=== PATIENT | female | born 1945 | race Caucasian/White ===

== ENCOUNTER 2019-05-29 15:50 | Inpatient (IN) | payer MEDICARE, OTHER, SELFPAY ==
[2019-05-29] VITALS (9 sets, daily range): BP systolic 102–128; BP diastolic 56–77; PULSE 68–108; RESP 21–36; TEMP 36.6; O2SAT 94–100; BMI 24.0
--- NOTE | 2019-05-29 15:52 | ED_ITS ---
Entered by Edwin Landrum, acting as scribe for HPI - SOB/Dyspnea General: Chief Complaint: Shortness of Breath/Dyspnea Stated Complaint: RESPIRATORY DISTRESS Time Seen by Provider: 05/29/19 16:04 History of Present Illness: HPI Narrative: 74 yo female presents with shortness of breath. Pt is able to talk in short phrases. Pt has a cough.Pt states that her shortness of breath started a few days ago. Pt has a hoarse voice. Pt states that she has been using her inhaler and nebulizer, she doesn't feel like this has helped. Pt states that she might have also a fever. MD elicited complaint: shortness of breath and cough Timing: constant Severity: severe Exacerbating factors: lying flat and exertion Relieving factors: nothing Associated symptoms: Reports fever(s); Deny abdominal pain, chest pain, dizziness, extremity pain, nausea, orthopnea, palpitations, polydipsia, polyuria, syncope or vomiting Treatment prior to arrival: oxygen and other (breathing treatments) Review of Systems Const: Reports: fever, chills and fatigue; Denies: body aches, malaise or night sweats Eyes: Denies: change in vision or blurry vision ENMT: Denies: throat pain, oral sores/lesions, dental pain, nasal discharge or nasal congestion Card: Denies: chest pain, palpitations, irregular heart rhythm, edema, syncope, shortness of breath on exertion, shortness of breath when lying down or leg pain with exertion Resp: Reports: shortness of breath, productive cough and wheezing; Denies: non-productive cough GI: Denies: abdominal pain, nausea, vomiting, vomiting blood, coffee grounds in vomit, difficulty swallowing, heartburn/indigestion, diarrhea, constipation, cramping, blood in stool or black tarry stool : Denies: flank pain, painful urination, urinary frequency, urinary urgency, urinary incontinence or blood in urine Musc: Reports: back pain; Denies: neck pain, extremity pain, extremity swelling, joint pain or joint swelling Skin/Breast: Denies: rash, itching or redness Neuro: Denies: headache, numbness in extremities, weakness in extremities, changes in sensation, lack of coordination, difficulty walking, frequent falls, dizziness, vertigo or confusion Endo: Denies: excessive urination, excessive thirst, tired all the time or cold intolerance Yonatan/Lymph: Denies: easy bruising, easy bleeding, petechiae, enlarged lymph nodes or tender lymph nodes PFSH ED PFSH: Statuses (acute, chronic, etc) shown below reflect problem list status as previously entered and may not be historically accurate Medical History Cataract (Acute) COPD (chronic obstructive pulmonary disease) (Acute) Glaucoma (Acute) Hypertension (Acute) On home oxygen therapy (Acute) Surgical History History of appendectomy (Acute) Family History Mother Arrhythmia Father CAD (coronary artery disease) Social History Smoking and tobacco status: former smoker Alcohol intake: never Substance/Drug Use: never Physical Exam Const: COMMON NORMALS: oriented x3 and alert GENERAL APPEARANCE: cooperative and in distress NUTRITIONAL APPEARANCE: cachectic ORIENTA TION/CONSCIOUSNESS: Yes awake, Yes oriented to person and Yes oriented to place HENMT: COMMON NORMALS: normocephalic, head/scalp atraumatic, EAC's normal, TM's normal bilaterally, external nose normal, moist oral mucous membranes and oropharynx normal HEAD & SCALP: normocephalic and atraumatic NOSE: external nose normal EXTERNAL AUDITORY CANAL: EAC's normal TYMPANIC MEMBRANE: TM's normal bilaterally MOUTH: oral and palatal mucosa normal, lip normal and tongue normal THROAT: posterior oropharynx normal and tonsils normal Eye: COMMON NORMALS: PERRL, EOMs intact bilaterally, conjunctivae normal and no scleral icterus CONJUNCTIVA: Yes conjunctivae normal PUPIL: Yes PERRL Neck/C-Spine: COMMON NORMALS: full ROM, no lymphadenopathy, supple, no meningeal signs and thyroid normal THYROID: thyroid normal and asymmetrical Lymph: LYMPHATIC: no lymphadenopathy noted Resp: COMMON NORMALS: no retractions; negative for normal respiratory effort and negative for no use of accessory muscles EFFORT & INSPECTION: No able to speak in complete sentences, Yes tachypneic, Yes respiratory distress, Yes labored and Yes audible wheezes AUSCULTATION: rhonchi throughout, wheezes throughout and diminished lung sounds Cardio: COMMON NORMALS: regular rate and regular rhythm RATE: regular rate RHYTHM: regular rhythm HEART SOUNDS: no murmurs GI: COMMON NORMALS: normal to inspection, nondistended, normoactive bowel sounds, soft to palpation and no hepatosplenomegaly PALPATION: Yes soft and Yes no hepatosplenomegaly : COMMON NORMALS: Yes no CVA tenderness BLADDER/KIDNEY EXAM: Yes no CVA tenderness Back/Pelvis: COMMON NORMALS: no CVA tenderness LUMBAR SPINE/LOWER BACK: Yes normal to inspection Extremity: COMMON NORMALS: no clubbing, cyanosis or edema, no calf tenderness and no pedal edema Neuro: COMMON NORMALS: oriented x3 SENSORIUM/ORIENTATION: Yes alert, Yes oriented to person and Yes oriented to place MENINGEAL SIGNS: Yes no meningeal signs Skin: COMMON NORMALS: no rashes or lesions noted and skin turgor normal GENERAL SKIN EXAM: no rashes or lesions noted and turgor normal Course ED course: Patient is improved slightly with BiPAP. White count 15.9 appears to have faint lower lobe infiltrates. We will go ahead and admit started on IV antibiotics in the emergency room blood cultures sputum cultures obtained discussed with hospitalist they concur. Vital Signs: Vital signs: Vital Signs Temperature 97.5 F L 05/30/19 11:34 Pulse Rate 93 05/30/19 11:34 Respiratory Rate 20 H 05/30/19 11:34 Blood Pressure 106/64 05/30/19 11:34 Pulse Oximetry 95 05/30/19 11:34 MDM - SOB/Dyspnea Lab Data: Labs: Lab Results 05/29/19 05/29/19 05/29/19 Range/Units 15:28 15:28 15:28 WBC 22.9 H (4.0-10.0) 10^3/ uL RBC 3.47 L (4.1-5.3) 10^6/u L Hgb 14.1 (11.5-15.3) g/dL Hct 34.9 L (37.0-47.0) % MCV 100.6 H (81-99) fL MCH 40.6 H (28.0-34.0) pg MCHC 40.4 H (30.0-36.0) g/dL RDW 15.0 (12.1-15.1) % Plt Count 446 H (130-400) 10^3/c mm MPV 9.9 (7.4-10.4) fL Neut % (Auto) 82.8 % Lymph % (Auto) 8.5 % [place] % (Auto) 7.6 % Eos % (Auto) 0.2 % Baso % (Auto) 0.2 % Neut # (Auto) 19.0 H (1.8-7.7) 10^3/u L Lymph # (Auto) 1.9 (0.8-4.8) 10^3/u L [place] # (Auto) 1.7 H (0.2-0.9) 10^3/u L Eos # (Auto) 0.1 (0.0-0.8) 10^3/u L Baso # (Auto) 0.1 (0.0-0.1) 10^3/u L Nucleated RBC % (a uto) 0 % Nucleated RBCs # 0.0 /100WBC D-Dimer (0-0.59) ug/mIFE U Specimen Type Sample Site ABG pH (7.35-7.45) ABG pCO2 (35-45) mmHg ABG pO2 (80.0-100.0) mmH g ABG HCO3 (22-26) mmol/L ABG Base Excess (-2.0-2.0) mmol/ L Sven Test Hematocrit (37-47) % Hgb O2 Saturation (95-100) % Ionized Calcium (1.1-1.4) mmol/L FiO2 % Animal Physiology Teacher ID Sodium 131 L (136-145) mmol/L Potassium 3.2 L (3.5-5.1) mmol/L Chloride 87 L (98-107) mmol/L Carbon Dioxide 23 (22-29) mmol/L Anion Gap 24.2 H (5-19) BUN 21 (8-23) mg/dL Creatinine 1.3 H (0.5-0.9) mg/dL Glucose 133 H (74-106) mg/dL Lactic Acid (0.5-2.2) mmol/L Calcium 10.1 (8.8-10.2) mg/Dl Total Bilirubin 1.2 (0.15-1.2) mg/dL AST 21 (0-32) U/L ALT 11 (0-33) U/L Alkaline Phosphata se 125 H (35-105) IU/L Troponin T Baselin e 33 H (0-10) ng/mL Troponin T 120 Min [place] (0-10) ng/mL Delta Troponin T (0-10) ABS# Total Protein 8.1 (6.6-8.7) g/dL Albumin 4.0 (3.5-5.2) g/dL Globulin 4.1 (1.3-4.6) g/dL Procalcitonin (0-0.8) ng/mL 05/29/19 05/29/19 05/29/19 Range/Units 15:28 16:04 17:25 WBC (4.0-10.0) 10^3/ uL RBC (4.1-5.3) 10^6/u L Hgb (11.5-15.3) g/dL Hct (37.0-47.0) % MCV (81-99) fL MCH (28.0-34.0) pg MCHC (30.0-36.0) g/dL RDW (12.1-15.1) % Plt Count (130-400) 10^3/c mm MPV (7.4-10.4) fL Neut % (Auto) % Lymph % (Auto) % [place] % (Auto) % Eos % (Auto) % Baso % (Auto) % Neut # (Auto) (1.8-7.7) 10^3/u L Lymph # (Auto) (0.8-4.8) 10^3/u L [place] # (Auto) (0.2-0.9) 10^3/u L Eos # (Auto) (0.0-0.8) 10^3/u L Baso # (Auto) (0.0-0.1) 10^3/u L Nucleated RBC % (a uto) % Nucleated RBCs # /100WBC D-Dimer 2.14 H (0-0.59) ug/mIFE U Specimen Type Arterial Sample Site Radial, left ABG pH 7.43 (7.35-7.45) ABG pCO2 36.7 (35-45) mmHg ABG pO2 64.4 L (80.0-100.0) mmH g ABG HCO3 24.2 (22-26) mmol/L ABG Base Excess 0.1 (-2.0-2.0) mmol/ L Sven Test Pos Hematocrit 41.4 (37-47) % Hgb O2 Saturation 91.9 L (95-100) % Ionized Calcium 1.2 (1.1-1.4) mmol/L FiO2 21.0 % Animal Physiology Teacher ID ed Sodium 134.0 (136-145) mmol/L Potassium 3.2 L (3.5-5.1) mmol/L Chloride (98-107) mmol/L Carbon Dioxide (22-29) mmol/L Anion Gap (5-19) BUN (8-23) mg/dL Creatinine (0.5-0.9) mg/dL Glucose 108.0 (74-106) mg/dL Lactic Acid (0.5-2.2) mmol/L Calcium (8.8-10.2) mg/Dl Total Bilirubin (0.15-1.2) mg/dL AST (0-32) U/L ALT (0-33) U/L Alkaline Phosphata se (35-105) IU/L Troponin T Baselin e (0-10) ng/mL Troponin T 120 Min [place] 27.05 H (0-10) ng/mL Delta Troponin T -5.95 L (0-10) ABS# Total Protein (6.6-8.7) g/dL Albumin (3.5-5.2) g/dL Globulin (1.3-4.6) g/dL Procalcitonin (0-0.8) ng/mL 05/29/19 05/29/19 Range/Units 17:25 17:45 WBC (4.0-10.0) 10^3/ uL RBC (4.1-5.3) 10^6/u L Hgb (11.5-15.3) g/dL Hct (37.0-47.0) % MCV (81-99) fL MCH (28.0-34.0) pg MCHC (30.0-36.0) g/dL RDW (12.1-15.1) % Plt Count (130-400) 10^3/c mm MPV (7.4-10.4) fL Neut % (Auto) % Lymph % (Auto) % [place] % (Auto) % Eos % (Auto) % Baso % (Auto) % Neut # (Auto) (1.8-7.7) 10^3/u L Lymph # (Auto) (0.8-4.8) 10^3/u L [place] # (Auto) (0.2-0.9) 10^3/u L Eos # (Auto) (0.0-0.8) 10^3/u L Baso # (Auto) (0.0-0.1) 10^3/u L Nucleated RBC % (a uto) % Nucleated RBCs # /100WBC D-Dimer (0-0.59) ug/mIFE U Specimen Type Sample Site ABG pH (7.35-7.45) ABG pCO2 (35-45) mmHg ABG pO2 (80.0-100.0) mmH g ABG HCO3 (22-26) mmol/L ABG Base Excess (-2.0-2.0) mmol/ L Sven Test Hematocrit (37-47) % Hgb O2 Saturation (95-100) % Ionized Calcium (1.1-1.4) mmol/L FiO2 % Animal Physiology Teacher ID Sodium (136-145) mmol/L Potassium (3.5-5.1) mmol/L Chloride (98-107) mmol/L Carbon Dioxide (22-29) mmol/L Anion Gap (5-19) BUN (8-23) mg/dL Creatinine (0.5-0.9) mg/dL Glucose (74-106) mg/dL Lactic Acid 1.7 (0.5-2.2) mmol/L Calcium (8.8-10.2) mg/Dl Total Bilirubin (0.15-1.2) mg/dL AST (0-32) U/L ALT (0-33) U/L Alkaline Phosphata se (35-105) IU/L Troponin T Baselin e (0-10) ng/mL Troponin T 120 Min [place] (0-10) ng/mL Delta Troponin T (0-10) ABS# Total Protein (6.6-8.7) g/dL Albumin (3.5-5.2) g/dL Globulin (1.3-4.6) g/dL Procalcitonin 0.57 (0-0.8) ng/mL Imaging Data^: CXR: Radiologist's impression: Portable AP upright chest, 05/29/2019 Clinical Data: dyspnea Comparison: Portable chest, 10/24/2017. Findings: No nodules, masses or effusions are seen. The heart is normal. The pulmonary vascularity is not increased. No pneumonia or pneumothorax is seen. The diaphragms are flattened. The aortic arch and descending aorta show mild tortuosity. There is minimal atelectasis at the right costophrenic angle. There are monitor leads on the upper abdominal wall. XR/XR chest 1V portable [id number] Impression: 1. Hyperinflation and atherosclerosis. 2. Minimal atelectasis at right costophrenic angle. Dictated By:Janeth Henriquez MD Discharge Plan Discharge Patient Disposition: Admitted As Inpatient Admit Provider: Esau Stockton Clinical Impression: COPD (chronic obstructive pulmonary disease), Community acquired pneumonia Condition: Stable Interventions: ED Discharge Assessment Last Done: 05/29/19 22:49 Discharge Date/Time: 05/29/19 23:17 Coding Level of Care Code ED Muleser for Chg Fwd Exam Problem Focused The documentation recorded by the Diallo whelan Kialy, accurately reflects the service I personally performed and the decisions made by Elver singletary Curtis L, DO May 29, 2019 15:50
--- NOTE | 2019-05-29 16:06 | ECG_ITS ---
Measurements Intervals [place] Rate: 103 P: 79 [place]: 144 QRS: 44 QRSD: 120 T: 95 QT: 346 QTc: 455 SINUS TACHYCARDIA POSSIBLE RIGHT ATRIAL ENLARGEMENT [0.25mV P WAVE] MODERATE INTRAVENTRICULAR CONDUCTION DELAY [110+ ms QRS DURATION] ST DEVIATION AND MODERATE T-WAVE ABNORMALITY, CONSIDER LATERAL ISCHEMIA [-0.1+ mV T WAVE IN I/aVL/V5/V6] Compared to ECG 10/24/2017 23:25:19 Possible ischemia now present Sinus rhythm no longer present T-wave abnormality still present Electronically Signed On 05-29-2019 17:49:32 PORTFOLIO STRATEGIST by Padmini Moffett M.D. [id number]
[2019-05-29] MEDS: sodium chloride 0.9% 500 ML 999 ML IV (16:13)
[2019-05-29 16:15] LABS: ABG PCO2 36.7 mmHg (35-45); ABG PH Result 7.43 (7.35-7.45); Arterial Blood Gas Hematocrit 41.4 % (37-47); Base Excess ABG 0.1 mmol/L (-2.0-2.0); Blood Gas Allen Test Pos; Blood Gas Sample Site Radial, left; Blood Gas Sample Type Arterial; HCO3 ABG 24.2 mmol/L (22-26); HGB O2 Sat 91.9 % (95-100); Ionized Calcium Level - ABG 1.2 mmol/L (1.1-1.4); PO2 ABG 64.4 mmHg (80.0-100.0); Potassium Level - ABG 3.2 mmol/L (3.5-5.0)
--- NOTE | 2019-05-29 16:19 | PC.RESP ---
bipap ID [id number]
[2019-05-29 16:22] LABS: Basophils # 0.1 10^3/uL (0.0-0.1); Basophils % 0.2 %; Eosinophils # 0.1 10^3/uL (0.0-0.8); Eosinophils % 0.2 %; Hematocrit 34.9 % (37.0-47.0); Hemoglobin 14.1 g/dL (11.5-15.3); Lymphocytes # 1.9 10^3/uL (0.8-4.8); Lymphocytes % 8.5 %; Mean Corpuscular HGB Conc 40.4 g/dL (30.0-36.0); Mean Corpuscular Hemoglobin 40.6 pg (28.0-34.0); Mean Corpuscular Volume 100.6 fL (81-99); Mean Platelet Volume 9.9 fL (7.4-10.4); Monocytes # 1.7 10^3/uL (0.2-0.9); Monocytes % 7.6 %; Neutrophils % 82.8 %; Nucleated Red Blood Cells % 0 %; Platelet Count 446 10^3/cmm (130-400); Red Blood Count 3.47 10^6/uL (4.1-5.3); White Blood Count 22.9 10^3/uL (4.0-10.0)
[2019-05-29 16:33] LABS: Alanine Aminotransferase 11 U/L (0-33); Alkaline Phosphatase 125 IU/L (35-105); Anion Gap 24.2 (5-19); Aspartate Amino Transferase 21 U/L (0-32); Blood Urea Nitrogen 21 mg/dL (8-23); Calcium 10.1 mg/Dl (8.8-10.2); Carbon Dioxide 23 mmol/L (22-29); Chloride 87 mmol/L (98-107); Globulin 4.1 g/dL (1.3-4.6); Glucose 133 mg/dL (74-106); Potassium 3.2 mmol/L (3.5-5.1); Sodium 131 mmol/L (136-145); Total Bilirubin 1.2 mg/dL (0.15-1.2); Total Protein 8.1 g/dL (6.6-8.7); Troponin(5th) Baseline 33 ng/mL (0-10)
--- NOTE | 2019-05-29 17:06 | XR_ITS ---
WS: [id number] Portable AP upright chest, 05/29/2019 Clinical Data: dyspnea Comparison: Portable chest, 10/24/2017. Findings: No nodules, masses or effusions are seen. The heart is normal. The pulmonary vascularity is not increased. No pneumonia or pneumothorax is seen. The diaphragms are flattened. The aortic arch a nd descending aorta show mild tortuosity. There is minimal atelectasis at the right costophrenic angl e. There are monitor leads on the upper abdominal wall. XR/XR chest 1V portable [id number] Impression: 1. Hyperinflation and atherosclerosis. 2. Minimal atelectasis at right costophrenic angle.
[2019-05-29 17:52] LABS: Troponin 5 2HR 27.05 ng/mL (0-10)
[2019-05-29 17:55] LABS: Troponin 5 2HR Delta -5.95 ABS# (0-10)
--- NOTE | 2019-05-29 18:06 | ECG_ITS ---
Measurements Intervals [place] Rate: 97 P: 83 [place]: 177 QRS: 50 QRSD: 120 T: 103 QT: 357 QTc: 454 SINUS RHYTHM ANTEROSEPTAL MYOCARDIAL INFARCTION , OF INDETERMINATE AGE [40+ ms Q WAVE IN V1-V4] Compared to ECG 05/29/2019 16:23:27 Myocardial infarct finding now present Sinus tachycardia no longer present Intraventricular conduction delay no longer present T-wave abnormality no longer present Possible ischemia no longer present Electronically Signed On 05-29-2019 20:45:30 DOUGH PUNCHER by Padmini Moffett M.D. [id number]
[2019-05-29 18:13] LABS: Lactic Sepsis W/Reflex 1.7 mmol/L (0.5-2.2)
[2019-05-29] MEDS: cefTRIAXone 1,000 MG in sodium chloride 0.9% (plus) 50 ML 100 MG IV (18:28)
[2019-05-29] MEDS: sodium chloride 0.9% 1,905.09 ML 1905.1 ML IV (18:30)
--- NOTE | 2019-05-29 18:38 | PC.RESP ---
BIPAP ON STAND BY. 5 LPM NC PLACED ON PT SATS 98%, HR 94. DR NOTIFIED
--- NOTE | 2019-05-29 20:48 | CTR_ITS ---
PROCEDURE INFORMATION: Exam: CT Chest Without Contrast Exam date and time: 05/29/2019 9:06 PM Age: 74 years old Clinical indication: Dyspnea; Additional info: Copd/pna TECHNIQUE: Imaging protocol: Computed tomography of the chest without contrast. Total DLP: 360.01 mGy-cm Radiation optimization: All CT scans at this facility use at least one of these dose optimization techniques: automated exposure control; mA and/or kV adjustment per patient size (includes targeted exams where dose is matched to clinical indication); or iterative reconstruction. COMPARISON: CT chest con [id number] 04/29/2015 2:20 PM FINDINGS: Lungs: Emphysema. Lower lobe bronchi are newly dilated and relatively thick-walled suspected to relate to infectious/inflammatory change. Associated tree-in-bud type infiltrates are noted suggesting infectious/inflammatory changes of distal bronchi. Ill-defined parenchymal opacities bilaterally may relate to infiltrates/atelectasis but nodularity would be difficult to exclude in this setting and short term CT follow-up in 3-4 months would be recommended. Calcified granuloma right lung. Pleural space: Unremarkable. No pneumothorax. No pleural effusion. Heart: Unremarkable. No cardiomegaly. No pericardial effusion. Aorta: Unremarkable. No aortic aneurysm. Lymph nodes: Calcified mediastinal and right pulmonary hilar lymph nodes. Borderline prominent right paraesophageal lymph node at thoracic inlet has slightly increased. Bones/joints: Unremarkable. No acute fracture. 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 CT/CT chest con [id number] IMPRESSION: Bilateral infectious/inflammatory changes involving bronchi. Background of emphysema noted. CT follow-up in 3-4 months recommended to exclude progression/increase in pulmonary parenchymal abnormalities. Radiation Dose CTDIVOL = (mGy): DLP = 360.01 (mGy-cm)
[2019-05-29 21:52] LABS: D Dimer 2.14 ug/mIFEU (0-0.59)
--- NOTE | 2019-05-29 22:06 | ECG_ITS ---
Measurements Intervals [place] Rate: 89 P: 78 [place]: 177 QRS: 47 QRSD: 120 T: 81 QT: 377 QTc: 460 SINUS RHYTHM ANTEROSEPTAL MYOCARDIAL INFARCTION , OF INDETERMINATE AGE [40+ ms Q WAVE IN V1-V4] Compared to ECG 05/29/2019 18:14:06 No significant changes Electronically Signed On 05-30-2019 19:22:48 FRONT DESK PERSON by Cynthia Rojas M.D. [id number]
--- NOTE | 2019-05-29 22:14 | PM.HP ---
Providers/Chief Complaint Admitting Physician: Esau Stockton MD Primary Care Provider: Misty Villaseñor MD Chief Complaint: RESPIRATORY DISTRESS History of Present Illness Melany Phan is a 74 year old female with PMH HTN, COPD on home 02 as needed (sp02 <90%), only on exertion outside the house presenting with worsening SOB over past one week. Associated with mild cough and expectoration. At present, SOB for last 2 days gets exacerbated on mild walking and talking. Sputum production non foul smelling, mucoid. She is also c/o hoarseness and change in voice x 2 days where she finds it difficult to speak. She denies any recent sick contacts. At baseline, she is able to walk with walker. In Er she was hypoxic to low 80s, not improving on 02, therefore started on Bipap. CXR was read as B/L LL PNA< therefore started on CTX and axithromycin along high dose steroids for COPD excerbation. When seen pt was on bedside commode, off bipap, on 4lpm NC severely tachypneic, but able to talk in full sentences. Review of Systems Const: Reports: fever and change in appetite; Denies: chills, body aches, malaise, night sweats, diaphoresis, change in sleep pattern, daytime sleepiness or snoring Eyes: Denies: change in vision, blurry vision, photophobia, eye discomfort or eye discharge ENMT: Reports: throat pain, hoarseness and mouth pain; Denies: enlarged tonsils, oral sores/lesions, dry mouth, tinnitus, nasal congestion or post nasal drip Card: Reports: palpitations; Denies: chest pain, irregular heart rhythm, edema, swelling of feet/ankles, lightheadedness, syncope, pre-syncope, shortness of breath on exertion, shortness of breath when lying down, leg pain with exertion or bluish discoloration of hands/feet Resp: Reports: shortness of breath, productive cough, pain on inspiration and change in phlegm color; Denies: non-productive cough, wheezing, stridor, coughing up blood or chest congestion GI: Denies: abdominal pain, nausea, vomiting, vomiting blood, coffee grounds in vomit, difficulty swallowing, heartburn/indigestion, diarrhea, constipation, bloating, cramping, change in bowel habits, painful bowel movements, blood in stool or black tarry stool : Denies: flank pain, painful urination, urinary frequency, urinary urgency, urinary hesitancy, nighttime urination or blood in urine Musc: Denies: neck pain, back pain, extremity pain, joint pain, joint swelling, redness, joint stiffness or limited range of motion Neuro: Denies: headache, numbness in extremities, weakness in extremities, changes in sensation, lack of coordination, difficulty walking, frequent falls, dizziness, vertigo, confusion, slurred speech, difficulty communicating thoughts or seizure-like activity Psych: Denies: anxiety, depression, mood swings, panic attacks, hopelessness or irritability Endo: Denies: excessive urination, excessive thirst, tired all the time, cold intolerance, excessive sweating, flushing or heat intolerance Yonatan/Lymph: Denies: easy bruising or easy bleeding All/Imm: Denies: tongue swelling, facial swelling or acute wheezing Medications/Allergies Allergies Allergy/AdvReac Type Severity Reaction Status Date / Time codeine Allergy Unknown Verified 05/29/19 16:03 Penicillins Allergy Unknown Verified 05/29/19 15:59 Sulfa (Sulfonamide Allergy Unknown Verified 05/29/19 15:59 Antibiotics) PFSH Acute PFSH: Statuses (acute, chronic, etc) shown below reflect problem list status as previously entered and may not be historically accurate Medical History Cataract (Acute) COPD (chronic obstructive pulmonary disease) (Acute) Glaucoma (Acute) Hypertension (Acute) On home oxygen therapy (Acute) Surgical History History of appendectomy (Acute) Family History Mother Arrhythmia Father CAD (coronary artery disease) Social History Smoking and tobacco status: former smoker Alcohol intake: never Substance/Drug Use: never Vitals/I&O/Wt Last Vital Signs Temp 97.8 F 05/29/19 15:52 Pulse 90 05/29/19 21:08 Resp 25 H 05/29/19 21:08 BP 126/75 05/29/19 21:08 Pulse Ox 100 05/29/19 21:08 05/29/19 05/29/19 05/29/19 06:59 14:59 22:59 Intake Total 2455.09 / 2455.09 Balance 2455.09 / 2455.09 Weight last 48 hrs Weight 63.503 kg Physical Exam Narrative: EXAM NARRATIVE: General: No acute distress, AO x3, dehydrated HEENT: PERRLA, pupils bilaterally equal and reactive, oral cavity dry, parched, Oropharynx: erythema present,No bleeding or coating Chest: Bronchial breath sounds in all lung scott, Increased rales and coarse crepts b/l lower zones,equal good air entry bilaterally CVS: S1-S2 regular, no murmurs, no tachycardia, no gallops, no rubs Abdomen: Soft, nontender, no organomegaly, bowel sounds present Neuro: No focal deficits, no facial deformity, AO x3, power 5/5 in all limbs Data Micro: Micro: Microbiology 05/29/19 16:16 Blood Culture - Pr eliminary Blood SPECIMEN COLLEC KAITY 05/29/19 16:12 Blood Culture - Pr eliminary Blood SPECIMEN COLLE KAITY Other Data: Attestation for Other Data: I personally reviewed and interpreted the following: Other data: NO infiltrates to suggest pneumonia A&P Assessment and plan (1) Acute exacerbation of chronic obstructive pulmonary disease (COPD): Status: Acute Code(s): J44.1 - Chronic obstructive pulmonary disease with (acute) exacerbation (2) Sepsis with acute hypoxic respiratory failure: Status: Acute Qualifiers: Sepsis type: sepsis due to unspecified organism Severe sepsis shock status: without septic shock Qualified Code(s): A41.9 - Sepsis, unspecified organism; R65.20 - Severe sepsis without septic shock; J96.01 - Acute respiratory failure with hypoxia Code(s): A41.9 - Sepsis, unspecified organism; R65.20 - Severe sepsis without septic shock; J96.01 - Acute respiratory failure with hypoxia (3) Hypertension: Status: Acute Code(s): I10 - Essential (primary) hypertension (4) RUPAL (acute kidney injury): Status: Acute Code(s): N17.9 - Acute kidney failure, unspecified Additional A&P Information Additional A&P Information: Acute hypoxic resp failure: Most likely 2/2 COPD exacerbation due to viral vs bacterial bronchitis, though pneumonia cannot be ruled out in view of leukocytosis. Check gram stain, flu swab, MRSA swab, procal, d dimer, bacterial antigen panel . Last d dimer in 2017 >5000. Given stress dose steroid in ER. continue with 60 q6h round the clock duonebs + budesonide BID continuous Bipap titrating to 02 sat >90% Flonase to ease bronchitis Sepsis: Meets criteria with leukocytosis and tachypnea. Start CTX and azithromycin UA, urine cx to r/o other etiologies CT without contrast now, to be followed with CTA PE if cr improves, else V/Q scan. LE doppler RUPAL: Baseline cr 1.1, elevated 2/2 sepsis. Will hold home dose of HCTZ. IVF @100cc/hr, monitor BMP daily HTN: continue atenolol at lower dose to avoid rebound tachycardia. Discussed code status with patient- wants to be FC for now, but wants to discuss again at a later date re: intubation Attestations Medical Necessity Statement*: needs admission for more than 2 midnights for acute hypoxic resp failure Coding Level of Care Code Acute Associate Trainer for [facility] Fwd Diagnoses Acute exacerbation of chronic obstructive pulmonary disease (COPD) J44.1 Sepsis with acute hypoxic respiratory failure A41.9; R65.20; J96.01 Sepsis type: sepsis due to unspecified organism Severe sepsis shock status: without septic shock Hypertension I10 RUPAL (acute kidney injury) N17.9
[2019-05-29 22:55] LABS: Troponin 5 6HR 23.66 ng/L (0-10)
[2019-05-29 23:11] LABS: Troponin 5 6HR Delta -9.34 ng/L (0-12)
[2019-05-30] VITALS (14 sets, daily range): BP systolic 95–116; BP diastolic 55–69; PULSE 80–98; RESP 16–22; TEMP 36.4–36.7; O2SAT 95–100
[2019-05-30] MEDS: ipratropium-albuterol 3 mL Neb INHALATION ×4 (00:29→19:46)
--- NOTE | 2019-05-30 00:31 | PC.RESP ---
pt is on 3 lpm nasal cannula with a spo2 of 98%/pt stated she needed a break from bipap/bipap on standby
[2019-05-30] MEDS: sodium chloride 0.9% 1,000 ML 100 ML IV ×3 (01:08→17:48)
[2019-05-30] MEDS: enoxaparin 40 mg/0.4 mL Syringe SUBCUT (01:09)
--- NOTE | 2019-05-30 03:15 | PC.RESP ---
pt is on 3 lpm with a spo2 of 99%/decreased to 2 lpm/pt seems to be resting comfortable at this time/bipap on standby
[2019-05-30] MEDS: budesonide 0.5 mg/2 mL Neb INHALATION ×2 (08:31→19:47)
[2019-05-30 08:46] LABS: Procalcitonin 0.57 ng/mL (0-0.8)
[2019-05-30 11:25] LABS: Alanine Aminotransferase 12 U/L (0-33); Albumin Level 3.2 g/dL (3.5-5.2); Alkaline Phosphatase 99 IU/L (35-105); Aspartate Amino Transferase 33 U/L (0-32); Blood Urea Nitrogen 26 mg/dL (8-23); Calcium 9.1 mg/Dl (8.8-10.2); Carbon Dioxide 24 mmol/L (22-29); Chloride 93 mmol/L (98-107); Globulin 3.5 g/dL (1.3-4.6); Glucose 117 mg/dL (74-106); Sodium 132 mmol/L (136-145); Total Bilirubin 0.3 mg/dL (0.15-1.2); Total Protein 6.7 g/dL (6.6-8.7)
[2019-05-30 11:27] LABS: Basophils % 0.1 %; Hematocrit 30.3 % (37.0-47.0); Hemoglobin 11.2 g/dL (11.5-15.3); Lymphocytes # 0.9 10^3/uL (0.8-4.8); Lymphocytes % 5.8 %; Mean Corpuscular Hemoglobin 35.2 pg (28.0-34.0); Mean Corpuscular Volume 95.3 fL (81-99); Mean Platelet Volume 9.4 fL (7.4-10.4); Monocytes # 0.4 10^3/uL (0.2-0.9); Monocytes % 2.6 %; Neutrophils # 14.5 10^3/uL (1.8-7.7); Neutrophils % 91.1 %; Nucleated Red Blood Cells % 0 %; Platelet Count 393 10^3/cmm (130-400); Red Blood Count 3.18 10^6/uL (4.1-5.3); Red Cell Distribution Width 14.1 % (12.1-15.1); White Blood Count 15.9 10^3/uL (4.0-10.0)
--- NOTE | 2019-05-30 15:00 | PC.RESP ---
BIPAP ID [id number] on standby at bedside.
[2019-05-30] MEDS: azithromycin 500 MG in sodium chloride 0.9% 250 ML 250 MG IV (17:48)
[2019-05-30] MEDS: cefTRIAXone 1,000 MG in sodium chloride 0.9% (plus) 50 ML 100 MG IV (17:48)
--- NOTE | 2019-05-30 18:20 | P.PN_ITS ---
Subjective Subjective: Interval history: Leukocytosis improving to 15.9 today. Patient continues to be severely dyspneic even at rest. VQ scan was indeterminate for PE. Lower extremity Doppler was negative for DVT. Patient is currently afebrile. Medications: Reviewed: Yes Vitals/I&O/Wt Last Vital Signs Temp 98.1 F 05/30/19 15:59 Pulse 88 05/30/19 15:59 Resp 18 05/30/19 15:59 BP 116/57 05/30/19 15:59 Pulse Ox 98 05/30/19 15:59 05/30/19 05/30/19 05/30/19 06:59 14:59 22:59 Intake Total 1206.667 / 1206.667 910 / 2116.667 Balance 1206.667 / 1206.667 910 / 2116.667 Weight last 48 hrs Weight 63.503 kg Physical Exam Narrative: EXAM NARRATIVE: General awake and alert walking to the bathroom, noted to be severely tachypneic however she states that this is pretty much baseline Respiratory system bilateral coarse wheezing CVS S1-S2 is normal No lower extremity cyanosis or clubbing or edema Data Micro: Micro: Microbiology 05/29/19 16:16 Blood Culture - Pr eliminary Blood NEGATIVE TO SAL E 05/29/19 16:12 Blood Culture - Pr eliminary Blood NEGATIVE TO SAL E 05/30/19 00:55 MRSA Culture - Fin al Nose A&P Assessment and plan (1) Acute exacerbation of chronic obstructive pulmonary disease (COPD): Status: Acute Code(s): J44.1 - Chronic obstructive pulmonary disease with (acute) exacerbation (2) Sepsis with acute hypoxic respiratory failure: Status: Acute Qualifiers: Sepsis type: sepsis due to unspecified organism Severe sepsis shock status: without septic shock Qualified Code(s): A41.9 - Sepsis, unspecified organism; R65.20 - Severe sepsis without septic shock; J96.01 - Acute respiratory failure with hypoxia Code(s): A41.9 - Sepsis, unspecified organism; R65.20 - Severe sepsis without septic shock; J96.01 - Acute respiratory failure with hypoxia (3) Hypertension: Status: Acute Code(s): I10 - Essential (primary) hypertension (4) RUPAL (acute kidney injury): Status: Acute Code(s): N17.9 - Acute kidney failure, unspecified Additional A&P Information Additional A&P Information: Acute hypoxic resp failure: Most likely 2/2 COPD exacerbation due to viral vs bacterial bronchitis, though pneumonia cannot be ruled out in view of leukocytosis. Will follow pending Gram stain, flu swab, MRSA swab, procal, d dimer, bacterial antigen panel . Last d dimer in 2017 >5000. Given stress dose steroid in ER. continue with 60 q6h round the clock duonebs + budesonide BID continuous Bipap titrating to 02 sat >90% Flonase to ease bronchitis Sepsis: Meets criteria with leukocytosis and tachypnea. Continue CTX and azithromycin UA, urine cx to r/o other etiologies CT without contrast now, to be followed with CTA PE if cr improves VQ scan unfortunately indeterminate in view of severe emphysema lower extremity Doppler negative RUPAL: Baseline cr 1.1, elevated 2/2 sepsis. Will hold home dose of HCTZ. IVF @100cc/hr, monitor BMP daily HTN: continue atenolol at lower dose to avoid rebound tachycardia. Discussed code status with patient- wants to be FC for now, but wants to discuss again at a later date re: intubation Attestations Medical Necessity Statement*: Admitted for the management of pneumonia and acute on chronic COPD exacerbation, awaiting optimization of respiratory status. Coding Level of Care Code Acute 411 Directory Assistance Operator for Aaliyah Harper Diagnoses Acute exacerbation of chronic obstructive pulmonary disease (COPD) J44.1 Sepsis with acute hypoxic respiratory failure A41.9; R65.20; J96.01 Sepsis type: sepsis due to unspecified organism Severe sepsis shock status: without septic shock Hypertension I10 RUPAL (acute kidney injury) N17.9
--- NOTE | 2019-05-30 20:00 | PC.RESP ---
pt does not want to wear bipap unless she is in distress/bipap on standby/encouraged pt to call if needed
[2019-05-30 23:19] LABS: Influenza A by IFA Negative (Negative); Influenza B by IFA Negative (Negative)
--- NOTE | 2019-05-30 23:51 | NM_ITS ---
WS: [id number] NUCLEAR MEDICINE VENTILATION/PERFUSION LUNG SCAN HISTORY: Rule out pulmonary embolism. COMPARISON: Chest radiograph 05/29/2019 TECHNIQUE: Ventilation: 31.5 mCi of Technetium 99 DTPA aerosol inhaled. Perfusion: 5.3 mCi of technetium 99m MAA IV. Markedly abnormal ventilatory portion of the examination. Numerous scattered radionuclide depositions throughout both lungs, greatest throughout the LEFT lung. More central deposition involving the RIGH T lung. Perfusion portion is much better but still demonstrates central deposition and heterogeneity. Numerous matched defects. Majority of these findings are due to patient's chronic lung disease such as emphysema. NM/NM pul vent and perfus* [id number] IMPRESSION: Indeterminate for PE. Study is made indeterminate due to the severe emphysema w ith deposition of the radionuclide centrally.
--- NOTE | 2019-05-30 23:51 | USCV_ITS ---
Melany Phan Age: 74 Gender: F : 1945 Exam Date: 05/30/2019 06:08 Ordering Phys: Esau Stockton MD Technologist: Kristian Aggarwal Exam Location: [facility] [place]_ Indication: R/O DVT PROCEDURES: Venous duplex imaging was performed in bilateral lower extremities. The following venous structures were evaluated: common femoral vein, profunda vein, proximal portion of the greater saphenous vein, superficial femoral vein, and the popliteal vein. In addition, the posterior tibial and peroneal trunk were evaluated. Serial compression, augmentation maneuvers, and spectral Doppler flow evaluation were performed. FINDINGS: Normal 2-D Doppler and augmentation and compressibility throughout the lower extremity venous structures. Additional imaging through the proximal calf veins also reveals no thrombus. Limited evaluation of the greater saphenous vein is patent with no thrombus.. CONCLUSIONS Negative bilateral venous ultrasound of the lower extremities. Dr. Janeth Henriquez MD (Electronically Signed) Final Date: 30 May 2019 09:03 S
[2019-05-31] VITALS (13 sets, daily range): BP systolic 106–120; BP diastolic 55–65; PULSE 72–97; RESP 18–20; TEMP 36.4–36.9; O2SAT 93–100
[2019-05-31] MEDS: enoxaparin 40 mg/0.4 mL Syringe SUBCUT (00:17)
[2019-05-31] MEDS: ipratropium-albuterol 3 mL Neb INHALATION ×3 (01:28→20:44)
[2019-05-31] MEDS: sodium chloride 0.9% 1,000 ML 100 ML IV (06:21)
[2019-05-31 09:34] LABS: Oxygen Device ROOM AIR; Oxygen Saturation ABG 92.8
[2019-05-31 09:35] LABS: Carboxyhemoglobin 0.7 %THgb (0.4-20.1); Methemoglobin 0.3 % (0.4-1.5); Total Hemoglobin 13.5 g/dL (12-16)
--- NOTE | 2019-05-31 13:32 | PC.RESP ---
Patient given information for Pulmonary Rehab.
[2019-05-31 13:50] LABS: Alanine Aminotransferase 18 U/L (0-33); Albumin Level 2.8 g/dL (3.5-5.2); Alkaline Phosphatase 100 IU/L (35-105); Anion Gap 13.8 (5-19); Aspartate Amino Transferase 33 U/L (0-32); Blood Urea Nitrogen 17 mg/dL (8-23); Carbon Dioxide 23 mmol/L (22-29); Chloride 100 mmol/L (98-107); Globulin 3.3 g/dL (1.3-4.6); Glucose 212 mg/dL (74-106); Sodium 134 mmol/L (136-145); Total Bilirubin 0.2 mg/dL (0.15-1.2); Total Protein 6.1 g/dL (6.6-8.7)
[2019-05-31] MEDS: guaiFENesin 100 mg/5 mL UDC 10 mL 200 MG PO (13:52)
[2019-05-31 13:58] LABS: Potassium 2.8 mmol/L (3.5-5.1)
--- NOTE | 2019-05-31 14:37 | PC.CHAP ---
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 geographic information system surveyor visit [] Patient/Family/Request visit [] Outpatient visit [] Follow-up visit [] Physician referral [] Code/Alert x] Routine visit [] Staff referral [] Actively dying [] Patient sleeping [] Family support [] [] Out of room [] Palliative care [] [] Receiving care in room [] Pre-surgical visit [] Trauma [] Long length of stay [] ICU visit [] Other: Relational/Emotional Strength [] Patient feels connected with others/family/visitors/staff [] Distress [] Loneliness/isolation [] Abandonment Spirituality of Patient [] Person of Navya [] Attends Shinto of their Navya [] Believes in Prayer [] Reads Bible or Christian materials [] There are Spiritual issues to be addressed Floor Sweeper Interventions [] Prayer [] Active listening [] Non-anxious presence [] Spiritual/emotional support [] Crisis/trauma care [] Spiritual counseling [] Bereavement support [] Provided bereavement packet [] Provided Bible/devotional materials [] Provided toy/stuffed animal, coloring book to patient or family member [] Completed spiritual assessment [] Provided Communion [] Anointing/[place] [] Salvation [] Other: Impact on Illness or Injury [] Angry [] Fearful [] Anxious [] Often cries [] Exhaustion [] Unable to work [] Unable to attend oriental orthodox [] Unable to walk/stand [] Unable to read [] Unable to drive [] Unable to eat/drink [] Unable to sleep [] Unable to be with family [] Other: Summary declined pray no mood for visit olga jeffries Time spent with patient
[2019-05-31 15:28] LABS: Basophils % 0.2 %; Hematocrit 31.3 % (37.0-47.0); Hemoglobin 10.3 g/dL (11.5-15.3); Lymphocytes # 0.7 10^3/uL (0.8-4.8); Lymphocytes % 3.7 %; Mean Corpuscular Hemoglobin 31.3 pg (28.0-34.0); Mean Corpuscular Volume 95.1 fL (81-99); Mean Platelet Volume 10.9 fL (7.4-10.4); Monocytes # 0.5 10^3/uL (0.2-0.9); Monocytes % 2.7 %; Neutrophils # 18.5 10^3/uL (1.8-7.7); Neutrophils % 92.8 %; Nucleated Red Blood Cells % 0 %; Platelet Count 233 10^3/cmm (130-400); Red Blood Count 3.29 10^6/uL (4.1-5.3); Red Cell Distribution Width 13.2 % (12.1-15.1); White Blood Count 19.9 10^3/uL (4.0-10.0)
[2019-05-31 15:30] LABS: Mean Corpuscular HGB Conc 32.9 g/dL (30.0-36.0)
[2019-05-31] MEDS: cefTRIAXone 1,000 MG in sodium chloride 0.9% (plus) 50 ML 100 MG IV (16:58)
--- NOTE | 2019-05-31 17:40 | P.PN_ITS ---
Subjective Subjective: Interval history: Leukocytosis improving to 19 .9 today. Patient continues to be dyspneic however improved since yesterday. She feels she is still not back at her baseline. Renal function is now improving we will attempt to get a CTA chest to look for PE. Lower extremity Doppler was negative for DVT. Patient is currently afebrile. Hemodynamically stable. Medications: Reviewed: Yes Vitals/I&O/Wt Last Vital Signs Temp 98.1 F 05/31/19 15:36 Pulse 86 05/31/19 15:36 Resp 18 05/31/19 15:36 BP 109/55 05/31/19 15:36 Pulse Ox 96 05/31/19 15:36 05/31/19 05/31/19 05/31/19 06:59 14:59 22:59 Intake Total 696.666 / 3446.667 480 / 480 1000 / 1480 Balance 696.666 / 3046.667 480 / 480 1000 / 1480 Weight last 48 hrs Weight 59.421 kg Weight 58.287 kg Physical Exam Narrative: EXAM NARRATIVE: General awake and alert sitting in bed eating lunch in no acute distress Respiratory system clear to auscultation anteriorly. Reduced air entry bilaterally posterior surgery CVS S1-S2 is normal No lower extremity cyanosis or clubbing or edema Abdomen soft nontender nondistended Data 2 Micro: Micro: Microbiology 05/29/19 16:16 Blood Culture - Pr eliminary Blood NEGATIVE TO ASL E 05/29/19 16:12 Blood Culture - Pr eliminary Blood NEGATIVE TO SAL E 05/30/19 00:55 MRSA Culture - Fin al Nose A&P Assessment and plan (1) Acute exacerbation of chronic obstructive pulmonary disease (COPD): Status: Acute Code(s): J44.1 - Chronic obstructive pulmonary disease with (acute) exacerbation (2) Sepsis with acute hypoxic respiratory failure: Status: Acute Qualifiers: Sepsis type: sepsis due to unspecified organism Severe sepsis shock status: without septic shock Qualified Code(s): A41.9 - Sepsis, unspecified organism; R65.20 - Severe sepsis without septic shock; J96.01 - Acute respirat ory failure with hypoxia Code(s): A41.9 - Sepsis, unspecified organism; R65.20 - Severe sepsis without septic shock; J96.01 - Acute respiratory failure with hypoxia (3) Hypertension: Status: Acute Code(s): I10 - Essential (primary) hypertension (4) RUPAL (acute kidney injury): Status: Acute Code(s): N17.9 - Acute kidney failure, unspecified Additional A&P Information Additional A&P Information: Acute hypoxic resp failure: Most likely 2/2 COPD exacerbation due to viral vs bacterial bronchitis, no gross infiltrate on CT chest to suggest pneumonia. Negative flu swab, negative MRSA PCR negative pro-Chuckie Given stress dose steroid in ER. Start tapering to 60 every 8 hours round the clock duonebs + budesonide BID Intermittent Bipap titrating to 02 sat >90% Flonase to ease bronchitis Will proceed with CTA PE now that RUPAL has resolved. Sepsis: Meets criteria with leukocytosis and tachypnea. Continue CTX and azithromycin CT without contrast now, to be followed with CTA PE if cr improves VQ scan unfortunately indeterminate in view of severe emphysema lower extremity Doppler negative RUPAL: Baseline cr 1.1, elevated 2/2 sepsis. Will hold home dose of HCTZ. Reduce IV fluids to 50 cc an hour now that patient is able to tolerate p.o. intake HTN: continue atenolol at lower dose to avoid rebound tachycardia. Discussed code status with patient- wants to be FC for now, but wants to discuss again at a later date re: intubation Attestations Medical Necessity Statement*: Admitted for the management of COPD exacerbation and bronchitis awaiting optimization of respiratory status. Coding Level of Care Code Acute Comic Illustrator for [facility] Fwd Diagnoses Acute exacerbation of chronic obstructive pulmonary disease (COPD) J44.1 Sepsis with acute hypoxic respiratory failure A41.9; R65.20; J96.01 Sepsis type: sepsis due to unspecified organism Severe sepsis shock status: without septic shock Hypertension I10 RUPAL (acute kidney injury) N17.9
--- NOTE | 2019-05-31 17:47 | CTR_ITS ---
PROCEDURE INFORMATION: Exam: CT Angiography Chest With Contrast Exam date and time: 05/31/2019 5:53 PM Age: 74 years old Clinical indication: Shortness of breath; Additional info: R/O pe TECHNIQUE: Imaging protocol: Computed tomographic angiography of the chest with intravenous contrast. 3D rendering: MIP and/or 3D reconstructed images were created by the technologist. Total DLP: 576.37 mGy-cm Radiation optimization: All CT scans at this facility use at least one of these dose optimization techniques: automated exposure control; mA and/or kV adjustment per patient size (includes targeted exams where dose is matched to clinical indication); or iterative reconstruction. Contrast material: OMNI 350; Contrast volume: 95 ml; Contrast route: 20G; COMPARISON: CTA Chest-Pulmonary Emb [id number] 08/22/2016 1:21 AM FINDINGS: Pulmonary arteries: Overall exam quality is good for evaluating the pulmonary arteries. There are no intraluminal filling defects to indicate pulmonary embolism. Aorta: Ectatic aortic arch is unchanged. Other arteries: Moderate to high-grade but chronic stenosis of the celiac artery. See image 31 of series 602. No change since 2017. The SMA is patent. The Lungs: Generalized centrilobular emphysema. Numerous tree-in-bud opacities in both lungs but greater on the right. These are likely inflammatory. Right lower lobe 6 mm noncalcified nodule as seen on image 351 of series 2. There are other less distinct nodules in both lungs and these are all most likely inflammatory. Focal areas of subpleural and subsegmental atelectasis in both lung bases. Numerous foci of endobronchial debris especially in the dependent portions of the lungs. Pleural space: trace left pleural fluid. Heart: Mildly enlarged left atrium. Lymph nodes: Mild central mediastinal adenopathy is most likely reactive. Bones/joints: Unremarkable. No acute fracture. Soft tissues: Unremarkable. CT/CT angio chest PE protcl [id number] IMPRESSION: 1. No pulmonary embolism. 2. Bilateral inflammatory changes consistent with pneumonitis and bronchitis. Scattered areas of basilar atelectasis. 3. Emphysema. 4. Although there is a 6 mm right lower lobe lung nodule, this is most likely inflammatory. For patients at low risk (minimal or absent history of smoking and of other known risk factors), no routine follow-up is indicated. For patients at high risk (history of smoking or of other known risk factors), consider optional CT at 12 months. (Talib et al., Fleischner Society, 2017) 5. 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 No change since 2017 6. Other chronic and incidental findings as described. Radiation Dose CTDIVOL = (mGy): DLP = 576.37 (mGy-cm)
[2019-05-31] MEDS: azithromycin 500 MG in sodium chloride 0.9% 250 ML 250 MG IV (18:03)
[2019-05-31] MEDS: potassium chloride premix 40 MEQ/100 ML PREMIX 25 MEQ IV (19:59)
[2019-05-31] MEDS: budesonide 0.5 mg/2 mL Neb INHALATION (20:44)
--- NOTE | 2019-05-31 20:47 | PC.RESP ---
b# [id number] is on standby at this time.
[2019-05-31] MEDS: iohexol 350 mg/mL 100 mL Btl IV (23:34)
[2019-06-01] VITALS (14 sets, daily range): BP systolic 124–152; BP diastolic 67–82; PULSE 86–105; RESP 16–22; TEMP 36.6–37; O2SAT 90–99
[2019-06-01] MEDS: sodium chloride 0.9% 1,000 ML 50 ML IV (00:14)
[2019-06-01] MEDS: enoxaparin 40 mg/0.4 mL Syringe SUBCUT ×2 (00:14→23:25)
[2019-06-01] MEDS: cyclobenzaprine 10 mg Tablet 5 MG PO ×2 (00:14→23:34)
[2019-06-01] MEDS: ipratropium-albuterol 3 mL Neb INHALATION ×4 (01:26→19:38)
[2019-06-01] MEDS: guaiFENesin 100 mg/5 mL UDC 10 mL 200 MG PO ×3 (04:54→23:25)
[2019-06-01] MEDS: budesonide 0.5 mg/2 mL Neb INHALATION ×2 (07:40→19:38)
--- NOTE | 2019-06-01 07:48 | PC.RESP ---
BIPAP ON STANDBY ID# [id number]
[2019-06-01 08:07] LABS: Add Urine Microscopic? YES; Bilirubin Urine Neg (NEGATIVE); Blood Urine Neg (Negative); Glucose Urine UA 2+ (Normal); Ketones Urine Negative (Negative); Leukocyte Esterase Urine Negative (Negative); Nitrate Urine Negative (Negative); Protein Urine Trace (Negative); Specific Gravity, Urine 1.005 (1.005-1.030); Urine Appearance Clear (CLEAR); Urine Color Yellow (Yellow); Urobilinogen Urine Norm (Negative); pH Urine 6.5 (5-7)
[2019-06-01 08:34] LABS: Add Urine Culture? No; Bacteria Urine TRACE; Mucus Urine TRACE
--- NOTE | 2019-06-01 09:08 | PM.PN ---
Subjective Subjective: Interval history: NO acute events overnight Medications: Reviewed: Yes Vitals/I&O/Wt Last Vital Signs Temp 98.3 F 06/03/19 14:21 Pulse 100 06/03/19 10:56 Resp 20 H 06/03/19 14:21 BP 150/84 06/03/19 10:56 Pulse Ox 91 06/03/19 14:21 Physical Exam Narrative: EXAM NARRATIVE: EXAM NARRATIVE: General: No acute distress, AO x3 HEENT: PERRLA, pupils bilaterally equal and reactive, oral cavity erythmatous without any blisters Chest: Broncial breath sounds all over the lung field, occ ronchi present, good air entry. CVS: S1-S2 regular, no murmurs, no tachycardia, no gallops, no rubs Abdomen: Soft, nontender, no organomegaly, bowel sounds present Neuro: No focal deficits, no facial deformity, AO x3, power 5/5 in all limbs Data : 06/03/19 05:08 06/03/19 05:08 A&P Assessment and plan (1) Acute exacerbation of chronic obstructive pulmonary disease (COPD): Status: Acute Code(s): J44.1 - Chronic obstructive pulmonary disease with (acute) exacerbation (2) Sepsis with acute hypoxic respiratory failure: Status: Acute Qualifiers: Sepsis type: sepsis due to unspecified organism Severe sepsis shock status: without septic shock Qualified Code(s): A41.9 - Sepsis, unspecified organism; R65.20 - Severe sepsis without septic shock; J96.01 - Acute respiratory failure with hypoxia Code(s): A41.9 - Sepsis, unspecified organism; R65.20 - Severe sepsis without septic shock; J96.01 - Acute respiratory failure with hypoxia (3) Hypertension: Status: Acute Code(s): I10 - Essential (primary) hypertension (4) RUPAL (acute kidney injury): Status: Acute Code(s): N17.9 - Acute kidney failure, unspecified (5) Community acquired pneumonia: Status: Acute Code(s): J18.9 - Pneumonia, unspecified organism (6) Viral upper respiratory illness: Status: Acute Code(s): J06.9 - Acute upper respiratory infection, unspecified Additional A&P Information Acute hypoxic resp failure: Most likely 2/2 COPD exacerbation due to viral vs bacterial bronchitis, no gross infiltrate on CT chest to suggest pneumonia. Negative flu swab, negative MRSA PCR negative pro-Chuckie Given stress dose steroid in ER. Start tapering to 60 every 8 hours round the clock duonebs + budesonide BID Intermittent Bipap titrating to 02 sat >90% Flonase to ease bronchitis CTA done. Results appreciated.. Sepsis: Meets criteria with leukocytosis and tachypnea. Continue CTX and azithromycin CT without contrast now, to be followed with CTA PE if cr improves VQ scan unfortunately indeterminate in view of severe emphysema lower extremity Doppler negative RUPAL: Baseline cr 1.1, elevated 2/2 sepsis. Will hold home dose of HCTZ. Reduce IV fluids to 50 cc an hour now that patient is able to tolerate p.o. intake HTN: continue atenolol at lower dose to avoid rebound tachycardia. Discussed code status with patient- wants to be FC for now, but wants to discuss again at a later date re: intubation Attestations Medical Necessity Statement*: For acte hypoxic resp failure Coding Level of Care Code Acute [place]ay Drier for [facility] Fwd Diagnoses Acute exacerbation of chronic obstructive pulmonary disease (COPD) J44.1 Sepsis with acute hypoxic respiratory failure A41.9; R65.20; J96.01 Sepsis type: sepsis due to unspecified organism Severe sepsis shock status: without septic shock Hypertension I10 RUPAL (acute kidney injury) N17.9 Community acquired pneumonia J18.9 Viral upper respiratory illness J06.9
--- NOTE | 2019-06-01 10:50 | PC.SOCIAL ---
IMM Page 2 of IMM explained to and signed by patient. Initialed, dated, and timed and placed in chart. Copy provided to patient.
[2019-06-01 15:35] LABS: Basophils % 0.2 %; Hematocrit 32.8 % (37.0-47.0); Lymphocytes % 5.4 %; Mean Corpuscular HGB Conc 33.5 g/dL (30.0-36.0); Mean Corpuscular Hemoglobin 33.8 pg (28.0-34.0); Mean Corpuscular Volume 100.9 fL (81-99); Mean Platelet Volume 9.2 fL (7.4-10.4); Monocytes # 0.8 10^3/uL (0.2-0.9); Monocytes % 4.3 %; Neutrophils # 15.8 10^3/uL (1.8-7.7); Neutrophils % 86.6 %; Nucleated Red Blood Cells % 0 %; Platelet Count 350 10^3/cmm (130-400); Red Blood Count 3.25 10^6/uL (4.1-5.3); Red Cell Distribution Width 13.8 % (12.1-15.1); White Blood Count 18.2 10^3/uL (4.0-10.0)
[2019-06-01 15:53] LABS: Alanine Aminotransferase 25 U/L (0-33); Albumin Level 3.2 g/dL (3.5-5.2); Alkaline Phosphatase 100 IU/L (35-105); Anion Gap 11.9 (5-19); Aspartate Amino Transferase 32 U/L (0-32); Blood Urea Nitrogen 14 mg/dL (8-23); Calcium 9.6 mg/Dl (8.8-10.2); Carbon Dioxide 24 mmol/L (22-29); Chloride 103 mmol/L (98-107); Glucose 146 mg/dL (74-106); Potassium 3.9 mmol/L (3.5-5.1); Sodium 135 mmol/L (136-145); Total Bilirubin 0.2 mg/dL (0.15-1.2); Total Protein 6.2 g/dL (6.6-8.7)
[2019-06-02] VITALS (13 sets, daily range): BP systolic 134–184; BP diastolic 78–96; PULSE 59–117; RESP 16–22; TEMP 36.3–37.1; O2SAT 92–98
[2019-06-02 05:43] LABS: Alanine Aminotransferase 26 U/L (0-33); Albumin Level 3.1 g/dL (3.5-5.2); Alkaline Phosphatase 94 IU/L (35-105); Anion Gap 10.3 (5-19); Aspartate Amino Transferase 33 U/L (0-32); Blood Urea Nitrogen 12 mg/dL (8-23); Calcium 10.1 mg/Dl (8.8-10.2); Carbon Dioxide 26 mmol/L (22-29); Chloride 103 mmol/L (98-107); Globulin 2.8 g/dL (1.3-4.6); Glucose 89 mg/dL (74-106); Potassium 4.3 mmol/L (3.5-5.1); Sodium 135 mmol/L (136-145); Total Bilirubin 0.2 mg/dL (0.15-1.2); Total Protein 5.9 g/dL (6.6-8.7)
[2019-06-02 06:01] LABS: Basophils # 0.1 10^3/uL (0.0-0.1); Basophils % 0.4 %; Eosinophils % 0.1 %; Hematocrit 32.6 % (37.0-47.0); Hemoglobin 11.8 g/dL (11.5-15.3); Lymphocytes # 2.4 10^3/uL (0.8-4.8); Mean Corpuscular HGB Conc 36.2 g/dL (30.0-36.0); Mean Corpuscular Hemoglobin 36.4 pg (28.0-34.0); Mean Corpuscular Volume 100.6 fL (81-99); Mean Platelet Volume 9.6 fL (7.4-10.4); Monocytes # 1.5 10^3/uL (0.2-0.9); Monocytes % 7.5 %; Neutrophils # 14.8 10^3/uL (1.8-7.7); Neutrophils % 74.9 %; Nucleated Red Blood Cells % 0 %; Platelet Count 393 10^3/cmm (130-400); Red Blood Count 3.24 10^6/uL (4.1-5.3); Red Cell Distribution Width 14.6 % (12.1-15.1); White Blood Count 19.8 10^3/uL (4.0-10.0)
[2019-06-02 06:40] LABS: Slide Review Slide Review Perform
--- NOTE | 2019-06-02 09:19 | PC.RESP ---
BIPAP #[id number] ON STANDBY
[2019-06-02] MEDS: budesonide 0.5 mg/2 mL Neb INHALATION ×2 (09:21→20:28)
[2019-06-02] MEDS: ipratropium-albuterol 3 mL Neb INHALATION ×3 (09:21→20:28)
[2019-06-02] MEDS: predniSONE 20 mg Tablet 40 MG PO ×2 (10:31→17:49)
[2019-06-02] MEDS: pantoprazole DR 40 mg Tablet PO (10:31)
[2019-06-02] MEDS: levoFLOXacin 750 mg Tablet PO (10:32)
--- NOTE | 2019-06-02 11:52 | P.DS_ITS ---
Discharge Providers Date of Admission: 05/29/19 22:09 Date of Discharge: 06/02/19 Attending Provider at Admission: Esau Stockton MD Attending Provider at Discharge: Esau Stockton MD Primary Care Provider: Misty Villaseñor MD Diagnoses at Discharge Discharge Diagnosis (1) Acute exacerbation of chronic obstructive pulmonary disease (COPD): Status: Acute (2) Sepsis with acute hypoxic respiratory failure: Status: Acute Qualifiers: Sepsis type: sepsis due to unspecified organism Severe sepsis shock status: without septic shock Qualified Code(s): A41.9 - Sepsis, unspecified organism; R65.20 - Severe sepsis without septic shock; J96.01 - Acute respiratory failure with hypoxia (3) Hypertension: Status: Acute (4) RUPAL (acute kidney injury): Status: Acute (5) Community acquired pneumonia: Status: Acute (6) Viral upper respiratory illness: Status: Acute Reason for Visit Reason for Visit: Reason For Visit: RESPIRATORY DISTRESS Hospital Course Discharge Summary: Melany Phan is a 74 year old female with PMH HTN, COPD on home 02 as needed (sp02 <90%), only on exertion outside the house presenting with worsening SOB over past one week. Associated with mild cough and expectoration. At present, SOB for last 2 days gets exacerbated on mild walking and talking. Sputum production non foul smelling, mucoid. She is also c/o hoarseness and change in voice x 2 days where she finds it difficult to speak. She denies any recent sick contacts. She was also c/o sore throat and change in voice for 4 days prior to her symptoms started along with running nose. At baseline, she is able to walk with walker. Her imaging was concerning for b/l PNA. She was treated for PNA with IV Abx and steroids for COPD exacerbation along with symptomatic treatment for viral bronchitis. She responded slowly to treatment and on discharge is hemodynamically stable at higher O2 requirements. On discharge patient was given option of going to SNF for physical and respiratory rehabilitation but patient declined and so home health was arranged for safe discharge. Physical Exam Narrative: EXAM NARRATIVE: General: No acute distress, AO x3 HEENT: PERRLA, pupils bilaterally equal and reactive, oral cavity erythmatous without any blisters Chest: Broncial breath sounds all over the lung field, occ ronchi present, good air entry. CVS: S1-S2 regular, no murmurs, no tachycardia, no gallops, no rubs Abdomen: Soft, nontender, no organomegaly, bowel sounds present Neuro: No focal deficits, no facial deformity, AO x3, power 5/5 in all limbs Discharge Data Data Completed and Pending: Completed Studies During Hospitalization Category Date Time Status CT angio chest PE protcl 15232 Rout ine Cat Scan 05/31/19 17:[address] chest wo con 7 1250 Urgent Cat Scan 05/29/19 20:48 Completed XR chest 1V teresa ble [id number] Stat Exams 05/29/19 17:06 Completed NM pul vent and p erfus* [id number] Routi ne Nuc Med 05/30/19 23:51 [place] [id number] Routin e Ultrasound 05/30/19 23:51 Completed Pending at discharge Category Date Time Status Blood Culture Sta t Lab 05/29/19 16:16 Results Complete Blood Co unt w/Auto AM LABS Lab 06/03/19 04:00 Ordered Complete Blood Co unt w/Auto AM LABS Lab 06/04/19 04:00 Ordered Comprehensive Met abolic Panel AM LA BS Lab 06/03/19 04:00 Ordered Comprehensive Met abolic Panel AM LA BS Lab 06/04/19 04:00 Ordered Sputum Culture an d Gram Stain Stat Lab 06/01/19 08:00 Results Labs from last 24 hours 06/02/19 06/02/19 06/01/19 05:05 05:05 15:25 WBC 19.8 H RBC 3.24 L Hgb 11.8 Hct 32.6 L MCV 100.6 H MCH 36.4 H MCHC 36.2 H D RDW 14.6 Plt Count 393 MPV 9.6 Neut % (Auto) 74.9 Lymph % (Auto) 12.0 [place] % (Auto) 7.5 Eos % (Auto) 0.1 Baso % (Auto) 0.4 Neut # (Auto) 14.8 H Lymph # (Auto) 2.4 [place] # (Auto) 1.5 H Eos # (Auto) 0.0 Baso # (Auto) 0.1 Nucleated RBC % (a uto) 0 Nucleated RBCs # 0.0 Sodium 135 L 135 L Potassium 4.3 3.9 Chloride 103 103 Carbon Dioxide 26 24 Anion Gap 10.3 11.9 BUN 12 14 Creatinine 0.8 0.8 Glucose 89 146 H Calcium 10.1 9.6 Total Bilirubin 0.2 0.2 AST 33 H 32 ALT 26 25 Alkaline Phosphata se 94 100 Total Protein 5.9 L 6.2 L Albumin 3.1 L 3.2 L Globulin 2.8 3.0 06/01/19 15:25 WBC 18.2 H RBC 3.25 L Hgb 11.0 L Hct 32.8 L MCV 100.9 H MCH 33.8 MCHC 33.5 RDW 13.8 Plt Count 350 MPV 9.2 Neut % (Auto) 86.6 Lymph % (Auto) 5.4 [place] % (Auto) 4.3 Eos % (Auto) 0.0 Baso % (Auto) 0.2 Neut # (Auto) 15.8 H Lymph # (Auto) 1.0 [place] # (Auto) 0.8 Eos # (Auto) 0.0 Baso # (Auto) 0.0 Nucleated RBC % (a uto) 0 Nucleated RBCs # 0.0 Sodium Potassium Chloride Carbon Dioxide Anion Gap BUN Creatinine Glucose Calcium Total Bilirubin AST ALT Alkaline Phosphata se Total Protein Albumin Globulin Vitals: Last Vital Signs Temp 97.8 F 06/02/19 08:00 Pulse 100 06/02/19 09:26 Resp 20 H 06/02/19 09:24 BP 140/79 06/02/19 08:00 Pulse Ox 92 06/02/19 09:24 Discharge Plan Discharge Patient Disposition: Home Health Service Condition: Stable Prescriptions: New Pulmicort Flexhaler 180 mcg/actuation aerosol powdr breath activated 1 inh INHALATION Q12H 14 Days Qty: 2 RF: 0 guaifenesin 100 mg/5 mL Liquid 200 mg PO Q4H PRN (Reason: Cough And Congestion) 14 Days Qty: 50 RF: 0 pantoprazole 40 mg Tablet,Delayed Release (Dr/Ec) 40 mg PO DAILY 14 Days Qty: 14 RF: 0 levofloxacin 750 mg Tablet 750 mg PO DAILY 5 Days Qty: 5 RF: 0 prednisone 20 mg tablet 20 mg PO Q12H 15 Days Qty: 30 RF: 0 prednisone 5 mg tablet 5 mg PO DAILY Qty: 5 RF: 0 ipratropium-albuterol 0.5 mg-3 mg(2.5 mg base)/3 mL solution for nebulization 3 ml INHALATION Q8H PRN (Reason: shortness of breath or wheezing) Qty: 90 RF: 0 Lidocaine Viscous 2 % solution 15 ml MUCOUS MEM BID PRN (Reason: pain) Qty: 100 RF: 0 Continued amitriptyline 10 mg tablet 10 mg PO DAILY RF: 0 atenolol 50 mg tablet 100 mg PO DAILY RF: 0 Changed cyclobenzaprine 10 mg tablet 10 mg PO DAILY PRN (Reason: spasm) Qty: 0 RF: 0 Discontinued hydrochlorothiazide 12.5 mg capsule 12.5 mg PO DAILY RF: 0 Discharge Orders: Discharge Order (Routine); Ordered 06/02/19 Ordered By: Esau Stockton Referrals: [facility] ([facility]) [Outside] (You have been accepted by [facility] for home health services. They should be contacting you by phone to arrange a time to come to your house and admit you to their services. If you do not hear from them by tomorrow afternoon please call them. ) Discharge Diet: Advance as tolerated Discharge Activity: Resume usual activity Patient Instructions: COPD, Prednisone (By mouth), Guaifenesin (By mouth), Lidocaine (On the skin), Levofloxacin (By mouth), Budesonide (By breathing), Ipratropium/Albuterol (By breathing), Pantoprazole (By mouth), Acute Kidney Injury (DC), Upper Respiratory Infection (DC), Community-acquired Pneumonia (DC), COPD Stoplight, Pneumonia Stoplight Discharge Attestations Time Spent in Discharge Care*: greater than 30 min Specific Discharge Activities: Specific discharge activities: discussing with bottle caser/social workers/dc planners and evaluating patient/reviewing data Quality Metrics Clinical Quality Measures During this hospital stay, did patient experience: None Coding Level of Care Code Acute Soldering Technician for [facility] Fwd Diagnoses Acute exacerbation of chronic obstructive pulmonary disease (COPD) J44.1 Sepsis with acute hypoxic respiratory failure A41.9; R65.20; J96.01 Sepsis type: sepsis due to unspecified organism Severe sepsis shock status: without septic shock Hypertension I10 RUPAL (acute kidney injury) N17.9 Community acquired pneumonia J18.9 Viral upper respiratory illness J06.9
--- NOTE | 2019-06-02 18:00 | PC.RESP ---
Pt had refused to walk with this RT for home o2 evaluation. Discharge Planning was notified of her refusal. Pt also refused {she stated} her discharge. This RT was notified that pt had agreed to complete home o2 evaluation. Pt cooperative with process of socks, gown and walker to walk along with o2 tank as needed for testing. After two steps pt refused to proceed with testing, helped pt back to bed, notified nursing that pt states she has o2 at home and will not perform testing. Pt did not qualify at this time.
--- NOTE | 2019-06-02 20:46 | PC.RESP ---
BIPAP ON STAND BY. PT STATED THAT SHE MAY WEAR IT LATER.
[2019-06-03] VITALS (7 sets, daily range): BP systolic 129–150; BP diastolic 76–84; PULSE 100–109; RESP 19–20; TEMP 36.4–36.8; O2SAT 91–99
[2019-06-03] MEDS: enoxaparin 40 mg/0.4 mL Syringe SUBCUT (00:11)
[2019-06-03] MEDS: cyclobenzaprine 10 mg Tablet 5 MG PO (00:12)
--- NOTE | 2019-06-03 02:21 | PC.RESP ---
BIPAP on stand by. pt did not want to wear due to her mouth being dry and hurting
[2019-06-03 05:30] LABS: Basophils # 0.1 10^3/uL (0.0-0.1); Basophils % 0.5 %; Hematocrit 31.4 % (37.0-47.0); Hemoglobin 11.4 g/dL (11.5-15.3); Lymphocytes # 1.3 10^3/uL (0.8-4.8); Lymphocytes % 8.5 %; Mean Corpuscular HGB Conc 36.3 g/dL (30.0-36.0); Mean Corpuscular Hemoglobin 36.8 pg (28.0-34.0); Mean Corpuscular Volume 101.3 fL (81-99); Mean Platelet Volume 9.1 fL (7.4-10.4); Monocytes # 0.9 10^3/uL (0.2-0.9); Monocytes % 5.9 %; Neutrophils # 11.8 10^3/uL (1.8-7.7); Neutrophils % 76.9 %; Nucleated Red Blood Cells % 0 %; Platelet Count 313 10^3/cmm (130-400); Red Cell Distribution Width 15.4 % (12.1-15.1); White Blood Count 15.3 10^3/uL (4.0-10.0)
[2019-06-03 06:12] LABS: Alanine Aminotransferase 28 U/L (0-33); Alkaline Phosphatase 98 IU/L (35-105); Anion Gap 9.1 (5-19); Aspartate Amino Transferase 29 U/L (0-32); Blood Urea Nitrogen 11 mg/dL (8-23); Calcium 9.9 mg/Dl (8.8-10.2); Carbon Dioxide 32 mmol/L (22-29); Chloride 97 mmol/L (98-107); Globulin 3.1 g/dL (1.3-4.6); Glucose 121 mg/dL (74-106); Potassium 4.1 mmol/L (3.5-5.1); Sodium 134 mmol/L (136-145); Total Bilirubin 0.2 mg/dL (0.15-1.2); Total Protein 6.1 g/dL (6.6-8.7)
[2019-06-03] MEDS: pantoprazole DR 40 mg Tablet PO (08:35)
[2019-06-03] MEDS: levoFLOXacin 750 mg Tablet PO (08:35)
[2019-06-03] MEDS: predniSONE 20 mg Tablet 40 MG PO (08:35)
--- NOTE | 2019-06-03 12:09 | PC.SOCIAL ---
Updated IMM Updated pt on Pg 2 IMM. Pt verbally understands. No questions voiced. Provided pt a copy & left on bedside table. Signed, dated, & timed original in chart.
--- NOTE | 2019-06-03 17:37 | P.PN_ITS ---
Subjective Subjective: Interval history: d/shivam yesterdy but patient could not leave as had no ride. No acute events overnight. Feeling ok this morning. c/o oral sores. and hoping to get better with weakness. Medications: Reviewed: Yes Vitals/I&O/Wt Last Vital Signs Temp 98.3 F 06/03/19 14:21 Pulse 100 06/03/19 10:56 Resp 20 H 06/03/19 14:21 BP 150/84 06/03/19 10:56 Pulse Ox 91 06/03/19 14:21 06/03/19 06/03/19 06/03/19 06:59 14:59 22:59 Intake Total 240 / 240 Balance 240 / 240 Weight last 48 hrs Weight 64.274 kg Physical Exam Narrative: EXAM NARRATIVE: EXAM NARRATIVE: General: No acute distress, AO x3 HEENT: PERRLA, pupils bilaterally equal and reactive, oral cavity erythmatous without any blisters Chest: Broncial breath sounds all over the lung field, occ ronchi present, good air entry. CVS: S1-S2 regular, no murmurs, no tachycardia, no gallops, no rubs Abdomen: Soft, nontender, no organomegaly, bowel sounds present Neuro: No focal deficits, no facial deformity, AO x3, power 5/5 in all limbs Data Micro: Micro: Microbiology 05/29/19 16:16 Blood Culture - Fi nal Blood NO GROWTH AFTER 5 DAYS 05/29/19 16:12 Blood Culture - Fi nal Blood NO GROWTH AFTER 5 DAYS A&P Assessment and plan (1) Acute exacerbation of chronic obstructive pulmonary disease (COPD): Status: Acute Code(s): J44.1 - Chronic obstructive pulmonary disease with (acute) exacerbation (2) Sepsis with acute hypoxic respiratory failure: Status: Acute Qualifiers: Sepsis type: sepsis due to unspecified organism Severe sepsis shock status: without septic shock Qualified Code(s): A41.9 - Sepsis, unspecified organism; R65.20 - Severe sepsis without septic shock; J96.01 - Acute respiratory failure with hypoxia Code(s): A41.9 - Sepsis, unspecified organism; R65.20 - Severe sepsis without septic shock; J96.01 - Acute respiratory failure with hypoxia (3) Hypertension: Status: Acute Code(s): I10 - Essential (primary) hypertension (4) RUPAL (acute kidney injury): Status: Acute Code(s): N17.9 - Acute kidney failure, unspecified (5) Community acquired pneumonia: Status: Acute Code(s): J18.9 - Pneumonia, unspecified organism (6) Viral upper respiratory illness: Status: Acute Code(s): J06.9 - Acute upper respiratory infection, unspecified Additional A&P Information Additional A&P Information: See my d/c note for more detail. Discussed in detail again possibility of SNF placement. Pt refused again and stated happy with home health Attestations Medical Necessity Statement*: d/shivam yesterday. Time Spent in Patient Care: less than 15 minutes Coding Level of Care Code Acute Powerhouse Laborer for Chg Fwd Diagnoses Acute exacerbation of chronic obstructive pulmonary disease (COPD) J44.1 Sepsis with acute hypoxic respiratory failure A41.9; R65.20; J96.01 Sepsis type: sepsis due to unspecified organism Severe sepsis shock status: without septic shock Hypertension I10 RUPAL (acute kidney injury) N17.9 Community acquired pneumonia J18.9 Viral upper respiratory illness J06.9
== END 2019-06-03 14:22 | disposition home health service (06) | DRG 871 ==
LOC: ER 18:55 → MEDSURG 22:20
PROVIDERS: Student in an Organized Health Care Education/Training Program; Admitting Provider Student in an Organized Health Care Education/Training Program; Emergency Provider Family Medicine; Family Provider Family Medicine; PCP Family Medicine; Visit Provider Student in an Organized Health Care Education/Training Program
DX: A41.9 Sepsis, unspecified organism (principal); J96.01 Acute respiratory failure with hypoxia; J18.9 Pneumonia, unspecified organism; J44.0 Chronic obstructive pulmonary disease with (acute) lower respiratory infection; N17.9 Acute kidney failure, unspecified; N20.9 Urinary calculus, unspecified; I10 Essential (primary) hypertension; Z87.891 Personal history of nicotine dependence
CPT/HCPCS: 12345; 36415; 36600; 71045; 71250; 71275; 78014; 80051; 80053; 81003; 82805; 82810; 83605; 83986; 84145; 84484; 85025; 85378; 86403; 87040; 87070; 87106; 87205; 87449; 87641; 87804; 93005; 93970; 94640; 94660; 96361; 96365; 96372; 96374; 96375; 99283; A9540; A9567; J0456; J0696; J1650; J2930; J3480; J7030; J7040; J7050; J7512; J7611; J7626; Q9967

== ENCOUNTER 2019-07-04 01:12 | Emergency (ER) | payer MEDICARE, OTHER, SELFPAY ==
[2019-07-04] VITALS (39 sets, daily range): BP systolic 103–155; BP diastolic 59–89; PULSE 90–134; RESP 18–26; TEMP 38.1; O2SAT 84–98; BMI 21.4
--- NOTE | 2019-07-04 01:19 | ECG_ITS ---
Measurements Intervals [place] Rate: 128 P: 78 LA: 158 QRS: 49 QRSD: 109 T: 83 QT: 282 QTc: 413 SINUS TACHYCARDIA POSSIBLE ANTERIOR MYOCARDIAL INFARCTION , OF INDETERMINATE AGE [30 ms Q WAVE IN V3 V3/V4, OR R < 0.2 mV IN V4] Compared to ECG 05/29/2019 21:58:28 Sinus rhythm no longer present Myocardial infarct finding still present Electronically Signed On 07-04-2019 19:53:36 DAIRY PROCESSING EQUIPMENT OPERATOR by Ran Westfall M.D. [email or web address]
--- NOTE | 2019-07-04 01:19 | XR_ITS ---
WS: [id number] Portable AP upright chest, 07/04/2019 Clinical Data: dyspnea Comparison: Portable chest, 05/29/2019 Findings: No nodules, masses or effusions are seen. The heart is normal. The pulmonary vascularity is not increased. No pneumonia or pneumothorax is seen. The diaphragms are flattened. The aortic arch a nd descending aorta minimally tortuous. XR/XR chest 1V portable [id number] Impression: Atherosclerosis and hyperinflation.
--- NOTE | 2019-07-04 01:33 | ED_ITS ---
Entered by Glenna Mcduffie, acting as scribe for Saurabh Vora MD HPI - SOB/Dyspnea General: Chief Complaint: Shortness of Breath/Dyspnea Stated Complaint: RESP. DISTRESS Time Seen by Provider: 07/04/19 01:17 Source: patient Mode of arrival: EMS Limitations: no limitations History of Present Illness: HPI Narrative: 74 yo f came to the er by [facility]. Onset was tonight. Patient has a long history of COPD and states she has had low-grade fever along with shortness of breath. Patient's had wheezing and received a breathing treatment in route. Patient states this feels like her COPD typically does. She denies any chest pain. She denies any worsening or improving factors. elicited complaint: shortness of breath Onset (ago): day(s) (today) Associated symptoms: Reports fever(s); Deny abdominal pain, chest pain, nausea or vomiting Review of Systems General: Reports: other (negative unless marked) Const: Reports: fever; Denies: chills, body aches or change in appetite Eyes: Denies: blurry vision or eye discomfort ENMT: Denies: throat pain or dental pain Card: Denies: chest pain Resp: Reports: shortness of breath GI: Denies: abdominal pain, nausea, vomiting or diarrhea : Denies: painful urination Musc: Denies: neck pain or back pain Skin/Breast: Denies: rash Neuro: Denies: headache Psych: Denies: depression Yonatan/Lymph: Denies: easy bruising All/Imm: Denies: hives PFSH ED PFSH: Statuses (acute, chronic, etc) shown below reflect problem list status as previously entered and may not be historically accurate Medical History Cataract COPD (chronic obstructive pulmonary disease) Glaucoma Hypertension On home oxygen therapy Surgical History History of appendectomy Family History Mother Arrhythmia Father CAD (coronary artery disease) Social History Smoking and tobacco status: former smoker Alcohol intake: never Physical Exam Const: COMMON NORMALS: no apparent distress, oriented x3 and healthy appearing HENMT: COMMON NORMALS: normocephalic and head/scalp atraumatic HEAD & SCALP: normocephalic and atraumatic Eye: COMMON NORMALS: PERRL and EOMs intact bilaterally PUPIL: Yes PERRL Neck/C-Spine: COMMON NORMALS: full ROM and supple Chest: COMMONS NORMALS: inspection of chest normal and palpation of chest normal Resp: COMMON NORMALS: normal respiratory effort, no retractions and no use of accessory muscles OTHER: mild wheezing Cardio: COMMON NORMALS: regular rhythm and no murmurs RATE: tachycardic RHYTHM: regular rhythm GI: COMMON NORMALS: normal to inspection, nondistended, normoactive bowel sounds, soft to palpation, non-tender and no masses PALPATION: Yes soft Extremity: COMMON NORMALS: normal to inspection and full ROM Neuro: COMMON NORMALS: oriented x3, moves all extremities and no focal motor deficits Psych: COMMON NORMALS: mental status grossly normal, thought process normal and cooperative THOUGHT PROCESS: normal thought process Skin: COMMON NORMALS: no rashes or lesions noted and no wounds GENERAL SKIN EXAM: no rashes or lesions noted Course Vital Signs: Vital signs: Vital Signs Temperature 100.5 F H 07/04/19 01:22 Pulse Rate 90 07/04/19 04:33 Respiratory Rate 18 07/04/19 04:33 Blood Pressure 135/66 07/04/19 04:33 Pulse Oximetry 92 07/04/19 04:33 MDM - SOB/Dyspnea MDM Narrative: Medical decision making narrative: Patient presents with cough along with COPD exacerbation. Patient has no signs of pulmonary embolism or cardiac cause. Patient feels improved and is requesting discharge. Patient is a appear well currently and I feel she is stable for discharge. Patient is 96% on her 2 L of oxygen. We will place her on Keflex along with prednisone. Patient is to follow-up with primary care doctor in 3 to 5 days return if worsening. Lab Data: Labs: Lab Results 07/04/19 07/04/19 07/04/19 Range/Units 01:20 01:20 01:37 WBC 10.5 H (4.0-10.0) 10^3/ uL RBC 4.07 L (4.1-5.3) 10^6/u L Hgb 12.6 (11.5-15.3) g/dL Hct 38.2 (37.0-47.0) % MCV 93.9 (81-99) fL MCH 31.0 (28.0-34.0) pg MCHC 33.0 (30.0-36.0) g/dL RDW 13.5 (12.1-15.1) % Plt Count 344 (130-400) 10^3/c mm MPV 8.8 (7.4-10.4) fL Neut % (Auto) 81.9 % Lymph % (Auto) 10.0 % [place] % (Auto) 6.3 % Eos % (Auto) 0.9 % Baso % (Auto) 0.4 % Neut # (Auto) 8.6 H (1.8-7.7) 10^3/u L Lymph # (Auto) 1.0 (0.8-4.8) 10^3/u L [place] # (Auto) 0.7 (0.2-0.9) 10^3/u L Eos # (Auto) 0.1 (0.0-0.8) 10^3/u L Baso # (Auto) 0.0 (0.0-0.1) 10^3/u L Nucleated RBC % (a uto) 0 % Nucleated RBCs # 0.0 /100WBC Specimen Type Sample Site ABG pH (7.35-7.45) ABG pCO2 (35-45) mmHg ABG pO2 (80.0-100.0) mmH g ABG HCO3 (22-26) mmol/L ABG Base Excess (-2.0-2.0) mmol/ L Sven Test Hematocrit (37-47) % Hgb O2 Saturation (95-100) % Carboxyhemoglobin (0.4-20.1) %THgb Methemoglobin (0.4-1.5) % Total Hemoglobin (12-16) g/dL O2 Delivery Device O2 Liters/Min % Counter Dish Carrier ID Sodium 137 (136-145) mmol/L Potassium 4.0 (3.5-5.1) mmol/L Chloride 97 L (98-107) mmol/L Carbon Dioxide 28 (22-29) mmol/L Anion Gap 16.0 (5-19) BUN 8 (8-23) mg/dL Creatinine 1.0 H (0.5-0.9) mg/dL Glucose 125 H (65-115) mg/dL Calcium 9.5 (8.5-10.5) mg/dL Total Bilirubin 0.5 (0.15-1.2) mg/dL AST 23 (0-32) U/L ALT 17 (0-33) U/L Alkaline Phosphata se 96 (35-105) IU/L NT-Pro-B Natriuret Pep 383 H (0-125) pg/mL Total Protein 6.7 (6.6-8.7) g/dL Albumin 3.3 L (3.5-5.2) g/dL Globulin 3.4 (1.3-4.6) g/dL Influenza Type A A g Negative (Negative) POC Influenza B Ag Negative (Negative) 07/04/19 Range/Units 01:50 WBC (4.0-10.0) 10^3/ uL RBC (4.1-5.3) 10^6/u L Hgb (11.5-15.3) g/dL Hct (37.0-47.0) % MCV (81-99) fL MCH (28.0-34.0) pg MCHC (30.0-36.0) g/dL RDW (12.1-15.1) % Plt Count (130-400) 10^3/c mm MPV (7.4-10.4) fL Neut % (Auto) % Lymph % (Auto) % [place] % (Auto) % Eos % (Auto) % Baso % (Auto) % Neut # (Auto) (1.8-7.7) 10^3/u L Lymph # (Auto) (0.8-4.8) 10^3/u L [place] # (Auto) (0.2-0.9) 10^3/u L Eos # (Auto) (0.0-0.8) 10^3/u L Baso # (Auto) (0.0-0.1) 10^3/u L Nucleated RBC % (a uto) % Nucleated RBCs # /100WBC Specimen Type Arterial Sample Site Radial, right ABG pH 7.46 H (7.35-7.45) ABG pCO2 37.7 (35-45) mmHg ABG pO2 76.6 L (80.0-100.0) mmH g ABG HCO3 26.6 H (22-26) mmol/L ABG Base Excess 2.7 H (-2.0-2.0) mmol/ L Sven Test Pos Hematocrit 38.8 (37-47) % Hgb O2 Saturation 94.5 L (95-100) % Carboxyhemoglobin 0.9 (0.4-20.1) %THgb Methemoglobin 1.0 (0.4-1.5) % Total Hemoglobin 12.7 (12-16) g/dL O2 Delivery Device Nc O2 Liters/Min 2.0 % Counter Dish Carrier ID ellpe Sodium (136-145) mmol/L Potassium (3.5-5.1) mmol/L Chloride (98-107) mmol/L Carbon Dioxide (22-29) mmol/L Anion Gap (5-19) BUN (8-23) mg/dL Creatinine (0.5-0.9) mg/dL Glucose (65-115) mg/dL Calcium (8.5-10.5) mg/dL Total Bilirubin (0.15-1.2) mg/dL AST (0-32) U/L ALT (0-33) U/L Alkaline Phosphata se (35-105) IU/L NT-Pro-B Natriuret Pep (0-125) pg/mL Total Protein (6.6-8.7) g/dL Albumin (3.5-5.2) g/dL Globulin (1.3-4.6) g/dL Influenza Type A A g (Negative) POC Influenza B Ag (Negative) Imaging Data^: CXR: Attestation: I personally reviewed and interpreted this imaging study as follows: My impression: no acute abnormality EKG Data^: EKG 1: Attestation: I personally reviewed and interpreted this EKG as follows: EKG Interpretation Date: 07/04/19 EKG interpretation time: 01:33 Interpretation: sinus tach hr [address] or t wave abnormalities qrs 109 qtc 358 Discharge Plan Discharge Patient Disposition: Home, Self-Care Clinical Impression: Bronchitis Condition: Stable Prescriptions: New Keflex 500 mg capsule 500 mg PO Q6H 7 Days Qty: 28 RF: 0 prednisone 50 mg tablet 50 mg PO DAILY Qty: 5 RF: 0 No Action amitriptyline 10 mg tablet 10 mg PO DAILY RF: 0 atenolol 50 mg tablet 100 mg PO DAILY RF: 0 prednisone 5 mg tablet 5 mg PO DAILY Qty: 5 RF: 0 cyclobenzaprine 10 mg tablet 10 mg PO DAILY PRN (Reason: spasm) Qty: 0 RF: 0 ipratropium-albuterol 0.5 mg-3 mg(2.5 mg base)/3 mL solution for nebulization 3 ml INHALATION Q8H PRN (Reason: shortness of breath or wheezing) Qty: 90 RF: 0 Lidocaine Viscous 2 % solution 15 ml MUCOUS MEM BID PRN (Reason: pain) Qty: 100 RF: 0 Discharge Orders: Discharge Order (Routine); Ordered 07/04/19 Ordered By: Saurabh Vora Referrals: Misty Villaseñor MD [Primary Care Provider] - 4-7 days Discharge Diet: Advance as tolerated Discharge Activity: Resume usual activity Patient Instructions: Acute Bronchitis (ED) Discharge Date/Time: 07/04/19 04:25 Coding Level of Care Code ED Electrical Supervisor for Chg Fwd Exam Problem Focused The documentation recorded by the Froy whelan Stephanie Lyn, accurately reflects the service I personally performed and the decisions made by Vielka singletary Korby, MD Jul 04, 2019 01:12
[2019-07-04 01:34] LABS: Basophils % 0.4 %; Eosinophils # 0.1 10^3/uL (0.0-0.8); Eosinophils % 0.9 %; Hematocrit 38.2 % (37.0-47.0); Hemoglobin 12.6 g/dL (11.5-15.3); Mean Corpuscular Volume 93.9 fL (81-99); Mean Platelet Volume 8.8 fL (7.4-10.4); Monocytes # 0.7 10^3/uL (0.2-0.9); Monocytes % 6.3 %; Neutrophils # 8.6 10^3/uL (1.8-7.7); Neutrophils % 81.9 %; Nucleated Red Blood Cells % 0 %; Platelet Count 344 10^3/cmm (130-400); Red Blood Count 4.07 10^6/uL (4.1-5.3); Red Cell Distribution Width 13.5 % (12.1-15.1); White Blood Count 10.5 10^3/uL (4.0-10.0)
[2019-07-04] MEDS: ipratropium-albuterol 3 mL Neb INHALATION (01:49)
[2019-07-04 02:02] LABS: ABG PCO2 37.7 mmHg (35-45); ABG PH Result 7.46 (7.35-7.45); Arterial Blood Gas Hematocrit 38.8 % (37-47); Base Excess ABG 2.7 mmol/L (-2.0-2.0); Blood Gas Allen Test Pos; Blood Gas Sample Site Radial, right; Blood Gas Sample Type Arterial; Carboxyhemoglobin 0.9 %THgb (0.4-20.1); HCO3 ABG 26.6 mmol/L (22-26); HGB O2 Sat 94.5 % (95-100); Oxygen Device NC; PO2 ABG 76.6 mmHg (80.0-100.0); Total Hemoglobin 12.7 g/dL (12-16)
[2019-07-04 02:02] LABS: Influenza A by IFA Negative (Negative); Influenza B by IFA Negative (Negative)
[2019-07-04 02:02] LABS: Alanine Aminotransferase 17 U/L (0-33); Albumin Level 3.3 g/dL (3.5-5.2); Alkaline Phosphatase 96 IU/L (35-105); Aspartate Amino Transferase 23 U/L (0-32); Blood Urea Nitrogen 8 mg/dL (8-23); Calcium 9.5 mg/dL (8.5-10.5); Carbon Dioxide 28 mmol/L (22-29); Chloride 97 mmol/L (98-107); Globulin 3.4 g/dL (1.3-4.6); Glucose 125 mg/dL (65-115); NT Pro B Type Natriuretic Pept 383 pg/mL (0-125); Sodium 137 mmol/L (136-145); Total Bilirubin 0.5 mg/dL (0.15-1.2); Total Protein 6.7 g/dL (6.6-8.7)
[2019-07-04] MEDS: acetaminophen 500 mg Tablet 1000 MG PO (02:21)
[2019-07-04] MEDS: LORazepam 2 mg/mL INJ 1 mL 0.5 MG IVP (03:56)
== END 2019-07-04 04:25 | disposition home or self-care (01) ==
PROVIDERS: Emergency Provider Emergency Medicine; Family Provider Family Medicine; PCP Family Medicine
DX: J40 Bronchitis, not specified as acute or chronic (principal); J44.9 Chronic obstructive pulmonary disease, unspecified; I10 Essential (primary) hypertension; Z99.81 Dependence on supplemental oxygen; Z87.891 Personal history of nicotine dependence
CPT/HCPCS: 36600; 71045; 80053; 82805; 83880; 85025; 87804; 93005; 94640; 96375; 99284; J2060; J2930; J7611

== ENCOUNTER 2019-07-05 08:23 | Inpatient (IN) | payer MEDICARE, OTHER, SELFPAY ==
[2019-07-05] VITALS (23 sets, daily range): BP systolic 104–156; BP diastolic 61–93; PULSE 30–128; RESP 18–30; TEMP 36.4–36.7; O2SAT 24–100; BMI 23.8
--- NOTE | 2019-07-05 08:25 | ED_ITS ---
Entered by [id number], acting as scribe for Peter Raya DO Jul 05, 2019 08:23 HPI - SOB/Dyspnea General: Chief Complaint: Shortness of Breath/Dyspnea Stated Complaint: resp distress History of Present Illness: Associated symptoms: Deny abdominal pain, chest pain, fever(s), nausea, orthopnea or vomiting Review of Systems Const: Denies: fever, chills, body aches, change in appetite, fatigue or malaise ENMT: Denies: throat pain, ear pain, nasal discharge or nasal congestion Card: Denies: chest pain, edema, shortness of breath on exertion or shortness of breath when lying down Resp: Reports: shortness of breath and productive cough; Denies: non-productive cough GI: Denies: abdominal pain, nausea, vomiting, vomiting blood, coffee grounds in vomit, diarrhea, constipation, bloating, blood in stool or black tarry stool : Denies: flank pain, difficulty urinating, painful urination, urinary frequency or urinary urgency Skin/Breast: Denies: rash or itching PFSH ED PFSH: Statuses (acute, chronic, etc) shown below reflect problem list status as previously entered and may not be historically accurate Surgical History History of appendectomy Family History Mother Arrhythmia Father CAD (coronary artery disease) Social History Smoking and tobacco status: former smoker Alcohol intake: never Physical Exam Const: COMMON NORMALS: no apparent distress GENERAL APPEARANCE: cooperative and comfortable ORIENTATION/CONSCIOUSNESS: Yes awake, Yes oriented to person, Yes oriented to place and Yes oriented to time HENMT: COMMON NORMALS: normocephalic, head/scalp atraumatic, hearing grossly normal bilaterally, external ears normal, EAC's normal, TM's normal bilaterally, nasal mucous membranes and turbinates normal, moist oral mucous membranes and oropharynx normal HEAD & SCALP: normocephalic and atraumatic NOSE: nasal mucous membranes and turbinates normal EXTERNAL EAR: Yes external ears normal EXTERNAL AUDITORY CANAL: EAC's normal TYMPANIC MEMBRANE: TM's normal bilaterally Eye: COMMON NORMALS: PERRL, EOMs intact bilaterally, conjunctivae normal and no scleral icterus CONJUNCTIVA: Yes conjunctivae normal PUPIL: Yes PERRL Neck/C-Spine: COMMON NORMALS: full ROM, no lymphadenopathy, supple and no JVD Lymph: LYMPHATIC: no lymphadenopathy noted and no lymphedema noted Resp: AUSCULTATION: rales and wheezes Cardio: COMMON NORMALS: no JVD, regular rate, regular rhythm and no murmurs RATE: regular rate RHYTHM: regular rhythm GI: COMMON NORMALS: soft to palpation and no hepatosplenomegaly AUSCULTATION: Yes normoactive bowel sounds PALPATION: Yes soft, No tender, No guarding and Yes no hepatosplenomegaly Extremity: COMMON NORMALS: normal to inspection, normal capillary refill, no clubbing, cyanosis or edema, no calf tenderness and no pedal edema Neuro: SENSORIUM/ORIENTATION: Yes oriented to person, Yes oriented to place and Yes oriented to time Skin: COMMON NORMALS: no rashes or lesions noted GENERAL SKIN EXAM: no rashes or lesions noted Course Vital Signs: Vital signs: Vital Signs Temperature 98.7 F 07/06/19 00:00 Pulse Rate 81 07/06/19 12:05 Respiratory Rate 16 07/06/19 13:25 Blood Pressure 80/49 07/06/19 12:05 Pulse Oximetry 95 07/06/19 12:05 MDM - SOB/Dyspnea Lab Data: Labs: Lab Results 07/05/19 07/05/19 07/05/19 Range/Units 08:46 08:46 08:46 WBC 24.6 H (4.0-10.0) 10^3/ uL RBC 4.39 (4.1-5.3) 10^6/u L Hgb 13.6 (11.5-15.3) g/dL Hct 41.5 (37.0-47.0) % MCV 94.5 (81-99) fL MCH 31.0 (28.0-34.0) pg MCHC 32.8 (30.0-36.0) g/dL RDW 13.3 (12.1-15.1) % Plt Count 317 (130-400) 10^3/c mm MPV 10.1 (7.4-10.4) fL Neut % (Auto) 94.0 % Lymph % (Auto) 2.3 % [place] % (Auto) 3.2 % Eos % (Auto) 0.0 % Baso % (Auto) 0.1 % Neut # (Auto) 23.1 H (1.8-7.7) 10^3/u L Lymph # (Auto) 0.6 L (0.8-4.8) 10^3/u L [place] # (Auto) 0.8 (0.2-0.9) 10^3/u L Eos # (Auto) 0.0 (0.0-0.8) 10^3/u L Baso # (Auto) 0.0 (0.0-0.1) 10^3/u L Nucleated RBC % (a uto) 0 % Total Counted 100 (0-100) Segmented Neutroph ils 71 % Band Neutrophils 24.0 % Lymphocytes (Manua l) 4 % Monocytes (Manual) 1.0 % Absolute Monocytes 0.2 (0.1-0.6) 10^3/c mm Nucleated RBCs # 0.0 /100WBC Platelet Estimate Normal (Normal) D-Dimer 1.01 H (0-0.59) ug/mIFE U Specimen Type Sample Site ABG pH (7.35-7.45) ABG pCO2 (35-45) mmHg ABG pO2 (80.0-100.0) mmH g ABG HCO3 (22-26) mmol/L ABG O2 Saturation ABG Base Excess (-2.0-2.0) mmol/ L Sven Test A-a O2 Gradient (5-10) mmHg Hematocrit (37-47) % Hgb O2 Saturation (95-100) % Carboxyhemoglobin (0.4-20.1) %THgb Methemoglobin (0.4-1.5) % Total Hemoglobin (12-16) g/dL Ionized Calcium (1.1-1.4) mmol/L O2 Delivery Device O2 Liters/Min % FiO2 % Display Decorator ID Sodium 132 L (136-145) mmol/L Potassium 4.0 (3.5-5.1) mmol/L Chloride 93 L (98-107) mmol/L Carbon Dioxide 26 (22-29) mmol/L Anion Gap 17.0 (5-19) BUN 18 (8-23) mg/dL Creatinine 1.1 H (0.5-0.9) mg/dL Glucose 166 H (65-115) mg/dL Calcium 9.5 (8.5-10.5) mg/dL Total Bilirubin 0.3 (0.15-1.2) mg/dL AST 38 H (0-32) U/L ALT 21 (0-33) U/L Alkaline Phosphata se 96 (35-105) IU/L NT-Pro-B Natriuret Pep (0-125) pg/mL Total Protein 6.7 (6.6-8.7) g/dL Albumin 3.7 (3.5-5.2) g/dL Globulin 3.0 (1.3-4.6) g/dL Influenza Type A A g (Negative) POC Influenza B Ag (Negative) 07/05/19 07/05/19 07/05/19 Range/Units 08:46 08:50 08:59 WBC (4.0-10.0) 10^3/ uL RBC (4.1-5.3) 10^6/u L Hgb (11.5-15.3) g/dL Hct (37.0-47.0) % MCV (81-99) fL MCH (28.0-34.0) pg MCHC (30.0-36.0) g/dL RDW (12.1-15.1) % Plt Count (130-400) 10^3/c mm MPV (7.4-10.4) fL Neut % (Auto) % Lymph % (Auto) % [place] % (Auto) % Eos % (Auto) % Baso % (Auto) % Neut # (Auto) (1.8-7.7) 10^3/u L Lymph # (Auto) (0.8-4.8) 10^3/u L [place] # (Auto) (0.2-0.9) 10^3/u L Eos # (Auto) (0.0-0.8) 10^3/u L Baso # (Auto) (0.0-0.1) 10^3/u L Nucleated RBC % (a uto) % Total Counted (0-100) Segmented Neutroph ils % Band Neutrophils % Lymphocytes (Manua l) % Monocytes (Manual) % Absolute Monocytes (0.1-0.6) 10^3/c mm Nucleated RBCs # /100WBC Platelet Estimate (Normal) D-Dimer (0-0.59) ug/mIFE U Specimen Type Arterial Sample Site Radial, left ABG pH 7.27 L (7.35-7.45) ABG pCO2 61.3 H* (35-45) mmHg ABG pO2 85.9 (80.0-100.0) mmH g ABG HCO3 28.3 H (22-26) mmol/L ABG O2 Saturation ABG Base Excess 0.0 (-2.0-2.0) mmol/ L Sven Test Pos A-a O2 Gradient (5-10) mmHg Hematocrit 42.3 (37-47) % Hgb O2 Saturation 94.5 L (95-100) % Carboxyhemoglobin 0.6 (0.4-20.1) %THgb Methemoglobin 0.8 (0.4-1.5) % Total Hemoglobin 13.8 (12-16) g/dL Ionized Calcium (1.1-1.4) mmol/L O2 Delivery Device Nc O2 Liters/Min 2.5 % FiO2 30.0 % Display Decorator ID glc Sodium (136-145) mmol/L Potassium (3.5-5.1) mmol/L Chloride (98-107) mmol/L Carbon Dioxide (22-29) mmol/L Anion Gap (5-19) BUN (8-23) mg/dL Creatinine (0.5-0.9) mg/dL Glucose (65-115) mg/dL Calcium (8.5-10.5) mg/dL Total Bilirubin (0.15-1.2) mg/dL AST (0-32) U/L ALT (0-33) U/L Alkaline Phosphata se (35-105) IU/L NT-Pro-B Natriuret Pep 1030 H (0-125) pg/mL Total Protein (6.6-8.7) g/dL Albumin (3.5-5.2) g/dL Globulin (1.3-4.6) g/dL Influenza Type A A g Positive H (Negative) POC Influenza B Ag Negative (Negative) 07/05/19 Range/Units 13:34 WBC (4.0-10.0) 10^3/ uL RBC (4.1-5.3) 10^6/u L Hgb (11.5-15.3) g/dL Hct (37.0-47.0) % MCV (81-99) fL MCH (28.0-34.0) pg MCHC (30.0-36.0) g/dL RDW (12.1-15.1) % Plt Count (130-400) 10^3/c mm MPV (7.4-10.4) fL Neut % (Auto) % Lymph % (Auto) % [place] % (Auto) % Eos % (Auto) % Baso % (Auto) % Neut # (Auto) (1.8-7.7) 10^3/u L Lymph # (Auto) (0.8-4.8) 10^3/u L [place] # (Auto) (0.2-0.9) 10^3/u L Eos # (Auto) (0.0-0.8) 10^3/u L Baso # (Auto) (0.0-0.1) 10^3/u L Nucleated RBC % (a uto) % Total Counted (0-100) Segmented Neutroph ils % Band Neutrophils % Lymphocytes (Manua l) % Monocytes (Manual) % Absolute Monocytes (0.1-0.6) 10^3/c mm Nucleated RBCs # /100WBC Platelet Estimate (Normal) D-Dimer (0-0.59) ug/mIFE U Specimen Type Arterial Sample Site Radial, right ABG pH 7.35 (7.35-7.45) ABG pCO2 48.3 H (35-45) mmHg ABG pO2 89.7 (80.0-100.0) mmH g ABG HCO3 26.5 H (22-26) mmol/L ABG O2 Saturation 97.3 ABG Base Excess 0.3 (-2.0-2.0) mmol/ L Sven Test Pos A-a O2 Gradient 61.1 H (5-10) mmHg Hematocrit 39.9 (37-47) % Hgb O2 Saturation 95.8 (95-100) % Carboxyhemoglobin 0.6 (0.4-20.1) %THgb Methemoglobin 0.9 (0.4-1.5) % Total Hemoglobin 13.0 (12-16) g/dL Ionized Calcium 1.2 (1.1-1.4) mmol/L O2 Delivery Device Nc O2 Liters/Min 2.5 % FiO2 30.0 % Display Decorator ID glc Sodium 133.0 (136-145) mmol/L Potassium 3.7 (3.5-5.1) mmol/L Chloride (98-107) mmol/L Carbon Dioxide (22-29) mmol/L Anion Gap (5-19) BUN (8-23) mg/dL Creatinine (0.5-0.9) mg/dL Glucose 125.0 H (65-115) mg/dL Calcium (8.5-10.5) mg/dL Total Bilirubin (0.15-1.2) mg/dL AST (0-32) U/L ALT (0-33) U/L Alkaline Phosphata se (35-105) IU/L NT-Pro-B Natriuret Pep (0-125) pg/mL Total Protein (6.6-8.7) g/dL Albumin (3.5-5.2) g/dL Globulin (1.3-4.6) g/dL Influenza Type A A g (Negative) POC Influenza B Ag (Negative) Discharge Plan Discharge Patient Disposition: Admitted As Inpatient Admit Provider: Merced Suresh Condition: Stable Referrals: Misty Villaseñor MD [Primary Care Provider] - Discharge Date/Time: 07/05/19 18:29 Coding Level of Care Code ED Translator Deaf for Chg Fwd Exam Problem Focused The documentation recorded by the scribe, [id number], accurately reflects the service I personally performed and the decisions made by Elver singletary Curtis L, DO Jul 05, 2019 08:23
--- NOTE | 2019-07-05 08:27 | ED_ITS ---
Entered by Edwin Landrum, acting as scribe for Peter Raya DO HPI - SOB/Dyspnea General: Chief Complaint: Shortness of Breath/Dyspnea Stated Complaint: resp distress History of Present Illness: HPI Narrative: 74 yo female presents with shortnes s of breath. Pt was recently diagnosed with bronchitis. Pt received breathing treatments from EMS. Pt states that she is on 2 liters of o2 at all times. Moderately productive cough no fevers. Cough sputum has changed in character and volume. MD elicited complaint: shortness of breath Pertinent past history: COPD Context: recent illness Timing: constant Severity: moderate Exacerbating factors: lying flat, exertion and movement Relieving factors: nothing Known history of: COPD Associated symptoms: Deny abdominal pain, chest pain, dizziness, extremity pain, fever(s), nausea, orthopnea, palpitations, polydipsia, polyuria, syncope or vomiting Review of Systems Const: Denies: fever, chills, body aches, fatigue, malaise or night sweats Eyes: Denies: change in vision or blurry vision ENMT: Denies: throat pain, oral sores/lesions, dental pain, nasal discharge or nasal congestion Card: Denies: chest pain, palpitations, irregular heart rhythm, edema, syncope, shortness of breath on exertion, shortness of breath when lying down or leg pain with exertion Resp: Reports: shortness of breath and non-productive cough; Denies: productive cough or wheezing GI: Denies: abdominal pain, nausea, vomiting, vomiting blood, coffee grounds in vomit, difficulty swallowing, heartburn/indigestion, diarrhea, constipation, cramping, blood in stool or black tarry stool : Denies: flank pain, painful urination, urinary frequency, urinary urgency, urinary incontinence or blood in urine Musc: Denies: neck pain, back pain, extremity pain, extremity swelling, joint pain or joint swelling Skin/Breast: Denies: rash, itching or redness Neuro: Denies: headache, numbness in extremities, weakness in extremities, felipe nges in sensation, lack of coordination, difficulty walking, frequent falls, dizziness, vertigo or confusion Psych: Denies: anxiety, depression, loss of interest, visual hallucinations, auditory hallucinations, suicidal ideation or homicidal ideation Endo: Denies: excessive urination, excessive thirst, tired all the time or cold intolerance Yonatan/Lymph: Denies: easy bruising, easy bleeding, petechiae, enlarged lymph nodes or tender lymph nodes PFSH ED PFSH: Statuses (acute, chronic, etc) shown below reflect problem list status as previously entered and may not be historically accurate Surgical History History of appendectomy Family History Mother Arrhythmia Father CAD (coronary artery disease) Social History Smoking and tobacco status: former smoker Alcohol intake: never Physical Exam Const: COMMON NORMALS: average body habitus, oriented x3 and alert GENERAL APPEARANCE: cooperative, well kempt, well developed and in distress NUTRITIONAL APPEARANCE: not obese ORIENTATION/CONSCIOUSNESS: Yes awake, Yes oriented to person and Yes oriented to place HENMT: COMMON NORMALS: normocephalic, head/scalp atraumatic, EAC's normal, TM's normal bilaterally, external nose normal, moist oral mucous membranes and oropharynx normal HEAD & SCALP: normocephalic and atraumatic NOSE: external nose normal EXTERNAL AUDITORY CANAL: EAC's normal TYMPANIC MEMBRANE: TM's normal bilaterally MOUTH: oral and palatal mucosa normal, lip normal and tongue normal THROAT: posterior oropharynx normal and tonsils normal Eye: COMMON NORMALS: PERRL, EOMs intact bilaterally, conjunctivae normal and no scleral icterus CONJUNCTIVA: Yes conjunctivae normal PUPIL: Yes PERRL Neck/C-Spine: COMMON NORMALS: full ROM, no lymphadenopathy, supple, no meningeal signs and thyroid normal THYROID: thyroid normal and asymmetrical Lymph: LYMPHATIC: no lymphadenopathy noted Resp: EFFORT & INSPECTION: Yes tachypneic, Yes pursed lip breathing, Yes labored, Yes grunting and Yes uses accessory muscles AUSCULTATION: breath sounds absent Cardio: COMMON NORMALS: regular rate and regular rhythm RATE: regular rate RHYTHM: regular rhythm HEART SOUNDS: no murmurs GI: COMMON NORMALS: normal to inspection, nondistended, normoactive bowel sounds, soft to palpation and no hepatosplenomegaly PALPATION: Yes soft and Yes no hepatosplenomegaly : COMMON NORMALS: Yes no CVA tenderness BLADDER/KIDNEY EXAM: Yes no CVA tenderness Back/Pelvis: COMMON NORMALS: no CVA tenderness LUMBAR SPINE/LOWER BACK: Yes normal to inspection Extremity: COMMON NORMALS: no clubbing, cyanosis or edema and no calf tenderness GENERAL: Yes edema (2+) Neuro: COMMON NORMALS: oriented x3 SENSORIUM/ORIENTATION: Yes alert, Yes oriented to person and Yes oriented to place MENINGEAL SIGNS: Yes no meningeal signs Psych: APPEARANCE: Yes well kempt Skin: COMMON NORMALS: no rashes or lesions noted and skin turgor normal GENERAL SKIN EXAM: no rashes or lesions noted and turgor normal Course ED course: We will go ahead and admit the patient initially started her on BiPAP she did improve and then worsened again. Vital Signs: Vital signs: Vital Signs Temperature 98.7 F 07/06/19 00:00 Pulse Rate 81 07/06/19 12:05 Respiratory Rate 16 07/06/19 11:28 Blood Pressure 80/49 07/06/19 12:05 Pulse Oximetry 95 07/06/19 12:05 MDM - SOB/Dyspnea Lab Data: Labs: Lab Results 07/05/19 07/05/19 07/05/19 Range/Units 08:46 08:46 08:46 WBC 24.6 H (4.0-10.0) 10^3/ uL RBC 4.39 (4.1-5.3) 10^6/u L Hgb 13.6 (11.5-15.3) g/dL Hct 41.5 (37.0-47.0) % MCV 94.5 (81-99) fL MCH 31.0 (28.0-34.0) pg MCHC 32.8 (30.0-36.0) g/dL RDW 13.3 (12.1-15.1) % Plt Count 317 (130-400) 10^3/c mm MPV 10.1 (7.4-10.4) fL Neut % (Auto) 94.0 % Lymph % (Auto) 2.3 % [place] % (Auto) 3.2 % Eos % (Auto) 0.0 % Baso % (Auto) 0.1 % Neut # (Auto) 23.1 H (1.8-7.7) 10^3/u L Lymph # (Auto) 0.6 L (0.8-4.8) 10^3/u L [place] # (Auto) 0.8 (0.2-0.9) 10^3/u L Eos # (Auto) 0.0 (0.0-0.8) 10^3/u L Baso # (Auto) 0.0 (0.0-0.1) 10^3/u L Nucleated RBC % (a uto) 0 % Total Counted 100 (0-100) Segmented Neutroph ils 71 % Band Neutrophils 24.0 % Lymphocytes (Manua l) 4 % Monocytes (Manual) 1.0 % Absolute Monocytes 0.2 (0.1-0.6) 10^3/c mm Nucleated RBCs # 0.0 /100WBC Platelet Estimate Normal (Normal) D-Dimer 1.01 H (0-0.59) ug/mIFE U Specimen Type Sample Site ABG pH (7.35-7.45) ABG pCO2 (35-45) mmHg ABG pO2 (80.0-100.0) mmH g ABG HCO3 (22-26) mmol/L ABG O2 Saturation ABG Base Excess (-2.0-2.0) mmol/ L Sven Test A-a O2 Gradient (5-10) mmHg Hematocrit (37-47) % Hgb O2 Saturation (95-100) % Carboxyhemoglobin (0.4-20.1) %THgb Methemoglobin (0.4-1.5) % Total Hemoglobin (12-16) g/dL Ionized Calcium (1.1-1.4) mmol/L O2 Delivery Device O2 Liters/Min % FiO2 % Rotor Casting Machine Operator ID Sodium 132 L (136-145) mmol/L Potassium 4.0 (3.5-5.1) mmol/L Chloride 93 L (98-107) mmol/L Carbon Dioxide 26 (22-29) mmol/L Anion Gap 17.0 (5-19) BUN 18 (8-23) mg/dL Creatinine 1.1 H (0.5-0.9) mg/dL Glucose 166 H (65-115) mg/dL Calcium 9.5 (8.5-10.5) mg/dL Total Bilirubin 0.3 (0.15-1.2) mg/dL AST 38 H (0-32) U/L ALT 21 (0-33) U/L Alkaline Phosphata se 96 (35-105) IU/L NT-Pro-B Natriuret Pep (0-125) pg/mL Total Protein 6.7 (6.6-8.7) g/dL Albumin 3.7 (3.5-5.2) g/dL Globulin 3.0 (1.3-4.6) g/dL Influenza Type A A g (Negative) POC Influenza B Ag (Negative) 07/05/19 07/05/19 07/05/19 Range/Units 08:46 08:50 08:59 WBC (4.0-10.0) 10^3/ uL RBC (4.1-5.3) 10^6/u L Hgb (11.5-15.3) g/dL Hct (37.0-47.0) % MCV (81-99) fL MCH (28.0-34.0) pg MCHC (30.0-36.0) g/dL RDW (12.1-15.1) % Plt Count (130-400) 10^3/c mm MPV (7.4-10.4) fL Neut % (Auto) % Lymph % (Auto) % [place] % (Auto) % Eos % (Auto) % Baso % (Auto) % Neut # (Auto) (1.8-7.7) 10^3/u L Lymph # (Auto) (0.8-4.8) 10^3/u L [place] # (Auto) (0.2-0.9) 10^3/u L Eos # (Auto) (0.0-0.8) 10^3/u L Baso # (Auto) (0.0-0.1) 10^3/u L Nucleated RBC % (a uto) % Total Counted (0-100) Segmented Neutroph ils % Band Neutrophils % Lymphocytes (Manua l) % Monocytes (Manual) % Absolute Monocytes (0.1-0.6) 10^3/c mm Nucleated RBCs # /100WBC Platelet Estimate (Normal) D-Dimer (0-0.59) ug/mIFE U Specimen Type Arterial Sample Site Radial, left ABG pH 7.27 L (7.35-7.45) ABG pCO2 61.3 H* (35-45) mmHg ABG pO2 85.9 (80.0-100.0) mmH g ABG HCO3 28.3 H (22-26) mmol/L ABG O2 Saturation ABG Base Excess 0.0 (-2.0-2.0) mmol/ L Sven Test Pos A-a O2 Gradient (5-10) mmHg Hematocrit 42.3 (37-47) % Hgb O2 Saturation 94.5 L (95-100) % Carboxyhemoglobin 0.6 (0.4-20.1) %THgb Methemoglobin 0.8 (0.4-1.5) % Total Hemoglobin 13.8 (12-16) g/dL Ionized Calcium (1.1-1.4) mmol/L O2 Delivery Device Nc O2 Liters/Min 2.5 % FiO2 30.0 % Rotor Casting Machine Operator ID glc Sodium (136-145) mmol/L Potassium (3.5-5.1) mmol/L Chloride (98-107) mmol/L Carbon Dioxide (22-29) mmol/L Anion Gap (5-19) BUN (8-23) mg/dL Creatinine (0.5-0.9) mg/dL Glucose (65-115) mg/dL Calcium (8.5-10.5) mg/dL Total Bilirubin (0.15-1.2) mg/dL AST (0-32) U/L ALT (0-33) U/L Alkaline Phosphata se (35-105) IU/L NT-Pro-B Natriuret Pep 1030 H (0-125) pg/mL Total Protein (6.6-8.7) g/dL Albumin (3.5-5.2) g/dL Globulin (1.3-4.6) g/dL Influenza Type A A g Positive H (Negative) POC Influenza B Ag Negative (Negative) 07/05/19 Range/Units 13:34 WBC (4.0-10.0) 10^3/ uL RBC (4.1-5.3) 10^6/u L Hgb (11.5-15.3) g/dL Hct (37.0-47.0) % MCV (81-99) fL MCH (28.0-34.0) pg MCHC (30.0-36.0) g/dL RDW (12.1-15.1) % Plt Count (130-400) 10^3/c mm MPV (7.4-10.4) fL Neut % (Auto) % Lymph % (Auto) % [place] % (Auto) % Eos % (Auto) % Baso % (Auto) % Neut # (Auto) (1.8-7.7) 10^3/u L Lymph # (Auto) (0.8-4.8) 10^3/u L [place] # (Auto) (0.2-0.9) 10^3/u L Eos # (Auto) (0.0-0.8) 10^3/u L Baso # (Auto) (0.0-0.1) 10^3/u L Nucleated RBC % (a uto) % Total Counted (0-100) Segmented Neutroph ils % Band Neutrophils % Lymphocytes (Manua l) % Monocytes (Manual) % Absolute Monocytes (0.1-0.6) 10^3/c mm Nucleated RBCs # /100WBC Platelet Estimate (Normal) D-Dimer (0-0.59) ug/mIFE U Specimen Type Arterial Sample Site Radial, right ABG pH 7.35 (7.35-7.45) ABG pCO2 48.3 H (35-45) mmHg ABG pO2 89.7 (80.0-100.0) mmH g ABG HCO3 26.5 H (22-26) mmol/L ABG O2 Saturation 97.3 ABG Base Excess 0.3 (-2.0-2.0) mmol/ L Sven Test Pos A-a O2 Gradient 61.1 H (5-10) mmHg Hematocrit 39.9 (37-47) % Hgb O2 Saturation 95.8 (95-100) % Carboxyhemoglobin 0.6 (0.4-20.1) %THgb Methemoglobin 0.9 (0.4-1.5) % Total Hemoglobin 13.0 (12-16) g/dL Ionized Calcium 1.2 (1.1-1.4) mmol/L O2 Delivery Device Nc O2 Liters/Min 2.5 % FiO2 30.0 % Rotor Casting Machine Operator ID glc Sodium 133.0 (136-145) mmol/L Potassium 3.7 (3.5-5.1) mmol/L Chloride (98-107) mmol/L Carbon Dioxide (22-29) mmol/L Anion Gap (5-19) BUN (8-23) mg/dL Creatinine (0.5-0.9) mg/dL Glucose 125.0 H (65-115) mg/dL Calcium (8.5-10.5) mg/dL Total Bilirubin (0.15-1.2) mg/dL AST (0-32) U/L ALT (0-33) U/L Alkaline Phosphata se (35-105) IU/L NT-Pro-B Natriuret Pep (0-125) pg/mL Total Protein (6.6-8.7) g/dL Albumin (3.5-5.2) g/dL Globulin (1.3-4.6) g/dL Influenza Type A A g (Negative) POC Influenza B Ag (Negative) Discharge Plan Discharge Patient Disposition: Admitted As Inpatient Admit Provider: Merced Suresh Condition: Stable Referrals: Misty Villaseñor MD [Primary Care Provider] - Discharge Date/Time: 07/05/19 18:29 Coding Level of Care Code ED Seasonal Customer Service Associate for Chg Fwd Exam Problem Focused The documentation recorded by the Diallo whelan Kialy, accurately reflects the service I personally performed and the decisions made by Elver singletary Curtis L, DO Jul 05, 2019 08:23
--- NOTE | 2019-07-05 08:36 | XR_ITS ---
WS: [id number] PORTABLE CHEST HISTORY: cough/dyspnea COMPARISON: 07/04/2019. Marked pulmonary hyperinflation. Interstitial thickening is minimal at the RIGHT lung base. Otherwise lungs are clear. No pleural effusion or pneumothorax. Cardiac size: Normal. Mediastinum/Aorta: Mild atherosclerosis aorta. No osseous abnormality seen. XR/XR chest 1V portable [id number] IMPRESSION: 1. Minimal LEFT basilar atelectasis. 2. Severe emphysema.
[2019-07-05] MEDS: ipratropium-albuterol 3 mL Neb 6 ML INHALATION (08:42)
[2019-07-05 08:55] LABS: Basophils % 0.1 %; Hematocrit 41.5 % (37.0-47.0); Hemoglobin 13.6 g/dL (11.5-15.3); Lymphocytes # 0.6 10^3/uL (0.8-4.8); Lymphocytes % 2.3 %; Mean Corpuscular HGB Conc 32.8 g/dL (30.0-36.0); Mean Corpuscular Volume 94.5 fL (81-99); Mean Platelet Volume 10.1 fL (7.4-10.4); Monocytes # 0.8 10^3/uL (0.2-0.9); Monocytes % 3.2 %; Neutrophils # 23.1 10^3/uL (1.8-7.7); Nucleated Red Blood Cells % 0 %; Platelet Count 317 10^3/cmm (130-400); Red Blood Count 4.39 10^6/uL (4.1-5.3); Red Cell Distribution Width 13.3 % (12.1-15.1); White Blood Count 24.6 10^3/uL (4.0-10.0)
[2019-07-05 09:03] LABS: D Dimer 1.01 ug/mIFEU (0-0.59)
[2019-07-05 09:03] LABS: ABG PH Result 7.27 (7.35-7.45); Arterial Blood Gas Hematocrit 42.3 % (37-47); Blood Gas Allen Test Pos; Blood Gas LPM 2.5 %; Blood Gas Operator Identificat glc; Blood Gas Sample Site Radial, left; Blood Gas Sample Type Arterial; Carboxyhemoglobin 0.6 %THgb (0.4-20.1); HCO3 ABG 28.3 mmol/L (22-26); HGB O2 Sat 94.5 % (95-100); Methemoglobin 0.8 % (0.4-1.5); Oxygen Device NC; PO2 ABG 85.9 mmHg (80.0-100.0); Total Hemoglobin 13.8 g/dL (12-16)
[2019-07-05 09:04] LABS: ABG PCO2 61.3 mmHg (35-45)
[2019-07-05 09:12] LABS: Alanine Aminotransferase 21 U/L (0-33); Albumin Level 3.7 g/dL (3.5-5.2); Alkaline Phosphatase 96 IU/L (35-105); Aspartate Amino Transferase 38 U/L (0-32); Blood Urea Nitrogen 18 mg/dL (8-23); Calcium 9.5 mg/dL (8.5-10.5); Carbon Dioxide 26 mmol/L (22-29); Chloride 93 mmol/L (98-107); Glucose 166 mg/dL (65-115); Slide Review Slide Review Perform; Sodium 132 mmol/L (136-145); Total Bilirubin 0.3 mg/dL (0.15-1.2); Total Protein 6.7 g/dL (6.6-8.7)
[2019-07-05 09:14] LABS: Absolute Segmented Neutrophil 17.4 10/cmm (1.6-7.1); Band Neutrophils Absolute 5.9 10^3/cmm (0.0-1.2); Lymphocytes 4 %; Monocytes Absolute 0.2 10^3/cmm (0.1-0.6); Platelet Estimate Normal (Normal); Segmented Neutrophils 71 %; Total Cells Counted 100 (0-100)
[2019-07-05 09:28] LABS: Influenza A by IFA Positive (Negative); Influenza B by IFA Negative (Negative)
--- NOTE | 2019-07-05 10:47 | PC.PHAR ---
NEITHER PT NOR PTS FAMILY ABLE TO VERIFY MEDICATION. PUT IN MEDICATIONS THAT PHARMACY HAS FILLED RECENTLY.
[2019-07-05] MEDS: cefTRIAXone 1,000 MG in sodium chloride 0.9% (plus) 50 ML 100 MG IV (12:18)
[2019-07-05] MEDS: azithromycin 500 MG in sodium chloride 0.9% 250 ML 250 MG IV (12:58)
[2019-07-05 13:44] LABS: ABG PCO2 48.3 mmHg (35-45); ABG PH Result 7.35 (7.35-7.45); Alveolar-Arterial Oxygen Gradi 61.1 mmHg (5-10); Arterial Blood Gas Hematocrit 39.9 % (37-47); Base Excess ABG 0.3 mmol/L (-2.0-2.0); Blood Gas Allen Test Pos; Blood Gas LPM 2.5 %; Blood Gas Operator Identificat glc; Blood Gas Sample Site Radial, right; Blood Gas Sample Type Arterial; Carboxyhemoglobin 0.6 %THgb (0.4-20.1); HCO3 ABG 26.5 mmol/L (22-26); HGB O2 Sat 95.8 % (95-100); Ionized Calcium Level - ABG 1.2 mmol/L (1.1-1.4); Methemoglobin 0.9 % (0.4-1.5); Oxygen Device NC; Oxygen Saturation ABG 97.3; PO2 ABG 89.7 mmHg (80.0-100.0); Potassium Level - ABG 3.7 mmol/L (3.5-5.0)
[2019-07-05] MEDS: ipratropium-albuterol 3 mL Neb INHALATION ×2 (14:08→22:35)
[2019-07-05] MEDS: LORazepam 2 mg/mL INJ 1 mL 1 MG IVP (15:01)
--- NOTE | 2019-07-05 17:32 | P.HP_ITS ---
Providers/Chief Complaint Admitting Physician: eMrced Suresh MD Primary Care Provider: Misty Villaseñor MD Chief Complaint: resp distress History of Present Illness Melany Phan is a 74 year old female with PMHx of Oxygen-dependent COPD (2 L baseline requirement), HTN, CKD stage 2-3, Former smoker; presents via ambulance for evaluation of acutely worsening shortness of breath as of earlier this morning. Of note patient had presented to the ER yesterday for similar complaints, was found to have an acute COPD exacerbation and was discharged home on a course of oral prednisone and Keflex. Unfortunately upon awakening early this morning she told her son that she could not catch her breath so needed to return to the ER for repeat evaluation. It is unclear whether or not she started taking her steroids or antibiotics. During my bedside assessment in the ER she is very somnolent as she has received a dose of Ativan to allow her to maintain her BiPAP in place. Son is at bedside and provides history. Collateral information obtained from review of medical record. She was admitted to our facility in May for similar symptoms at which time she was treated for acute COPD exacerbation and pneumonia. At that time she was discharged on a tapering course of oral steroids and Levaquin. Son at bedside reports that one of his children has not been feeling well and has been febrile. I am unsure if patient has had any cough, fever/chills. She was found to be influenza A positive today. Also has leukocytosis with a white count of 24.4 which could be steroid-induced with an otherwise normal CBC. She has mild hyponatremia with a sodium of 133, BUN of 18, creatinine of 1.1. ABG shows some hypercapnia with a PCO2 of 48.3. She is currently on BiPAP with an FiO2 of 40% and saturating at 100%. Chest x-ray shows severe emphysema and atelectasis but no signs of acute pneumonia. She has received a dose of ceftriaxone, azithromycin and Tamiflu. I have requested that she be placed on droplet precautions. She has been admitted due to need for continuous BiPAP and close monitoring of her respiratory status as well as appropriate treatment for acute COPD exacerbation. Review of Systems General: Reports: ROS unobtainable due to mental status (Information obtained from son at bedside as patient is quite somnolent) Const: Reports: change in appetite (decreased appetite) and fatigue; Denies: fever or chills Eyes: Denies: change in vision ENMT: Reports: dry mouth Card: Reports: edema; Denies: chest pain, swelling of feet/ankles or lightheadedness Resp: Reports: shortness of breath and wheezing GI: Denies: abdominal pain, nausea, vomiting, vomiting blood or blood in stool : Denies: difficulty urinating or painful urination Musc: Denies: back pain Skin/Breast: Denies: rash Neuro: Denies: numbness in extremities Psych: Denies: anxiety Medications/Allergies Home Medications Medication Instructions Recorded Confirmed Last Taken Type albuterol sulfate [Ventolin HFA] 2 puff INHALATION Q4H PRN 07/05/19 07/05/19 Unknown History hydrochlorothiazide 6.25 mg PO DAILY 07/05/19 07/05/19 Unknown History ipratropium-albuterol [Combivent 2 puff INHALATION Q6H PRN 07/05/19 07/05/19 Unknown History Respimat] latanoprost 1 drp OPHTHALMIC (EYE) BEDTIME 07/05/19 07/05/19 Unknown History montelukast [Singulair] 10 mg PO DAILY 07/05/19 07/05/19 Unknown History Allergies Allergy/AdvReac Type Severity Reaction Status Date / Time codeine Allergy Unknown Verified 05/29/19 16:03 Penicillins Allergy Unknown Verified 05/29/19 15:59 Sulfa (Sulfonamide Allergy Unknown Verified 05/29/19 15:59 Antibiotics) PFSH Acute PFSH: Statuses (acute, chronic, etc) shown below reflect problem list status as previously entered and may not be historically accurate Medical History (Updated 07/05/19 @ 17:51 by Merced Suresh MD) Cataract COPD (chronic obstructive pulmonary disease) Glaucoma Hypertension On home oxygen therapy Surgical History History of appendectomy Family History Mother Arrhythmia Father CAD (coronary artery disease) Social History Smoking and tobacco status: former smoker Alcohol intake: never Vitals/I&O/Wt Last Vital Signs Temp 97.6 F 07/05/19 08:25 Pulse 107 H 07/05/19 17:00 Resp 21 H 07/05/19 17:00 BP 109/70 07/05/19 17:00 Pulse Ox 100 07/05/19 17:00 07/05/19 07/05/19 07/05/19 06:59 14:59 22:59 Intake Total 50 / 50 250 / 300 Balance 50 / 50 250 / 300 Weight last 48 hrs Weight 58.967 kg Physical Exam Const: COMMON NORMALS: no apparent distress GENERAL APPEARANCE: cooperative and comfortable ORIENTATION/CONSCIOUSNESS: Yes other (somnolent) HENMT: COMMON NORMALS: normocephalic and head/scalp atraumatic HEAD & SCALP: normocephalic and atraumatic MOUTH: moist mucous membranes abnormal Details: parched Eye: COMMON NORMALS: PERRL, EOMs intact bilaterally and conjunctivae normal CONJUNCTIVA: Yes conjunctivae normal PUPIL: Yes PERRL Neck/C-Spine: COMMON NORMALS: full ROM GENERAL: Yes normal visual inspection and Yes trachea midline Resp: COMMON NORMALS: no retractions EFFORT & INSPECTION: Yes symmetric chest movement and Yes tachypneic OTHER: -Prolonged expiration phase, noted end expiratory wheezing, coarse breath sounds bilaterally; currently on BiPAP with FiO2 of 40% Cardio: COMMON NORMALS: regular rate, regular rhythm, S1 normal heart sound, S2 normal heart sound and no murmurs RATE: regular rate RHYTHM: regular rhythm HEART SOUNDS: S1 normal and S2 normal GI: COMMON NORMALS: normal to inspection, nondistended, normoactive bowel sounds, soft to palpation and non-tender PALPATION: Yes soft Extremity: COMMON NORMALS: normal to inspection and full ROM; negative for no pedal edema GENERAL: Yes edema (1-2+ pitting edema in bilateral lower extremities) Neuro: SENSORIUM/ORIENTATION: Yes somnolent Psych: OTHER: -Unable to assess due to somnolence Skin: COMMON NORMALS: no rashes or lesions noted, no jaundice, no petechiae and no mottling GENERAL SKIN EXAM: no rashes or lesions noted Data : 07/05/19 08:46 07/05/19 08:46 Micro: Microbiology 07/05/19 12:10 Blood Culture - Preliminary Blood SPECIMEN COLLECTED 07/05/19 12:12 Blood Culture - Preliminary Blood SPECIMEN COLLECTED A&P Assessment and plan (1) Acute exacerbation of chronic obstructive pulmonary disease (COPD): -Has had recent multiple exacerbations of COPD, is oxygen dependent at baseline with a 2 L requirement. This particular episode was likely triggered by influenza A -Has been on systemic steroids since last month; reluctant to continue this at this time -Currently requiring BiPAP -Close monitoring of respiratory status; wean off as tolerated -Continue empiric antibiotics, has received a dose of ceftriaxone and az ithromycin in the ER -Telemetry monitoring -Continued monitoring of vital signs -DuoNebs PRN -Chest x-ray shows severe emphysema, otherwise unremarkable -noted LE edema, will order BNP; has no prior hx of CHF and I do not see evidence of cardiomegaly or pulmonary vascular congestion on CXR -ABG noted with mild hypercapnia -D-dimer elevated, had CTA done in 05/2019 which was negative for PE; low heena picion for this currently -noted leukocytosis which could be steroid induced; continue to trend WBC -may benefit from PFTs and pulmonology f/u as outpatient to optimize treatment Status: Acute Code(s): J44.1 - Chronic obstructive pulmonary disease with (acute) exacerbation (2) Influenza A: -Found to be influenza A positive -Start on droplet precautions -Received a dose of Tamiflu; continue this for 5-day course Status: Acute Code(s): J10.1 - Influenza due to other identified influenza virus with other respiratory manifestations Additional A&P Information -HTN -Former smoker -CKD stage 2-3; baseline Cr around 1; renal function at baseline -regular diet if able to wean off BiPAP and more awake -fall precautions -DVT ppx with Lovenox -Dispo: home -Code status: FULL code Attestations Medical Necessity Statement*: Patient requires hospitalization for management of acute COPD exacerbation and treatment of influenza. She is currently requiring BiPAP and close monitoring of her respiratory status so anticipate that her care will exceed 2 midnights, inpatient status. Time Spent in Patient Care: Greater than 35 minutes (>than 50% of time spent in counselling and/or direct pt care on unit) . Coding Level of Care Code Acute Palliative Nurse for Aaliyah Harper Diagnoses Acute exacerbation of chronic obstructive pulmonary disease (COPD) J44.1 Influenza A J10.1
[2019-07-05 18:40] LABS: NT Pro B Type Natriuretic Pept 1030 pg/mL (0-125)
[2019-07-05] MEDS: enoxaparin 40 mg/0.4 mL Syringe SUBCUT (21:22)
[2019-07-05] MEDS: oseltamivir phosphate 75 mg Capsule PO (21:23)
[2019-07-05] MEDS: D5-NS 0.45% + KCL 20 mEq 20 MEQ/1,000 ML BAG 100 MEQ IV (21:23)
[2019-07-06] VITALS (182 sets, daily range): BP systolic 73–153; BP diastolic 44–95; PULSE 75–123; RESP 14–28; TEMP 36.9–37.8; O2SAT 90–100
[2019-07-06] MEDS: ipratropium-albuterol 3 mL Neb INHALATION ×5 (00:25→19:57)
[2019-07-06] MEDS: LORazepam 2 mg/mL INJ 1 mL 0.5 MG IVP (01:39)
[2019-07-06 01:57] LABS: ABG PCO2 58.5 mmHg (35-45); ABG PH Result 7.29 (7.35-7.45); Arterial Blood Gas Hematocrit 40.2 % (37-47); Base Excess ABG 0.2 mmol/L (-2.0-2.0); Blood Gas LPM 2.5 %; Blood Gas Sample Site Brachial, right; Blood Gas Sample Type Arterial; Oxygen Device NC; PO2 ABG 81.8 mmHg (80.0-100.0)
--- NOTE | 2019-07-06 02:05 | PM.EVENT ---
Event Note Event Note: Called with patient anxious and refusing bipap. I ordered a low dose of ativan and an abg Laboratory Tests 07/06/19 01:45 ABG pH 7.29 L ABG pCO2 58.5 H ABG pO2 81.8 ABG HCO3 28.0 H Respiratory following. With hypercapnia, further ativan not a prefered option. Will need to monitor closely. If worsens may have to consider intubation.
--- NOTE | 2019-07-06 02:47 | XRR_ITS ---
PROCEDURE INFORMATION: Exam: XR Chest, 1 View Exam date and time: 07/06/2019 4:11 AM Age: 74 years old Clinical indication: Device placement; Ett placement (vent status); Patient HX: Et and ng tube placement; Additional info: Post intubation TECHNIQUE: Imaging protocol: XR of the chest Views: 1 view. COMPARISON: CR XR chest 1V portable [id number] 07/05/2019 8:58 AM FINDINGS: Tubes, catheters and devices: Interval appearance of the ET tube with its tip about 5.5 cm superior to the relatively poorly visualized jayme. Interval appearance of the enteric tube with its tip at the GE junction. Lungs: Interval worsening of the marked hyperinflation of the lungs. Paraseptal blebs in both lung bases still probably evident. Continued slight stranding in each lung base possibly due to atelectasis or scar. Still no consolidation. Pleural space: Overlapping structures over the lung apices, but probably no pneumothorax. Interval appearance of the minimal or mild blunting of both lateral costophrenic angles. Heart/Mediastinum: Still no cardiomegaly. Bones/joints: Continued diffuse osteopenia. No visible acute fracture. Other findings: Continued suggestion of calcified nodes in the pretracheal region. XR/XR chest 1V portable [id number] IMPRESSION: 1. Interval appearance of the ET tube in adequate position. 2. Interval appearance of the enteric tube with its tip at the GE junction, therefore advancement needed. 3. Apparent interval worsening of the marked hyperinflation of the lungs indicating emphysema. Slight atelectasis or scar in the lung bases again evident. 4. Interval minimal pleural effusions not excluded, but conceivably simulated by the interval increase in the lung volumes. Other findings detailed above.
--- NOTE | 2019-07-06 02:49 | P.PNCC_ITS ---
Critical Care Event Note Critical Care Event The high probability of a clinically significant, sudden or life threatening deterioration of the patient's pulmonary system(s) required my full and direct attention, intervention and personal management. The critical care time is as shown. This time is in addition to time spent performing any reported procedures but includes the following: x Data and vital sign review and interpretation x Patient assessment, examination and intervention x Documentation x Medication orders and management Called to patient's room that she was becoming less responsive and struggling to breathe. She had taken BiPAP off again. She is refusing to keep it on and is repeatedly becoming severely hypoxic. I have decided that we will go on and proceed with intubation and mechanical ventilation to get her over the hump. She is influenza positive and has pneumonia. History was reviewed with nursing staff and chart was reviewed as well. Attempted to contact son at number in chart but no answer. Patient is not alert enough to consent or refuse. Will proceed emergently. Critical Care Time Critical Care Time: Code activated: No Critical Care Time (min): 45 Procedures Intubation Time out performed: Yes Sedative: other (etomidate 10, versed 2) Paralytic: succinylcholine Mg given: 100 Laryngoscope: Veronica ET tube size: 8 ET tube uncuffed: No Tube secured depth (cm): 24 Tube secured location: lips Tube placement confirmation: visualized tube passing through cords, equal breath sounds bilaterally, no breath sounds over epigastrium and color change noted Patient tolerated procedure: well Intubation complications: none Additional comments: Overall color improved after intubation. Going to ICU. Cxr ordered. I also placed NGT at same time. Post intubation BP 86/52. Saline bolus ordered. Coding Level of Care Code Acute Software Licensing Analyst for Aaliyah Harper
[2019-07-06] MEDS: midazolam 1 mg/mL INJ 5 ML 2 MG IV (03:40)
[2019-07-06] MEDS: succinylcholine 20 mg/mL SDV 10mL 100 MG IV (03:40)
[2019-07-06 03:41] LABS: Basophils % 0.1 %; Hematocrit 38.1 % (37.0-47.0); Hemoglobin 12.5 g/dL (11.5-15.3); Lymphocytes # 0.7 10^3/uL (0.8-4.8); Lymphocytes % 2.9 %; Mean Corpuscular HGB Conc 32.8 g/dL (30.0-36.0); Mean Corpuscular Hemoglobin 30.8 pg (28.0-34.0); Mean Corpuscular Volume 93.8 fL (81-99); Mean Platelet Volume 9.3 fL (7.4-10.4); Monocytes # 1.5 10^3/uL (0.2-0.9); Neutrophils % 90.5 %; Nucleated Red Blood Cells % 0 %; Platelet Count 367 10^3/cmm (130-400); Red Blood Count 4.06 10^6/uL (4.1-5.3); Red Cell Distribution Width 13.4 % (12.1-15.1); White Blood Count 25.5 10^3/uL (4.0-10.0)
[2019-07-06 04:02] LABS: Alanine Aminotransferase 21 U/L (0-33); Albumin Level 3.3 g/dL (3.5-5.2); Alkaline Phosphatase 88 IU/L (35-105); Anion Gap 16.3 (5-19); Aspartate Amino Transferase 42 U/L (0-32); Blood Urea Nitrogen 26 mg/dL (8-23); Calcium 9.5 mg/dL (8.5-10.5); Carbon Dioxide 27 mmol/L (22-29); Chloride 92 mmol/L (98-107); Globulin 3.4 g/dL (1.3-4.6); Glucose 159 mg/dL (65-115); Potassium 4.3 mmol/L (3.5-5.1); Sodium 131 mmol/L (136-145); Total Bilirubin 0.2 mg/dL (0.15-1.2); Total Protein 6.7 g/dL (6.6-8.7)
[2019-07-06] MEDS: D5-NS 0.45% + KCL 20 mEq 20 MEQ/1,000 ML BAG 100 MEQ IV ×2 (04:45→15:14)
[2019-07-06] MEDS: propofol 1,000 MG/100 ML INJ 14.2 MG IV (04:45)
--- NOTE | 2019-07-06 05:01 | PC.NURSE ---
Addendum entered by Mahi Murray LPN 07/06/19 05:52: CORRECTION: 1mg of Versed NOT 10mg. Original Note: After much educating to patient by myself and respiratory therapist Nilson of the importance of wearing bipap patient repeatedly removed bipap. Another attempt was made to educate the patient and she agreed to put bipap back on. Bipap on and secure before leaving room. Shortly thereafter (30mins) was alerted by fellow nurse that pt bipap machine was alarming. When entering the room noticed patient sitting at the side of the bed, slumped, pale, eyes glazed, peripheral extremities mottled - bipap at side of patient and almost unresponsive - called for charge nurse and vitals taken. Oxygen saturation at 82% and bipap was placed back on patient. Due to steep decline f patient, Charge nurse called Dr. Green and was promptly to the floor where it was then decided to intubate and transfer to ICU. Intubation protocol carried out by Miky Franklin and Dr. Green ( See Miky Franklin note for intubation details). Vitals before departure 175/110 P 118 O2sat 98%. Second round of 100mg succ and 10mg Versed given per verbal order - pt transferred to ICU and bedside report given.
[2019-07-06 05:16] LABS: ABG PH Result 7.37 (7.35-7.45); Arterial Blood Gas Hematocrit 36.9 % (37-47); Base Excess ABG 0.1 mmol/L (-2.0-2.0); Blood Gas Sample Site Brachial, right; Blood Gas Sample Type Arterial; Blood Gas Tidal Volume 0.4; HCO3 ABG 25.6 mmol/L (22-26); Oxygen Device VENT
--- NOTE | 2019-07-06 05:34 | PC.NURSE ---
Pt decline: Pt care nurse called television script writer into the room at approx. 2:30am to assess pt. Upon enteing the room pt was found to be slumped over the side of the bed with nurse holding bipap mask to her face. Cyanotic and minimally responsive. Vital signs taken and oxygen found to be at 84%. Physician and Respiratory notified. A few minutes later both respiratory and Dr. Green in the room to assess pt. Oxygen had come up to 96 at that time and pt starting to be more responsive. Decision was made to intubate and medications were ordered. Second IV started in left hand. ICU moving pt to the floor to make room for this patient. Hutson catheter placed. Attempt to notify family unsuccessful. At 0340 television script writer gave 2 mg of IV Versed followed by 10 mg of Etomidate followed by 100mg of Succinylcholine. Pt intubated at 0345. At 0410 pt started to arouse, Dr. Green gave verbal order to administer 1mg of Versed followed by 100mg of Succinylcholine. Pt then transferred to ICU and report given to MICA Riley at the bedside.
[2019-07-06] MEDS: atenolol 50 mg Tablet 100 MG PO (09:34)
[2019-07-06] MEDS: oseltamivir phosphate 75 mg Capsule PO ×2 (09:35→17:20)
--- NOTE | 2019-07-06 09:56 | P.PN_ITS ---
Subjective Subjective: Interval history: Overnight, patient's respiratory status decompensated, unable to tolerate BiPAP so subsequently intubated. Patient seen and examined, son at bedside, she is currently sedated with propofol, FiO2 of 21% on vent. Blood pressure has been low normal throughout the day, will hold oral antihypertensives. Son at bedside updated on patient's clinical status. Medications: Reviewed: Yes Medication Review Details: Active Medications Generic Name Dose Route Start Last Admin Trade Name Freq PRN Reason Stop Dose Admin Acetaminophen 650 mg 07/05/19 19:48 Tylenol PO Q6H PRN Mild/Mod Pain Or Temp >/= 101 Albuterol/Ipratrop ium 3 ml 07/05/19 21:00 07/05/19 22:35 Duoneb INHALATION 3 ml Q6H.RESPIRATORY P RN Administration SHORTNESS OF JESIKA TH Albuterol/Ipratrop ium 3 ml 07/06/19 00:00 07/06/19 08:08 Duoneb INHALATION Not Given Q4H.RESPIRATORY S CH Atenolol 100 mg 07/06/19 09:00 07/06/19 09:34 Tenormin PO 100 mg DAILY ED Administration Cyclobenzaprine HC l 10 mg 07/05/19 19:48 Flexeril PO DAILY PRN spasm Enoxaparin Sodium 40 mg 07/05/19 19:48 07/05/19 21:22 Lovenox SUBCUT 40 mg Q24H ED Administration Fentanyl 50 mcg 07/06/19 03:15 Sublimaze IVP Q1H PRN SEVERE PAIN Hydrochlorothiazid e 6.25 mg 07/06/19 09:00 Hctz PO DAILY ED Potassium Chloride /Dextrose/Sod Cl 20 meq in 1,000 m ls @ 100 mls/hr 07/05/19 19:48 07/06/19 04:45 D5-Ns 0.45% + Trey l 20 Meq IV 100 mls/hr .Q10H ED Administration Propofol 1,000 mg in 100 m ls @ 0 mls/hr 07/06/19 03:15 07/06/19 05:05 Diprivan IV 25 mcg/kg/min .Q0M ED 8.8 mls/hr Titration Protocol Per Protocol Ceftriaxone Sodium 1,000 mg/ 50 mls @ 100 mls/ hr 07/06/19 10:00 Sodium Chloride IV Q24H ED Protocol Azithromycin 500 m g/ Sodium 250 mls @ 250 mls /hr 07/06/19 10:00 Chloride IV Q24H [facility] Protocol Latanoprost 1 drop 07/05/19 21:00 07/05/19 22:17 Xalatan EYE-BOTH Not Given BEDTIME [facility] Lidocaine HCl 15 ml 07/05/19 20:26 Lidocaine 2% Vis cous MUCOUS MEM BID PRN MOUTH SORE PAIN Methylprednisolone Sodium Succinate 60 mg 07/06/19 10:00 Solu-Medrol IVP Q6H [facility] Montelukast Sodium 10 mg 07/06/19 09:00 Singulair PO DAILY [facility] Morphine Sulfate 2 mg 07/05/19 19:48 Morphine IVP Q4H PRN SEVERE PAIN Ondansetron HCl 4 mg 07/05/19 19:48 Zofran IVP Q6H PRN NAUSEA AND VOMITI NG Oseltamivir Phosph ate 75 mg 07/06/19 09:00 07/06/19 09:35 Tamiflu PO 75 mg BID [facility] Administration codeine Allergy (Verified 05/29/19 16:03) Unknown Penicillins Allergy (Verified 05/29/19 15:59) Unknown Sulfa (Sulfonamide Antibiotics) Allergy (Verified 05/29/19 15:59) Unknown Vitals/I&O/Wt Last Vital Signs Temp 98.7 F 07/06/19 00:00 Pulse 111 H 07/06/19 09:10 Resp 14 07/06/19 08:10 BP 127/66 07/06/19 09:10 Pulse Ox 96 07/06/19 09:10 07/05/19 07/06/19 07/06/19 22:59 06:59 14:59 Intake Total 250 / 300 741.400 / 1041.400 0 / 0 Output Total 150 / 150 Balance 100 / 150 741.400 / 891.400 0 / 0 Weight last 48 hrs Weight 62.414 kg Weight 58.967 kg Physical Exam Const: COMMON NORMALS: no apparent distress GENERAL APPEARANCE: comfortable ORIENTATION/CONSCIOUSNESS: Yes other (Sedated) HENMT: COMMON NORMALS: normocephalic and head/scalp atraumatic HEAD & SCALP: normocephalic and atraumatic MOUTH: moist mucous membranes abnormal Details: parched OTHER: ETT-23 cm at lip; OGT in place Eye: COMMON NORMALS: conjunctivae normal CONJUNCTIVA: Yes conjunctivae normal PUPIL: Yes fixed and Yes pinpoint bilaterally Neck/C-Spine: COMMON NORMALS: full ROM GENERAL: Yes normal visual inspection and Yes trachea midline Resp: COMMON NORMALS: no retractions EFFORT & INSPECTION: Yes symmetric chest movement and Yes tachypneic OTHER: -Prolonged expiration phase, noted end expiratory wheezing, coarse breath sounds bilaterally; orally intubated, with FiO2 of 21%, tidal volume of 350, PEEP of 8 Cardio: COMMON NORMALS: regular rate, regular rhythm, S1 normal heart sound, S2 normal heart sound and no murmurs RATE: regular rate RHYTHM: regular rhythm HEART SOUNDS: S1 normal and S2 normal GI: COMMON NORMALS: normal to inspection, nondistended, normoactive bowel sounds, soft to palpation and non-tender PALPATION: Yes soft : BLADDER/KIDNEY EXAM: Yes catheter in place Catheter type (Female): urethral Extremity: COMMON NORMALS: normal to inspection; negative for no pedal edema GENERAL: Yes edema (1-2+ pitting edema in bilateral lower extremities) Neuro: SENSORIUM/ORIENTATION: Yes other (sedated) Psych: OTHER: -Unable to assess due to sedation Skin: COMMON NORMALS: no rashes or lesions noted, no jaundice, no petechiae an d no mottling GENERAL SKIN EXAM: no rashes or lesions noted Data : 07/06/19 03:30 07/06/19 03:30 Micro: Microbiology 07/05/19 12:10 Blood Culture - Preliminary Blood SPECIMEN COLLECTED 07/05/19 12:12 Blood Culture - Preliminary Blood SPECIMEN COLLECTED A&P Assessment and plan (1) Acute exacerbation of chronic obstructive pulmonary disease (COPD): -Has had recent multiple exacerbations of COPD, is oxygen dependent at baseline with a 2 L requirement. This particular episode was likely triggered by influenza A -Respiratory status decompensated overnight, unable to tolerate BiPAP so subsequently intubated -Continue vent support, wean when appropriate; on sedation with propofol -Close monitoring of respiratory status -Continue empiric antibiotics, has received a dose of ceftriaxone and azithromycin in the ER -start on IV steroids -Telemetry monitoring -Continued monitoring of vital signs -DuoNebs PRN -Chest x-ray shows severe emphysema, otherwise unremarkable -noted LE edema, BNP-1030; has no prior hx of CHF and I do not see evidence of cardiomegaly or pulmonary vascular congestion on CXR -ABG noted with mild hypercapnia; repeat ABG post intubation noted -D-dimer elevated, had CTA done in 05/2019 which was negative for PE; low suspicion for this currently -noted leukocytosis which could be steroid induced; continue to trend WBC -may benefit from PFTs and pulmonology f/u as outpatient to optimize treatment Status: Acute Code(s): J44.1 - Chronic obstructive pulmonary disease with (acute) exacerbation (2) Influenza A: -Found to be influenza A positive -on droplet precautions -Received a dose of Tamiflu; continue this for 5-day course Status: Acute Code(s): J10.1 - Influenza due to other identified influenza virus with other respiratory manifestations (3) Sepsis with acute hypoxic respiratory failure: -as noted above Status: Acute Qualifiers: Sepsis type: sepsis due to unspecified organism Severe sepsis shock status: without septic shock Qualified Code(s): A41.9 - Sepsis, unspecified organism; R65.20 - Severe sepsis without septic shock; J96.01 - Acute respiratory failure with hypoxia Code(s): A41.9 - Sepsis, unspecified organism; R65.20 - Severe sepsis without septic shock; J96.01 - Acute respiratory failure with hypoxia Additional A&P Information -HTN -Former smoker -CKD stage 2-3; baseline Cr around 1; renal function at baseline -NPO as on vent support; start on Pulmocare if need for prolonged ventilation -fall precautions -DVT ppx with Lovenox -Dispo: home -Code status: FULL code -continue ICU care due to vent support Attestations Medical Necessity Statement*: Patient requires hospitalization for continued management of acute hypoxic respiratory failure, currently on vent support Time Spent in Patient Care: Greater than 35 minutes (>than 50% of time spent in counselling and/or direct pt care on unit) . Critical Care Time: The high probability of a clinically significant, sudden or life threatening deterioration of the patient's [respiratory] system(s) required my full and direct attention, intervention and personal management. The critical care time is as shown. This time is in addition to time spent perfo rming any reported procedures but includes the following: [x] Data and vital sign review and interpretation [x] Patient assessment, examination and intervention [x] Documentation [x] Medication orders and management Critical Care Time (min): 25 Coding Level of Care Code Acute Edge Worker for Chg Fwd Exam Problem Focused Diagnoses Acute exacerbation of chronic obstructive pulmonary disease (COPD) J44.1 Influenza A J10.1 Sepsis with acute hypoxic respiratory failure A41.9; R65.20; J96.01 Sepsis type: sepsis due to unspecified organism Severe sepsis shock status: without septic shock
[2019-07-06] MEDS: cefTRIAXone 1,000 MG in sodium chloride 0.9% (plus) 50 ML 100 MG IV (10:48)
[2019-07-06] MEDS: azithromycin 500 MG in sodium chloride 0.9% 250 ML 250 MG IV (11:28)
[2019-07-06] MEDS: propofol 1,000 MG/100 ML INJ 8.8 MG IV (11:28)
[2019-07-06] MEDS: propofol 1,000 MG/100 ML INJ 7.1 MG IV (17:20)
[2019-07-06] MEDS: enoxaparin 40 mg/0.4 mL Syringe SUBCUT (21:00)
[2019-07-06] MEDS: latanoprost 0.005% Op Soln 2.5 mL Btl 1 DROP EYE-BOTH (22:08)
[2019-07-07] VITALS (193 sets, daily range): BP systolic 91–150; BP diastolic 51–110; PULSE 78–113; RESP 16–24; TEMP 36.5–37.3; O2SAT 85–100
[2019-07-07] MEDS: ipratropium-albuterol 3 mL Neb INHALATION ×7 (00:01→23:08)
[2019-07-07 04:52] LABS: ABG PCO2 39.3 mmHg (35-45); ABG PH Result 7.41 (7.35-7.45); Arterial Blood Gas Hematocrit 33.8 % (37-47); Base Excess ABG 0.2 mmol/L (-2.0-2.0); Blood Gas Sample Site Brachial, right; Blood Gas Sample Type Arterial; Blood Gas Tidal Volume 0.35; HCO3 ABG 24.9 mmol/L (22-26); PO2 ABG 74.6 mmHg (80.0-100.0)
[2019-07-07 05:21] LABS: Basophils % 0.1 %; Hematocrit 31.9 % (37.0-47.0); Hemoglobin 10.4 g/dL (11.5-15.3); Lymphocytes # 0.5 10^3/uL (0.8-4.8); Mean Corpuscular HGB Conc 32.6 g/dL (30.0-36.0); Mean Corpuscular Hemoglobin 30.2 pg (28.0-34.0); Mean Corpuscular Volume 92.7 fL (81-99); Mean Platelet Volume 9.8 fL (7.4-10.4); Monocytes # 0.4 10^3/uL (0.2-0.9); Monocytes % 3.2 %; Neutrophils # 10.5 10^3/uL (1.8-7.7); Neutrophils % 92.3 %; Nucleated Red Blood Cells % 0 %; Platelet Count 230 10^3/cmm (130-400); Red Blood Count 3.44 10^6/uL (4.1-5.3); Red Cell Distribution Width 13.8 % (12.1-15.1); White Blood Count 11.4 10^3/uL (4.0-10.0)
[2019-07-07 05:40] LABS: Anion Gap 14.6 (5-19); Blood Urea Nitrogen 30 mg/dL (8-23); Carbon Dioxide 22 mmol/L (22-29); Chloride 95 mmol/L (98-107); Glucose 154 mg/dL (65-115); Osmolality Calculated 264 mOsm/kg (285-295); Potassium 4.6 mmol/L (3.5-5.1); Sodium 127 mmol/L (136-145)
--- NOTE | 2019-07-07 06:00 | XR_ITS ---
WS: [id number] Portable AP supine chest, 07/07/2019 Clinical Data: on vent support due to resp failure Comparison: Portable chest, 07/06/2019 Findings: The nasogastric tube and endotracheal tube remain in the same position. The diaphragms are flattened. The heart is normal. No pneumonia or pneumothorax is seen. The pulmonary vascularity is no t increased. Monitor leads on the chest wall. XR/XR chest 1V portable [id number] Impression: 1. No change in endotracheal tube and nasogastric tube. 2. Hyperinflation.
[2019-07-07] MEDS: propofol 1,000 MG/100 ML INJ 7.1 MG IV ×3 (06:28→18:31)
[2019-07-07] MEDS: sodium chloride 0.9% 500 ML IV (06:28)
[2019-07-07] MEDS: cefTRIAXone 1,000 MG in sodium chloride 0.9% (plus) 50 ML 100 MG IV (09:59)
[2019-07-07] MEDS: oseltamivir phosphate 75 mg Capsule PO ×2 (09:59→17:09)
--- NOTE | 2019-07-07 11:10 | P.PN_ITS ---
Subjective Subjective: Interval history: Celeste on vent support, ABG noted with mild hypoxia, PO2 of 74.6. A.m. labs noted, decreasing leukocytosis, creatinine remains unchanged. Had 200 mL urine output overnight. Noted to be hypotensive earlier this morning around 9 AM, blood pressure has since settled down. Noted sputum culture growing mixed marine with a predominance of yeast. Prior sputum culture grew Danna albicans. No evidence of disseminated disease currently so would not to treat this. Weaning trial done earlier today but upon turning down sedation and waking patient up she became very anxious, hypertensive and tachycardic so put back on vent support. Son at bedside, updated accordingly. Medications: Reviewed: Yes Medication Review Details: Current Medications Generic Name Dose Route Start Last Admin Trade Name Freq PRN Reason Stop Dose Admin Albuterol/Ipratrop ium 3 ml 07/05/19 21:00 07/05/19 22:35 Duoneb INHALATION 3 ml Q6H.RESPIRATORY P RN Administration SHORTNESS OF JESIKA TH Albuterol/Ipratrop ium 3 ml 07/06/19 00:00 07/07/19 07:30 Duoneb INHALATION 3 ml Q4H.RESPIRATORY S CH Administration Atenolol 100 mg 07/06/19 09:00 07/06/19 09:34 Tenormin PO 100 mg DAILY ED Administration Enoxaparin Sodium 40 mg 07/05/19 19:48 07/06/19 21:00 Lovenox SUBCUT 40 mg Q24H ED Administration Propofol 1,000 mg in 100 m ls @ 0 mls/hr 07/06/19 03:15 07/07/19 06:28 Diprivan IV 20 mcg/kg/min .Q0M ED 7.1 mls/hr Administration Protocol Per Protocol Ceftriaxone Sodium 1,000 mg/ 50 mls @ 100 mls/ hr 07/06/19 10:00 07/07/19 09:59 Sodium Chloride IV 100 mls/hr Q24H ED Administration Protocol Azithromycin 500 m g/ Sodium 250 mls @ 250 mls /hr 07/06/19 11:00 07/06/19 12:30 Chloride IV Infused Q24H ED Infusion Protocol Latanoprost 1 drop 07/05/19 21:00 07/06/19 22:08 Xalatan EYE-BOTH 1 drop BEDTIME ED Administration Methylprednisolone Sodium Succinate 60 mg 07/06/19 10:00 07/07/19 09:59 Solu-Medrol IVP 60 mg Q6H ED Administration Oseltamivir Phosph ate 75 mg 07/06/19 09:00 07/07/19 09:59 Tamiflu PO 75 mg BID ED Administration Vitals/I&O/Wt Last Vital Signs Temp 97.7 F 07/07/19 10:00 Pulse 99 07/07/19 10:15 Resp 16 07/07/19 09:31 BP 133/70 07/07/19 10:15 Pulse Ox 97 07/07/19 10:15 07/06/19 07/07/19 07/07/19 22:59 06:59 14:59 Intake Total 51.627 / 1407.800 93.247 / 1501.047 0 / 0 Output Total 1400 / 1400 200 / 1600 Balance -1348.373 / 7.800 -106.753 / -98.953 0 / 0 Weight last 48 hrs Weight 58.695 kg Weight 62.414 kg Physical Exam Const: COMMON NORMALS: no apparent distress GENERAL APPEARANCE: comfortable ORIENTATION/CONSCIOUSNESS: Yes other (Sedated) HENMT: COMMON NORMALS: normocephalic and head/scalp atraumatic HEAD & SCALP: normocephalic and atraumatic MOUTH: moist mucous membranes abnormal Details: parched OTHER: ETT-23 cm at lip; OGT in place Eye: COMMON NORMALS: conjunctivae normal CONJUNCTIVA: Yes conjunctivae normal PUPIL: Yes fixed and Yes pinpoint bilaterally Neck/C-Spine: COMMON NORMALS: full ROM GENERAL: Yes normal visual inspection and Yes trachea midline Resp: COMMON NORMALS: no retractions EFFORT & INSPECTION: Yes symmetric chest movement and Yes tachypneic OTHER: -Prolonged expiration phase, noted end expiratory wheezing, coarse breath sounds bilaterally; orally intubated, with FiO2 of 21%, tidal volume of 350, PEEP of 10 Cardio: COMMON NORMALS: regular rate, regular rhythm, S1 normal heart sound, S2 normal heart sound and no murmurs RATE: regular rate RHYTHM: regular rhythm HEART SOUNDS: S1 normal and S2 normal GI: COMMON NORMALS: normal to inspection, nondistended, normoactive bowel sounds, soft to palpation and non-tender PALPATION: Yes soft : BLADDER/KIDNEY EXAM: Yes catheter in place Catheter type (Female): urethral Extremity: COMMON NORMALS: normal to inspection; negative for no pedal edema GENERAL: Yes edema (1+ pitting edema in bilateral lower extremities) Neuro: SENSORIUM/ORIENTATION: Yes other (sedated) Psych: OTHER: -Unable to assess due to sedation Skin: COMMON NORMALS: no rashes or lesions noted, no jaundice, no petechiae and no mottling GENERAL SKIN EXAM: no rashes or lesions noted Urinary Catheter Management^: Hutson: Cath Placed During This Visit: yes Urethral Indwelling: Yes Reason for Continuing Indwelling Catheter: Accurate Measurement of Urinary Output in Critically Ill Patients Data : 07/07/19 04:50 07/07/19 04:50 Micro: Microbiology 07/06/19 06:10 Sputum Culture - Preliminary Sputum - Endotracheal Tube Aspirate 07/05/19 12:10 Blood Culture - Preliminary Blood NEGATIVE TO DATE 07/05/19 12:12 Blood Culture - Preliminary Blood NEGATIVE TO DATE A&P Assessment and plan (1) Acute exacerbation of chronic obstructive pulmonary disease (COPD): -Has had recent multiple exacerbations of COPD, is oxygen dependent at baseline with a 2 L requirement. This particular episode was likely triggered by influenza A -Respiratory status decompensated, unable to tolerate BiPAP so subsequently intubated -Continue vent support, wean when appropriate; on sedation with propofol -Close monitoring of respiratory status -Continue empiric antibiotics, has received a dose of ceftriaxone and azithromycin in the ER -start on IV steroids -Telemetry monitoring -Continued monitoring of vital signs -DuoNebs PRN -Chest x-ray shows severe emphysema, otherwise unremarkable -noted LE edema, BNP-1030; has no prior hx of CHF and I do not see evidence of cardiomegaly or pulmonary vascular congestion on CXR -ABG noted with mild hypoxia, hypercapnia resolved -D-dimer elevated, had CTA done in 05/2019 which was negative for PE; low suspicion for this currently -noted leukocytosis which could be steroid induced; decreasing; continue to trend WBC -may benefit from PFTs and pulmonology f/u as outpatient to optimize treatment Status: Acute Code(s): J44.1 - Chronic obstructive pulmonary disease with (acute) exacerbation (2) Influenza A: -Found to be influenza A positive -on droplet precautions -on Tamiflu (day 2) Status: Acute Code(s): J10.1 - Influenza due to other identified influenza virus with other respiratory manifestations (3) Sepsis with acute hypoxic respiratory failure: -as noted above Status: Acute Qualifiers: Sepsis type: sepsis due to unspecified organism Severe sepsis shock status: without septic shock Qualified Code(s): A41.9 - Sepsis, unspecified organism; R65.20 - Severe sepsis without septic shock; J96.01 - Acute respiratory failure with hypoxia Code(s): A41.9 - Sepsis, unspecified organism; R65.20 - Severe sepsis without septic shock; J96.01 - Acute respiratory failure with hypoxia Additional A&P Information -HTN -Former smoker -CKD stage 2-3; baseline Cr around 1; renal function stable -NPO as on vent support; start on Pulmocare if need for prolonged ventilation -fall precautions -DVT ppx with Lovenox -Dispo: home -Code status: FULL code -continue ICU care due to vent support Attestations Medical Necessity Statement*: Patient requires hospitalization for continued management of acute respiratory failure, remains on ventilator support, IV antibiotics. Time Spent in Patient Care: Greater than 35 minutes (>than 50% of time spent in counselling and/or direct pt care on unit) . Critical Care Time: The high probability of a clinically significant, sudden or life threatening deterioration of the patient's [respiratory] system(s) requ ired my full and direct attention, intervention and personal management. The critical care time is as shown. This time is in addition to time spent performing any reported procedures but includes the following: [x] Data and vital sign review and interpretation [x] Patient assessment, examination and intervention [x] Documentation [x] Medication orders and management Critical Care Time (min): 30 Coding Level of Care Code Acute Assembly Machine Tender for Chg Fwd Exam Problem Focused Diagnoses Acute exacerbation of chronic obstructive pulmonary disease (COPD) J44.1 Influenza A J10.1 Sepsis with acute hypoxic respiratory failure A41.9; R65.20; J96.01 Sepsis type: sepsis due to unspecified organism Severe sepsis shock status: without septic shock
[2019-07-07] MEDS: azithromycin 500 MG in sodium chloride 0.9% 250 ML 250 MG IV (11:29)
--- NOTE | 2019-07-07 15:40 | PC.CHAP ---
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 fast food fry cook visit [] Patient/Family/Request visit [] Outpatient visit [] Follow-up visit [] Physician referral [] Code/Alert [] Routine visit [] Staff referral [] Actively dying [] Patient sleeping [] Family support [] [] Out of room [] Palliative care [] [] Receiving care in room [] Pre-surgical visit [] Trauma [] Long length of stay [] ICU visit [x] Other: Isolation Relational/Emotional Strength [] Patient feels connected with others/family/visitors/staff [] Distress [] Loneliness/isolation [] Abandonment Spirituality of Patient [] Person of Navya [] Attends Adventist of their Navya [] Believes in Prayer [] Reads Bible or Latter-Day materials [] There are Spiritual issues to be addressed Enlisted Aircrew/Aerial Observer/Gunner Interventions [] Prayer [] Active listening [] Non-anxious presence [] Spiritual/emotional support [] Crisis/trauma care [] Spiritual counseling [] Bereavement support [] Provided bereavement packet [] Provided Bible/devotional materials [] Provided toy/stuffed animal, coloring book to patient or family member [] Provided Communion [] Anointing/[place] [] Salvation [] Completed spiritual assessment [] Other: Impact on Illness or Injury [] Angry [] Fearful [] Anxious [] Often cries [] Exhaustion [] Unable to work [] Unable to attend baptism [] Unable to walk/stand [] Unable to read [] Unable to drive [] Unable to eat/drink [] Unable to sleep [] Unable to be with family [] Patient intubated [] Other: Summary Patient is in Isolation Time spent with patient
--- NOTE | 2019-07-07 17:34 | PC.RESP ---
Patient given Pulmonary Rehab information.
[2019-07-07] MEDS: enoxaparin 40 mg/0.4 mL Syringe SUBCUT (21:51)
[2019-07-07] MEDS: latanoprost 0.005% Op Soln 2.5 mL Btl 1 DROP EYE-BOTH (21:51)
[2019-07-08] VITALS (233 sets, daily range): BP systolic 100–173; BP diastolic 57–98; PULSE 86–110; RESP 16–39; TEMP 36.4–37.7; O2SAT 76–100
[2019-07-08] MEDS: propofol 1,000 MG/100 ML INJ 14.2 MG IV ×2 (02:19→08:03)
[2019-07-08] MEDS: ipratropium-albuterol 3 mL Neb INHALATION ×6 (03:02→23:42)
--- NOTE | 2019-07-08 03:14 | PC.NURSE ---
Pressure Ulcer During 0200 rounds during repositioning pt found to have new pressure injury to left buttock. Pressure area is purple with blister like appearance with deep red around edges, edges starting to open up. Optifoam placed over area and remains on Q2 turns schedule. Recover care was called and ordered air mattress, report it will be delivered in the AM.
[2019-07-08 05:54] LABS: ABG PCO2 38.4 mmHg (35-45); ABG PH Result 7.42 (7.35-7.45); Arterial Blood Gas Hematocrit 31.6 % (37-47); Base Excess ABG 0.2 mmol/L (-2.0-2.0); Blood Gas Sample Site Brachial, right; Blood Gas Sample Type Arterial; Blood Gas Tidal Volume 0.35; HCO3 ABG 24.7 mmol/L (22-26); Oxygen Device VENT; PO2 ABG 74.9 mmHg (80.0-100.0)
--- NOTE | 2019-07-08 06:00 | XR_ITS ---
WS: [id number] XR chest 1V portable [id number] REASON FOR EXAM: on vent support FINDINGS: An endotracheal tube is noted positioning appears to be satisfactory. A feeding tube is in good position seen in stomach. The peripheral lungs appear to be adequately aerated. No active infiltrates, pulmonary edema, or pleu ral effusion. XR/XR chest 1V portable [id number] IMPRESSION: Endotracheal tube satisfactory positioned. Lung scott appear to be well aerated.
[2019-07-08 06:29] LABS: Basophils % 0.1 %; Hematocrit 31.9 % (37.0-47.0); Hemoglobin 10.7 g/dL (11.5-15.3); Lymphocytes # 0.8 10^3/uL (0.8-4.8); Lymphocytes % 6.7 %; Mean Corpuscular HGB Conc 33.5 g/dL (30.0-36.0); Mean Corpuscular Hemoglobin 34.3 pg (28.0-34.0); Mean Corpuscular Volume 102.2 fL (81-99); Mean Platelet Volume 9.9 fL (7.4-10.4); Monocytes # 0.5 10^3/uL (0.2-0.9); Monocytes % 4.1 %; Neutrophils % 88.5 %; Nucleated Red Blood Cells % 0 %; Platelet Count 244 10^3/cmm (130-400); Red Blood Count 3.12 10^6/uL (4.1-5.3); Red Cell Distribution Width 14.8 % (12.1-15.1); White Blood Count 11.3 10^3/uL (4.0-10.0)
[2019-07-08 06:46] LABS: Anion Gap 14.7 (5-19); Blood Urea Nitrogen 30 mg/dL (8-23); Calcium 9.5 mg/dL (8.5-10.5); Carbon Dioxide 23 mmol/L (22-29); Chloride 98 mmol/L (98-107); Glucose 140 mg/dL (65-115); Osmolality Calculated 271 mOsm/kg (285-295); Potassium 4.7 mmol/L (3.5-5.1); Sodium 131 mmol/L (136-145)
[2019-07-08] MEDS: cefTRIAXone 1,000 MG in sodium chloride 0.9% (plus) 50 ML 100 MG IV (09:07)
[2019-07-08] MEDS: oseltamivir phosphate 75 mg Capsule PO (09:08)
--- NOTE | 2019-07-08 09:23 | PC.SOCIAL ---
IMM not given at this time due to patient still being on vent and not close enough to DC.
--- NOTE | 2019-07-08 09:32 | PC.CHAP ---
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 psychologist social visit [] Patient/Family/Request visit [] Outpatient visit [] Follow-up visit [] Physician referral [] Code/Alert [x] Routine visit [] Staff referral [] Actively dying [x] Patient sleeping [] Family support [] [] Out of room [] Palliative care [] [x] Receiving care in room [] Pre-surgical visit [] Trauma [] Long length of stay [x] ICU visit [] Other: Relational/Emotional Strength [] Patient feels connected with others/family/visitors/staff [] Distress [] Loneliness/isolation [] Abandonment Spirituality of Patient [] Person of Navya [] Attends Yazidism of their Navya [] Believes in Prayer [] Reads Bible or Mandaeism materials [] There are Spiritual issues to be addressed Industrial Relations Director Interventions [] Prayer [] Active listening [] Non-anxious presence [] Spiritual/emotional support [] Crisis/trauma care [] Spiritual counseling [] Bereavement support [] Provided bereavement packet [] Provided Bible/devotional materials [] Provided toy/stuffed animal, coloring book to patient or family member [] Provided Communion [] Anointing/[place] [] Salvation [x] Completed spiritual assessment [] Other: Impact on Illness or Injury [] Angry [] Fearful [] Anxious [] Often cries [] Exhaustion [] Unable to work [] Unable to attend hindu [] Unable to walk/stand [] Unable to read [] Unable to drive [] Unable to eat/drink [] Unable to sleep [] Unable to be with family [] Patient intubated [] Other: Summary Time spent with patient
--- NOTE | 2019-07-08 09:57 | P.PN_ITS ---
Subjective Subjective: Interval history: AM labs noted, had 250 mL urine output overnight. Will do another weaning trial today. Able to discontinue sedation and she has very gradually awakened. Still a little slow to respond but did well with MMV; seems to do better with son at bedside. Will extubate either to BiPAP on nasal cannula depending on how she is doing. Medications: Reviewed: Yes Medication Review Details: Current Medications Generic Name Dose Route Start Last Admin Trade Name Freq PRN Reason Stop Dose Admin Albuterol/Ipratrop ium 3 ml 07/05/19 21:00 07/05/19 22:35 Duoneb INHALATION 3 ml Q6H.RESPIRATORY P RN Administration SHORTNESS OF JESIKA TH Albuterol/Ipratrop ium 3 ml 07/06/19 00:00 07/08/19 07:44 Duoneb INHALATION 3 ml Q4H.RESPIRATORY S CH Administration Atenolol 100 mg 07/06/19 09:00 07/06/19 09:34 Tenormin PO 100 mg DAILY ED Administration Enoxaparin Sodium 40 mg 07/05/19 19:48 07/07/19 21:51 Lovenox SUBCUT 40 mg Q24H ED Administration Propofol 1,000 mg in 100 m ls @ 0 mls/hr 07/06/19 03:15 07/08/19 08:03 Diprivan IV 40 mcg/kg/min .Q0M ED 14.2 mls/hr Administration Protocol Per Protocol Ceftriaxone Sodium 1,000 mg/ 50 mls @ 100 mls/ hr 07/06/19 10:00 07/08/19 09:07 Sodium Chloride IV 100 mls/hr Q24H ED Administration Protocol Azithromycin 500 m g/ Sodium 250 mls @ 250 mls /hr 07/06/19 11:00 07/07/19 13:00 Chloride IV Infused Q24H ED Infusion Protocol Latanoprost 1 drop 07/05/19 21:00 07/07/19 21:51 Xalatan EYE-BOTH 1 drop BEDTIME ED Administration Methylprednisolone Sodium Succinate 60 mg 07/06/19 10:00 07/08/19 09:07 Solu-Medrol IVP 60 mg Q6H ED Administration Oseltamivir Phosph ate 75 mg 07/06/19 09:00 07/08/19 09:08 Tamiflu PO 75 mg BID ED Administration Vitals/I&O/Wt Last Vital Signs Temp 97.6 F 07/08/19 06:00 Pulse 90 07/08/19 09:40 Resp 16 07/08/19 09:27 BP 107/63 07/08/19 09:40 Pulse Ox 97 07/08/19 09:40 07/07/19 07/08/19 07/08/19 22:59 06:59 14:59 Intake Total 143.481 / 989.366 52.933 / 1042.299 121.413 / 121.413 Output Total 350 / 350 250 / 600 Balance -206.519 / 639.366 -197.067 / 442.299 121.413 / 121.413 Weight last 48 hrs Weight 58.604 kg Weight 58.695 kg Physical Exam Const: COMMON NORMALS: no apparent distress GENERAL APPEARANCE: comfortable ORIENTATION/CONSCIOUSNESS: Yes other (Sedated) OTHER: -Has noted head- bobbing movement which per son is chronic HENMT: COMMON NORMALS: normocephalic and head/scalp atraumatic HEAD & SCALP: normocephalic and atraumatic MOUTH: moist mucous membranes abnormal Details: parched OTHER: ETT-23 cm at lip; OGT in place Eye: COMMON NORMALS: conjunctivae normal CONJUNCTIVA: Yes conjunctivae normal PUPIL: Yes fixed and Yes pinpoint bilaterally Neck/C-Spine: COMMON NORMALS: full ROM GENERAL: Yes normal visual inspection and Yes trachea midline Resp: COMMON NORMALS: no retractions EFFORT & INSPECTION: Yes symmetric chest movement and Yes tachypneic OTHER: -Noted end expiratory wheezing, coarse breath sounds bilaterally; orally intubated, with FiO2 of 21%, tidal volume of 350, PEEP of 10 Cardio: COMMON NORMALS: regular rate, regular rhythm, S1 normal heart sound, S2 normal heart sound and no murmurs RATE: regular rate RHYTHM: regular rhythm HEART SOUNDS: S1 normal and S2 normal GI: COMMON NORMALS: normal to inspection, nondistended, normoactive bowel sounds, soft to palpation and non-tender PALPATION: Yes soft : BLADDER/KIDNEY EXAM: Yes catheter in place Catheter type (Female): uret hral Extremity: COMMON NORMALS: normal to inspection; negative for no pedal edema GENERAL: Yes edema (1+ pitting edema in bilateral lower extremities) Neuro: SENSORIUM/ORIENTATION: Yes other (sedated) Psych: OTHER: -Unable to assess due to sedation Skin: COMMON NORMALS: no rashes or lesions noted, no jaundice and no mottling GENERAL SKIN EXAM: no rashes or lesions noted and petechiae OTHER: -noted discrete areas of petechiae on dorsum of both feet Urinary Catheter Management^: Hutson: Cath Placed During This Visit: no Urethral Indwelling: Yes Reason for Continuing Indwelling Catheter: Accurate Measurement of Urinary Output in Critically Ill Patients Data : 07/08/19 05:50 07/08/19 05:50 Micro: Microbiology 07/06/19 06:10 Sputum Culture - Preliminary Sputum - Endotracheal Tube Aspirate A&P Assessment and plan (1) Acute exacerbation of chronic obstructive pulmonary disease (COPD): -Has had recent multiple exacerbations of COPD, is oxygen dependent at baseline with a 2 L requirement. This particular episode was likely triggered by influenza A -Respiratory status decompensated, unable to tolerate BiPAP so subsequently intubated -Continue vent support, wean when appropriate; on sedation with propofol -Close monitoring of respiratory status -Continue empiric antibiotics, has received a dose of ceftriaxone and azithromycin in the ER -on IV steroids -Telemetry monitoring -Continued monitoring of vital signs -DuoNebs PRN -Chest x-ray shows severe emphysema, otherwise unremarkable -noted LE edema, BNP-1030; has no prior hx of CHF and I do not see evidence of cardiomegaly or pulmonary vascular congestion on CXR -ABG noted with mild hypoxia, hypercapnia resolved -D-dimer elevated, had CTA done in 05/2019 which was negative for PE; low suspicion for this currently -noted leukocytosis which could be steroid induced; decreasing; continue to trend WBC -may benefit from PFTs and pulmonology f/u as outpatient to optimize treatment Status: Acute Code(s): J44.1 - Chronic obstructive pulmonary disease with (acute) exacerbation (2) Influenza A: -Found to be influenza A positive -on droplet precautions -on Tamiflu (day 3) Status: Acute Code(s): J10.1 - Influenza due to other identified influenza virus with other respiratory manifestations (3) Sepsis with acute hypoxic respiratory failure: -as noted above Status: Acute Qualifiers: Sepsis type: sepsis due to unspecified organism Severe sepsis shock status: without septic shock Qualified Code(s): A41.9 - Sepsis, unspecified organism; R65.20 - Severe sepsis without septic shock; J96.01 - Acute respi ratory failure with hypoxia Code(s): A41.9 - Sepsis, unspecified organism; R65.20 - Severe sepsis without septic shock; J96.01 - Acute respiratory failure with hypoxia Additional A&P Information -HTN -Former smoker -CKD stage 2-3; baseline Cr around 1; renal function stable -if able to wean off vent, do bedside dysphagia screening and start on sips and chips -fall precautions -DVT ppx with Lovenox -Dispo: home -Code status: FULL code -continue ICU care due to vent support Attestations Medical Necessity Statement*: Patient requires hospitalization for continued management of acute respiratory failure, on vent support, weaning trial today. Time Spent in Patient Care: Greater than 35 minutes (>than 50% of time spent in counselling and/or direct pt care on unit) . Critical Care Time: The high probability of a clinically significant, sudden or life threatening deterioration of the patient's [respiratory] system(s) required my full and direct attention, intervention and personal management. The critical care time is as shown. This time is in addition to time spent performing any reported procedures but includes the following: [x] Data and vital sign review and interpretation [x] Patient assessment, examination and intervention [x] Documentation [x] Medication orders and management Critical Care Time (min): 30 Coding Level of Care Code Acute Metal Finish Inspector for [facility] Fwd 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 Sepsis with acute hypoxic respiratory failure A41.9; R65.20; J96.01 Sepsis type: sepsis due to unspecified organism Severe sepsis shock status: without septic shock
[2019-07-08] MEDS: azithromycin 500 MG in sodium chloride 0.9% 250 ML 250 MG IV (12:19)
--- NOTE | 2019-07-08 15:57 | PC.RESP ---
extubated pt extubated and placed on 2lpm nc tolerated well
[2019-07-08] MEDS: FUROsemide 10 mg/mL SDV 4mL 40 MG IVP (17:30)
--- NOTE | 2019-07-08 19:14 | PC.NURSE ---
bedside report rcvd at this time. pt awake , slow to respond but following commands. vss per cm. pt will repeat what you say when you tell her its necessary but she is very slow to respond c speech. bed alarm activated at this time. quinton samayoa.
[2019-07-08] MEDS: enoxaparin 40 mg/0.4 mL Syringe SUBCUT (20:38)
[2019-07-08] MEDS: latanoprost 0.005% Op Soln 2.5 mL Btl 1 DROP EYE-BOTH (20:39)
--- NOTE | 2019-07-08 20:48 | PC.NURSE ---
family at bedside , encouraged t/c/d. update provided. family requested pt be ordered for strengthening. okd per dr. sanchez. quinton samayoa.
--- NOTE | 2019-07-08 22:14 | PC.NURSE ---
pt more alert. requesting to go home at this time. 2800 cc urine from rodriguez at this time. ice chips provided for comfort pt noted to have difficulty swallowing. quinton samayoa.
[2019-07-09] VITALS (101 sets, daily range): BP systolic 139–194; BP diastolic 80–116; PULSE 76–110; RESP 13–29; TEMP 36.1–37.3; O2SAT 89–100; BMI 23.6
--- NOTE | 2019-07-09 01:02 | PC.NURSE ---
pt increasingly confused . states i dont trust you any more because you are not the same heladio as was in here before. i explained to her that i had pulled my hair back. within minutes pt aware of myself and ej. pt continues to request to go home. pt agrees to stay in bed if i can give her a coke . quinton samayoa.
[2019-07-09] MEDS: haloperidol inj 5 mg/mL INJ 1 mL 2 MG IVP (02:44)
[2019-07-09] MEDS: ipratropium-albuterol 3 mL Neb INHALATION ×6 (03:00→23:23)
--- NOTE | 2019-07-09 04:25 | PC.NURSE ---
0245 pt increasing agitated. labs reviewed. pt insistant that she is going home. discussed c dr. sanchez . 2 mg haldol ordered and given per jul. quinton samayoa.
[2019-07-09 05:40] LABS: Anion Gap 17.3 (5-19); Blood Urea Nitrogen 33 mg/dL (8-23); Calcium 9.4 mg/dL (8.5-10.5); Carbon Dioxide 25 mmol/L (22-29); Chloride 100 mmol/L (98-107); Glucose 117 mg/dL (65-115); Osmolality Calculated 284 mOsm/kg (285-295); Potassium 4.3 mmol/L (3.5-5.1); Sodium 138 mmol/L (136-145)
[2019-07-09 05:52] LABS: Basophils % 0.2 %; Hematocrit 33.6 % (37.0-47.0); Hemoglobin 11.4 g/dL (11.5-15.3); Lymphocytes # 0.8 10^3/uL (0.8-4.8); Lymphocytes % 6.2 %; Mean Corpuscular HGB Conc 33.9 g/dL (30.0-36.0); Mean Corpuscular Hemoglobin 33.6 pg (28.0-34.0); Mean Corpuscular Volume 99.1 fL (81-99); Monocytes # 0.7 10^3/uL (0.2-0.9); Monocytes % 5.2 %; Neutrophils % 87.3 %; Nucleated Red Blood Cells % 0 %; Platelet Count 311 10^3/cmm (130-400); Red Blood Count 3.39 10^6/uL (4.1-5.3); White Blood Count 12.5 10^3/uL (4.0-10.0)
--- NOTE | 2019-07-09 08:05 | PC.NURSE ---
Bedside swallowing evaluation completed. No disfigurement or abnormalities noted in oralpharynx. Pt able to follow directions. Pt able to swallow sip of water without coughing afterwards.
[2019-07-09] MEDS: cefTRIAXone 1,000 MG in sodium chloride 0.9% (plus) 50 ML 100 MG IV (09:50)
[2019-07-09] MEDS: oseltamivir phosphate 75 mg Capsule PO ×2 (09:50→17:23)
--- NOTE | 2019-07-09 10:16 | P.PN_ITS ---
Subjective Subjective: Interval history: Successfully extubated yesterday afternoon, remains on 2 L nasal cannula saturating at 98%. Mildly tachycardic so we will resume beta-jaime. Passed bedside swallow evaluation, will start on clear liquid diet. Sitting in a chair by bedside during my assessment, responding at the whole bit better today, pursed breathing observed, volunteers that she would like to go to rehab upon discharge from the hospital. No acute overnight events reported. Medications: Reviewed: Yes Medication Review Details: Current Medications Generic Name Dose Route Start Last Admin Trade Name Freq PRN Reason Stop Dose Admin Albuterol/Ipratrop ium 3 ml 07/05/19 21:00 07/05/19 22:35 Duoneb INHALATION 3 ml Q6H.RESPIRATORY P RN Administration SHORTNESS OF JESIKA TH Albuterol/Ipratrop ium 3 ml 07/06/19 00:00 07/09/19 07:38 Duoneb INHALATION 3 ml Q4H.RESPIRATORY S CH Administration Atenolol 100 mg 07/06/19 09:00 07/06/19 09:34 Tenormin PO 100 mg DAILY ED Administration Enoxaparin Sodium 40 mg 07/05/19 19:48 07/08/19 20:38 Lovenox SUBCUT 40 mg Q24H ED Administration Haloperidol Lactat e 2 mg 07/09/19 02:41 07/09/19 02:44 Haldol Inj IVP 2 mg NOW PRN Administration AGITATION Propofol 1,000 mg in 100 m ls @ 0 mls/hr 07/06/19 03:15 07/08/19 08:03 Diprivan IV 40 mcg/kg/min .Q0M ED 14.2 mls/hr Administration Protocol Per Protocol Ceftriaxone Sodium 1,000 mg/ 50 mls @ 100 mls/ hr 07/06/19 10:00 07/09/19 09:50 Sodium Chloride IV 100 mls/hr Q24H ED Administration Protocol Azithromycin 500 m g/ Sodium 250 mls @ 250 mls /hr 07/06/19 11:00 07/08/19 12:19 Chloride IV 250 mls/hr Q24H ED Administration Protocol Latanoprost 1 drop 07/05/19 21:00 07/08/19 20:39 Xalatan EYE-BOTH 1 drop BEDTIME ED Administration Methylprednisolone Sodium Succinate 40 mg 07/08/19 16:00 07/09/19 09:51 Solu-Medrol IVP 40 mg Q6H ED Administration Oseltamivir Phosph ate 75 mg 07/06/19 09:00 07/09/19 09:50 Tamiflu PO 75 mg BID ED Administration Vitals/I&O/Wt Last Vital Signs Temp 99.9 F H 07/08/19 22:35 Pulse 106 H 07/09/19 07:41 Resp 20 H 07/09/19 07:41 BP 152/86 07/09/19 06:35 Pulse Ox 98 07/09/19 07:41 07/08/19 07/09/19 07/09/19 22:59 06:59 14:59 Output Total 3300 / 3300 600 / 3900 Balance -3300 / -3128.587 -600 / -3728.587 Weight last 48 hrs Weight 58.604 kg Weight 58.604 kg Physical Exam Const: COMMON NORMALS: no apparent distress and oriented x3 GENERAL APPE ARANCE: comfortable ORIENTATION/CONSCIOUSNESS: Yes awake OTHER: -Has noted head-bobbing movement which per son is chronic HENMT: COMMON NORMALS: normocephalic and head/scalp atraumatic HEAD & SCALP: normocephalic and atraumatic MOUTH: moist mucous membranes abnormal D etails: parched Eye: COMMON NORMALS: PERRL and conjunctivae normal CONJUNCTIVA: Yes conjunctivae normal PUPIL: Yes PERRL Neck/C-Spine: COMMON NORMALS: full ROM GENERAL: Yes normal visual inspection and Yes trachea midline Resp: COMMON NORMALS: no retractions EFFORT & INSPECTION: Yes symmetric chest movement, Yes tachypneic and Yes pursed lip breathing AUSCULTATION: diminished lung sounds diffuse Cardio: COMMON NORMALS: regular rate, regular rhythm, S1 normal heart sound, S2 normal heart sound and no murmurs RATE: regular rate RHYTHM: regular rhythm HEART SOUNDS: S1 normal and S2 normal GI: COMMON NORMALS: normal to inspection, nondistended, normoactive bowel sounds, soft to palpation and non-tender PALPATION: Yes soft : BLADDER/KIDNEY EXAM: Yes catheter in place Catheter type (Female): urethral Extremity: COMMON NORMALS: normal to inspection; negative for no pedal edema GENERAL: Yes edema (trace pitting edema in bilateral lower extremities) Neuro: COMMON NORMALS: oriented x3, moves all extremities, no focal motor deficits and no sensory deficits noted Psych: COMMON NORMALS: mental status grossly normal Skin: COMMON NORMALS: no rashes or lesions noted, no jaundice and no mottling GENERAL SKIN EXAM: no rashes or lesions noted and petechiae OTHER: -noted discrete areas of petechiae on dorsum of both feet Urinary Catheter Management^: Hutson: Cath Placed During This Visit: no Urethral Indwelling: Yes Reason for Continuing Indwelling Catheter: Accurate Measurement of Urinary Output in Critically Ill Patients Data : 07/09/19 04:33 07/09/19 04:33 Micro: Microbiology 07/06/19 06:10 Sputum Culture - Final Sputum - Endotracheal Tube Aspirate Danna albicans A&P Assessment and plan (1) Acute exacerbation of chronic obstructive pulmonary disease (COPD): -Has had recent multiple exacerbations of COPD, is oxygen dependent at baseline with a 2 L requirement. This particular episode was likely triggered by influenza A -Respiratory status decompensated, unable to tolerate BiPAP so subsequently intubated -able to extubate on 07/08 -Close monitoring of respiratory status -Continue empiric antibiotics, has received a dose of ceftriaxone and azithromycin in the ER -on IV steroids; taper with improvement -Telemetry monitoring -Continued monitoring of vital signs -DuoNebs PRN -Chest x-ray shows severe emphysema, otherwise unremarkable -noted LE edema, BNP-1030; has no prior hx of CHF and I do not see evidence of cardiomegaly or pulmonary vascular congestion on CXR -ABG noted with mild hypoxia, hypercapnia resolved -D-dimer elevated, had CTA done in 05/2019 which was negative for PE; low suspicion for this currently -noted leukocytosis which could be steroid induced; decreasing; continue to trend WBC -may benefit from PFTs and pulmonology f/u as outpatient to optimize treatment Status: Acute Code(s): J44.1 - Chronic obstructive pulmonary disease with (acute) exacerbation (2) Influenza A: -Found to be influenza A positive -on droplet precautions -on Tamiflu (day 4/5) Status: Acute Code(s): J10.1 - Influenza due to other identified influenza virus with other respiratory manifestations (3) Sepsis with acute hypoxic respiratory failure: -as noted above Status: Acute Qualifiers: Sepsis type: sepsis due to unspecified organism Severe sepsis shock status: without septic shock Qualified Code(s): A41.9 - Sepsis, unspecified organism; R65.20 - Severe sepsis without septic shock; J96.01 - Acute respiratory failure with hypoxia Code(s): A41.9 - Sepsis, unspecified organism; R65.20 - Severe sepsis without septic shock; J96.01 - Acute respiratory failure with hypoxia Additional A&P Information -HTN -Former smoker -CKD stage 2-3; baseline Cr around 1; renal function stable -passed bedside dysphagia screening and start on CLD; advance diet as tolerated -fall precautions -DVT ppx with Lovenox -Dispo: home -Code status: FULL code Attestations Medical Necessity Statement*: Patient requires hospitalization for continued treatment of acute COPD exacerbation and influenza, extubated less than 24 hours ago. Time Spent in Patient Care: Greater than 35 minutes (>than 50% of time spent in counselling and/or direct pt care on unit) . Coding Level of Care Code Acute Post Closer for [facility] Fwd 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 Sepsis with acute hypoxic respiratory failure A41.9; R65.20; J96.01 Sepsis type: sepsis due to unspecified organism Severe sepsis shock status: without septic shock
--- NOTE | 2019-07-09 10:32 | PC.SOCIAL ---
Pg 2 IMM Explained to pt Pg 2 IMM. Pt verbally understands & but was unable to sign. Witnessed by pt care nurse, MICA Chisholm. Provided a copy to pt & left on bedside table. Signed, dated, & timed, then placed in chart.
[2019-07-09] MEDS: azithromycin 500 MG in sodium chloride 0.9% 250 ML 250 MG IV (11:23)
--- NOTE | 2019-07-09 16:00 | PC.NURSE ---
Discussed HTN with Dr Cortes while she was on unit, Start the Hydrochlorothiazide and Atenolol now..
[2019-07-09] MEDS: hydroCHLOROthiazide 25 mg Tablet 6.25 MG PO (16:25)
[2019-07-09] MEDS: atenolol 50 mg Tablet 100 MG PO (16:26)
--- NOTE | 2019-07-09 18:55 | PC.NURSE ---
Report given to MICA Gramajo. Pt alert and confused. Pt on 2lpm/NC. Pt has been out of bed with maximum 2 assist. She did poorly bearing her own weight. Pt also did poorly sitting up in a chair, she needed pillows to help prop her up. She would lean to the left and the front.She was in chair less than 1 hour.She has been incontinent of stool 3x, smearing each time. After management came by to start discharge planning, pt put on her light stating she was ready to go, Whe asked were she said home, discussed with pt that her extreme weakness that would not be happening until we helped her build up her strength. THe she said she was ready to go to rehab. Pt conversing more this evening than this am. This am she would put on her call light, when asked what we could do for her, she would just stare at staff.
[2019-07-09] MEDS: enoxaparin 40 mg/0.4 mL Syringe SUBCUT (21:14)
[2019-07-09] MEDS: cyclobenzaprine 10 mg Tablet PO (21:15)
[2019-07-09] MEDS: morphine 4 mg/mL SDV 1 mL 2 MG IVP (21:15)
[2019-07-09] MEDS: latanoprost 0.005% Op Soln 2.5 mL Btl 1 DROP EYE-BOTH (21:17)
--- NOTE | 2019-07-09 21:30 | PC.NURSE ---
pt complaining of back pain. rates 10/31 turned for comfort.2 mg morphine given ivp per jul. quinton samayoa.
[2019-07-10] VITALS (22 sets, daily range): BP systolic 100–151; BP diastolic 67–105; PULSE 70–144; RESP 16–23; TEMP 36.2–37.1; O2SAT 91–99; BMI 22.8
[2019-07-10] MEDS: ipratropium-albuterol 3 mL Neb INHALATION ×5 (03:51→21:57)
[2019-07-10 05:33] LABS: Basophils % 0.2 %; Hematocrit 39.5 % (37.0-47.0); Hemoglobin 12.8 g/dL (11.5-15.3); Lymphocytes # 1.9 10^3/uL (0.8-4.8); Lymphocytes % 9.4 %; Mean Corpuscular HGB Conc 32.4 g/dL (30.0-36.0); Mean Corpuscular Hemoglobin 30.3 pg (28.0-34.0); Mean Corpuscular Volume 93.4 fL (81-99); Monocytes # 1.6 10^3/uL (0.2-0.9); Neutrophils # 16.3 10^3/uL (1.8-7.7); Neutrophils % 79.9 %; Nucleated Red Blood Cells % 0 %; Platelet Count 448 10^3/cmm (130-400); Red Blood Count 4.23 10^6/uL (4.1-5.3); Red Cell Distribution Width 13.3 % (12.1-15.1); White Blood Count 20.4 10^3/uL (4.0-10.0)
[2019-07-10 05:55] LABS: Anion Gap 16.3 (5-19); Blood Urea Nitrogen 36 mg/dL (8-23); Calcium 9.5 mg/dL (8.5-10.5); Carbon Dioxide 29 mmol/L (22-29); Chloride 98 mmol/L (98-107); Creatinine Clr Calc Pharmacy 46.3506; Glucose 138 mg/dL (65-115); Osmolality Calculated 288 mOsm/kg (285-295); Potassium 4.3 mmol/L (3.5-5.1); Sodium 139 mmol/L (136-145)
[2019-07-10 06:48] LABS: Slide Review Slide Review Perform
[2019-07-10] MEDS: atenolol 50 mg Tablet 100 MG PO (09:16)
[2019-07-10] MEDS: hydroCHLOROthiazide 25 mg Tablet 6.25 MG PO (09:16)
[2019-07-10] MEDS: montelukast sodium 10 mg Tablet PO (09:16)
[2019-07-10] MEDS: cefTRIAXone 1,000 MG in sodium chloride 0.9% (plus) 50 ML 100 MG IV (09:16)
[2019-07-10] MEDS: oseltamivir phosphate 75 mg Capsule PO ×2 (09:17→18:06)
[2019-07-10 09:31] LABS: Oxygen Device VENT
--- NOTE | 2019-07-10 11:26 | PM.PN ---
Subjective Subjective: Interval history: Remains on 2 L nasal cannula, AM labs noted with significant leukocytosis likely due to steroids. Had 600 mL urine output overnight. Will discontinue Hutson catheter. Patient seen and examined, sitting in chair by bedside, no apparent distress, seems to be more alert today, in better spirits, son is at bedside. Agreeable to SNF placement, worked well with therapy earlier this morning though remains quite weak generally. Will transfer to the floor for continued care. Medications: Reviewed: Yes Medication Review Details: Current Medications Generic Name Dose Route Start Last Admin Trade Name Freq PRN Reason Stop Dose Admin Albuterol/Ipratrop ium 3 ml 07/05/19 21:00 07/05/19 22:35 Duoneb INHALATION 3 ml Q6H.RESPIRATORY P RN Administration SHORTNESS OF JESIKA TH Albuterol/Ipratrop ium 3 ml 07/06/19 00:00 07/10/19 07:54 Duoneb INHALATION 3 ml Q4H.RESPIRATORY S CH Administration Atenolol 100 mg 07/06/19 09:00 07/10/19 09:16 Tenormin PO 100 mg DAILY ED Administration Cyclobenzaprine HC l 10 mg 07/05/19 19:48 07/09/19 21:15 Flexeril PO 10 mg DAILY PRN Administration spasm Enoxaparin Sodium 40 mg 07/05/19 19:48 07/09/19 21:14 Lovenox SUBCUT 40 mg Q24H ED Administration Haloperidol Lactat e 2 mg 07/09/19 02:41 07/09/19 02:44 Haldol Inj IVP 2 mg NOW PRN Administration AGITATION Hydrochlorothiazid e 6.25 mg 07/06/19 09:00 07/10/19 09:16 Hctz PO 6.25 mg DAILY ED Administration Ceftriaxone Sodium 1,000 mg/ 50 mls @ 100 mls/ hr 07/06/19 10:00 07/10/19 09:16 Sodium Chloride IV 100 mls/hr Q24H ED Administration Protocol Azithromycin 500 m g/ Sodium 250 mls @ 250 mls /hr 07/06/19 11:00 07/09/19 11:23 Chloride IV 250 mls/hr Q24H ED Administration Protocol Latanoprost 1 drop 07/05/19 21:00 07/09/19 21:17 Xalatan EYE-BOTH 1 drop BEDTIME ED Administration Methylprednisolone Sodium Succinate 40 mg 07/08/19 16:00 07/10/19 09:17 Solu-Medrol IVP 40 mg Q6H ED Administration Montelukast Sodium 10 mg 07/06/19 09:00 07/10/19 09:16 Singulair PO 10 mg DAILY ED Administration Morphine Sulfate 2 mg 07/05/19 19:48 07/09/19 21:15 Morphine IVP 2 mg Q4H PRN Administration SEVERE PAIN Oseltamivir Phosph ate 75 mg 07/06/19 09:00 07/10/19 09:17 Tamiflu PO 75 mg BID ED Administration Vitals/I&O/Wt Last Vital Signs Temp 98.4 F 07/10/19 09:02 Pulse 86 07/10/19 08:00 Resp 18 07/10/19 08:00 BP 142/90 07/10/19 08:00 Pulse Ox 95 07/10/19 08:00 07/09/19 07/10/19 07/10/19 22:59 06:59 14:59 Intake Total 700 / 750 300 / 1050 Output Total 800 / 800 600 / 1400 Balance -100 / -50 -300 / -350 Weight last 48 hrs Weight 56.699 kg Weight 58.604 kg Physical Exam Const: COMMON NORMALS: no apparent distress and oriented x3 GENERAL APPEARANCE: comfortable ORIENTATION/CONSCIOUSNESS: Yes awake OTHER: -Has noted head-bobbing movement which per son is chronic HENMT: COMMON NORMALS: normocephalic and head/scalp atraumatic HEAD & SCALP: normocephalic and atraumatic MOUTH: moist mucous membranes abnormal Details: parched Eye: COMMON NORMALS: PERRL and conjunctivae normal CONJUNCTIVA: Yes conjunctivae normal PUPIL: Yes PERRL Neck/C-Spine: COMMON NORMALS: full ROM GENERAL: Yes normal visual inspection and Yes trachea midline Resp: COMMON NORMALS: no retractions EFFORT & INSPECTION: Yes symmetric chest movement, Yes tachypneic and Yes pursed lip breathing AUSCULTATION: diminished lung sounds diffuse OTHER: -Improved air entry bilaterally though remains quite diminished Cardio: COMMON NORMALS: regular rate, regular rhythm, S1 normal heart sound, S2 normal heart sound and no murmurs RATE: regular rate RHYTHM: regular rhythm HEART SOUNDS: S1 normal and S2 normal GI: COMMON NORMALS: normal to inspection, nondistended, normoactive bowel sounds, soft to palpation and non-tender PALPATION: Yes soft : BLADDER/KIDNEY EXAM: Yes catheter in place Catheter type (Female): urethral Extremity: COMMON NORMALS: normal to inspection; negative for no pedal edema GENERAL: No edema Neuro: COMMON NORMALS: oriented x3, moves all extremities, no focal motor deficits and no sensory deficits noted Psych: COMMON NORMALS: mental status grossly normal, cooperative, affect normal and speech normal SPEECH: Yes normal speech Skin: COMMON NORMALS: no rashes or lesions noted, no jaundice and no mottling GENERAL SKIN EXAM: no rashes or lesions noted and petechiae OTHER: -noted discrete areas of petechiae on dorsum of both feet Urinary Catheter Management^: Hutson: Cath Placed During This Visit: no Urethral Indwelling: Yes Reason for Continuing Indwelling Catheter: Accurate Measurement of Urinary Output in Critically Ill Patients Data : 07/10/19 04:47 07/10/19 04:47 A&P Assessment and plan (1) Acute exacerbation of chronic obstructive pulmonary disease (COPD): -Has had recent multiple exacerbations of COPD, is oxygen dependent at baseline with a 2 L requirement. This particular episode was likely triggered by influenza A -Respiratory status decompensated, unable to tolerate BiPAP so subsequently intubated -able to extubate on 07/08 -Close monitoring of respiratory status -Continue empiric antibiotics, has received a dose of ceftriaxone and azithromycin in the ER -on IV steroids; switch to oral prednisone -Telemetry monitoring -Continued monitoring of vital signs -DuoNebs PRN -Chest x-ray shows severe emphysema, otherwise unremarkable -noted LE edema, BNP-1030; has no prior hx of CHF and I do not see evidence of cardiomegaly or pulmonary vascular congestion on CXR -ABG noted with mild hypoxia, hypercapnia resolved -D-dimer elevated, had CTA done in 05/2019 which was negative for PE; low suspicion for this currently -noted leukocytosis which could be steroid induced; decreasing; continue to trend WBC -may benefit from PFTs and pulmonology f/u as outpatient to optimize treatment Status: Acute Code(s): J44.1 - Chronic obstructive pulmonary disease with (acute) exacerbation (2) Influenza A: -Found to be influenza A positive -on droplet precautions -on Tamiflu (day 5/5) Status: Acute Code(s): J10.1 - Influenza due to other identified influenza virus with other respiratory manifestations (3) Sepsis with acute hypoxic respiratory failure: -as noted above Status: Resolved Qualifiers: Sepsis type: sepsis due to unspecified organism Severe sepsis shock status: without septic shock Qualified Code(s): A41.9 - Sepsis, unspecified organism; R65.20 - Severe sepsis without septic shock; J96.01 - Acute respiratory failure with hypoxia Code(s): A41.9 - Sepsis, unspecified organism; R65.20 - Severe sepsis without septic shock; J96.01 - Acute respiratory failure with hypoxia Additional A&P Information -HTN -Former smoker -CKD stage 2-3; baseline Cr around 1; renal function stable -GI soft diet -fall precautions -DVT ppx with Lovenox -PT evaluation appreciated; recommend SNF -Dispo: SNF -Code status: FULL code -transfer to floor for continued care Attestations Medical Necessity Statement*: Patient requires hospitalization for continued management of acute COPD exacerbation secondary to influenza A; pending appropriate disposition. Time Spent in Patient Care: Greater than 35 minutes (>than 50% of time spent in counselling and/or direct pt care on unit). Coding Level of Care Code Acute [facility] for [facility] Fwd 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 Sepsis with acute hypoxic respiratory failure A41.9; R65.20; J96.01 Sepsis type: sepsis due to unspecified organism Severe sepsis shock status: without septic shock
[2019-07-10] MEDS: azithromycin 500 MG in sodium chloride 0.9% 250 ML 250 MG IV (12:44)
--- NOTE | 2019-07-10 13:33 | PC.CHAP ---
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 compensation and benefits administrator visit [] Patient/Family/Request visit [] Outpatient visit [] Follow-up visit [] Physician referral [] Code/Alert [] Routine visit [] Staff referral [] Actively dying [] Patient sleeping [] Family support [] [] Out of room [] Palliative care [] [] Receiving care in room [] Pre-surgical visit [] Trauma [x] Long length of stay [x] ICU visit [x] Other: Under precautions Relational/Emotional Strength [] Patient feels connected with others/family/visitors/staff [] Distress [] Loneliness/isolation [] Abandonment Spirituality of Patient [] Person of Navya [] Attends Cheondoism of their Navya [] Believes in Prayer [] Reads Bible or Mosque materials [] There are Spiritual issues to be addressed Scale Clerk Interventions [] Prayer [] Active listening [] Non-anxious presence [] Spiritual/emotional support [] Crisis/trauma care [] Spiritual counseling [] Bereavement support [] Provided bereavement packet [] Provided Bible/devotional materials [] Provided toy/stuffed animal, coloring book to patient or family member [] Provided Communion [] Anointing/[place] [] Salvation [] Completed spiritual assessment [] Other: Impact on Illness or Injury [] Angry [] Fearful [] Anxious [] Often cries [] Exhaustion [] Unable to work [] Unable to attend mandaen [] Unable to walk/stand [] Unable to read [] Unable to drive [] Unable to eat/drink [] Unable to sleep [] Unable to be with family [] Patient intubated [] Other: Summary Patient was in isolation. Patient visit attempted by Scale Clerk Rj Naylor. Time spent with patient 3 minutes
--- NOTE | 2019-07-10 15:40 | PC.SOCIAL ---
Updated IMM Updated pt on Pg 2 IMM. Pt verbally understands, no questions voiced. Provided a copy to pt & left on pt's bedside table. Signed, dated, & timed original in chart.
--- NOTE | 2019-07-10 18:23 | PC.NURSE ---
Patient report called to MICA Jefferson on Medical-Surgical floor.
--- NOTE | 2019-07-10 18:23 | PC.NURSE ---
Upon going in to gather patient belongings and begin transfer patient was found sitting against the front of chair in floor. Did not appear to have hit head at this time. Patient alert, oriented, neuro's intact, able to move all extremities, and not complaining of pain. Physician notified and approved transfer at this time. Patient transferred to room 270 via bed. Bed alarm set, and nurse at patients side upon departure. Patient in stable condition at this time.
[2019-07-10] MEDS: enoxaparin 40 mg/0.4 mL Syringe SUBCUT (21:36)
[2019-07-11] VITALS (18 sets, daily range): BP systolic 112–125; BP diastolic 64–78; PULSE 60–86; RESP 15–22; TEMP 36.3–37.2; O2SAT 92–100
[2019-07-11] MEDS: ipratropium-albuterol 3 mL Neb INHALATION ×6 (01:34→20:13)
[2019-07-11 03:43] LABS: Basophils # 0.1 10^3/uL (0.0-0.1); Basophils % 0.4 %; Eosinophils % 0.1 %; Hematocrit 41.5 % (37.0-47.0); Hemoglobin 13.4 g/dL (11.5-15.3); Lymphocytes # 2.5 10^3/uL (0.8-4.8); Lymphocytes % 14.6 %; Mean Corpuscular HGB Conc 32.3 g/dL (30.0-36.0); Mean Corpuscular Hemoglobin 30.2 pg (28.0-34.0); Mean Corpuscular Volume 93.7 fL (81-99); Mean Platelet Volume 10.1 fL (7.4-10.4); Monocytes # 1.9 10^3/uL (0.2-0.9); Monocytes % 10.9 %; Neutrophils # 12.1 10^3/uL (1.8-7.7); Neutrophils % 71.2 %; Nucleated Red Blood Cells % 0 %; Platelet Count 317 10^3/cmm (130-400); Red Blood Count 4.43 10^6/uL (4.1-5.3); Red Cell Distribution Width 12.9 % (12.1-15.1)
[2019-07-11 03:58] LABS: Anion Gap 14.1 (5-19); Blood Urea Nitrogen 37 mg/dL (8-23); Calcium 9.6 mg/dL (8.5-10.5); Carbon Dioxide 30 mmol/L (22-29); Chloride 98 mmol/L (98-107); Creatinine Clr Calc Pharmacy 46.3506; Glucose 105 mg/dL (65-115); Osmolality Calculated 284 mOsm/kg (285-295); Potassium 4.1 mmol/L (3.5-5.1); Sodium 138 mmol/L (136-145)
[2019-07-11] MEDS: montelukast sodium 10 mg Tablet PO (08:22)
[2019-07-11] MEDS: atenolol 50 mg Tablet 100 MG PO (08:22)
[2019-07-11] MEDS: oseltamivir phosphate 75 mg Capsule PO (08:22)
[2019-07-11] MEDS: hydroCHLOROthiazide 25 mg Tablet 6.25 MG PO (08:22)
[2019-07-11] MEDS: cefTRIAXone 1,000 MG in sodium chloride 0.9% (plus) 50 ML 100 MG IV (10:01)
--- NOTE | 2019-07-11 10:51 | P.PN_ITS ---
Subjective Subjective: Interval history: Last dose of Tamiflu given earlier this morning, hemodynamically stable, remains on 2 L nasal cannula, decreasing leukocytosis. Has been afebrile for > 48 hrs. Today is day 5 of her antibiotics. Patient seen and examined, resting in bed, no apparent distress, no acute overnight events reported. Case management working on disposition. Medications: Reviewed: Yes Medication Review Details: Current Medications Generic Name Dose Route Start Last Admin Trade Name Freq PRN Reason Stop Dose Admin Albuterol/Ipratrop ium 3 ml 07/05/19 21:00 07/05/19 22:35 Duoneb INHALATION 3 ml Q6H.RESPIRATORY P RN Administration SHORTNESS OF JESKIA TH Albuterol/Ipratrop ium 3 ml 07/06/19 00:00 07/11/19 08:19 Duoneb INHALATION 3 ml Q4H.RESPIRATORY S CH Administration Atenolol 100 mg 07/06/19 09:00 07/11/19 08:22 Tenormin PO 100 mg DAILY ED Administration Cyclobenzaprine HC l 10 mg 07/05/19 19:48 07/09/19 21:15 Flexeril PO 10 mg DAILY PRN Administration spasm Enoxaparin Sodium 40 mg 07/05/19 19:48 07/10/19 21:36 Lovenox SUBCUT 40 mg Q24H ED Administration Haloperidol Lactat e 2 mg 07/09/19 02:41 07/09/19 02:44 Haldol Inj IVP 2 mg NOW PRN Administration AGITATION Hydrochlorothiazid e 6.25 mg 07/06/19 09:00 07/11/19 08:22 Hctz PO 6.25 mg DAILY ED Administration Ceftriaxone Sodium 1,000 mg/ 50 mls @ 100 mls/ hr 07/06/19 10:00 07/11/19 10:01 Sodium Chloride IV 100 mls/hr Q24H ED Administration Protocol Azithromycin 500 m g/ Sodium 250 mls @ 250 mls /hr 07/06/19 11:00 07/10/19 13:44 Chloride IV Infused Q24H ED Infusion Protocol Latanoprost 1 drop 07/05/19 21:00 07/10/19 21:37 Xalatan EYE-BOTH Not Given BEDTIME ED Montelukast Sodium 10 mg 07/06/19 09:00 07/11/19 08:22 Singulair PO 10 mg DAILY ED Administration Morphine Sulfate 2 mg 07/05/19 19:48 07/09/19 21:15 Morphine IVP 2 mg Q4H PRN Administration SEVERE PAIN Vitals/I&O/Wt Last Vital Signs Temp 98.9 F 07/11/19 08:00 Pulse 75 07/11/19 08:24 Resp 18 07/11/19 08:20 BP 118/68 07/11/19 08:00 Pulse Ox 95 07/11/19 08:20 07/10/19 07/11/19 07/11/19 22:59 06:59 14:59 Intake Total 240 / 240 Balance 240 / 240 Weight last 48 hrs Weight 56.427 kg Weight 56.699 kg Physical Exam Const: COMMON NORMALS: no apparent distress and oriented x3 GENERAL APPEARANCE: comfortable ORIENTATION/CONSCIOUSNESS: Yes awake OTHER: -Has noted head-bobbing movement which per son is chronic HENMT: COMMON NORMALS: normocephalic and head/scalp atraumatic HEAD & SCALP: normocephalic and atraumatic MOUTH: moist mucous membranes abnormal Details: parched Eye: COMMON NORMALS: PERRL and conjunctivae normal CONJUNCTIVA: Yes conjunctivae normal PUPIL: Yes PERRL Neck/C-Spine: COMMON NORMALS: full ROM GENERAL: Yes normal visual inspection and Yes trachea midline Resp: COMMON NORMALS: no retractions EFFORT & INSPECTION: Yes symmetric chest movement, Yes tachypneic and Yes pursed lip breathing AUSCULTATION: diminished lung sounds diffuse OTHER: -Improved air entry bilaterally though remains quite diminished which is likely her baseline Cardio: COMMON NORMALS: regular rate, regular rhythm, S1 normal heart sound, S2 normal heart sound and no murmurs RATE: regular rate RHYTHM: regular rhythm HEART SOUNDS: S1 normal and S2 normal GI: COMMON NORMALS: normal to inspection, nondistended, normoactive bowel sounds, soft to palpation and non-tender PALPATION: Yes soft Extremity: COMMON NORMALS: normal to inspection; negative for no pedal edema GENERAL: No edema Neuro: COMMON NORMALS: oriented x3, moves all extremities, no focal motor deficits and no sensory deficits noted Psych: COMMON NORMALS: mental status grossly normal, cooperative, affect normal and speech normal SPEECH: Yes normal speech Skin: COMMON NORMALS: no rashes or lesions noted, no jaundice and no mottling GENERAL SKIN EXAM: no rashes or lesions noted and petechiae OTHER: -noted discrete areas of petechiae on dorsum of both feet Urinary Catheter Management^: Hutson: Cath Placed During This Visit: no Urethral Indwelling: Yes Reason for Continuing Indwelling Catheter: Accurate Measurement of Urinary Output in Critically Ill Patients Data : 07/11/19 03:05 07/11/19 03:05 Micro: Microbiology 07/05/19 12:10 Blood Culture - Final Blood NO GROWTH AFTER 5 DAYS 07/05/19 12:12 Blood Culture - Final Blood NO GROWTH AFTER 5 DAYS A&P Assessment and plan (1) Acute exacerbation of chronic obstructive pulmonary disease (COPD): -Has had recent multiple exacerbations of COPD, is oxygen dependent at baseline with a 2 L requirement. This particular episode was likely triggered by influenza A -Respiratory status decompensated, unable to tolerate BiPAP so subsequently intubated -able to extubate on 07/08 -Close monitoring of respiratory status -Continue empiric antibiotics (Ceftriaxone, Azithromycin); day 5 -off IV steroids; switched to oral prednisone -Telemetry monitoring -Continued monitoring of vital signs -DuoNebs PRN -Chest x-ray shows severe emphysema, otherwise unremarkable -noted LE edema, BNP-1030; has no prior hx of CHF and I do not see evidence of cardiomegaly or pulmonary vascular congestion on CXR -ABG noted with mild hypoxia, hypercapnia resolved -D-dimer elevated, had CTA done in 05/2019 which was negative for PE; low suspicion for this currently -noted leukocytosis which could be steroid induced; decreasing; continue to trend WBC -may benefit from PFTs and pulmonology f/u as outpatient to optimize treatment Status: Acute Code(s): J44.1 - Chronic obstructive pulmonary disease with (acute) exacerbation (2) Influenza A: -Found to be influenza A positive -on droplet precautions -completed Tamiflu (day 09/25) Status: Acute Code(s): J10.1 - Influenza due to other identified influenza virus with other respiratory manifestations Additional A&P Information -HTN -Former smoker -CKD stage 2-3; baseline Cr around 1; renal function stable -GI soft diet -fall precautions -DVT ppx with Lovenox -PT evaluation appreciated; recommend SNF -Dispo: SNF -Code status: FULL code Attestations Medical Necessity Statement*: Patient requires hospitalization for continued treatment of pneumonia, acute COPD exacerbation, just completed treatment for influenza A; pending appropriate disposition. Time Spent in Patient Care: Greater than 35 minutes (>than 50% of time spent in counselling and/or direct pt care on unit) . Coding Level of Care Code Acute Hemodialysis Technician for [facility] Fwd 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
[2019-07-11] MEDS: azithromycin 500 MG in sodium chloride 0.9% 250 ML 250 MG IV (11:20)
[2019-07-11] MEDS: predniSONE 20 mg Tablet 60 MG PO (13:17)
[2019-07-11] MEDS: enoxaparin 40 mg/0.4 mL Syringe SUBCUT (19:58)
[2019-07-12] VITALS (11 sets, daily range): BP systolic 117–134; BP diastolic 71–76; PULSE 73–85; RESP 16–20; TEMP 36.4–36.9; O2SAT 90–98
[2019-07-12] MEDS: ipratropium-albuterol 3 mL Neb INHALATION ×4 (00:34→12:45)
[2019-07-12] MEDS: montelukast sodium 10 mg Tablet PO (08:10)
[2019-07-12] MEDS: predniSONE 20 mg Tablet 60 MG PO (08:10)
[2019-07-12] MEDS: atenolol 50 mg Tablet 100 MG PO (08:10)
[2019-07-12] MEDS: hydroCHLOROthiazide 25 mg Tablet 6.25 MG PO (08:11)
[2019-07-12] MEDS: cefTRIAXone 1,000 MG in sodium chloride 0.9% (plus) 50 ML 100 MG IV (09:09)
--- NOTE | 2019-07-12 10:00 | PC.SOCIAL ---
IMM Updated Page 2 of IMM updated and given to patient. Initialed, dated, and timed and placed back in chart.
[2019-07-12] MEDS: azithromycin 500 MG in sodium chloride 0.9% 250 ML 250 MG IV (10:24)
[2019-07-12] MEDS: lanolin oint 7 gm 1 APPLIC TOPICAL (11:25)
--- NOTE | 2019-07-12 12:26 | P.DS_ITS ---
Discharge Providers Date of Admission: 07/05/19 16:39 Date of Discharge: July 12, 2019 Attending Provider at Admission: Merced Suresh MD Attending Provider at Discharge: Merced Suresh MD Primary Care Provider: Misty Villaseñor MD Diagnoses at Discharge Discharge Diagnosis (1) Acute exacerbation of chronic obstructive pulmonary disease (COPD): Status: Acute Problem details: -Has had recent multiple exacerbations of COPD, is oxygen dependent at baseline with a 2 L requirement. This particular episode was likely triggered by influenza A -Respiratory status decompensated, unable to tolerate BiPAP so subsequently intubated -able to extubate on 07/08 -Close monitoring of respiratory status -Continue empiric antibiotics (Ceftriaxone, Azithromycin); day 5 -off IV steroids; switched to oral prednisone -Telemetry monitoring -Continued monitoring of vital signs -DuoNebs PRN -Chest x-ray shows severe emphysema, otherwise unremarkable -noted LE edema, BNP-1030; has no prior hx of CHF and I do not see evidence of cardiomegaly or pulmonary vascular congestion on CXR -ABG noted with mild hypoxia, hypercapnia resolved -D-dimer elevated, had CTA done in 05/2019 which was negative for PE; low suspicion for this currently -noted leukocytosis which could be steroid induced; decreasing; continue to trend WBC -may benefit from PFTs and pulmonology f/u as outpatient to optimize treatment (2) Influenza A: Status: Acute Problem details: -Found to be influenza A positive -on droplet precautions -completed Tamiflu (day 09/25) Other Information Additional DC diagnoses/information: -HTN -Former smoker -CKD stage 2-3; baseline Cr around 1; renal function stable Reason for Visit Reason for Visit: Reason For Visit: resp distress Hospital Course Hospital Course: Patient was initially admitted to the medical surgical floor and was requiring continuous BiPAP. Unfortunately overnight she was unable to tolerate this further and her respiratory status decompensated necessitating mechanical ventilation and transfer to ICU. She was successfully weaned and extubated on 07/08 we have been able to wean her down to her baseline oxygen requirement of 2 L nasal cannula. She was found to be influenza A positive and has completed her 5-day treatment of Tamiflu. While on treatment she was placed on droplet isolation precautions which are no longer necessary as she has completed her treatment course. While intubated she was on IV steroids and both azithromycin and ceftriaxone. Respiratory status has continued to improve throughout her hospitalization. She has completed a 7-day course of dual antibiotic treatment and will not require further antibiotics on discharge. She will require a short course of steroids for about 5 days. She would likely benefit from having formal pulmonary function testing and pulmonology follow-up. Due to her recurrent COPD exacerbations she has become deconditioned and quite weak particularly with the need for mechanical ventilation during this hospital stay. As such physical therapy and occupational therapy recommended SNF placement which patient has agreed to. She has been accepted at [facility] and will be discharged this afternoon. Discharge Summary: -Patient to follow-up with primary care physician within 1 week or per SNF. She may require referral for pulmonology evaluation and pulmonary function testing Physical Exam Const: COMMON NORMALS: no apparent distress and oriented x3 GENERAL APPEARANCE: comfortable ORIENTATION/CONSCIOUSNESS: Yes awake OTHER: -Has noted head-bobbing movement which per son is chronic HENMT: COMMON NORMALS: normocephalic and head/scalp atraumatic HEAD & SCALP: normocephalic and atraumatic MOUTH: moist mucous membranes abnormal Details: parched Eye: COMMON NORMALS: PERRL and conjunctivae normal CONJUNCTIVA: Yes conjunctivae normal PUPIL: Yes PERRL Neck/C-Spine: COMMON NORMALS: full ROM GENERAL: Yes normal visual inspection and Yes trachea midline Resp: COMMON NORMALS: no retractions EFFORT & INSPECTION: Yes symmetric chest movement, Yes tachypneic and Yes pursed lip breathing AUSCULTATION: diminished lung sounds diffuse OTHER: -Improved air entry bilaterally though remains quite diminished which is likely her baseline Cardio: COMMON NORMALS: regular rate, regular rhythm, S1 normal heart sound, S2 normal heart sound and no murmurs RATE: regular rate RHYTHM: regular rhythm HEART SOUNDS: S1 normal and S2 normal GI: COMMON NORMALS: normal to inspection, nondistended, normoactive bowel sounds, soft to palpation and non-tender PALPATION: Yes soft : BLADDER/KIDNEY EXAM: Yes catheter in place Catheter type (Female): urethral Extremity: COMMON NORMALS: normal to inspection; negative for no pedal edema GENERAL: No edema Neuro: COMMON NORMALS: oriented x3, moves all extremities, no focal motor deficits and no sensory deficits noted SENSORIUM/ORIENTATION: Yes other (sedated) Psych: COMMON NORMALS: mental status grossly normal, cooperative, affect normal and speech normal SPEECH: Yes normal speech Skin: COMMON NORMALS: no rashes or lesions noted, no jaundice and no mottling GENERAL SKIN EXAM: no rashes or lesions noted and petechiae OTHER: -noted discrete areas of petechiae on dorsum of both feet Urinary Catheter Management^: Hutson: Cath Placed During This Visit: no Urethral Indwelling: Yes Reason for Continuing Indwelling Catheter: Accurate Measurement of Urinary Output in Critically Ill Patients Discharge Data Data Completed and Pending: Completed Studies During Hospitalization Category Date Time Status XR chest 1V teresa ble [id number] Routine Exams 07/06/19 02:47 Completed XR chest 1V teresa ble [id number] Routine Exams 07/07/19 06:00 Completed XR chest 1V teresa ble [id number] Routine Exams 07/08/19 06:00 Completed XR chest 1V teresa ble [id number] Urgent Exams 07/05/19 08:36 Completed Vitals: Last Vital Signs Temp 97.7 F 07/12/19 08:00 Pulse 83 07/12/19 08:35 Resp 20 H 07/12/19 08:31 BP 134/76 07/12/19 08:00 Pulse Ox 94 07/12/19 08:31 Discharge Plan Discharge Patient Disposition: [facility] Condition: Stable Prescriptions: New prednisone 20 mg tablet 20 mg PO BID 5 Days Qty: 10 RF: 0 montelukast 10 mg tablet 10 mg PO DAILY 30 Days Qty: 30 RF: 0 Continued cyclobenzaprine 10 mg tablet 10 mg PO DAILY PRN (Reason: spasm) 30 Days Qty: 30 RF: 0 latanoprost 0.005 % drops 1 drp ophthalmic (eye) BEDTIME 30 Days Qty: 2.5 RF: 0 ipratropium-albuterol 0.5 mg-3 mg(2.5 mg base)/3 mL solution for nebulization 3 ml INHALATION Q8H PRN (Reason: shortness of breath or wheezing) 30 Days Qty: 90 RF: 0 amitriptyline 10 mg tablet 10 mg PO DAILY 30 Days Qty: 30 RF: 0 Lidocaine Viscous 2 % solution 15 ml MUCOUS MEM BID PRN (Reason: pain) Qty: 100 RF: 0 Ventolin HFA 90 mcg/actuation Hfa Aerosol Inhaler 2 puff INHALATION Q4H PRN (Reason: Shortness Of Breath) 30 Days Qty: 1 RF: 0 atenolol 50 mg tablet 100 mg PO DAILY 30 Days Qty: 60 RF: 0 hydrochlorothiazide 12.5 mg Tablet 6.25 mg PO DAILY 30 Days Qty: 30 RF: 0 Combivent Respimat 20-100 mcg/actuation Mist 2 puff INHALATION Q6H PRN (Reason: Shortness Of Breath) 30 Days Qty: 1 RF: 0 Discontinued prednisone 5 mg tablet 5 mg PO DAILY Qty: 5 RF: 0 cephalexin [Keflex] 500 mg capsule 500 mg PO Q6H 7 Days Qty: 28 RF: 0 prednisone 50 mg tablet 50 mg PO DAILY Qty: 5 RF: 0 Discharge Orders: Discharge Order (Routine); Ordered 07/12/19 Ordered By: Merced Suresh Referrals: [facility] [Outside] (Dr. to follow you at [facility] is Dr. Josh Jain for all you medical and medication needs.) Misty Villaseñor MD [Primary Care Provider] - () Discharge Diet: Regular Discharge Activity: Increase activity as tolerated Patient Instructions: Prednisone (By mouth), Montelukast (By mouth), Viral Pneumonia (DC), Influenza (GEN) Activity Restrictions/Additional Instructions: -Patient is oxygen dependent at baseline with a baseline requirement of 2 L nasal cannula. This can be titrated as needed to maintain her saturation at or above 92% Discharge Date/Time: 07/12/19 14:42 Discharge Attestations Time Spent in Discharge Care*: greater than 30 min Specific Discharge Activities: Specific discharge activities: educating patient, discussing with pcp/other providers, discussing with counseling case manager/social workers/dc planners, documenting/other paperwork and evaluating patient/reviewing data Status at Discharge: Cognitive status at discharge: cognitively intact , Behavioral status at discharge: cooperative , Functional status at discharge: other assisted ambulation Overall status at discharge: patient is back to baseline Quality Metrics Clinical Quality Measures During this hospital stay, did patient experience: None Coding Level of Care Code 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
--- NOTE | 2019-07-12 13:51 | PC.NURSE ---
ATTEMPTED TO CALL REPORT TWICE TO [facility] AND NOBODY WILL TAKE REPORT AT THIS TIME. WILL TRY AGAIN.
== END 2019-07-12 14:42 | disposition skilled nursing facility (03) | DRG 208 ==
LOC: ER 15:43 → MEDSURG 17:52 → ICU 07-06 04:22 → MEDSURG 07-10 18:11
PROVIDERS: Hospitalist; Admitting Provider Family Medicine; Emergency Provider Family Medicine; Family Provider Family Medicine; PCP Family Medicine; Visit Provider Family Medicine
DX: J43.9 Emphysema, unspecified (principal); A41.9 Sepsis, unspecified organism; J96.01 Acute respiratory failure with hypoxia; R65.20 Severe sepsis without septic shock; J98.11 Atelectasis; Z99.81 Dependence on supplemental oxygen; I12.9 Hypertensive chronic kidney disease with stage 1 through stage 4 chronic kidney disease, or unspecified chronic kidney disease; N18.3 Chronic kidney disease, stage 3 (moderate); J10.1 Influenza due to other identified influenza virus with other respiratory manifestations; Z87.891 Personal history of nicotine dependence
CPT/HCPCS: 12345; 36415; 36600; 71045; 80048; 80051; 80053; 82803; 82805; 82810; 83880; 83986; 85007; 85025; 85378; 87040; 87070; 87106; 87804; 93005; 94002; 94003; 94640; 94660; 94664; 94799; 96372; 96375; 97110; 97162; 97530; 99284; J0456; J0696; J1630; J1650; J1940; J2060; J2270; J2704; J2920; J2930; J7040; J7050; J7512; J7611

== ENCOUNTER 2019-07-13 12:11 | Emergency (ER) | payer MEDICARE, OTHER, SELFPAY ==
[2019-07-13 12:13] VITALS: BMI 23.0
--- NOTE | 2019-07-13 12:14 | ED_ITS ---
Entered by Daija Elias, acting as scribe for Saurabh Vora MD HPI - SOB/Dyspnea General: Chief Complaint: Shortness of Breath/Dyspnea Stated Complaint: SHORTNESS OF BREATH Time Seen by Provider: 07/13/19 12:17 Source: patient and EMS Mode of arrival: EMS Limitations: no limitations History of Present Illness: HPI Narrative: 74-year-old female who has a long history of COPD and CHF. Patient recently got admitted and intubated and was [facility] yesterday. Per EMS and [facility] she had shortness of breath that the [facility] and saturation dropped to 88% on 2 L. She is on 2 L at all times is now 95% after breathing treatment. Patient states she does feel improved. She is had no fever no cough. Patient is now in mini mal distress. MD elicited complaint: shortness of breath Pertinent past history: COPD, asthma, congestive heart failure and pneumonia Context: recent illness Timing: now resolved Severity: moderate Exacerbating factors: nothing Relieving factors: nothing Associated symptoms: Deny abdominal pain, chest pain, fever(s), nausea or vomiting Review of Systems Const: Denies: fever, chills, body aches or change in appetite Eyes: Denies: photophobia ENMT: Denies: enlarged tonsils Card: Denies: chest pain Resp: Reports: shortness of breath GI: Denies: abdominal pain, nausea, vomiting or diarrhea : Denies: painful urination Musc: Denies: neck pain or back pain Skin/Breast: Denies: rash Neuro: Denies: headache Psych: Denies: depression Yonatan/Lymph: Denies: easy bruising All/Imm: Denies: acute wheezing PFSH ED PFSH: Medical History Cataract COPD (chronic obstructive pulmonary disease) Glaucoma Hypertension On home oxygen therapy Surgical History History of appendectomy Family History Mother Arrhythmia Father CAD (coronary artery disease) Social History Smoking and tobacco status: former smoker Alcohol intake: never Physical Exam Const: COMMON NORMALS: no apparent distress, oriented x3 and healthy appearing HENMT: COMMON NORMALS: normocephalic and head/scalp atraumatic HEAD & S CALP: normocephalic and atraumatic Eye: COMMON NORMALS: PERRL and EOMs intact bilaterally PUPIL: Yes PERRL Neck/C-Spine: COMMON NORMALS: full ROM and supple Chest: COMMONS NORMALS: inspection of chest normal and palpation of chest normal Resp: COMMON NORMALS: no retractions and no use of accessory muscles EFFORT & INSPECTION: Yes respiratory distress (mild) and Yes audible wheezes Cardio: COMMON NORMALS: regular rate, regular rhythm and no murmurs RATE: regular rate RHYTHM: regular rhythm GI: COMMON NORMALS: normal to inspection, nondistended, normoactive bowel sounds, soft to palpation, non-tender and no masses PALPATION: Yes soft Extremity: COMMON NORMALS: normal to inspection and full ROM Neuro: COMMON NORMALS: oriented x3, moves all extremities and no focal motor deficits Psych: COMMON NORMALS: mental status grossly normal, thought process normal and cooperative THOUGHT PROCESS: normal thought process Skin: COMMON NORMALS: no rashes or lesions noted and no wounds GENERAL SKIN EXAM: no rashes or lesions noted Course Vital Signs: Vital signs: Vital Signs Temperature 97.8 F 07/13/19 12:17 Pulse Rate 76 07/13/19 15:13 Respiratory Rate 16 07/13/19 15:13 Blood Pressure 130/89 07/13/19 15:13 Pulse Oximetry 100 07/13/19 15:13 MDM - SOB/Dyspnea MDM Narrative: Medical decision making narrative: Patient presents here with shortness of breath is much improved after breathing treatments. Patient feels improved I feel she is stable for discharge. She does have an elevated white count that is likely due to her being on steroids recently. Patient is stable for discharge [facility] to [facility] and is to continue antibiotics there. She is return if worsening. Lab Data: Labs: Lab Results 07/13/19 07/13/19 07/13/19 Range/Units 12:01 12:01 12:38 WBC 23.9 H (4.0-10.0) 10^3/ uL RBC 4.46 (4.1-5.3) 10^6/u L Hgb 13.6 (11.5-15.3) g/dL Hct 42.0 (37.0-47.0) % MCV 94.2 (81-99) fL MCH 30.5 (28.0-34.0) pg MCHC 32.4 (30.0-36.0) g/dL RDW 12.7 (12.1-15.1) % Plt Count 386 (130-400) 10^3/c mm MPV 10.6 H (7.4-10.4) fL Neut % (Auto) 74.9 % Lymph % (Auto) 10.8 % [place] % (Auto) 10.2 % Eos % (Auto) 0.3 % Baso % (Auto) 0.3 % Neut # (Auto) 17.9 H (1.8-7.7) 10^3/u L Lymph # (Auto) 2.6 (0.8-4.8) 10^3/u L [place] # (Auto) 2.4 H (0.2-0.9) 10^3/u L Eos # (Auto) 0.1 (0.0-0.8) 10^3/u L Baso # (Auto) 0.1 (0.0-0.1) 10^3/u L Nucleated RBC % (a uto) 0 % Nucleated RBCs # 0.0 /100WBC Specimen Type Arterial Sample Site Brachial, right ABG pH 7.47 H (7.35-7.45) ABG pCO2 49.6 H (35-45) mmHg ABG pO2 93.5 (80.0-100.0) mmH g ABG HCO3 35.6 H (22-26) mmol/L ABG Base Excess 10.4 H (-2.0-2.0) mmol/ L Sven Test N/a Hematocrit 36.7 L (37-47) % O2 Delivery Device Nc O2 Liters/Min 2.0 % Bods Developer ID gd Sodium 138 (136-145) mmol/L Potassium 3.5 (3.5-5.1) mmol/L Chloride 95 L (98-107) mmol/L Carbon Dioxide 36 H (22-29) mmol/L Anion Gap 10.5 (5-19) BUN 24 H (8-23) mg/dL Creatinine 0.7 (0.5-0.9) mg/dL Glucose 106 (65-115) mg/dL Calcium 10.0 (8.5-10.5) mg/dL Total Bilirubin 0.4 (0.15-1.2) mg/dL AST 34 H (0-32) U/L ALT 34 H (0-33) U/L Alkaline Phosphata se 82 (35-105) IU/L NT-Pro-B Natriuret Pep 60867 H (0-125) pg/mL Total Protein 6.5 L (6.6-8.7) g/dL Albumin 3.5 (3.5-5.2) g/dL Globulin 3.0 (1.3-4.6) g/dL Imaging Data^: CXR: Radiologist's impression: Ordering Provider/Ordering MD: Saurabh Vora MD Date of Service: 07/13/19 Procedure(s): XR chest 1V portable [id number] Accession Number(s): [id number] Report Number: [id number] WS: [id number] XR chest 1V portable [id number] REASON FOR EXAM: cp FINDINGS: Blunting of the right costophrenic angle is seen. The lung scott are hyper aerated with decreased vascularity consistent with chronic obstructive pulmonary disease. Comparison the previous exam of July 08, 2019 the endotracheal tube is now been removed. The heart and mediastinal interfaces normal. XR/XR chest 1V portable [id number] IMPRESSION: Small amount of right pleural effusion Chronic obstructive pulmonary disease. EKG Data^: EKG 1: Attestation: I personally reviewed and interpreted this EKG as follows: EKG Interpretation Date: 07/13/19 EKG interpretation time: 12:25 Interpretation: Normal sinus rhythm heart rate [address] or T wave abnormalities QRS 114 QTC 435 Discharge Plan Discharge Patient Disposition: Home, Self-Care Clinical Impression: Acute exacerbation of chronic obstructive pulmonary disease (COPD) CHF (congestive heart failure) Qualifiers: Heart failure type: unspecified Condition: Stable Prescriptions: No Action prednisone 20 mg tablet 20 mg PO BID 5 Days Qty: 10 RF: 0 cyclobenzaprine 10 mg tablet 10 mg PO DAILY PRN (Reason: spasm) 30 Days Qty: 30 RF: 0 latanoprost 0.005 % drops 1 drp ophthalmic (eye) BEDTIME 30 Days Qty: 2.5 RF: 0 amitriptyline 10 mg tablet 10 mg PO DAILY 30 Days Qty: 30 RF: 0 Lidocaine Viscous 2 % solution 15 ml MUCOUS MEM BID PRN (Reason: pain) Qty: 100 RF: 0 montelukast 10 mg tablet 10 mg PO DAILY 30 Days Qty: 30 RF: 0 albuterol sulfate [Ventolin HFA] 90 mcg/actuation Hfa Aerosol Inhaler 2 puff INHALATION Q4H PRN (Reason: Shortness Of Breath) 30 Days Qty: 1 RF: 0 atenolol 50 mg tablet 100 mg PO DAILY 30 Days Qty: 60 RF: 0 hydrochlorothiazide 12.5 mg Tablet 6.25 mg PO DAILY 30 Days Qty: 30 RF: 0 Combivent Respimat 20-100 mcg/actuation Mist 2 puff INHALATION Q6H PRN (Reason: Shortness Of Breath) 30 Days Qty: 1 RF: 0 Discharge Orders: Discharge Order (Routine); Ordered 07/13/19 Ordered By: Saurabh Vora Referrals: Misty Villaseñor MD [Primary Care Provider] - 4-7 days Discharge Diet: Advance as tolerated Discharge Activity: Resume usual activity Patient Instructions: Dyspnea (ED) Discharge Date/Time: 07/13/19 15:14 Coding Level of Care Code ED Welder Gas Tungsten Arc for Chg Fwd The documentation recorded by the Curt whelan Bridget Annette, accurately reflects the service I personally performed and the decisions made by Vielka singletary Korby, MD Jul 13, 2019 12:11
[2019-07-13 12:17] VITALS: BP 144/76; PULSE 74; RESP 22; TEMP 36.6; O2SAT 100
--- NOTE | 2019-07-13 12:17 | ECG_ITS ---
Measurements Intervals [place] Rate: 73 P: 79 [place]: 146 QRS: -20 QRSD: 114 T: 211 QT: 409 QTc: 453 SINUS RHYTHM POSSIBLE LEFT ATRIAL ENLARGEMENT [-0.1mV P WAVE IN V1/V2] INCOMPLETE RIGHT BUNDLE BRANCH BLOCK [90+ ms QRS DURATION, TERMINAL R IN V1/V2, 40+ ms S IN I/aVL/V4/V5/V6] SEPTAL MYOCARDIAL INFARCTION , PROBABLY OLD [40+ ms Q WAVE IN V1/V2] Compared to ECG 07/04/2019 01:33:17 Incomplete right bundle-branch block now present Sinus tachycardia no longer present Myocardial infarct finding still present Electronically Signed On 07-13-2019 19:06:24 MECHANICAL PENCILS ASSEMBLER by Cynthia Rojas M.D. [email or web address]
--- NOTE | 2019-07-13 12:17 | XR_ITS ---
WS: [id number] XR chest 1V portable [id number] REASON FOR EXAM: cp FINDINGS: Blunting of the right costophrenic angle is seen. The lung scott are hyper aerated with decreased vascularity consistent with chronic obstructive pulm onary disease. Comparison the previous exam of July 08, 2019 the endotracheal tube is now been removed. The heart and mediastinal interfaces normal. XR/XR chest 1V portable [id number] IMPRESSION: Small amount of right pleural effusion Chronic obstructive pulmonary disease.
[2019-07-13 12:33] LABS: Basophils # 0.1 10^3/uL (0.0-0.1); Basophils % 0.3 %; Eosinophils # 0.1 10^3/uL (0.0-0.8); Eosinophils % 0.3 %; Hemoglobin 13.6 g/dL (11.5-15.3); Lymphocytes # 2.6 10^3/uL (0.8-4.8); Lymphocytes % 10.8 %; Mean Corpuscular HGB Conc 32.4 g/dL (30.0-36.0); Mean Corpuscular Hemoglobin 30.5 pg (28.0-34.0); Mean Corpuscular Volume 94.2 fL (81-99); Mean Platelet Volume 10.6 fL (7.4-10.4); Monocytes # 2.4 10^3/uL (0.2-0.9); Monocytes % 10.2 %; Neutrophils # 17.9 10^3/uL (1.8-7.7); Neutrophils % 74.9 %; Nucleated Red Blood Cells % 0 %; Platelet Count 386 10^3/cmm (130-400); Red Blood Count 4.46 10^6/uL (4.1-5.3); Red Cell Distribution Width 12.7 % (12.1-15.1); White Blood Count 23.9 10^3/uL (4.0-10.0)
[2019-07-13 12:40] VITALS: PULSE 72; RESP 16; O2SAT 100
[2019-07-13] MEDS: ipratropium-albuterol 3 mL Neb INHALATION (12:40)
[2019-07-13 12:42] VITALS: PULSE 70
[2019-07-13 12:55] LABS: ABG PCO2 49.6 mmHg (35-45); ABG PH Result 7.47 (7.35-7.45); Arterial Blood Gas Hematocrit 36.7 % (37-47); Base Excess ABG 10.4 mmol/L (-2.0-2.0); Blood Gas Sample Site Brachial, right; Blood Gas Sample Type Arterial; HCO3 ABG 35.6 mmol/L (22-26); Oxygen Device NC; PO2 ABG 93.5 mmHg (80.0-100.0)
[2019-07-13 12:56] LABS: Alanine Aminotransferase 34 U/L (0-33); Albumin Level 3.5 g/dL (3.5-5.2); Alkaline Phosphatase 82 IU/L (35-105); Anion Gap 10.5 (5-19); Aspartate Amino Transferase 34 U/L (0-32); Blood Urea Nitrogen 24 mg/dL (8-23); Carbon Dioxide 36 mmol/L (22-29); Chloride 95 mmol/L (98-107); Glucose 106 mg/dL (65-115); NT Pro B Type Natriuretic Pept 15429 pg/mL (0-125); Potassium 3.5 mmol/L (3.5-5.1); Sodium 138 mmol/L (136-145); Total Bilirubin 0.4 mg/dL (0.15-1.2); Total Protein 6.5 g/dL (6.6-8.7)
[2019-07-13] MEDS: FUROsemide 10 mg/mL SDV 10mL 80 MG IVP (13:56)
[2019-07-13 15:13] VITALS: BP 130/89; PULSE 76; RESP 16; O2SAT 100
== END 2019-07-13 15:14 | disposition home or self-care (01) ==
PROVIDERS: Emergency Provider Emergency Medicine; Family Provider Family Medicine; PCP Family Medicine
DX: J44.1 Chronic obstructive pulmonary disease with (acute) exacerbation (principal); I11.0 Hypertensive heart disease with heart failure; Z87.891 Personal history of nicotine dependence; Z99.81 Dependence on supplemental oxygen
CPT/HCPCS: 36415; 36600; 71045; 80053; 82803; 83880; 85025; 93005; 94640; 96374; 96375; 99282; 99284; J1940; J7611

== ENCOUNTER 2019-08-11 10:43 | Inpatient (IN) | payer MEDICARE, OTHER, SELFPAY ==
[2019-08-11] VITALS (11 sets, daily range): BP systolic 104–133; BP diastolic 57–83; PULSE 88–102; RESP 18–26; TEMP 36.4–36.9; O2SAT 95–100; BMI 19.3
--- NOTE | 2019-08-11 10:44 | ED_ITS ---
Entered by Daija Elias, acting as scribe for HPI - SOB/Dyspnea General: Chief Complaint: Shortness of Breath/Dyspnea Stated Complaint: Resp Distress Time Seen by Provider: 08/11/19 10:59 Source: patient and EMS Mode of arrival: EMS Limitations: no limitations History of Present Illness: HPI Narrative: 74 year old female patient with a history of COPD, on home O2 at 2 lpm. She was discharged about one month ago from the hospital for a COPD exacerbation. She was discharged to a SNF for rehab and recently discharged home. Her symptoms developed yesterday and has progressively worsened with symptoms of shortness of breath. She denies a fever or cough. No recent travel history and no sick contacts. MD elicited complaint: shortness of breath Pertinent past history: COPD Onset (ago): day(s) (last night) Context: recent illness and other (just discharged from [facility] 1 week ago) Timing: constant and progressively worsening Severity: moderate Exacerbating factors: nothing Relieving factors: oxygen Known history of: COPD Associated symptoms: Reports chest pain; Deny abdominal pain, fever(s), nausea, palpitations, polydipsia, polyuria or vomiting Treatment prior to arrival: oxygen and other (recently discharged 1 week ago from [facility]) Related Data: Home oxygen amount: 2 liters Review of Systems General: Reports: 10 or more systems reviewed and unremarkable except in HPI and below Const: Denies: fever, chills or body aches Eyes: Denies: photophobia ENMT: Denies: enlarged tonsils Card: Reports: chest pain; Denies: palpitations, irregular heart rhythm, edema or swelling of feet/ankles Resp: Reports: shortness of breath; Denies: productive cough, non-productive cough or wheezing GI: Denies: abdominal pain, nausea or vomiting : Denies: flank pain, difficulty urinating, painful urination, urinary frequency, urinary urgency or urinary hesitancy Musc: Denies: joint warmth Skin/Breast: Denies: rash, itching or redness Neuro: Denies: headache, numbness in extremities or weakness in extremities Endo: Denies: excessive urination, excessive thirst or tired all the time All/Imm: Denies: acute wheezing PFSH ED PFSH: Social History Smoking and tobacco status: former smoker Quit status (tobacco): has quit using tobacco Year quit tobacco: 2015 - 1PPD x 50 Years Second hand smoke exposure: No Alcohol intake: never Caregiver/support person: Yes Lives independently: Yes Household members: family Current occupational status: disabled History of recent travel: No Current gender identity: Female Physical Exam Const: COMMON NORMALS: no apparent distress, average body habitus, oriented x3, no limitations, healthy appearing, alert and well nourished HENMT: COMMON NORMALS: normocephalic, head/scalp atraumatic and moist oral mucous membranes HEAD & SCALP: normocephalic and atraumatic Eye: COMMON NORMALS: PERRL, EOMs intact bilaterally, conjunctivae normal and no scleral icterus CONJUNCTIVA: Yes conjunctivae normal PUPIL: Yes PERRL Neck/C-Spine: COMMON NORMALS: full ROM, supple, no meningeal signs, no JVD and no carotid bruits Chest: COMMONS NORMALS: inspection of chest normal and palpation of chest normal Resp: EFFORT & INSPECTION: Yes respiratory distress and Yes labored AUSCULTATION: crackles and diminished lung sounds Cardio: COMMON NORMALS: no JVD, regular rate, regular rhythm, S1 normal heart sound, S2 normal heart sound, no gallops, no clicks, no murmurs, no rub and peripheral pulses 2+ throughout RATE: regular rate RHYTHM: regular rhythm HEART SOUNDS: S1 normal and S2 normal PERIPHERAL PULSES: pulses 2+ throughout GI: COMMON NORMALS: normal to inspection, nondistended, normoactive bowel sounds, soft to palpation, non-tender, no hepatosplenomegaly, no masses and no bruits PALPATION: Yes soft and Yes no hepatosplenomegaly : COMMON NORMALS: Yes no CVA tenderness BLADDER/KIDNEY EXAM: Yes no CVA tenderness Back/Pelvis: COMMON NORMALS: no CVA tenderness Extremity: COMMON NORMALS: normal to inspection, full ROM, normal capillary refill and no calf tenderness GENERAL: Yes edema (2 plus bilateral legs) Neuro: COMMON NORMALS: oriented x3 SENSORIUM/ORIENTATION: Yes alert MENINGEAL SIGNS: Yes no meningeal signs Skin: COMMON NORMALS: no rashes or lesions noted, no wounds, skin turgor normal, no jaundice, no petechiae and no mottling GENERAL SKIN EXAM: no rashes or lesions noted and turgor normal Course Consultations: Consultation #1: Patient with COPD exacerbation. Dr. Stockton He kindly accepted the patient to his service. Time: 13:57 Vital Signs: Vital signs: Vital Signs Temperature 97.5 F L 08/11/19 10:44 Pulse Rate 95 08/11/19 12:52 Respiratory Rate 22 H 08/11/19 11:27 Blood Pressure 128/74 08/11/19 12:52 Pulse Oximetry 100 08/11/19 12:52 MDM - SOB/Dyspnea MDM Narrative: Medical decision making narrative: 74 year old female with a history of COPD and CHF. She had been on oxygen intermittently at 2 L/min but in the last week has had to increase to 2 L/min all the time. In the last 24- hours the patient has had to increase her oxygen to 4 L/min due to increased shortness of breath. She continues to have worsening shortness of breath and so called EMS to bring her to the hospital. On evaluation here she was tachypneic and in respiratory distress. Evaluation here is consistent with COPD exacerbation and she has no risk factors for COVID-19. She is admitted to the hospital for overnight observation and pulmonary toilet. Differential Diagnosis: Shortness of Breath Differential Diagnosis: Likely acute exacerbation of chronic obstructive airways disease, congestive heart f ailure, community acquired pneumonia and pulmonary embolism Medical Records: Attestation: I reviewed the patient's medical records. Lab Data: Labs: Lab Results 08/11/19 08/11/19 08/11/19 Range/Units 10:30 10:30 10:30 WBC 6.0 (4.0-10.0) 10^3/ uL RBC 3.70 L (4.1-5.3) 10^6/u L Hgb 12.2 (11.5-15.3) g/dL Hct 36.3 L (37.0-47.0) % MCV 98.1 (81-99) fL MCH 33.0 (28.0-34.0) pg MCHC 33.6 (30.0-36.0) g/dL RDW 13.2 (12.1-15.1) % Plt Count 344 (130-400) 10^3/c mm MPV 10.0 (7.4-10.4) fL Neut % (Auto) 53.6 % Lymph % (Auto) 28.8 % [place] % (Auto) 14.7 % Eos % (Auto) 2.3 % Baso % (Auto) 0.3 % Neut # (Auto) 3.2 (1.8-7.7) 10^3/u L Lymph # (Auto) 1.7 (0.8-4.8) 10^3/u L [place] # (Auto) 0.9 (0.2-0.9) 10^3/u L Eos # (Auto) 0.1 (0.0-0.8) 10^3/u L Baso # (Auto) 0.0 (0.0-0.1) 10^3/u L Nucleated RBC % (a uto) 0 % Nucleated RBCs # 0.0 /100WBC Specimen Type Sample Site ABG pH (7.35-7.45) ABG pCO2 (35-45) mmHg ABG pO2 (80.0-100.0) mmH g ABG HCO3 (22-26) mmol/L ABG Base Excess (-2.0-2.0) mmol/ L Sven Test Hematocrit (37-47) % Hgb O2 Saturation (95-100) % Carboxyhemoglobin (0.4-20.1) %THgb Methemoglobin (0.4-1.5) % Total Hemoglobin (12-16) g/dL O2 Delivery Device O2 Liters/Min % FiO2 % Welding Machine Operator Electroslag ID Sodium 136 (136-145) mmol/L Potassium 3.4 L (3.5-5.1) mmol/L Chloride 93 L (98-107) mmol/L Carbon Dioxide 34 H (22-29) mmol/L Anion Gap 12.4 (5-19) BUN 14 (8-23) mg/dL Creatinine 0.9 (0.5-0.9) mg/dL Glucose 146 H (65-115) mg/dL Calculated Osmolal ity 281 L (285-295) mOsm/k g Calcium 9.4 (8.5-10.5) mg/dL Total Bilirubin 0.3 (0.15-1.2) mg/dL AST 28 (0-32) U/L ALT 16 (0-33) U/L Alkaline Phosphata se 96 (35-105) IU/L Troponin T Baselin e 61 H (0-10) ng/mL Troponin T 120 Min [place] (0-10) ng/mL Delta Troponin T (0-10) ABS# NT-Pro-B Natriuret Pep 4042 H (0-125) pg/mL Total Protein 6.6 (6.6-8.7) g/dL Albumin 3.4 L (3.5-5.2) g/dL Globulin 3.2 (1.3-4.6) g/dL Influenza Type A A g (Negative) POC Influenza B Ag (Negative) 08/11/19 08/11/19 08/11/19 Range/Units 11:15 12:40 12:47 WBC (4.0-10.0) 10^3/ uL RBC (4.1-5.3) 10^6/u L Hgb (11.5-15.3) g/dL Hct (37.0-47.0) % MCV (81-99) fL MCH (28.0-34.0) pg MCHC (30.0-36.0) g/dL RDW (12.1-15.1) % Plt Count (130-400) 10^3/c mm MPV (7.4-10.4) fL Neut % (Auto) % Lymph % (Auto) % [place] % (Auto) % Eos % (Auto) % Baso % (Auto) % Neut # (Auto) (1.8-7.7) 10^3/u L Lymph # (Auto) (0.8-4.8) 10^3/u L [place] # (Auto) (0.2-0.9) 10^3/u L Eos # (Auto) (0.0-0.8) 10^3/u L Baso # (Auto) (0.0-0.1) 10^3/u L Nucleated RBC % (a uto) % Nucleated RBCs # /100WBC Specimen Type Arterial Sample Site Radial, right ABG pH 7.43 (7.35-7.45) ABG pCO2 46.3 H (35-45) mmHg ABG pO2 133.0 H (80.0-100.0) mmH g ABG HCO3 30.8 H (22-26) mmol/L ABG Base Excess 5.7 H (-2.0-2.0) mmol/ L Sven Test Pos Hematocrit 36.4 L (37-47) % Hgb O2 Saturation 97.9 (95-100) % Carboxyhemoglobin 0.4 (0.4-20.1) %THgb Methemoglobin 0.9 (0.4-1.5) % Total Hemoglobin 11.9 L (12-16) g/dL O2 Delivery Device Nc O2 Liters/Min 4.0 % FiO2 36.0 % Welding Machine Operator Electroslag ID cak Sodium (136-145) mmol/L Potassium (3.5-5.1) mmol/L Chloride (98-107) mmol/L Carbon Dioxide (22-29) mmol/L Anion Gap (5-19) BUN (8-23) mg/dL Creatinine (0.5-0.9) mg/dL Glucose (65-115) mg/dL Calculated Osmolal ity (285-295) mOsm/k g Calcium (8.5-10.5) mg/dL Total Bilirubin (0.15-1.2) mg/dL AST (0-32) U/L ALT (0-33) U/L Alkaline Phosphata se (35-105) IU/L Troponin T Baselin e (0-10) ng/mL Troponin T 120 Min [place] 66.26 H (0-10) ng/mL Delta Troponin T 5.26 (0-10) ABS# NT-Pro-B Natriuret Pep (0-125) pg/mL Total Protein (6.6-8.7) g/dL Albumin (3.5-5.2) g/dL Globulin (1.3-4.6) g/dL Influenza Type A A g Negative (Negative) POC Influenza B Ag Negative (Negative) EKG Data^: EKG 1: Attestation: I personally reviewed and interpreted this EKG as follows: EKG Interpretation Date: 08/11/19 EKG interpretation time: 11:23 Prior EKG tracings: not available for review Interpretation: Sinus rhythm. Heart rate 96 bpm. T wave inversions V3 to V6 and lead II. EKG 2: Attestation: I personally reviewed and interpreted this EKG as follows: EKG Interpretation Date: 08/11/19 EKG interpretation time: 13:05 Prior EKG tracings: available for review Interpretation: unchanged from earlier today. Discharge Plan Discharge Patient Disposition: Placed in Observation Clinical Impression: Acute respiratory distress, Acute exacerbation of chronic obstructive pulmonary disease (COPD), Congestive heart failure Condition: Stable Prescriptions: No Action Incruse Ellipta 62.5 mcg/actuation blister with device 1 inh INHALATION DAILY RF: 0 albuterol sulfate 2.5 mg /3 mL (0.083 %) solution for nebulization 2.5 mg INHALATION Q6H PRN (Reason: shortness of breath or wheezing) RF: 0 Perforomist 20 mcg/2 mL solution for nebulization 20 mcg INHALATION BID 30 Days Qty: 120 RF: 3 revefenacin 175 mcg/3 mL solution for nebulization 175 mcg INHALATION DAILY Qty: 90 RF: 3 budesonide [Pulmicort] 0.5 mg/2 mL suspension for nebulization 0.5 mg INHALATION BID Qty: 120 RF: 3 cyclobenzaprine 10 mg tablet 10 mg PO DAILY PRN (Reason: spasm) 30 Days Qty: 30 RF: 0 latanoprost 0.005 % drops 1 drp ophthalmic (eye) BEDTIME 30 Days Qty: 2.5 RF: 0 amitriptyline 10 mg tablet 10 mg PO DAILY 30 Days Qty: 30 RF: 0 Lidocaine Viscous 2 % solution 15 ml MUCOUS MEM BID PRN (Reason: pain) Qty: 100 RF: 0 montelukast 10 mg tablet 10 mg PO DAILY 30 Days Qty: 30 RF: 0 albuterol sulfate [Ventolin HFA] 90 mcg/actuation Hfa Aerosol Inhaler 2 puff INHALATION Q4H PRN (Reason: Shortness Of Breath) 30 Days Qty: 1 RF: 0 atenolol 50 mg tablet 100 mg PO DAILY 30 Days Qty: 60 RF: 0 hydrochlorothiazide 12.5 mg Tablet 6.25 mg PO DAILY 30 Days Qty: 30 RF: 0 Combivent Respimat 20-100 mcg/actuation Mist 2 puff INHALATION Q6H PRN (Reason: Shortness Of Breath) 30 Days Qty: 1 RF: 0 furosemide 40 mg tablet 40 mg PO DAILY RF: 0 prednisone 50 mg Tablet See Rx Instructions .ROUTE .COMPLEX RF: 0 Symbicort 160-4.5 mcg/actuation Hfa Aerosol Inhaler 2 puff INHALATION BID RF: 0 potassium chloride 20 mEq tablet extended release 40 meq PO BID RF: 0 Referrals: Misty Villaseñor MD [Primary Care Provider] - Coding Level of Care Code ED Finishing Room Operator for Chg Fwd Exam Comprehensive The documentation recorded by the Curt whelan Bridget Annette, accurately reflects the service I personally performed and the decisions made by me, Slim Barraza MD, MSM
--- NOTE | 2019-08-11 11:08 | CT_ITS ---
WS: [id number] CTA OF THE CHEST WITH PULMONARY EMBOLISM PROTOCOL TECHNIQUE: High-resolution contrast enhanced CTA of the chest with coronal and sagittal reformatted [place] with pulmonary embolism protocol. MIP images are also reviewed. CLINICAL INFORMATION: cough, SOB, hypoxia COMPARISON: May 31, 2019 DLP: 396.[address] scans at [facility] use at least one of these dose optimization techniques: automat ed exposure control; mA and/or kV adjustment per patient size (includes targeted exams where dose is matched to clinical indication); or iterative reconstruction. FINDINGS: Proximal main pulmonary arteries are normal. No evidence of pulmonary embolus. Segmental and subsegme ntal arteries appear normal. Normal caliber thoracic aorta. Moderate chronic emphysematous changes. Subsegmental atelectasis and fibrosis in the lung bases simil ar to previous. A few tiny subpleural pulmonary nodules unchanged from previous. No acute-appearing p ulmonary infiltrates. A few scattered small hazy nodular opacities measuring 4 to 5 mm in the superior segment left upper l obe. Bilateral perihilar bronchovascular thickening similar to previous. Recommend correlation for br onchitis. Small esophageal hiatal hernia. Moderate thoracic kyphosis. Notified Slim Barraza [place] [facility] [place] 08/11/2019 12:[address]/CT angio chest PE protcl [id number] IMPRESSION: 1. No evidence for pulmonary embolus. 2. Moderate chronic emphysematous changes. 3. No acute pulmonary infiltrates. No focal pneumonia. 4. Subsegmental atelectasis and fibrosis in the lung bases. 5. Perihilar bronchovascular thickening similar to previous. Correlation for b ronchitis. 6. A few scattered hazy noncalcified pulmonary nodules measuring 4 to 5 mm. Re commend 6 month follow-up.
[2019-08-11] MEDS: ipratropium-albuterol 3 mL Neb INHALATION ×3 (11:20→21:45)
--- NOTE | 2019-08-11 11:21 | ECG_ITS ---
Measurements Intervals [place] Rate: 96 P: 85 NM: 177 QRS: 56 QRSD: 118 T: 225 QT: 377 QTc: 477 SINUS RHYTHM POSSIBLE RIGHT ATRIAL ENLARGEMENT [0.25mV P WAVE] POSSIBLE LEFT ATRIAL ENLARGEMENT [-0.1mV P WAVE IN V1/V2] SEPTAL MYOCARDIAL INFARCTION , PROBABLY OLD [40+ ms Q WAVE IN V1/V2] MARKED T-WAVE ABNORMALITY, CONSIDER ANTEROLATERAL ISCHEMIA [-0.5+ mV T WAVE Electronically Signed On 08-12-2019 8:04:11 CDT by Kaitlyn Rojas [email or web address]
[2019-08-11 11:26] LABS: ABG PCO2 46.3 mmHg (35-45); ABG PH Result 7.43 (7.35-7.45); Arterial Blood Gas Hematocrit 36.4 % (37-47); Base Excess ABG 5.7 mmol/L (-2.0-2.0); Blood Gas Allen Test Pos; Blood Gas Sample Site Radial, right; Blood Gas Sample Type Arterial; Carboxyhemoglobin 0.4 %THgb (0.4-20.1); HCO3 ABG 30.8 mmol/L (22-26); HGB O2 Sat 97.9 % (95-100); Methemoglobin 0.9 % (0.4-1.5); Oxygen Device NC; Total Hemoglobin 11.9 g/dL (12-16)
[2019-08-11] MEDS: iohexol 350 mg/mL 100 mL Btl IV (11:47)
--- NOTE | 2019-08-11 11:50 | PC.NURSE ---
patient taken to ct.
[2019-08-11 11:51] LABS: Alanine Aminotransferase 16 U/L (0-33); Albumin Level 3.4 g/dL (3.5-5.2); Alkaline Phosphatase 96 IU/L (35-105); Anion Gap 12.4 (5-19); Aspartate Amino Transferase 28 U/L (0-32); Blood Urea Nitrogen 14 mg/dL (8-23); Calcium 9.4 mg/dL (8.5-10.5); Carbon Dioxide 34 mmol/L (22-29); Chloride 93 mmol/L (98-107); Globulin 3.2 g/dL (1.3-4.6); Glucose 146 mg/dL (65-115); NT Pro B Type Natriuretic Pept 4042 pg/mL (0-125); Osmolality Calculated 281 mOsm/kg (285-295); Potassium 3.4 mmol/L (3.5-5.1); Sodium 136 mmol/L (136-145); Total Bilirubin 0.3 mg/dL (0.15-1.2); Total Protein 6.6 g/dL (6.6-8.7)
[2019-08-11 12:15] LABS: Troponin(5th) Baseline 61 ng/mL (0-10)
[2019-08-11 13:04] LABS: Troponin 5 2HR 66.26 ng/mL (0-10); Troponin 5 2HR Delta 5.26 ABS# (0-10)
[2019-08-11 13:10] LABS: Basophils % 0.3 %; Eosinophils # 0.1 10^3/uL (0.0-0.8); Eosinophils % 2.3 %; Hematocrit 36.3 % (37.0-47.0); Hemoglobin 12.2 g/dL (11.5-15.3); Lymphocytes # 1.7 10^3/uL (0.8-4.8); Lymphocytes % 28.8 %; Mean Corpuscular HGB Conc 33.6 g/dL (30.0-36.0); Mean Corpuscular Volume 98.1 fL (81-99); Monocytes # 0.9 10^3/uL (0.2-0.9); Monocytes % 14.7 %; Neutrophils # 3.2 10^3/uL (1.8-7.7); Neutrophils % 53.6 %; Nucleated Red Blood Cells % 0 %; Platelet Count 344 10^3/cmm (130-400); Red Cell Distribution Width 13.2 % (12.1-15.1)
--- NOTE | 2019-08-11 13:21 | ECG_ITS ---
Measurements Intervals [place] Rate: 95 P: 75 DE: 174 QRS: 53 QRSD: 116 T: 190 QT: 377 QTc: 476 SINUS RHYTHM POSSIBLE RIGHT ATRIAL ENLARGEMENT [0.25mV P WAVE] LEFT ATRIAL ENLARGEMENT [-0.15mV P WAVE IN V1/V2] SEPTAL MYOCARDIAL INFARCTION , PROBABLY OLD [40+ ms Q WAVE IN V1/V2] MARKED T-WAVE ABNORMALITY, CONSIDER ANTEROLATERAL ISCHEMIA [-0.5+ mV T WAVE IN I/a Electronically Signed On 08-12-2019 8:11:09 CDT by Kaitlyn Rojas [id number]
[2019-08-11 13:25] LABS: Influenza A by IFA Negative (Negative); Influenza B by IFA Negative (Negative)
[2019-08-11] MEDS: FUROsemide 10 mg/mL SDV 2mL 20 MG IVP (14:22)
[2019-08-11 15:03] LABS: Procalcitonin 0.09 ng/mL (0-0.5)
--- NOTE | 2019-08-11 16:18 | P.HP_ITS ---
Providers/Chief Complaint Admitting Physician: Esau Stockton MD Primary Care Provider: Misty Villaseñor MD Chief Complaint: Resp Distress History of Present Illness Melany Phan is a 74 year old female with past medical history of COPD on oxygen supplementation with 2 to 3 L of nasal cannula, unfortunately having monthly admission for left 4 months because of respiratory problems, hypertension, former smoker, anxiety, recent hospitalization in June for influenza and bacterial PNA when she needed intubation and was extubated on July 08. Patient states she was discharged from the hospital alf from where she was discharged 10 days ago. She states she was doing okay from a respiratory point of view. Yesterday when she started having difficulty in breathing for which she took 50 mg of prednisone at home after which her symptoms improved but got worse again late in the evening. She thinks her symptoms are because she forgot to close a window a day prior because of which she was exposed to pollens. She states her cough and expectoration is at his baseline. She denies having any fever, runny nose, flulike symptoms, recent travels, recent sick contacts, orthopnea, PND. She thinks her feet are mildly more swollen as compared to her baseline. In the ER her blood work which was done was within normal limits except mildly elevated d-dimer for which CT head was done which is negative for any pulmonary embolism. Review of Systems Const: Denies: fever, chills, body aches, change in appetite, malaise, night sweats, diaphoresis, change in sleep pattern, daytime sleepiness or snoring Eyes: Denies: change in vision, blurry vision, photophobia, eye discomfort or eye discharge ENMT: Denies: throat pain, enlarged tonsils, hoarseness, mouth pain, oral sores/lesions, dry mouth, tinnitus, nasal congestion or post nasal drip Card: Denies: chest pain, palpitations, irregular heart rhythm, edema, swelling of feet/ankles, lightheadedness, syncope, pre-syncope, shortness of breath on exertion, shortness of breath when lying down, leg pain with exertion or bluish discoloration of hands/feet Resp: Reports: shortness of breath, productive cough and wheezing; Denies: non-productive cough, stridor, pain on inspiration, change in phlegm color, coughing up blood or chest congestion GI: Denies: abdominal pain, nausea, vomiting, vomiting blood, coffee grounds in vomit, difficulty swallowing, heartburn/indigestion, diarrhea, constipation, bloating, cramping, change in bowel habits, painful bowel movements, blood in stool or black tarry stool : Denies: flank pain, painful urination, urinary frequency, urinary urgency, urinary hesitancy, nighttime urination or blood in urine Musc: Denies: neck pain, back pain, extremity pain, joint pain, joint swelling, redness, joint stiffness or limited range of motion Neuro: Denies: headache, numbness in extremities, weakness in extremities, changes in sensation, lack of coordination, difficulty walking, frequent falls, dizziness, vertigo, confusion, slurred speech, difficulty communicating thoughts or seizure-like activity Psych: Denies: anxiety, depression, mood swings, panic attacks, hopelessness or irritability Endo: Denies: excessive urination, excessive thirst, tired all the time, cold intolerance, excessive sweating, flushing or heat intolerance Yonatan/Lymph: Denies: easy bruising or easy bleeding All/Imm: Denies: tongue swelling, facial swelling or acute wheezing Medications/Allergies Home Medications Medication Instructions Recorded Confirmed Last Taken Type budesonide-formoterol [Symbicort] 2 puff INHALATION BID 08/11/19 08/11/19 Unknown History furosemide 40 mg PO DAILY 08/11/19 08/11/19 Unknown History potassium chloride 40 meq PO BID 08/11/19 08/11/19 Unknown History prednisone See Rx Instructions .ROUTE .COMPLEX 08/11/19 08/11/19 08/10/19 History Allergies Allergy/AdvReac Type Severity Reaction Status Date / Time Penicillins Allergy Intermediate ALGY-Rash Verified 07/24/19 14:18 Sulfa (Sulfonamide AdvReac Severe ADR-Itching Verified 07/24/19 14:18 Antibiotics) codeine AdvReac Intermediate ADR-Itching Verified 07/24/19 14:18 PFSH Acute PFSH: Medical History RUPAL (acute kidney injury) Cataract Community acquired pneumonia COPD (chronic obstructive pulmonary disease) Glaucoma Hypertension Influenza A -Found to be influenza A positive -on droplet precautions -completed Tamiflu (day 09/25) On home oxygen therapy Sepsis with acute hypoxic respiratory failure Social History Smoking and tobacco status: former smoker Quit status (tobacco): has quit using tobacco Year quit tobacco: 2015 - 1PPD x 50 Years Second hand smoke exposure: No Alcohol intake: never Caregiver/support person: Yes Lives independently: Yes Household members: family Current occupational status: disabled History of recent travel: No Current gender identity: Female Vitals/I&O/Wt Last Vital Signs Temp 98.4 F 08/11/19 15:45 Pulse 99 08/11/19 16:12 Resp 26 H 08/11/19 16:07 BP 130/65 08/11/19 15:45 Pulse Ox 95 08/11/19 16:07 Weight last 48 hrs Weight 49.442 kg Weight 49.442 kg Physical Exam Narrative: EXAM NARRATIVE: General: No acute distress, AO x3 HEENT: PERRLA, pupils bilaterally equal and reactive Chest: Bilateral normal vesicular breath sounds, bilateral wheeze present anterior more than posterior, equal good air entry bilaterally CVS: S1-S2 regular, no murmurs, no tachycardia, no gallops, no rubs Abdomen: Soft, nontender, no organomegaly, bowel sounds present Neuro: No focal deficits, no facial deformity, AO x3, power 5/5 in all limbs Data : 08/11/19 10:30 08/11/19 10:30 A&P Assessment and plan (1) Acute exacerbation of chronic obstructive pulmonary disease (COPD): Status: Acute Code(s): J44.1 - Chronic obstructive pulmonary disease with (acute) exacerbation (2) Acute respiratory distress: Status: Acute Code(s): R06.03 - Acute respiratory distress (3) Hypertension: Status: Acute Code(s): I10 - Essential (primary) hypertension Additional A&P Information Acute respiratory distress: Acute exacerbation of COPD: Patient's ABG is at baseline. CT chest done in the ER is negative for pulmonary embolism or any active consolidation. Patient's leukocytosis is at his baseline, no fever, no. We will hold off on starting any antibiotics. Azithromycin for 5 days to help with respiratory inflammation. DuoNebs every 4 hours, budesonide twice daily, albuterol as needed. Continue home dose of Revnefacin. Patient was given methylprednisone 25 mg in the ER. We will start patient on methylprednisolone 40 mg every 8 hours for now. Oxygen supplementation keeping saturation over 90%. Continue home dose of montelukast. Heart failure: No echo in the system since 2013. proBNP today 4000 which is a lot less than 15,000 from a previous admission. At home patient is on Lasix and hydrochlorothiazide. We will check echocardiogram. Lasix 20 mg IV today, will start her on her home dose of oral diuretics from tomorrow. Hypertension: Blood pressure is at baseline. Continue with home dose of atenolol. Anxiety: Continue chronic home medications like amitriptyline and cyclobenzaprine. CODE STATUS discussed with patient in detail regarding her CODE STATUS. Discussed but patient has had multiple episodes of COPD exacerbation this year and this is her third admission in 3 months with last admission requiring intubation. Discussed with the patient that more number of times she gets intubated and the more difficult it will be for her to be extubated. She states she would want to be intubated but not for long. For now we will continue p atient being full code. Lovenox 40 mg subcu daily. Cardiac diet. Attestations Medical Necessity Statement*: Admission for less than 2 midnights for COPD exacerbation. Time Spent in Patient Care: Greater than 35 minutes Coding Level of Care Code Acute Mail Forwarding System Markup Clerk for Aaliyah Harper Diagnoses Acute exacerbation of chronic obstructive pulmonary disease (COPD) J44.1 Acute respiratory distress R06.03 Hypertension I10
--- NOTE | 2019-08-11 16:40 | USCV_ITS ---
SylvesterDavidMelany Age: 74 Gender: F : 1945 Exam Date: 08/12/2019 07:26 Ordering Phys: Esau Stockton MD Technologist: Winsome Mcadams [place] [facility] [place]: H/O Pulmonary hypertension and diastolic dysfunction BP: 115 / 73 HR: 83 Rhythm: Sinus Technical Quality: Fair MEASUREMENTS (Male / Female) Normal Values 2D ECHO LV Diastolic Diameter PLAX 3.9 cm 4.2 - 5.9 / 3.9 - 5.3 cm LV Systolic Diameter PLAX 2.5 cm LV Chamber Size 3.8 cm IVS Diastolic Thickness 1.4 cm 0.6 - 1.0 / 0.6 - 0.9 cm IVS Systolic Thickness 1.6 cm LVPW Diastolic Thickness 0.9 cm 0.6 - 1.0 / 0.6 - 0.9 cm LVPW Systolic Thickness 1.1 cm RV Chamber Size 1.7 cm LVOT Diameter 2.0 cm LV Ejection Fraction 2D Teich 66.8 % LV Ejection Fraction MOD 2C 62.3 % LV Ejection Fraction 2C AL 66.2 % LA Diameter 3.0 cm LA Width 2.6 cm LA Height 4.4 cm RA Width 1.9 cm RA Height 2.9 cm Aorta at Sinotubular Diameter 2.1 cm M-MODE LV Diastolic Diameter MM 4.3 cm 4.2 - 5.9 / 3.9 - 5.3 cm LV Systolic Diameter MM 2.3 cm LV Ejection Fraction MM Teich 79.0 % IVS Diastolic Thickness MM 1.1 cm 0.6 - 1.0 / 0.6 - 0.9 cm IVS Systolic Thickness MM 1.4 cm LVPW Diastolic Thickness MM 1.2 cm 0.6 - 1.0 / 0.6 - 0.9 cm LVPW Systolic Thickness MM 1.8 cm Aortic Annulus Diameter 3.1 cm LA Ao Ratio MM 1.0 MV E Point Septal Separation 0.5 cm DOPPLER AV Peak Velocity 123.0 cm/s LVOT Peak Velocity 87.0 cm/s AV Area Cont Eq vti 2.0 cm squared AV Area Cont Eq pk 2.2 cm squared MV Area PHT 5.5 cm squared Mitral E to A Ratio 0.8 MV E' Velocity 6.0 cm/s Mitral E to MV E' Ratio 15.6 Mitral E to LV E' Lateral Ratio 14.8 Mitral E to LV E' Septal Ratio 16.5 TV Peak E Velocity 68.0 cm/s Right Atrial Pressure 3.0 mmHg PV Peak Velocity 75.0 cm/s QpQs Shunt Ratio 0.9 RV Acceleration Time 0.1 s RV Ejection Time 0.3 s RV AcT/ET 0.4 FINDINGS Left Ventricle Normal left ventricular size and systolic function, EF 78 %. No regional wall motion abnormalities. Grade I/IV diastolic dysfunction (abnormal relaxation filling pattern), normal to mildly elevated filling pressures. Right Ventricle Normal right ventricular size and systolic function. Right Atrium Normal right atrial size. Left Atrium Mildly increased left atrial size. Mitral Valve Thickened mitral valve. Mild mitral annular calcification. Aortic Valve Thickened aortic valve. Tricuspid Valve No gross abnormalities noted Pulmonic Valve No gross abnormalities noted Pericardium Trivial pericardial effusion. Aorta Normal aortic annulus size. CONCLUSIONS Normal left ventricular size and systolic function, EF 78 %. No regional wall motion abnormalities. Grade I/IV diastolic dysfunction (abnormal relaxation filling pattern), normal to mildly elevated filling pressures. Mildly increased left atrial size. Thickened mitral valve. Mild mitral annular calcification. Trivial pericardial effusion. There are no intracardiac masses. There are no prior echocardiogram studies to compare. Dr Ran Westfall MD FACC (Electronically Signed) Final Date: 12 August 2019 11:59 S
[2019-08-11 17:14] LABS: Troponin 5 6HR 58.29 ng/mL (0-10)
[2019-08-11 17:16] LABS: Troponin 5 6HR Delta -2.71 ng/L (0-12)
--- NOTE | 2019-08-11 17:21 | ECG_ITS ---
Measurements Intervals [place] Rate: 100 P: 78 [place]: 164 QRS: 53 QRSD: 118 T: 195 QT: 371 QTc: 478 SINUS TACHYCARDIA POSSIBLE RIGHT ATRIAL ENLARGEMENT [0.25mV P WAVE] MODERATE INTRAVENTRICULAR CONDUCTION DELAY [105+ ms QRS DURATION, 80+ ms Q/S IN V1/V2, NO Q AND 60+ ms R IN I/aVL/V5/V6] ST DEVIATION AND MARKED T-WAVE ABNORMALITY, CONSIDER ANTEROLATERAL ISCHEMIA [-0.5+ mV T WAVE IN I/aVL/V3-V6] ST DEVIATION AND MODERATE T-WAVE ABNORMALITY, CONSIDER INFERIOR ISCHEMIA [-0.1+ mV T WAVE IN II/aVF] Compared to ECG 07/13/2019 12:25:53 Intraventricular conduction delay now present.T-wave abnormality now present Possible ischemia now present.Sinus rhythm no longer present Incomplete right bundle-branch block no longer present Myocardial infarct finding no longer present Electronically Signed On 08-12-2019 14:53:45 CDT by Ran Westfall M.D. [email or web address]
[2019-08-11] MEDS: ALPRAZolam 0.25 mg Tablet PO (18:28)
[2019-08-11] MEDS: latanoprost 0.005% Op Soln 2.5 mL Btl 1 DROP EYE-BOTH (21:26)
[2019-08-11] MEDS: budesonide 0.5 mg/2 mL Neb INHALATION (21:45)
[2019-08-12] VITALS (12 sets, daily range): BP systolic 105–129; BP diastolic 60–73; PULSE 74–94; RESP 17–18; TEMP 36.3–36.8; O2SAT 96–100
[2019-08-12] MEDS: cyclobenzaprine 10 mg Tablet PO (00:04)
[2019-08-12 06:08] LABS: Hematocrit 32.8 % (37.0-47.0); Hemoglobin 10.9 g/dL (11.5-15.3); Lymphocytes # 0.7 10^3/uL (0.8-4.8); Lymphocytes % 12.5 %; Mean Corpuscular HGB Conc 33.2 g/dL (30.0-36.0); Mean Corpuscular Hemoglobin 31.7 pg (28.0-34.0); Mean Corpuscular Volume 95.3 fL (81-99); Mean Platelet Volume 9.6 fL (7.4-10.4); Monocytes # 0.3 10^3/uL (0.2-0.9); Monocytes % 4.5 %; Neutrophils # 4.6 10^3/uL (1.8-7.7); Neutrophils % 82.6 %; Nucleated Red Blood Cells % 0 %; Platelet Count 263 10^3/cmm (130-400); Red Blood Count 3.44 10^6/uL (4.1-5.3); Red Cell Distribution Width 13.5 % (12.1-15.1); White Blood Count 5.6 10^3/uL (4.0-10.0)
[2019-08-12 06:37] LABS: Blood Urea Nitrogen 14 mg/dL (8-23); Calcium 9.3 mg/dL (8.5-10.5); Carbon Dioxide 35 mmol/L (22-29); Chloride 99 mmol/L (98-107); Creatinine Clr Calc Pharmacy 67.8443; Glucose 144 mg/dL (65-115); Osmolality Calculated 289 mOsm/kg (285-295); Sodium 140 mmol/L (136-145)
[2019-08-12] MEDS: budesonide 0.5 mg/2 mL Neb INHALATION ×2 (08:37→20:05)
[2019-08-12] MEDS: ipratropium-albuterol 3 mL Neb INHALATION ×3 (08:37→20:05)
[2019-08-12] MEDS: montelukast sodium 10 mg Tablet PO (08:45)
[2019-08-12] MEDS: atenolol 50 mg Tablet 100 MG PO (08:46)
[2019-08-12] MEDS: FUROsemide 40 mg Tablet PO (08:46)
[2019-08-12] MEDS: ALPRAZolam 0.25 mg Tablet PO (13:43)
--- NOTE | 2019-08-12 15:17 | PC.CHAP ---
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 ballistician visit [] Patient/Family/Request visit [] Outpatient visit [] Follow-up visit [] Physician referral [] Code/Alert [X] Routine visit [] Staff referral [] Actively dying [] Patient sleeping [] Family support [] [] Out of room [] Palliative care [] [] Receiving care in room [] Pre-surgical visit [] Trauma [] Long length of stay [] ICU visit [] Other: Relational/Emotional Strength [] Patient feels connected with others/family/visitors/staff [] Distress [] Loneliness/isolation [] Abandonment Spirituality of Patient [] Person of Navya [] Attends Congregation of their Navya [] Believes in Prayer [] Reads Bible or Temple materials [] There are Spiritual issues to be addressed Peanut Farmer Interventions [] Prayer [] Active listening [] Non-anxious presence [] Spiritual/emotional support [] Crisis/trauma care [] Spiritual counseling [] Bereavement support [] Provided bereavement packet [] Provided Bible/devotional materials [] Provided toy/stuffed animal, coloring book to patient or family member [] Provided Communion [] Anointing/[place] [] Salvation [] Completed spiritual assessment [] Other: Impact on Illness or Injury [] Angry [] Fearful [] Anxious [] Often cries [] Exhaustion [] Unable to work [] Unable to attend religion [] Unable to walk/stand [] Unable to read [] Unable to drive [] Unable to eat/drink [] Unable to sleep [] Unable to be with family [] Patient intubated [] Other: Summary Time spent with patient
--- NOTE | 2019-08-12 16:45 | P.PN_ITS ---
Subjective Subjective: Interval history: Still getting easily short of breath. Says at home could not get back from the restroom due to being too weak. Here per discussion with nursing staff requiring 1-2 person assist to bedside commode. Very deconditioned. Vitals/I&O/Wt Last Vital Signs Temp 98.2 F 08/12/19 16:00 Pulse 81 08/12/19 16:00 Resp 18 08/12/19 16:00 BP 105/61 08/12/19 16:00 Pulse Ox 98 08/12/19 16:00 08/12/19 08/12/19 08/12/19 06:59 14:59 22:59 Intake Total 240 / 360 480 / 480 Balance 240 / 360 480 / 480 Weight last 48 hrs Weight 114.39 kg Weight 49.442 kg Weight 49.442 kg Physical Exam Const: COMMON NORMALS: no apparent distress and oriented x3 GENERAL APPEARANCE: anxious HENMT: COMMON NORMALS: oropharynx normal Neck/C-Spine: COMMON NORMALS: no JVD Resp: COMMON NORMALS: normal respiratory effort AUSCULTATION: wheezes (faint) and diminished lung sounds Cardio: COMMON NORMALS: no JVD, regular rhythm, S1 normal heart sound, S2 normal heart sound and no murmurs RHYTHM: regular rhythm HEART SOUNDS: S1 normal and S2 normal GI: COMMON NORMALS: normal to inspection, nondistended, normoactive bowel sounds, soft to palpation and non-tender PALPATION: Yes soft Extremity: COMMON NORMALS: no joint enlargement and no pedal edema Neuro: COMMON NORMALS: oriented x3 and moves all extremities Skin: COMMON NORMALS: no rashes or lesions noted GENERAL SKIN EXAM: no rashes or lesions noted Data : 08/12/19 05:08 08/12/19 05:08 A&P Assessment and plan (1) Acute exacerbation of chronic obstructive pulmonary disease (COPD): Improved only very slightly. Very deconditioned. Still coughing, short of breath. Reports recently has not been feeling significantly better. Is not clear what may be her new baseline. She does say thought her security compliance specialist was optimistic that she should improve. They had not discussed hospice. For now continue IV steroids, breathing treatments. She says her security compliance specialist has been trying a new set of nebulizer medications. She says she has obtained the medications, but is not sure whether she was taking them in the correct order. With underlying lung fibrosis. Also with severe physical deconditioning, requiring 1-2 person assist to the commode. She is willing to consider SNF placement for rehabilitation prior to returning home if this were a possibility. Will discuss with discharge planning. Request PT assessment. Status: Acute Code(s): J44.1 - Chronic obstructive pulmonary disease with (acute) exacerbation (2) Acute respiratory distress: Appears stable at rest on 2.5 L of oxygen by nasal cannula, however, gets Status: Acute Code(s): R06.03 - Acute respiratory distress (3) Hypertension: Blood pressures not elevated. Status: Acute Code(s): I10 - Essential (primary) hypertension (4) Lung nodules: Consider 6-month CT follow-up. Follow-up with pulmonology. Status: Acute Code(s): R91.8 - Other nonspecific abnormal finding of lung field Additional A&P Information Heart failure: Normal EF. Currently does not appear fluid overloaded. Continue oral Lasix. Monitor volume status. At home takes Lasix and hydrochlorothiazide. Anxiety: Continue chronic home medications like amitriptyline and cyclobenzaprine. Attestations Medical Necessity Statement*: Requiring admission of over 2 midnights for assessment management of COPD exacerbation with underlying pulmonary fibrosis, with severe deconditioning. Disposition planning. Coding Level of Care Code Acute Safety Person for Aaliyah Harper Diagnoses Acute exacerbation of chronic obstructive pulmonary disease (COPD) J44.1 Acute respiratory distress R06.03 Hypertension I10 Lung nodules R91.8
[2019-08-12] MEDS: heparin 5,000 unit/mL INJ 1 mL 5000 UNIT SUBCUT (17:02)
[2019-08-12] MEDS: latanoprost 0.005% Op Soln 2.5 mL Btl 1 DROP EYE-BOTH (22:50)
[2019-08-13] VITALS (19 sets, daily range): BP systolic 102–161; BP diastolic 65–87; PULSE 72–100; RESP 17–26; TEMP 36.4–36.8; O2SAT 89–100
[2019-08-13] MEDS: heparin 5,000 unit/mL INJ 1 mL 5000 UNIT SUBCUT ×4 (01:43→23:58)
[2019-08-13] MEDS: ipratropium-albuterol 3 mL Neb INHALATION ×5 (02:37→20:42)
[2019-08-13 06:27] LABS: Basophils % 0.1 %; Lymphocytes # 0.7 10^3/uL (0.8-4.8); Lymphocytes % 7.2 %; Mean Corpuscular HGB Conc 33.3 g/dL (30.0-36.0); Mean Corpuscular Hemoglobin 32.3 pg (28.0-34.0); Mean Corpuscular Volume 96.8 fL (81-99); Mean Platelet Volume 10.4 fL (7.4-10.4); Monocytes # 0.3 10^3/uL (0.2-0.9); Monocytes % 3.5 %; Neutrophils # 8.6 10^3/uL (1.8-7.7); Neutrophils % 88.8 %; Nucleated Red Blood Cells % 0 %; Platelet Count 113 10^3/cmm (130-400); Positive C 1; Red Blood Count 4.03 10^6/uL (4.1-5.3); Red Cell Distribution Width 13.6 % (12.1-15.1); White Blood Count 9.7 10^3/uL (4.0-10.0)
[2019-08-13 06:45] LABS: Anion Gap 11.4 (5-19); Blood Urea Nitrogen 19 mg/dL (8-23); Calcium 9.4 mg/dL (8.5-10.5); Carbon Dioxide 31 mmol/L (22-29); Chloride 100 mmol/L (98-107); Glucose 142 mg/dL (65-115); Osmolality Calculated 283 mOsm/kg (285-295); Potassium 5.4 mmol/L (3.5-5.1); Sodium 137 mmol/L (136-145)
[2019-08-13 06:59] LABS: Slide Review Slide Review Perform
[2019-08-13] MEDS: budesonide 0.5 mg/2 mL Neb INHALATION ×2 (08:49→20:42)
[2019-08-13] MEDS: montelukast sodium 10 mg Tablet PO (09:17)
[2019-08-13] MEDS: FUROsemide 40 mg Tablet PO (09:17)
[2019-08-13] MEDS: atenolol 50 mg Tablet 100 MG PO (09:17)
[2019-08-13] MEDS: ALPRAZolam 0.25 mg Tablet PO (09:52)
--- NOTE | 2019-08-13 16:57 | PM.PN ---
Subjective Subjective: Interval history: She was quite short of breath this morning. Required extra breathing treatment. Vitals/I&O/Wt Last Vital Signs Temp 98.3 F 08/13/19 14:55 Pulse 83 08/13/19 14:55 Resp 24 H 08/13/19 14:55 BP 145/73 08/13/19 14:55 Pulse Ox 98 08/13/19 14:55 08/13/19 08/13/19 08/13/19 06:59 14:59 22:59 Intake Total 240 / 240 Output Total 200 / 200 Balance -200 / 640 240 / 240 Weight last 48 hrs Weight 73.227 kg Weight 114.39 kg Physical Exam Const: COMMON NORMALS: no apparent distress and oriented x3 GENERAL APPEARANCE: anxious HENMT: COMMON NORMALS: oropharynx normal Neck/C-Spine: COMMON NORMALS: no JVD Resp: COMMON NORMALS: normal respiratory effort AUSCULTATION: wheezes (faint) and diminished lung sounds Cardio: COMMON NORMALS: no JVD, regular rhythm, S1 normal heart sound, S2 normal heart sound and no murmurs RHYTHM: regular rhythm HEART SOUNDS: S1 normal and S2 normal GI: COMMON NORMALS: normal to inspection, nondistended, normoactive bowel sounds, soft to palpation and non-tender PALPATION: Yes soft Extremity: COMMON NORMALS: no joint enlargement and no pedal edema Neuro: COMMON NORMALS: oriented x3 and moves all extremities Skin: COMMON NORMALS: no rashes or lesions noted GENERAL SKIN EXAM: no rashes or lesions noted Data : 08/13/19 05:45 08/13/19 05:45 A&P Assessment and plan (1) Acute exacerbation of chronic obstructive pulmonary disease (COPD): This morning was very short of breath, required extra breathing treatment. Added additional treatments as needed. Currently feeling better. She was very anxious in the morning as well. Noted by respiratory therapy was very anxious despite saturating 97% on 3 L after breathing treatment. Discussed with her appears she has significant air hunger symptoms secondary to her advanced lung disease. Discussed with her we will increase anxiety medication to help her deal with the symptoms with which she is agreeable. She is inquiring about possible BiPAP or trilogy machine. Discussed briefly with her practical nursing instructor. During current admission she is not been significantly enough hypercapnic to warrant this treatment. He has been monitoring in clinic whether she may benefit from this at some point. She is being referred for repeat PFT. At this time continue inhalers. For now we will continue IV steroid. Attempt to get better control of anxiety episodes. Due to significant deconditioning attempts are being made to place her to rehabilitation to SNF. With underlying concomitant lung fibrosis. Status: Acute Code(s): J44.1 - Chronic obstructive pulmonary disease with (acute) exacerbation (2) Acute respiratory distress: Very low respiratory reserve. Combined with significant anxiety. Status: Acute Code(s): R06.03 - Acute respiratory distress (3) Hypertension: Blood pressures not elevated. Status: Acute Code(s): I10 - Essential (primary) hypertension (4) Lung nodules: Consider 6-month CT follow-up. Follow-up with pulmonology. Status: Acute Code(s): R91.8 - Other nonspecific abnormal finding of lung field Additional A&P Information Heart failure: Normal EF. Currently does not appear fluid overloaded. Continue oral Lasix. Monitor volume status. At home takes Lasix and hydrochlorothiazide. Anxiety: Continue chronic home medications like amitriptyline and cyclobenzaprine. Attestations Medical Necessity Statement*: Continue admission for assessment and management severe exacerbation of COPD with underlying pulmonary fibrosis. Coding Level of Care Code Acute Reliability Technician for Aaliyah Harper Diagnoses Acute exacerbation of chronic obstructive pulmonary disease (COPD) J44.1 Acute respiratory distress R06.03 Hypertension I10 Lung nodules R91.8
--- NOTE | 2019-08-13 17:49 | PC.PT ---
PT note; patient adamantly refused out of bed for physical therapy evaluation; discussed same with physician, will reattempt tomorrow
[2019-08-13] MEDS: ALPRAZolam 0.5 mg Tablet PO (18:19)
[2019-08-13] MEDS: latanoprost 0.005% Op Soln 2.5 mL Btl 1 DROP EYE-BOTH (20:38)
[2019-08-14] VITALS (15 sets, daily range): BP systolic 104–145; BP diastolic 61–80; PULSE 68–90; RESP 16–22; TEMP 36–37.2; O2SAT 95–100
[2019-08-14] MEDS: ALPRAZolam 0.5 mg Tablet PO ×4 (01:28→21:19)
[2019-08-14] MEDS: ipratropium-albuterol 3 mL Neb INHALATION ×4 (02:33→20:01)
[2019-08-14 05:36] LABS: Basophils % 0.1 %; Hematocrit 34.4 % (37.0-47.0); Lymphocytes # 0.9 10^3/uL (0.8-4.8); Lymphocytes % 8.8 %; Mean Corpuscular Hemoglobin 31.4 pg (28.0-34.0); Mean Corpuscular Volume 98.3 fL (81-99); Monocytes # 0.3 10^3/uL (0.2-0.9); Monocytes % 3.2 %; Neutrophils # 9.2 10^3/uL (1.8-7.7); Neutrophils % 87.5 %; Nucleated Red Blood Cells % 0 %; Platelet Count 224 10^3/cmm (130-400); Red Cell Distribution Width 13.3 % (12.1-15.1); White Blood Count 10.5 10^3/uL (4.0-10.0)
[2019-08-14 06:06] LABS: Anion Gap 10.6 (5-19); Blood Urea Nitrogen 22 mg/dL (8-23); Calcium 9.3 mg/dL (8.5-10.5); Carbon Dioxide 35 mmol/L (22-29); Chloride 98 mmol/L (98-107); Glucose 129 mg/dL (65-115); Osmolality Calculated 286 mOsm/kg (285-295); Potassium 4.6 mmol/L (3.5-5.1); Sodium 139 mmol/L (136-145)
[2019-08-14] MEDS: heparin 5,000 unit/mL INJ 1 mL 5000 UNIT SUBCUT ×3 (08:19→23:31)
[2019-08-14] MEDS: atenolol 50 mg Tablet 100 MG PO (08:19)
[2019-08-14] MEDS: montelukast sodium 10 mg Tablet PO (08:19)
[2019-08-14] MEDS: FUROsemide 40 mg Tablet PO (08:19)
[2019-08-14] MEDS: budesonide 0.5 mg/2 mL Neb INHALATION ×2 (08:42→20:01)
--- NOTE | 2019-08-14 18:44 | PC.NURSE ---
PT ROUNDING PT UP TO CHAIR FOR 2 HOURS FOR DINNER. PT TOLERATED WELL.
--- NOTE | 2019-08-14 20:32 | P.PN_ITS ---
Subjective Subjective: Interval history: Again very anxious today. Yesterday declined to work with PT for fears that something might happen. Today reports that she is feeling slightly dizzy when she gets up, lightheaded. Is not really wanting to work with physical therapy, but still wanting to go to detention. Discussed with her we will check orthostatic blood pressure, also try to control her anxiety better. Discussed with her that to go to rehabilitation she will need to work with physical therapy. If she is not willing to do so otherwise we may have to consider return home, although with how deconditioned she is would need constant assistance from her family, versus hiring a full-time caregiver. She verbalized understanding and agreement. Vitals/I&O/Wt Last Vital Signs Temp 98.9 F 08/14/19 19:56 Pulse 85 08/14/19 20:05 Resp 20 H 08/14/19 20:01 BP 119/72 08/14/19 19:56 Pulse Ox 99 08/14/19 20:05 08/14/19 08/14/19 08/14/19 06:59 14:59 22:59 Intake Total 480 / 480 240 / 720 Balance 480 / 480 240 / 720 Weight last 48 hrs Weight 73.227 kg Weight 73.227 kg Physical Exam Const: COMMON NORMALS: no apparent distress and oriented x3 GENERAL APPEARANCE: anxious HENMT: COMMON NORMALS: oropharynx normal Neck/C-Spine: COMMON NORMALS: no JVD Resp: COMMON NORMALS: normal respiratory effort AUSCULTATION: wheezes (faint, wheeze is mostly upper respiratory with vocal cord dysfunction.) and diminished lung sounds (However, today actually sounding better, with better air entry. Although symptomatically she does not appear to report improvement.) Cardio: COMMON NORMALS: no JVD, regular rhythm, S1 normal heart sound, S2 normal heart sound and no murmurs RHYTHM: regular rhythm HEART SOUNDS: S1 normal and S2 normal GI: COMMON NORMALS: normal to inspection, nondistended, normoactive bowel sounds, soft to palpation and non-tender PALPATION: Yes soft Extremity: COMMON NORMALS: no joint enlargement and no pedal edema Neuro: COMMON NORMALS: oriented x3 and moves all extremities Skin: COMMON NORMALS: no rashes or lesions noted GENERAL SKIN EXAM: no rashes or lesions noted Data : 08/14/19 04:47 08/14/19 04:47 A&P Assessment and plan (1) Acute exacerbation of chronic obstructive pulmonary disease (COPD): Subjectively persistent dyspnea, despite good saturations. Disc with her the results. She had declined to work with physical therapy for fear of something happening, and also reports some dizziness/notes when getting up. We checked orthostatic blood pressure, and she does have slight decrease, but not significant, 115/72 laying, 120/72 sitting, 106/70 standing. Her echocardiogram was with good ejection fraction, grade 2 diastolic dysfunction. With lightheadedness, and currently does not appear in fluid overload hold Lasix. Decrease her dose of venlafaxine as this may contribute to symptoms of dizziness. Appears to have increased frequency to every 4 hours as needed. Discussed with her she does not qualify for BiPAP or trilogy at this time based on her blood gas. 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 Continue attempts to mobilize, request physical therapy, for now continue current therapy for COPD exacerbation. At time to place to assess for rehabilitation, however, if she is deciding that she does not want to work with therapy then we will have no choice but to discharge home. Discussed with her home health support, as well as either full-time support from her family or hiring a caregiver. She verbalized understanding, and states agreement. Status: Acute Code(s): J44.1 - Chronic obstructive pulmonary disease with (acute) exacerbation (2) Acute respiratory distress: Very low respiratory reserve. Combined with significant anxiety. Status: Acute Code(s): R06.03 - Acute respiratory distress (3) Hypertension: Blood pressures not elevated. Status: Acute Code(s): I10 - Essential (primary) hypertension (4) Lung nodules: Consider 6-month CT follow-up. Follow-up with pulmonology. Status: Acute Code(s): R91.8 - Other nonspecific abnormal finding of lung field Additional A&P Information Heart failure: Normal EF. Currently does not appear fluid overloaded. Hold oral Lasix. Monitor volume status. At home takes Lasix and hydrochlorothiazide. Anxiety: Continue chronic home medications like amitriptyline and cyclobenzaprine. Attestations Medical Necessity Statement*: Continue admission for COPD exacerbation, with concomitant pulmonary fibrosis, functional decline. Coding Level of Care Code Acute Bank Operations Officer for [facility] Fwd Diagnoses Acute exacerbation of chronic obstructive pulmonary disease (COPD) J44.1 Acute respiratory distress R06.03 Hypertension I10 Lung nodules R91.8
[2019-08-14] MEDS: latanoprost 0.005% Op Soln 2.5 mL Btl 1 DROP EYE-BOTH (21:18)
[2019-08-15] VITALS (13 sets, daily range): BP systolic 117–138; BP diastolic 56–77; PULSE 63–91; RESP 14–24; TEMP 36.4–36.7; O2SAT 94–100; BMI 28.5
[2019-08-15] MEDS: ipratropium-albuterol 3 mL Neb INHALATION ×4 (02:40→20:04)
[2019-08-15 04:53] LABS: Basophils % 0.1 %; Hematocrit 34.5 % (37.0-47.0); Hemoglobin 11.2 g/dL (11.5-15.3); Lymphocytes % 10.6 %; Mean Corpuscular HGB Conc 32.5 g/dL (30.0-36.0); Mean Corpuscular Hemoglobin 32.3 pg (28.0-34.0); Mean Corpuscular Volume 99.4 fL (81-99); Mean Platelet Volume 10.1 fL (7.4-10.4); Monocytes # 0.3 10^3/uL (0.2-0.9); Monocytes % 3.2 %; Neutrophils # 7.8 10^3/uL (1.8-7.7); Neutrophils % 85.3 %; Nucleated Red Blood Cells % 0 %; Platelet Count 226 10^3/cmm (130-400); Red Blood Count 3.47 10^6/uL (4.1-5.3); Red Cell Distribution Width 13.2 % (12.1-15.1); White Blood Count 9.1 10^3/uL (4.0-10.0)
[2019-08-15 05:05] LABS: Anion Gap 11.6 (5-19); Blood Urea Nitrogen 23 mg/dL (8-23); Calcium 9.1 mg/dL (8.5-10.5); Carbon Dioxide 36 mmol/L (22-29); Chloride 94 mmol/L (98-107); Glucose 139 mg/dL (65-115); Osmolality Calculated 283 mOsm/kg (285-295); Potassium 4.6 mmol/L (3.5-5.1); Sodium 137 mmol/L (136-145)
[2019-08-15] MEDS: budesonide 0.5 mg/2 mL Neb INHALATION ×2 (08:06→20:04)
[2019-08-15] MEDS: heparin 5,000 unit/mL INJ 1 mL 5000 UNIT SUBCUT ×2 (08:17→15:48)
[2019-08-15] MEDS: montelukast sodium 10 mg Tablet PO (08:17)
[2019-08-15] MEDS: atenolol 50 mg Tablet 100 MG PO (08:18)
[2019-08-15] MEDS: ALPRAZolam 0.5 mg Tablet PO (12:35)
--- NOTE | 2019-08-15 14:09 | PC.SOCIAL ---
Pg 2 IMM Explained to pt Pg 2 IMM. Pt verbally understands. No questions voiced. Provided pt a copy & left on their bedside table. Signed, dated, timed, then placed a copy in chart.
--- NOTE | 2019-08-15 19:10 | PC.NURSE ---
Introduction of staff and report received, aidet.
[2019-08-15] MEDS: latanoprost 0.005% Op Soln 2.5 mL Btl 1 DROP EYE-BOTH (20:16)
--- NOTE | 2019-08-15 20:21 | PC.NURSE ---
hs meds given at this time.
--- NOTE | 2019-08-15 20:43 | PM.PN ---
Subjective Subjective: Interval history: She stood up with physical therapy yesterday as well as did some exercises in bed. Asked her whether she would work with them today again, she reported depending on how she is feeling she would try. Vitals/I&O/Wt Last Vital Signs Temp 98.1 F 08/15/19 20:00 Pulse 88 08/15/19 20:11 Resp 19 H 08/15/19 20:04 BP 130/72 08/15/19 20:00 Pulse Ox 97 08/15/19 20:11 08/15/19 08/15/19 08/15/19 06:59 14:59 22:59 Intake Total 600 / 600 720 / 1320 Balance 600 / 600 720 / 1320 Weight last 48 hrs Weight 73.227 kg Weight 73.227 kg Physical Exam Const: COMMON NORMALS: no apparent distress and oriented x3 GENERAL APPEARANCE: anxious HENMT: COMMON NORMALS: oropharynx normal Neck/C-Spine: COMMON NORMALS: no JVD Resp: COMMON NORMALS: normal respiratory effort AUSCULTATION: wheezes (faint, wheeze is mostly upper respiratory with vocal cord dysfunction.) and diminished lung sounds (With mild improvement.) Cardio: COMMON NORMALS: no JVD, regular rhythm, S1 normal heart sound, S2 normal heart sound and no murmurs RHYTHM: regular rhythm HEART SOUNDS: S1 normal and S2 normal GI: COMMON NORMALS: normal to inspection, nondistended, normoactive bowel sounds, soft to palpation and non-tender PALPATION: Yes soft Extremity: COMMON NORMALS: no joint enlargement and no pedal edema Neuro: COMMON NORMALS: oriented x3 and moves all extremities Skin: COMMON NORMALS: no rashes or lesions noted GENERAL SKIN EXAM: no rashes or lesions noted Data : 08/15/19 04:10 08/15/19 04:10 A&P Assessment and plan (1) Acute exacerbation of chronic obstructive pulmonary disease (COPD): On lung exam, she appears perhaps improving, although I spoke this is clear her new bed baseline. Her oxygenation remained stable in high 90s on 2-1/2-3 L nasal cannula. Still she is very apprehensive regarding physical activity and requires quite a bit of an. She has worked with therapy these last few days. I tried to reach her son as well to discuss with him as she needs to start working seriously, as otherwise her prognosis will not be good if he remains sedentary as she has been. Were trying to get her placed into intermediate for a, although due to local procedures to want to be sure that nobody with respiratory symptom has covered 19, and discharge planning reporting this is a is for all facilities in [facility]. She is afebrile, with chronic change is on CT scan, and with symptoms beginning before the pandemic, however, we will go ahead and rule out COVID by nasal smear as she truly would benefit from SNF admission for rehabilitation. We will transition her to oral steroid. Subjectively persistent dyspnea, despite good saturations. She had declined to work with physical therapy for fear of something happening, and also reports some dizziness/notes when getting up. We checked orthostatic blood pressure, and she does have slight decrease, but not significant, 115/72 laying, 120/72 sitting, 106/70 standing. Her echocardiogram was with good ejection fraction, grade 2 diastolic dysfunction. With lightheadedness, and currently does not appear in fluid overload hold Lasix. Decreased her dose of venlafaxine as this may contribute to symptoms of dizziness. Appears to have increased frequency to every 4 hours as needed. Discussed with her she does not qualify for BiPAP or trilogy at this time based on her blood gas. 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 Continue attempts to mobilize, request physical therapy, for now continue current therapy for COPD exacerbation. At time to place to assess for rehabilitation, however, if she is deciding that she does not want to work with therapy then we will have no choice but to discharge home. Discussed with her home health support, as well as either full-time support from her family or hiring a caregiver. She verbalized understanding, and states agreement. Status: Acute Code(s): J44.1 - Chronic obstructive pulmonary disease with (acute) exacerbation (2) Acute respiratory distress: Very low respiratory reserve. Combined with significant anxiety. Status: Acute Code(s): R06.03 - Acute respiratory distress (3) Hypertension: Blood pressures not elevated. Status: Acute Code(s): I10 - Essential (primary) hypertension (4) Lung nodules: Consider 6-month CT follow-up. Follow-up with pulmonology. Status: Acute Code(s): R91.8 - Other nonspecific abnormal finding of lung field Additional A&P Information Heart failure: Normal EF. Currently does not appear fluid overloaded. Hold oral Lasix. Monitor volume status. At home takes Lasix and hydrochlorothiazide. Anxiety: Continue chronic home medications like amitriptyline and cyclobenzaprine. Attestations Medical Necessity Statement*: Continue admission for optimization of COPD exacerbation with chronic underlying fibrosis, placement arrangements. Coding Level of Care Code Acute Searchlight Operator for [facility] Diagnoses Acute exacerbation of chronic obstructive pulmonary disease (COPD) J44.1 Acute respiratory distress R06.03 Hypertension I10 Lung nodules R91.8
[2019-08-16] VITALS (16 sets, daily range): BP systolic 123–153; BP diastolic 59–83; PULSE 71–86; RESP 17–24; TEMP 36.1–36.8; O2SAT 95–100
[2019-08-16 05:12] LABS: Basophils % 0.2 %; Hematocrit 34.8 % (37.0-47.0); Hemoglobin 11.2 g/dL (11.5-15.3); Lymphocytes # 1.3 10^3/uL (0.8-4.8); Lymphocytes % 11.7 %; Mean Corpuscular HGB Conc 32.2 g/dL (30.0-36.0); Mean Corpuscular Hemoglobin 30.5 pg (28.0-34.0); Mean Corpuscular Volume 94.8 fL (81-99); Mean Platelet Volume 10.1 fL (7.4-10.4); Monocytes # 0.7 10^3/uL (0.2-0.9); Monocytes % 6.4 %; Neutrophils # 8.8 10^3/uL (1.8-7.7); Neutrophils % 80.3 %; Nucleated Red Blood Cells % 0 %; Platelet Count 253 10^3/cmm (130-400); Red Blood Count 3.67 10^6/uL (4.1-5.3); Red Cell Distribution Width 12.9 % (12.1-15.1)
[2019-08-16 05:29] LABS: Anion Gap 8.6 (5-19); Blood Urea Nitrogen 20 mg/dL (8-23); Calcium 9.5 mg/dL (8.5-10.5); Carbon Dioxide 39 mmol/L (22-29); Chloride 96 mmol/L (98-107); Glucose 103 mg/dL (65-115); Osmolality Calculated 285 mOsm/kg (285-295); Potassium 4.6 mmol/L (3.5-5.1); Sodium 139 mmol/L (136-145)
[2019-08-16] MEDS: heparin 5,000 unit/mL INJ 1 mL 5000 UNIT SUBCUT ×3 (05:38→21:00)
[2019-08-16] MEDS: ipratropium-albuterol 3 mL Neb INHALATION ×5 (06:06→20:57)
[2019-08-16] MEDS: ALPRAZolam 0.5 mg Tablet PO ×3 (06:51→20:48)
[2019-08-16] MEDS: atenolol 50 mg Tablet 100 MG PO (09:05)
[2019-08-16] MEDS: montelukast sodium 10 mg Tablet PO (09:06)
[2019-08-16] MEDS: predniSONE 20 mg Tablet 40 MG PO (09:15)
[2019-08-16] MEDS: budesonide 0.5 mg/2 mL Neb INHALATION ×2 (09:20→20:58)
--- NOTE | 2019-08-16 16:22 | PM.PN ---
Subjective Subjective: Interval history: She is feeling about the same, states still here . She did work with physical therapy, betough is not entirely proud of herself saying it was not great performance . Still it seems she put in effort into it. Denies any pain. Is having some cough. Vitals/I&O/Wt Last Vital Signs Temp 97.6 F 08/16/19 15:53 Pulse 78 08/16/19 16:19 Resp 20 H 08/16/19 16:19 BP 132/77 08/16/19 15:53 Pulse Ox 95 08/16/19 16:19 08/16/19 08/16/19 08/16/19 06:59 14:59 22:59 Intake Total 120 / 1440 960 / 960 Output Total 600 / 600 Balance -480 / 840 960 / 960 Weight last 48 hrs Weight 73.227 kg Physical Exam Const: COMMON NORMALS: no apparent distress and oriented x3 GENERAL APPEARANCE: anxious HENMT: COMMON NORMALS: oropharynx normal Neck/C-Spine: COMMON NORMALS: no JVD Resp: COMMON NORMALS: normal respiratory effort AUSCULTATION: no wheezes and diminished lung sounds (slightly better than presentation) Cardio: COMMON NORMALS: no JVD, regular rhythm, S1 normal heart sound, S2 normal heart sound and no murmurs RHYTHM: regular rhythm HEART SOUNDS: S1 normal and S2 normal GI: COMMON NORMALS: normal to inspection, nondistended, normoactive bowel sounds, soft to palpation and non-tender PALPATION: Yes soft Extremity: COMMON NORMALS: no joint enlargement and no pedal edema Neuro: COMMON NORMALS: oriented x3 and moves all extremities Skin: COMMON NORMALS: no rashes or lesions noted GENERAL SKIN EXAM: no rashes or lesions noted Data : 08/16/19 04:28 08/16/19 04:28 A&P Assessment and plan (1) Acute exacerbation of chronic obstructive pulmonary disease (COPD): She is feeling about the same today. Actually there is no wheeze on exam today. Air entry is slightly better compared to admission. We did switch her over to oral prednisone today. COVID-19 is negative. Her oxygenation remained stable in high 90s on 2-1/2-3 L nasal cannula. She is making more effort to work with physical therapy. I have attempted to reach her son on yesterday and today but could not. Were trying to get her placed into assisted facility. Likely discharge tomorrow morning. Lightheadedness is better. Continue to encourage mobilization. Status: Acute Code(s): J44.1 - Chronic obstructive pulmonary disease with (acute) exacerbation (2) Acute respiratory distress: Very low respiratory reserve. Combined with significant anxiety. Status: Acute Code(s): R06.03 - Acute respiratory distress (3) Hypertension: Blood pressures not elevated. Status: Acute Code(s): I10 - Essential (primary) hypertension (4) Lung nodules: Consider 6-month CT follow-up. Follow-up with pulmonology. Status: Acute Code(s): R91.8 - Other nonspecific abnormal finding of lung field Additional A&P Information Heart failure: Normal EF. Currently does not appear fluid overloaded. Hold oral Lasix. Monitor volume status. At home takes Lasix and hydrochlorothiazide. Anxiety: Continue chronic home medications like amitriptyline and cyclobenzaprine. Attestations Medical Necessity Statement*: Continue assessment and management of COPD exacerbation, with underlying suspected pulmonary fibrosis, pending discharge to SNF. Coding Level of Care Code Acute Irrigation System Operator for [facility] Diagnoses Acute exacerbation of chronic obstructive pulmonary disease (COPD) J44.1 Acute respiratory distress R06.03 Hypertension I10 Lung nodules R91.8
[2019-08-16] MEDS: latanoprost 0.005% Op Soln 2.5 mL Btl 1 DROP EYE-BOTH (20:43)
[2019-08-16] MEDS: ondansetron 2 mg/ML SDV 2 mL 4 MG IVP (22:29)
[2019-08-17] VITALS (14 sets, daily range): BP systolic 91–148; BP diastolic 54–75; PULSE 61–120; RESP 15–24; TEMP 36.4–37.4; O2SAT 84–100
[2019-08-17] MEDS: ipratropium-albuterol 3 mL Neb INHALATION ×5 (02:41→21:37)
[2019-08-17] MEDS: ALPRAZolam 0.5 mg Tablet PO ×3 (03:09→07:31)
[2019-08-17] MEDS: heparin 5,000 unit/mL INJ 1 mL 5000 UNIT SUBCUT (05:00)
[2019-08-17 05:39] LABS: Basophils % 0.2 %; Eosinophils % 0.1 %; Hematocrit 42.9 % (37.0-47.0); Hemoglobin 13.5 g/dL (11.5-15.3); Lymphocytes # 0.7 10^3/uL (0.8-4.8); Lymphocytes % 5.7 %; Mean Corpuscular HGB Conc 31.5 g/dL (30.0-36.0); Mean Corpuscular Hemoglobin 30.9 pg (28.0-34.0); Mean Corpuscular Volume 98.2 fL (81-99); Mean Platelet Volume 10.1 fL (7.4-10.4); Monocytes # 0.7 10^3/uL (0.2-0.9); Monocytes % 5.5 %; Neutrophils # 10.4 10^3/uL (1.8-7.7); Neutrophils % 87.3 %; Nucleated Red Blood Cells % 0 %; Platelet Count 266 10^3/cmm (130-400); Red Blood Count 4.37 10^6/uL (4.1-5.3); Red Cell Distribution Width 13.2 % (12.1-15.1); White Blood Count 11.9 10^3/uL (4.0-10.0)
[2019-08-17 06:13] LABS: Blood Urea Nitrogen 15 mg/dL (8-23); Calcium 9.8 mg/dL (8.5-10.5); Carbon Dioxide 37 mmol/L (22-29); Chloride 94 mmol/L (98-107); Glucose 90 mg/dL (65-115); Osmolality Calculated 284 mOsm/kg (285-295); Sodium 139 mmol/L (136-145)
--- NOTE | 2019-08-17 08:13 | ECG_ITS ---
Measurements Intervals Badger Rate: 131 P: 78 TN: 124 QRS: 43 QRSD: 107 T: 137 QT: 247 QTc: [address] DEVIATION AND MODERATE T-WAVE ABNORMALITY, CONSIDER LATERAL ISCHEMIA Compared to ECG 08/11/2019 17:31:28 Intraventricular conduction delay no longer present T-wave abnormality still present Possible ischemia still present Electronically Signed On 08-17-2019 17:57:34 CDT by Padmini Moffett M.D. [email or web address]
[2019-08-17] MEDS: atenolol 50 mg Tablet 100 MG PO (08:24)
[2019-08-17] MEDS: predniSONE 20 mg Tablet 40 MG PO (08:24)
[2019-08-17] MEDS: montelukast sodium 10 mg Tablet PO (08:24)
[2019-08-17 08:35] LABS: ABG PH Result 7.45 (7.35-7.45); Base Excess ABG 13.1 mmol/L (-2.0-2.0); Blood Gas Allen Test POS; Blood Gas Operator Identificat BD; HCO3 ABG 39.5 mmol/L (22-26); Oxygen Device NC; PO2 ABG 52.8 mmHg (80.0-100.0)
[2019-08-17 08:36] LABS: Arterial Blood Gas Hematocrit 40.8 % (37-47); Blood Gas Drawn By BD; Blood Gas Sample Site RB; Blood Gas Sample Type ARTERIAL
[2019-08-17] MEDS: budesonide 0.5 mg/2 mL Neb INHALATION ×2 (08:50→21:37)
[2019-08-17 09:12] LABS: Coronavirus Lab Test PTC NOT DETECTED
[2019-08-17 09:19] LABS: Troponin(5th) Baseline 38 ng/mL (0-10)
--- NOTE | 2019-08-17 09:43 | PC.NURSE ---
patient noted to be mottled from knees down, orientation-a/ox3. patient noted to have pierced lip breathing, o2 in place spo2 at 93% on 3L o2. patient noted to have wet cough. blood noted in bed, patient placed on bedpan, bright red blood noted in urine. attempted to call Dr. Stuart no answer at this time. will continue to monitor. patients speech noted to be garbled.
--- NOTE | 2019-08-17 10:39 | PC.NURSE ---
REPORT GIVEN TO RIGO TAYLOR, PRIMARY CARE OF PATIENT TURNED OVER AT THIS TIME.
--- NOTE | 2019-08-17 12:19 | CT_ITS ---
WS: [id number] CT ABDOMEN AND PELVIS NONCONTRAST HISTORY: gross hematuria TECHNIQUE: Imaging performed through the abdomen and pelvis. Coronal and sagittal reformats are submi tted. All CT scans at [facility] use at least one of these dose optimization techniques: automated exposure control; mA and/or kV adjustment per patient size (includes targeted exams where d ose is matched to clinical indication); or iterative reconstruction. DLP: 463.43 mGy.cm COMPARISON: None available. Lower thorax: Emphysema at the lung bases. Bronchial wall thickening and peripheral subsegmental opac ifications at the lung bases. Liver: Normal, no mass or intrahepatic dilatation. Gallbladder: Unremarkable. Pancreas: Normal. Spleen: Normal size with granulomata. Adrenal glands: Normal. Right kidney: Normal size with no stones, masses or atrophy. Left kidney: Normal size with no stones, mass or atrophy. Atherosclerosis. No aneurysm. No free fluid, intraperitoneal air or significant lymphadenopathy. GI tract: Mild constipation and inspissated fecal material. Prior appendectomy. Abdominal wall: Intact. Pelvis: Normally distended urinary bladder. There is a very tiny amount of free fluid in the pelvis o n the LEFT. Osseous structures: L5 anterolisthesis by 12 mm. Moderate degenerative disc disease at L5-S1. L5 pars defects. CT/CT kidney stone [id number] IMPRESSION: 1. No renal stone or obstruction. 2. Atherosclerosis aorta with no aneurysm. 3. Prior appendectomy. 4. Constipation. 5. Tiny amount of free fluid in the LEFT pelvis of uncertain etiology.
--- NOTE | 2019-08-17 13:03 | PM.PN ---
Subjective Subjective: Interval history: She is feeling slightly better, this morning generally weak, short of breath. Very anxious. Sinus tachycardia. Received Xanax. Also with noted bloody urine this morning. Vitals/I&O/Wt Last Vital Signs Temp 97.9 F 08/17/19 12:00 Pulse 82 08/17/19 12:00 Resp 24 H 08/17/19 12:00 BP 105/56 08/17/19 12:00 Pulse Ox 97 08/17/19 12:00 08/16/19 08/17/19 08/17/19 22:59 06:59 14:59 Intake Total 120 / 1080 240 / 240 Balance 120 / 1080 240 / 240 Physical Exam Const: COMMON NORMALS: no apparent distress and oriented x3 GENERAL APPEARANCE: not anxious (after Xanax) HENMT: COMMON NORMALS: oropharynx normal Neck/C-Spine: COMMON NORMALS: no JVD Resp: COMMON NORMALS: normal respiratory effort AUSCULTATION: wheezes (Right) and diminished lung sounds (slightly better than presentation) Cardio: COMMON NORMALS: no JVD, regular rhythm, S1 normal heart sound, S2 normal heart sound and no murmurs RHYTHM: regular rhythm HEART SOUNDS: S1 normal and S2 normal GI: COMMON NORMALS: normal to inspection, nondistended, normoactive bowel sounds, soft to palpation and non-tender PALPATION: Yes soft Extremity: COMMON NORMALS: no joint enlargement and no pedal edema LEFT LOWER EXTREMITY: Yes foot & digits (Chronic petehial changes on feet. ) OTHER: Mottling on knees. Neuro: COMMON NORMALS: oriented x3 and moves all extremities Skin: COMMON NORMALS: no rashes or lesions noted GENERAL SKIN EXAM: no rashes or lesions noted Data : 08/17/19 13:00 08/17/19 04:24 A&P Assessment and plan (1) Hematuria: Reportedly bloody urine soaked through her diaper. Some bloody urine noted in the bedpan. Request for UA. CT renal stone protocol. Recheck hemoglobin later tonight. Status: Acute Code(s): R31.9 - Hematuria, unspecified (2) Acute exacerbation of chronic obstructive pulmonary disease (COPD): This morning episode of dyspnea, also with significant anxiety, restlessness. Sinus tachycardia. Received breathing treatment, Xanax. Anxiety improved. ABG with hypercapnia, hypoxia, however, with normal pH. On 3L NC. Tachycardia resolved. Checked troponin, EKG, with sinus tachycardia, with nonspecific changes. She has no chest pain. Troponin is mildly elevated at 38, not higher than prior. On prednisone 40mg currently. COVID-19 is negative. She has been making more effort to work with physical therapy. For now with hematuria, livedo DC is delayed. Lightheadedness is better. Continue to encourage mobilization. 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 She does not remember with this is something that recurs periodically. Possibly Raynaud's phenomenon, requested her legs to be kept covered, will reassess. Requested check Dopplers. Does not appear to have improved very significantly with warmth. Will check for other studies for possible vasculitis with STELLA, ANCA, complement, anti-dsDNA, anticardiolipin antibody. With pulmonary, urinary complaints we will also check mycoplasma panel. ESR, CRP. Status: Acute Code(s): R23.1 - Pallor (4) Acute respiratory distress: Very low respiratory reserve. Combined with significant anxiety. Status: Acute Code(s): R06.03 - Acute respiratory distress (5) Hypertension: Blood pressures not elevated. Status: Acute Code(s): I10 - Essential (primary) hypertension (6) Lung nodules: Consider 6-month CT follow-up. Follow-up with pulmonology. Status: Acute Code(s): R91.8 - Other nonspecific abnormal finding of lung field Additional A&P Information Heart failure: Normal EF. Currently does not appear fluid overloaded. Hold oral Lasix. Monitor volume status. At home takes Lasix and hydrochlorothiazide. Anxiety: Continue chronic home medications like amitriptyline and cyclobenzaprine. Attestations Medical Necessity Statement*: Continue admission for assessment of management of hematuria, COPD exacerbation. Coding Level of Care Code Acute Document Control Associate for [facility] Fwd Exam Comprehensive Diagnoses Hematuria R31.9 Acute exacerbation of chronic obstructive pulmonary disease (COPD) J44.1 Livedo reticularis R23.1 Acute respiratory distress R06.03 Hypertension I10 Lung nodules R91.8
--- NOTE | 2019-08-17 13:04 | DCPLANNER ---
Pg 2 of IM updated and reviewed with pt. No questions, copy provided.
[2019-08-17 13:20] LABS: LAB Peripheral Smear Sent for Review
[2019-08-17 13:27] LABS: Hemoglobin 11.7 g/dL (11.5-15.3)
[2019-08-17 13:54] LABS: Complement C3 97 mg/dL (90-180)
[2019-08-17 13:55] LABS: Troponin 5 2HR 40.18 ng/mL (0-10)
[2019-08-17 14:26] LABS: Troponin 5 2HR Delta 2.18 ABS# (0-10)
[2019-08-17 15:56] LABS: C Reactive Protein 64.7 mg/L (0.0-4.9); Troponin 5 6HR 34.74 ng/mL (0-10)
[2019-08-17 16:21] LABS: Troponin 5 6HR Delta -3.26 ng/L (0-12)
[2019-08-17 16:47] LABS: Erythrocyte Sedimentation Rate 24 mm/hr (0-15)
[2019-08-17 17:04] LABS: Glucose Urine UA 2+ (Normal); Protein Urine 1+ (Negative); Urine Appearance Clear (CLEAR); Urine Color Dark Yellow (Yellow); pH Urine 5 (5-7)
[2019-08-17 17:05] LABS: Bilirubin Urine Neg (NEGATIVE); Blood Urine 3+ (Negative); Ketones Urine 1+ (Negative); Nitrate Urine Negative (Negative); Urobilinogen Urine Norm (Negative)
[2019-08-17 17:06] LABS: Add Urine Culture? Yes; Add Urine Microscopic? YES; Bacteria Urine 2+; Leukocyte Esterase Urine 2+ (Negative); RBC Urine 40-50 /hpf (0-2); Squamous Epithelial Cell Urine 0-4 (0-5)
[2019-08-17] MEDS: levofloxacin-dextrose 5 % 750 MG/150 ML PREMIX 150 MG IV (19:33)
[2019-08-17 20:06] LABS: Hemoglobin 10.9 g/dL (11.5-15.3)
[2019-08-17] MEDS: latanoprost 0.005% Op Soln 2.5 mL Btl 1 DROP EYE-BOTH (21:55)
[2019-08-18] VITALS (11 sets, daily range): BP systolic 102–126; BP diastolic 59–71; PULSE 60–87; RESP 16–20; TEMP 36.3–37.1; O2SAT 93–100
[2019-08-18] MEDS: ipratropium-albuterol 3 mL Neb INHALATION ×4 (02:38→20:28)
--- NOTE | 2019-08-18 05:20 | PC.NURSE ---
urine output pt is incontinent of urine. pt's brief was barely wet when this nurse changed pt. pt has had no other urinary output this shift. Dr. Green notified.
[2019-08-18 06:20] LABS: Basophils % 0.2 %; Eosinophils # 0.1 10^3/uL (0.0-0.8); Hematocrit 35.4 % (37.0-47.0); Hemoglobin 11.2 g/dL (11.5-15.3); Lymphocytes # 0.8 10^3/uL (0.8-4.8); Lymphocytes % 6.3 %; Mean Corpuscular HGB Conc 31.6 g/dL (30.0-36.0); Mean Corpuscular Hemoglobin 30.9 pg (28.0-34.0); Mean Corpuscular Volume 97.8 fL (81-99); Mean Platelet Volume 10.4 fL (7.4-10.4); Monocytes # 0.7 10^3/uL (0.2-0.9); Monocytes % 5.1 %; Neutrophils # 10.9 10^3/uL (1.8-7.7); Neutrophils % 86.1 %; Nucleated Red Blood Cells % 0 %; Platelet Count 223 10^3/cmm (130-400); Red Blood Count 3.62 10^6/uL (4.1-5.3); White Blood Count 12.6 10^3/uL (4.0-10.0)
[2019-08-18 06:26] LABS: Partial Thromboplastin Time 27.2 SECONDS (23.9-36.7)
[2019-08-18 06:34] LABS: Alanine Aminotransferase 12 U/L (0-33); Albumin Level 2.7 g/dL (3.5-5.2); Alkaline Phosphatase 69 IU/L (35-105); Anion Gap 12.5 (5-19); Aspartate Amino Transferase 14 U/L (0-32); Blood Urea Nitrogen 17 mg/dL (8-23); Calcium 9.5 mg/dL (8.5-10.5); Carbon Dioxide 35 mmol/L (22-29); Chloride 94 mmol/L (98-107); Creatinine Clr Calc Pharmacy 58.5497; Globulin 2.7 g/dL (1.3-4.6); Glucose 75 mg/dL (65-115); Osmolality Calculated 279 mOsm/kg (285-295); Potassium 4.5 mmol/L (3.5-5.1); Sodium 137 mmol/L (136-145); Total Bilirubin 0.4 mg/dL (0.15-1.2); Total Protein 5.4 g/dL (6.6-8.7)
--- NOTE | 2019-08-18 06:51 | PC.NURSE ---
output pt has not been voiding much. diaper scale zeroed out with white brief and wet brief weighed.
[2019-08-18 07:03] LABS: INR 1.15 (0.8-1.2)
[2019-08-18] MEDS: budesonide 0.5 mg/2 mL Neb INHALATION ×2 (08:10→20:28)
[2019-08-18] MEDS: predniSONE 20 mg Tablet 40 MG PO (08:47)
[2019-08-18] MEDS: montelukast sodium 10 mg Tablet PO (08:47)
[2019-08-18] MEDS: ALPRAZolam 0.5 mg Tablet PO ×3 (08:47→21:29)
[2019-08-18] MEDS: atenolol 50 mg Tablet 100 MG PO (08:47)
[2019-08-18 12:11] LABS: Anti-Nuclear Antibody Screen NEGATIVE (NEGATIVE)
[2019-08-18 12:37] LABS: Anti-Double Strand DNA AB <1 IU/mL
--- NOTE | 2019-08-18 12:56 | CT_ITS ---
WS: [id number] CT CHEST WITHOUT INTRAVENOUS CONTRAST HISTORY: Concern for infectious embolic disease, staphylococcus TECHNIQUE: Contiguous 5 mm axial imaging performed on the thorax. Coronal and sagittal reformats are submitted. All CT scans at [facility] use at least one of these dose optimization techniq ues: automated exposure control; mA and/or kV adjustment per patient size (includes targeted exams wh ere dose is matched to clinical indication); or iterative reconstruction. CONTRAST: None DLP: 351.72 mGy.cm COMPARISON: 08/11/2019 Lungs and central airway: Marked pulmonary hyperexpansion with changes of centrilobular emphysema. Sc attered opacifications and endobronchial thickening greatest in the lower lung scott bilaterally and also lingula and RIGHT middle lobe. Mild progression in the area of consolidation at the lung bases since the prior study. Pleura: Normal. No pleural effusion. Heart and pericardium: Normal size heart. No pericardial effusion. Mediastinum and romaine: Mediastinal and hilar lymph nodes are indeterminate but similar to the prior st udy. Probably reactive. Vessels: Normal size aortic and pulmonary artery. No coronary artery calcifications. Chest wall and lower neck: No soft tissue masses. Upper abdomen: Splenic granulomata. Mild atherosclerosis suprarenal aorta. Small hiatal hernia. Osseous structures: Moderate increase in thoracic kyphosis. No osteoblastic or osteolytic bone diseas e. CT/CT chest wo con [id number] IMPRESSION: 1. Progression of endobronchial pneumonia and consolidations at the lung bases since 08/11/2019. More similar to the pattern at 05/31/2019. Consider atypical pn eumonia or infectious process. 2. No pneumothorax. 3. Marked emphysema.
--- NOTE | 2019-08-18 12:57 | CT_ITS ---
WS: [id number] CT HEAD NONCONTRAST HISTORY: Possible embolic process. TECHNIQUE: Contiguous axial imaging performed through the brain in 2.5 mm imaging. Bone and soft tiss ue windows. Sagittal and coronal reformats reviewed. All CT scans at [facility] use at le ast one of these dose optimization techniques: automated exposure control; mA and/or kV adjustment pe r patient size (includes targeted exams where dose is matched to clinical indication); or iterative r econstruction. DLP: 1284.23 mGy.cm COMPARISON: None available. Study significantly limited by motion artifact. No acute intracranial hemorrhage, midline shift or mass effect. Mild atrophy and mild chronic microvascular ischemic disease. Ventricles: Normal size with no hydrocephalus. No inferior displacement of cerebellar tonsils. Paranasal sinuses: Mild mucoperiosteal thickening. No air-fluid levels. Mastoid air cells: Well pneumatized. Calvarium and scalp: Skull is intact with no soft tissue edema or swelling. CT/CT head wo con* [id number] IMPRESSION: 1. No acute intracranial hemorrhage. 2. Study limited by motion. 3. Chronic microvascular ischemic disease.
--- NOTE | 2019-08-18 13:24 | P.PN_ITS ---
Subjective Subjective: Interval history: She denies any pain, has no headache, no vision changes, no neck pain, back pain, abdominal discomfort, or any other issues. Persistent petechial discoloration in her feet, changes in her knees still with some purplish discoloration, however, less prominent than yesterday. Vitals/I&O/Wt Last Vital Signs Temp 97.4 F L 08/18/19 11:21 Pulse 63 08/18/19 11:21 Resp 20 H 08/18/19 11:21 BP 118/71 08/18/19 11:21 Pulse Ox 100 08/18/19 11:21 08/17/19 08/18/19 08/18/19 22:59 06:59 14:59 Intake Total 45 / 605 150 / 755 240 / 240 Output Total 148 / 148 Balance 45 / 605 2 / 607 240 / 240 Weight last 48 hrs Weight 71.622 kg Weight 69.445 kg Physical Exam Const: COMMON NORMALS: no apparent distress and oriented x3 GENERAL APPEARANCE: not anxious (after Xanax) HENMT: COMMON NORMALS: oropharynx normal Neck/C-Spine: COMMON NORMALS: no JVD Resp: COMMON NORMALS: normal respiratory effort AUSCULTATION: wheezes (Right) and diminished lung sounds (slightly better than presentation) Cardio: COMMON NORMALS: no JVD, regular rhythm, S1 normal heart sound, S2 normal heart sound and no murmurs RHYTHM: regular rhythm HEART SOUNDS: S1 normal and S2 normal GI: COMMON NORMALS: normal to inspection, nondistended, normoactive bowel sounds, soft to palpation and non-tender PALPATION: Yes soft Extremity: COMMON NORMALS: no joint enlargement and no pedal edema OTHER: Mottling on knees resolving. Neuro: COMMON NORMALS: oriented x3 and moves all extremities Skin: COMMON NORMALS: no rashes or lesions noted GENERAL SKIN EXAM: no rashes or lesions noted Data : 08/18/19 05:27 08/18/19 05:27 Micro: Microbiology 08/18/19 11:38 Blood Culture - Preliminary Blood SPECIMEN COLLECTED 08/18/19 11:25 Blood Culture - Preliminary Blood SPECIMEN COLLECTED 08/17/19 15:55 Urine Culture - Preliminary Urine,Clean Catch Staphylococcus aureus A&P Assessment and plan (1) Hematuria: Reportedly bloody urine soaked through her diaper 08/16. Some bloody urine noted in the bedpan. UA w hematuria, LE+. CT renal stone protocol with tiny amount of free left intrapelvic fluid. At this time no acute kidney injury. With persistent petechial-like changes on her feet which she says has had for months to years. Mottling of the knees which is new. Staph aureus growing in urine. So far no sign of embolic disease in abdomen pelvis, will reassess CT chest. Assess head CT, for now without contrast due to concern for possible impending renal failure. Blood culture drawn. Levaquin was started yesterday for suspected UTI, today added vancomycin. Repeat blood culture tomorrow morning. She has been afebrile. Does have elevated ESR, CRP. With Staphylococcus in urine concern for possible septic emboli, with her chronic petechia on feet as well. Continue to monitor for development additional symptoms of septic emboli. Will check rheumatoid factor as well. Depending on blood cultures, other symptoms, consideration may need to be given to HAKAN. No major findings on TTE, although does have some nonspecific thickening of mitral valve. She denies any IV drug use. 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 Noted on uncovered knees 08/16. She does not remember seeing them before or whether this is something that recurs periodically. Possibly Raynaud's phenomenon, today with some improvement, and legs feel warmer. Pulses doppler able in both lower extremities. Still some persistent changes visible on kneecaps. Checking other studies for possible vasculitis with STELLA, ANCA, complement, anti-dsDNA, anticardiolipin antibody. With pulmonary, urinary complaints also requested throat swab and urinary mycoplasma panel. ESR, CRP. Status: Acute Code(s): R23.1 - Pallor (3) Acute exacerbation of chronic obstructive pulmonary disease (COPD): This has been gradually improving. 08/16 episode of dyspnea, also with significant anxiety, restlessness. Sinus tachycardia. Received breathing treatment, Xanax. Anxiety improved. ABG with hypercapnia, hypoxia, however, with normal pH. On 3L NC. Tachycardia resolved. Checked troponin, EKG, with sinus tachycardia, with nonspecific changes. She has no chest pain. Troponin is mildly elevated, not higher than prior. On prednisone 40mg currently. COVID-19 is negative. She has been making more effort to work with physical therapy. For now with hematuria, livedo. DC is delayed. Lightheadedness is better after holding Lasix. Continue to encourage mobilization. Status: Acute Code(s): J44.1 - Chronic obstructive pulmonary disease with (acute) exacerbation (4) Acute respiratory distress: Very low respiratory reserve. Combined with significant anxiety. Status: Acute Code(s): R06.03 - Acute respiratory distress (5) Hypertension: Blood pressures not elevated. Status: Acute Code(s): I10 - Essential (primary) hypertension (6) Lung nodules: Consider 6-month CT follow-up. Follow-up with pulmonology. Status: Acute Code(s): R91.8 - Other nonspecific abnormal finding of lung field Additional A&P Information Heart failure: Normal EF. Currently does not appear fluid overloaded. Hold oral Lasix. Monitor volume status. At home takes Lasix and hydrochlorothiazide. Anxiety: Continue chronic home medications like amitriptyline and cycloben zaprine. Attestations Medical Necessity Statement*: Continue admission for assessment of management of staphylococcal UTI, livedo reticularis, COPD exacerbation with pulmonary fibrosis, chronic anxiety. 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
[2019-08-18 14:39] LABS: Hepatitis C Virus Antibody Non-Reactive (Nonreactive)
--- NOTE | 2019-08-18 15:56 | PM.CONSULT ---
Providers/Reason For Consult Consulting Physican/Specialty*: Hardeep Bonds MD Reason for Consult*: Skin biopsy Attending Physician: Connor Solitario Primary Care Provider: Misty Villaseñor MD History of Present Illness History of Present Illness Melany Phan is a 74 year old female patient with multiple medical comorbidities and was admitted to the hospitalist service and undergone different investigations and diagnostic modalities,one of the concerns that the patient may have connective tissue disorder, and since the patient does have purpuric-like lesions on both feet I was consulted by hospitalist service to obtain a bedside skin biopsy to rule out potential connective tissue disorders that would help the patient down the road for further management. Review of Systems Const: Denies: fever, chills, body aches, change in appetite, malaise, night sweats, diaphoresis, change in sleep pattern, daytime sleepiness or snoring Eyes: Denies: change in vision, blurry vision, photophobia, eye discomfort or eye discharge ENMT: Denies: throat pain, enlarged tonsils, hoarseness, mouth pain, oral sores/lesions, dry mouth, tinnitus, nasal congestion or post nasal drip Card: Denies: chest pain, palpitations, irregular heart rhythm, edema, swelling of feet/ankles, lightheadedness, syncope, pre-syncope, shortness of breath on exertion, shortness of breath when lying down, leg pain with exertion or bluish discoloration of hands/feet Resp: Reports: shortness of breath, productive cough and wheezing; Denies: non-productive cough, stridor, pain on inspiration, change in phlegm color, coughing up blood or chest congestion GI: Denies: abdominal pain, nausea, vomiting, vomiting blood, coffee grounds in vomit, difficulty swallowing, heartburn/indigestion, diarrhea, constipation, bloating, cramping, change in bowel habits, painful bowel movements, blood in stool or black tarry stool : Denies: flank pain, painful urination, urinary frequency, urinary urgency, urinary hesitancy, nighttime urination or blood in urine Musc: Denies: neck pain, back pain, extremity pain, joint pain, joint swelling, redness, joint stiffness or limited range of motion Neuro: Denies: headache, numbness in extremities, weakness in extremities, changes in sensation, lack of coordination, difficulty walking, frequent falls, dizziness, vertigo, confusion, slurred speech, difficulty communicating thoughts or seizure-like activity Psych: Denies: anxiety, depression, mood swings, panic attacks, hopelessness or irritability Endo: Denies: excessive urination, excessive thirst, tired all the time, cold intolerance, excessive sweating, flushing or heat intolerance Yonatan/Lymph: Denies: easy bruising or easy bleeding All/Imm: Denies: tongue swelling, facial swelling or acute wheezing Meds/Allergies Home Medications and Allergies Home Medications Medication Instructions Recorded Confirmed Type Combivent Respimat 2 puff INHALATION Q6H PRN 30 Days 07/12/19 08/11/19 Rx #1 unit Lidocaine Viscous 15 ml MUCOUS MEM BID PRN #100 ml 07/12/19 08/11/19 Rx albuterol sulfate [Ventolin HFA] 2 puff INHALATION Q4H PRN 30 Days 07/12/19 08/11/19 Rx #1 unit amitriptyline 10 mg PO DAILY 30 Days #30 tab 07/12/19 08/11/19 Rx atenolol 100 mg PO DAILY 30 Days #60 tab 07/12/19 08/11/19 Rx cyclobenzaprine 10 mg PO DAILY PRN 30 Days #30 tab 07/12/19 08/11/19 Rx hydrochlorothiazide 6.25 mg PO DAILY 30 Days #30 tab 07/12/19 08/11/19 Rx latanoprost 1 drp OPHTHALMIC (EYE) BEDTIME 30 07/12/19 08/11/19 Rx Days #2.5 ml montelukast 10 mg PO DAILY 30 Days #30 tab 07/12/19 08/11/19 Rx albuterol sulfate 2.5 mg INHALATION Q6H PRN 07/24/19 08/11/19 History umeclidinium 62.5 mcg/actuation 1 inh INHALATION DAILY 07/24/19 08/11/19 History blister powder for inhalation budesonide 0.5 mg/2 mL suspension 0.5 mg INHALATION BID #120 ml 07/26/19 08/11/19 Rx for nebulization formoterol fumarate 20 mcg/2 mL 20 mcg INHALATION BID 30 Days #120 07/26/19 08/11/19 Rx solution for nebulization ml revefenacin 175 mcg/3 mL solution 175 mcg INHALATION DAILY #90 ml 07/26/19 08/11/19 Rx for nebulization budesonide-formoterol [Symbicort] 2 puff INHALATION BID 08/11/19 08/11/19 History furosemide 40 mg PO DAILY 08/11/19 08/11/19 History potassium chloride 40 meq PO BID 08/11/19 08/11/19 History prednisone See Rx Instructions .ROUTE .COMPLEX 08/11/19 08/11/19 History Allergies Allergy/AdvReac Type Severity Reaction Status Date / Time Penicillins Allergy Intermediate ALGY-Rash Verified 08/19/19 10:35 Sulfa (Sulfonamide AdvReac Severe ADR-Itching Verified 08/19/19 10:35 Antibiotics) codeine AdvReac Intermediate ADR-Itching Verified 08/19/19 10:35 Current Medications Current Medications Generic Name Dose Route Start Last Admin Trade Name Freq PRN Reason Stop Dose Admin Albuterol/Ipratropium 3 ml 08/11/19 15:32 08/18/19 14:03 Duoneb INHALATION 3 ml Q6H.RESPIRATORY ED Administration Albuterol/Ipratropium 3 ml 08/13/19 10:10 08/17/19 05:03 Duoneb INHALATION 3 ml Q4H PRN Administration SHORTNESS OF BREATH Alprazolam 0.5 mg 08/14/19 20:40 08/18/19 08:47 Xanax PO 0.5 mg Q4H PRN Administration ANXIETY Amitriptyline HCl 5 mg 08/14/19 21:00 08/17/19 21:54 Elavil PO 5 mg BEDTIME ED Administration Atenolol 100 mg 08/12/19 09:00 08/18/19 08:47 Tenormin PO 100 mg DAILY ED Administration Budesonide 0.5 mg 08/11/19 21:00 08/18/19 08:10 Pulmicort INHALATION 0.5 mg BID ED Administration Cyclobenzaprine HCl 10 mg 08/11/19 23:37 08/12/19 00:04 Flexeril PO 10 mg DAILY PRN Administration MUSCLE SPASMS Furosemide 40 mg 08/12/19 09:00 08/14/19 08:19 Lasix PO 40 mg DAILY ED Administration Heparin Sodium (Beef Lung) 5,000 unit 08/12/19 16:30 08/17/19 05:00 Heparin SUBCUT 5,000 unit Q8H ED Administration Levofloxacin/Dextrose 750 mg in 150 mls @ 150 mls/hr 08/17/19 19:00 08/18/19 00:54 Levaquin-D5w IV Infused Q24H ED Infusion Protocol Vancomycin HCl 1,000 mg/ 250 mls @ 250 mls/hr 08/18/19 13:00 08/18/19 12:46 Sodium Chloride IV 250 mls/hr Q18H ED Administration Protocol Latanoprost 1 drop 08/11/19 21:00 08/17/19 21:55 Xalatan EYE-BOTH 1 drop BEDTIME ED Administration Montelukast Sodium 10 mg 08/12/19 09:00 08/18/19 08:47 Singulair PO 10 mg DAILY ED Administration Non-Formulary Medication 6.25 mg 08/12/19 09:00 08/18/19 08:15 Hydrochlorothiazide PO Not Given DAILY ED Non-Formulary Medication 175 mcg 08/12/19 09:00 08/18/19 08:15 Revefenacin INHALATION Not Given DAILY ED Ondansetron HCl 4 mg 08/11/19 15:32 08/16/19 22:29 Zofran IVP 4 mg Q8H PRN Administration vomiting, or N/V if npo Potassium Chloride 40 meq 08/11/19 18:00 08/12/19 17:01 Klor-Con 10 PO 40 meq BID ED Administration Prednisone 40 mg 08/16/19 09:00 08/18/19 08:47 Prednisone PO 40 mg DAILY ED Administration PFSH Acute PFSH: Medical History RUPAL (acute kidney injury) Cataract Community acquired pneumonia COPD (chronic obstructive pulmonary disease) Glaucoma Hypertension Influenza A -Found to be influenza A positive -on droplet precautions -completed Tamiflu (day 09/25) On home oxygen therapy Sepsis with acute hypoxic respiratory failure Surgical History History of appendectomy Family History Mother Arrhythmia Father CAD (coronary artery disease) Social History Smoking and tobacco status: former smoker Quit status (tobacco): has quit using tobacco Year quit tobacco: 2015 - 1PPD x 50 Years Second hand smoke exposure: No Alcohol intake: never Caregiver/support person: Yes Lives independently: Yes Household members: family Current occupational status: disabled History of recent travel: No Current gender identity: Female Vitals/I&O/Wt Last Vital Signs Temp 98.7 F 08/18/19 15:13 Pulse 71 08/18/19 15:13 Resp 20 H 08/18/19 15:13 BP 123/67 08/18/19 15:13 Pulse Ox 99 08/18/19 15:13 08/18/19 08/18/19 08/18/19 06:59 14:59 22:59 Intake Total 150 / 755 240 / 240 Output Total 148 / 148 Balance 2 / 607 240 / 240 Weight last 48 hrs Weight 157 lb 14.4 oz Weight 153 lb 1.6 oz Physical Exam Narrative: EXAM NARRATIVE: Patient is conscious alert oriented X3 BMI 28 Head and neck examination PERRLA no masses no cervical lymphadenopathy no jaundice Cardiac examination audible S1-S2 no murmurs no gallops no arrhythmias Chest is clear bilateral,abscence of Rhonchi or wheezes,no surgical emphysema Abdomen nontender nondistended soft no organomegaly guarding or rigidity/no signs of peritonitis Bilateral pedal purpuric skin lesions Data Micro: Micro: Microbiology 08/18/19 11:38 Blood Culture - Pr eliminary Blood SPECIMEN [facility] 08/18/19 11:25 Blood Culture - Pr eliminary Blood SPECIMEN [facility] 08/17/19 15:55 Urine Culture - Pr eliminary Urine,Clean Catch Staphylococcus aureus A&P Assessment and plan (1) Skin lesion of foot: After thorough history physical examination and reviewing the chart and images with my personal interpretation, plan to perform a bedside procedure to obtain a skin biopsy from the right foot. Per hospitalist service that biopsy would rule out certain conditions that the patient could be treated for we will expedite the process of future management at the time the patient is being discharged from the hospital. And accordingly we will proceed with skin biopsy Informed consent per chart Status: Acute Code(s): L98.9 - Disorder of the skin and subcutaneous tissue, unspecified Consult Attestations Medical Necessity Statement: Per hospitalist service Time Spent in Patient Care: 16 - 35 minutes (>than 50% of time spent in counselling and/or direct pt care on unit). Coding Level of Care Code Acute Quality Engineer for [facility] Fwd Diagnoses Skin lesion of foot L98.9
[2019-08-18] MEDS: levofloxacin-dextrose 5 % 750 MG/150 ML PREMIX 150 MG IV (18:11)
[2019-08-18] MEDS: vancomycin 1,000 MG in sodium chloride 0.9% 250 ML 250 MG IV (19:55)
[2019-08-19] VITALS (13 sets, daily range): BP systolic 102–136; BP diastolic 57–82; PULSE 69–83; RESP 18–22; TEMP 36.6–37.1; O2SAT 92–100
[2019-08-19] MEDS: ipratropium-albuterol 3 mL Neb INHALATION ×4 (02:26→21:36)
[2019-08-19 05:42] LABS: Basophils % 0.3 %; Eosinophils # 0.1 10^3/uL (0.0-0.8); Eosinophils % 0.4 %; Hematocrit 33.1 % (37.0-47.0); Hemoglobin 10.4 g/dL (11.5-15.3); Lymphocytes # 0.9 10^3/uL (0.8-4.8); Lymphocytes % 7.9 %; Mean Corpuscular HGB Conc 31.4 g/dL (30.0-36.0); Mean Corpuscular Hemoglobin 29.8 pg (28.0-34.0); Mean Corpuscular Volume 94.8 fL (81-99); Mean Platelet Volume 10.3 fL (7.4-10.4); Monocytes # 0.8 10^3/uL (0.2-0.9); Monocytes % 6.9 %; Neutrophils # 9.6 10^3/uL (1.8-7.7); Neutrophils % 82.5 %; Nucleated Red Blood Cells % 0 %; Platelet Count 247 10^3/cmm (130-400); Red Blood Count 3.49 10^6/uL (4.1-5.3); Red Cell Distribution Width 12.9 % (12.1-15.1); White Blood Count 11.6 10^3/uL (4.0-10.0)
[2019-08-19 05:59] LABS: Alanine Aminotransferase 11 U/L (0-33); Albumin Level 2.6 g/dL (3.5-5.2); Alkaline Phosphatase 61 IU/L (35-105); Anion Gap 10.4 (5-19); Aspartate Amino Transferase 12 U/L (0-32); Blood Urea Nitrogen 16 mg/dL (8-23); Calcium 9.7 mg/dL (8.5-10.5); Carbon Dioxide 35 mmol/L (22-29); Chloride 96 mmol/L (98-107); Globulin 2.9 g/dL (1.3-4.6); Glucose 88 mg/dL (65-115); Osmolality Calculated 280 mOsm/kg (285-295); Potassium 4.4 mmol/L (3.5-5.1); Sodium 137 mmol/L (136-145); Total Bilirubin 0.3 mg/dL (0.15-1.2); Total Protein 5.5 g/dL (6.6-8.7)
[2019-08-19] MEDS: vancomycin 1,000 MG in sodium chloride 0.9% 250 ML 250 MG IV (06:19)
[2019-08-19] MEDS: budesonide 0.5 mg/2 mL Neb INHALATION ×2 (08:20→21:36)
[2019-08-19] MEDS: ALPRAZolam 0.5 mg Tablet PO ×2 (08:36→17:30)
[2019-08-19] MEDS: predniSONE 20 mg Tablet 40 MG PO (08:36)
[2019-08-19] MEDS: montelukast sodium 10 mg Tablet PO (08:37)
[2019-08-19] MEDS: atenolol 50 mg Tablet 100 MG PO (08:37)
--- NOTE | 2019-08-19 13:03 | P.PCN_ITS ---
Procedure/Consent Time out: Time Out Performed: Yes Procedure Narrative: Skin biopsy of the right foot Pre-procedure diagnosis: multiple purpuric rashes on the dorsum of both feet concern for connective tissue disorder Post-Procedure diagnosis the same Procedure done incisional biopsy of skin lesions of the right lower extremity Description of the procedure After thorough history physical examination and reviewing the chart, I counseled the patient for incisional biopsy of the right foot , informed consent per chart as patient did agree to proceed. Prep and drape of the designated area of the right foot was done under the usual sterile technique Time-out was done verifying the patient's name and date of the procedure and destination after the procedure and the procedure itself,all were in agreement. Lidocaine 1% was used for subcutaneous and skin infiltration 11 blade knife was used to obtain skin incisional biopsy all the way to the subcutaneous fat including the purpuric lesion involvement and healthier skin as well. Noticed patient had third space fluid due to edema Biopsy was sent for permanent in formalin Hemostasis was achieved using 3-0 nylon continue sutures, followed by triple antibiotic ointment and dry dressing the form of Band-Aid Patient tolerated the procedure well I was present for the whole entire procedure Complications: No immediate complications EBL: Less than 5 mL ml Specimens: Skin biopsy on the right dorsum of the foot all way to the subcutaneous layer including normal part of the skin Biopsy was sent for permanent in formalin and another container with normal saline Mode of anesthesia: Local lidocaine 1% Surgeon Hardeep Bonds MD [employer] Machine Tender MICA Springer Acute Procedures Epistaxis Control: Time out performed: Yes
--- NOTE | 2019-08-19 13:06 | PC.NURSE ---
SKIN BIOPSY Nurse assisted Dr Tripathi with skin biopsy of right foot at bedside, performed time out prior to procedure. Skin biopsy obtained and sent to lab for pathology. Patient resting comfortably in bed at this time with no pain.
--- NOTE | 2019-08-19 13:21 | PC.SOCIAL ---
IM follow up provided to patient she had no questions once explained.
[2019-08-19] MEDS: nystatin 100,000 unit/mL UDC 5 mL 100000 UNIT PO ×3 (14:39→20:07)
[2019-08-19] MEDS: FUROsemide 40 mg Tablet 20 MG PO (14:40)
--- NOTE | 2019-08-19 17:33 | P.PN_ITS ---
Subjective Subjective: Interval history: No acute event overnight. She denies any pain, has no headache, no vision changes, no neck pain, back pain, abdominal discomfort, or any other issues but states her shortness of breath is improved than before. Patient is due to get punch biopsy in the afternoon today with Dr. Bonds. Vitals/I&O/Wt Last Vital Signs Temp 98.0 F 08/19/19 11:39 Pulse 72 08/19/19 15:18 Resp 18 08/19/19 15:18 BP 115/64 08/19/19 11:39 Pulse Ox 98 08/19/19 15:18 08/19/19 08/19/19 08/19/19 06:59 14:59 22:59 Intake Total 600 / 600 Output Total 30 / 30 Balance 570 / 570 Weight last 48 hrs Weight 63.095 kg Weight 71.622 kg Weight 69.445 kg Physical Exam Narrative: EXAM NARRATIVE: General: No acute distress, AO x3 HEENT: PERRLA, pupils bilaterally equal and reactive Chest: Bilateral normal vesicular breath sounds, bilateral wheeze present anterior more than posterior, equal good air entry bilaterally CVS: S1-S2 regular, no murmurs, no tachycardia, no gallops, no rubs Abdomen: Soft, nontender, no organomegaly, bowel sounds present Neuro: No focal deficits, no facial deformity, AO x3, power 5/5 in all limbs Data : 08/19/19 05:10 08/19/19 05:10 Micro: Microbiology 08/18/19 11:38 Blood Culture - Preliminary Blood NEGATIVE TO DATE 08/18/19 11:25 Blood Culture - Preliminary Blood NEGATIVE TO DATE 08/17/19 15:55 Urine Culture - Final Urine,Clean Catch Methicillin Resis Staph Aureus 08/19/19 05:13 Blood Culture - Preliminary Blood SPECIMEN COLLECTED 08/19/19 05:10 Blood Culture - Preliminary Blood SPECIMEN COLLECTED A&P Assessment and plan (1) Hematuria: Status: Acute Code(s): R31.9 - Hematuria, unspecified (2) MRSA infection: Status: Acute Code(s): A49.02 - Methicillin resistant Staphylococcus aureus infection, unspecified site (3) Livedo reticularis: Status: Acute Code(s): R23.1 - Pallor (4) Acute exacerbation of chronic obstructive pulmonary disease (COPD): Status: Acute Code(s): J44.1 - Chronic obstructive pulmonary disease with (acute) exacerbation (5) Acute respiratory distress: Very low respiratory reserve. Combined with significant anxiety. Status: Acute Code(s): R06.03 - Acute respiratory distress (6) Hypertension: Blood pressures not elevated. Status: Acute Code(s): I10 - Essential (primary) hypertension (7) Lung nodules: Consider 6-month CT follow-up. Follow-up with pulmonology. Status: Acute Code(s): R91.8 - Other nonspecific abnormal finding of lung field (8) Diastolic CHF: Status: Acute Code(s): I50.30 - Unspecified diastolic (congestive) heart failure Additional A&P Information Hematuria: Resolved. Urine culture is growing MRSA. As mostly MRSA UTI are because of secondary infections patient would need extensive work-up for primary infections. Before doing that we will repeat urine culture to make sure MRSA reported before was not a contaminant. Blood cultures negative till now. Blood cultures remain negative we will not do extensive work-up such as HAKAN, CT spine. Patient at baseline not a good candidate for HAKAN given extensive COPD. Continue with vancomycin for now. If repeat urine cultures positive for MRSA and blood cultures remain negative patient would need vancomycin course for overall 7 days. As urine culture not growing any gram-negative. On the levofloxacin today. Sputum cultures in the past have been consistent with Danna most likely due to recurrent steroid, steroid inhaler use so we will start patient on nystatin swish and swallow. 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 Noted on uncovered knees 08/16. She does not remember seeing them before or whether this is something that recurs periodically. Possibly Raynaud's phenomenon, today with some improvement, and legs feel warmer. Pulses dopplerable in both lower extremities. Still some persistent changes visible on kneecaps. STELLA, [id number] DNA, complement treatment levels, hepatitis C negative. Rheumatoid factor 46 which is mildly elevated, ESR CRP mildly elevated. Respiratory swab minus urine mycoplasma levels awaited. Patient due for punch biopsy today. Dr. Bonds recommendations appreciated. Acute respiratory distress: Acute on chronic respiratory failure due to COPD exacerbation: This has been gradually improving. Continue with nebulizations [id number], prednisone 40 mg daily. Patient would most likely need slower steroid taper as an outpatient. Continue Xanax for anxiety along with Ativan as needed. Given recurrent steroid use patient would benefit from long-term PCP p rophylaxis. Most likely would need Bactrim DS as an outpatient while on steroids. COVID-19 is negative. She has been making more effort to work with physical therapy. Diastolic Heart failure: Normal EF. Currently does not appear fluid overloaded. Restart lasix oral dose but at 20 mg daily. Stop HTCZ. Anxiety: Continue chronic home medications like amitriptyline and cyclobenzaprine. Dispo: Has been accepted at SNF. Can most likely go once the work-up for hematuria is complete. Looking at discharge in next 1 to 2 days. Full code. Regular diet. Lovenox for DVT prophylaxis. Attestations Medical Necessity Statement*: MRSA UTI, COPD exacerbation. Time Spent in Patient Care: Greater than 35 minutes Coding Level of Care Code Acute Ethanol Operations Manager for [facility] Fwd Diagnoses Hematuria R31.9 MRSA infection A49.02 Livedo reticularis R23.1 Acute exacerbation of chronic obstructive pulmonary disease (COPD) J44.1 Acute respiratory distress R06.03 Hypertension I10 Lung nodules R91.8 Diastolic CHF I50.30
[2019-08-19] MEDS: heparin 5,000 unit/mL INJ 1 mL 5000 UNIT SUBCUT (22:14)
[2019-08-20] VITALS (14 sets, daily range): BP systolic 110–137; BP diastolic 58–68; PULSE 64–88; RESP 17–24; TEMP 36.1–36.7; O2SAT 92–100
[2019-08-20 00:33] LABS: Vancomycin Trough 18.1 ug/mL (10-15)
[2019-08-20] MEDS: vancomycin 1,000 MG in sodium chloride 0.9% 250 ML 250 MG IV ×2 (00:44→17:10)
[2019-08-20] MEDS: ipratropium-albuterol 3 mL Neb INHALATION ×4 (02:42→20:27)
[2019-08-20] MEDS: heparin 5,000 unit/mL INJ 1 mL 5000 UNIT SUBCUT ×3 (05:39→20:24)
--- NOTE | 2019-08-20 06:08 | PC.NURSE ---
Bladder scan on patient was 340 ml, orders received to straight cath patient. Straight cath patient resulted in 300 ml out. Patient tolerated well.
[2019-08-20 06:19] LABS: Basophils % 0.2 %; Eosinophils % 0.4 %; Hematocrit 32.9 % (37.0-47.0); Hemoglobin 10.5 g/dL (11.5-15.3); Lymphocytes # 1.3 10^3/uL (0.8-4.8); Lymphocytes % 12.1 %; Mean Corpuscular HGB Conc 31.9 g/dL (30.0-36.0); Mean Corpuscular Hemoglobin 30.4 pg (28.0-34.0); Mean Corpuscular Volume 95.4 fL (81-99); Monocytes # 0.8 10^3/uL (0.2-0.9); Monocytes % 7.9 %; Neutrophils # 8.1 10^3/uL (1.8-7.7); Nucleated Red Blood Cells % 0 %; Platelet Count 298 10^3/cmm (130-400); Red Blood Count 3.45 10^6/uL (4.1-5.3); Red Cell Distribution Width 13.2 % (12.1-15.1); White Blood Count 10.5 10^3/uL (4.0-10.0)
[2019-08-20 06:36] LABS: Alanine Aminotransferase 10 U/L (0-33); Albumin Level 2.4 g/dL (3.5-5.2); Alkaline Phosphatase 56 IU/L (35-105); Anion Gap 8.2 (5-19); Aspartate Amino Transferase 9 U/L (0-32); Blood Urea Nitrogen 15 mg/dL (8-23); Calcium 9.1 mg/dL (8.5-10.5); Carbon Dioxide 37 mmol/L (22-29); Chloride 97 mmol/L (98-107); Globulin 2.9 g/dL (1.3-4.6); Glucose 92 mg/dL (65-115); Osmolality Calculated 282 mOsm/kg (285-295); Potassium 4.2 mmol/L (3.5-5.1); Sodium 138 mmol/L (136-145); Total Bilirubin 0.3 mg/dL (0.15-1.2); Total Protein 5.3 g/dL (6.6-8.7)
--- NOTE | 2019-08-20 08:16 | PM.PN ---
Subjective Subjective: Interval history: Patient undergone uneventful bedside procedure to obtain a skin biopsy from the right foot Vitals/I&O/Wt Last Vital Signs Temp 97.2 F L 08/20/19 07:36 Pulse 64 08/20/19 07:36 Resp 22 H 08/20/19 07:36 BP 118/58 08/20/19 07:36 Pulse Ox 98 08/20/19 07:36 08/19/19 08/20/19 08/20/19 22:59 06:59 14:59 Output Total 300 / 330 Balance -300 / 520 Weight last 48 hrs Weight 169 lb 4.8 oz Weight 139 lb 1.6 oz Physical Exam Narrative: EXAM NARRATIVE: Patient is conscious alert oriented X3 BMI 30 Right foot incision is clean dry and intact Data : 08/20/19 06:05 08/20/19 06:05 Micro: Microbiology 08/19/19 05:13 Blood Culture - Preliminary Blood NEGATIVE TO DATE 08/19/19 05:10 Blood Culture - Preliminary Blood NEGATIVE TO DATE 08/18/19 11:38 Blood Culture - Preliminary Blood NEGATIVE TO DATE 08/18/19 11:25 Blood Culture - Preliminary Blood NEGATIVE TO DATE 08/17/19 15:55 Urine Culture - Final Urine,Clean Catch Methicillin Resis Staph Aureus A&P Assessment and plan (1) Skin lesion of foot: Daily application of triple antibiotic ointment and Band-Aid Follow on pathology report Return to surgery office as needed Recommend to DC sutures after 10 days Status: Acute Code(s): L98.9 - Disorder of the skin and subcutaneous tissue, unspecified Attestations Medical Necessity Statement*: Per hospitalist service Time Spent in Patient Care: less than 15 minutes Coding Level of Care Code Acute Director Process Improvement for [facility] Leroy Diagnoses Skin lesion of foot L98.9
[2019-08-20] MEDS: budesonide 0.5 mg/2 mL Neb INHALATION ×2 (08:41→20:27)
[2019-08-20] MEDS: montelukast sodium 10 mg Tablet PO (09:19)
[2019-08-20] MEDS: nystatin 100,000 unit/mL UDC 5 mL 100000 UNIT PO ×4 (09:20→20:24)
[2019-08-20] MEDS: predniSONE 20 mg Tablet 40 MG PO (09:20)
[2019-08-20] MEDS: atenolol 50 mg Tablet 100 MG PO (09:20)
[2019-08-20] MEDS: FUROsemide 40 mg Tablet 20 MG PO (09:20)
[2019-08-20] MEDS: neomycin-poly-bacitracin oint 28 gm 1 APPLIC TOPICAL (09:24)
[2019-08-20] MEDS: ALPRAZolam 0.5 mg Tablet PO ×2 (10:42→20:02)
[2019-08-20 13:46] LABS: CARDIOLIPIN AB (IGA) <11 APL; CARDIOLIPIN AB (IGG) <14 GPL; CARDIOLIPIN AB (IGM) <12 MPL
--- NOTE | 2019-08-20 16:28 | PM.PN ---
Subjective Subjective: Interval history: Patient states that her breathing overall is stable. She feels that it is slightly better than when she came in. She continues to have a deep cough and some shortness of breath associated with it. She states that she is unable to take sulfa medications. She took them approximately 10 years or more ago and had severe itching and felt like her throat was closing. Vitals/I&O/Wt Last Vital Signs Temp 97.6 F 08/20/19 15:05 Pulse 70 08/20/19 15:05 Resp 20 H 08/20/19 15:05 BP 112/62 08/20/19 15:05 Pulse Ox 99 08/20/19 15:05 08/20/19 08/20/19 08/20/19 06:59 14:59 22:59 Intake Total 480 / 480 Output Total 300 / 330 Balance -300 / 520 480 / 480 Weight last 48 hrs Weight 169 lb 4.8 oz Weight 139 lb 1.6 oz Physical Exam Narrative: EXAM NARRATIVE: General: Alert and oriented x3, thin build Mouth: Mildly dry mucous membranes without signs of thrush Cardiac: Regular rate and rhythm without murmurs Lungs: Severely decreased air entry bilaterally without crackles or rhonchi Abdomen: Soft, nontender without noted hepatosplenomegaly Extremities: No edema with petechia noted. Data : 08/20/19 06:05 08/20/19 06:05 Micro: Microbiology 08/19/19 13:50 Urine Culture - Preliminary Urine,Clean Catch 08/19/19 05:13 Blood Culture - Preliminary Blood NEGATIVE TO DATE 08/19/19 05:10 Blood Culture - Preliminary Blood NEGATIVE TO DATE 08/18/19 11:38 Blood Culture - Preliminary Blood NEGATIVE TO DATE 08/18/19 11:25 Blood Culture - Preliminary Blood NEGATIVE TO DATE A&P Additional A&P Information 1. Acute COPD exacerbation -the patient has significantly decreased air entry bilaterally. She is on chronic steroids and may need to be on PCP prophylaxis. The patient is unable to tolerate sulfa secondary to severe itching and her throat swelling when she took it previously. I will give her a dose of azithromycin today and continue the course for 4 more days at 250 mg daily in case of an atypical pneumonia causing findings on the CT. Further considerations for PCP prophylaxis would be dapsone or atovaquone. 2. UTI -so far her urine culture is not showing signs of continued MRSA infection. Possible discontinuation of vancomycin upon discharge if it is suspected that this was a contaminant. 3. Hypertension -the patient's blood pressure is stable at this time. 4. Hematuria -so far the patient's work-up has not revealed a significant cause for her hematuria. May be able to discharge to nursing facility with consideration of outpatient cystoscopy to rule out a bladder cancer. 5. Prophylaxis -heparin Attestations Medical Necessity Statement*: Patient continues need inpatient hospitalization as we work-up her above issues and treat her underlying COPD. Possible discharge to nursing facility over the next 1 to 2 days. Coding Level of Care Code Acute [employer] Way Radio Technician for [facility]
[2019-08-20] MEDS: azithromycin 250 mg Tablet 500 MG PO (17:09)
[2019-08-21] VITALS (11 sets, daily range): BP systolic 111–126; BP diastolic 59–72; PULSE 69–89; RESP 16–20; TEMP 36.4–36.8; O2SAT 94–99
[2019-08-21] MEDS: ipratropium-albuterol 3 mL Neb INHALATION ×3 (02:38→14:00)
[2019-08-21] MEDS: heparin 5,000 unit/mL INJ 1 mL 5000 UNIT SUBCUT (05:12)
[2019-08-21 06:34] LABS: Basophils % 0.2 %; Eosinophils % 0.2 %; Hematocrit 35.7 % (37.0-47.0); Hemoglobin 11.3 g/dL (11.5-15.3); Lymphocytes # 1.4 10^3/uL (0.8-4.8); Lymphocytes % 16.2 %; Mean Corpuscular HGB Conc 31.7 g/dL (30.0-36.0); Mean Corpuscular Hemoglobin 30.8 pg (28.0-34.0); Mean Corpuscular Volume 97.3 fL (81-99); Mean Platelet Volume 9.8 fL (7.4-10.4); Monocytes # 0.8 10^3/uL (0.2-0.9); Monocytes % 8.9 %; Neutrophils # 6.3 10^3/uL (1.8-7.7); Neutrophils % 70.3 %; Nucleated Red Blood Cells % 0 %; Platelet Count 318 10^3/cmm (130-400); Red Blood Count 3.67 10^6/uL (4.1-5.3); Red Cell Distribution Width 12.9 % (12.1-15.1); White Blood Count 8.9 10^3/uL (4.0-10.0)
[2019-08-21 06:49] LABS: Alanine Aminotransferase 9 U/L (0-33); Albumin Level 2.8 g/dL (3.5-5.2); Alkaline Phosphatase 65 IU/L (35-105); Anion Gap 11.2 (5-19); Aspartate Amino Transferase 12 U/L (0-32); Blood Urea Nitrogen 13 mg/dL (8-23); Calcium 9.1 mg/dL (8.5-10.5); Carbon Dioxide 35 mmol/L (22-29); Chloride 97 mmol/L (98-107); Globulin 2.1 g/dL (1.3-4.6); Glucose 88 mg/dL (65-115); Magnesium 2.2 mg/dL (1.7-2.3); Osmolality Calculated 284 mOsm/kg (285-295); Phosphorus 3.1 mg/dL (2.5-4.5); Potassium 4.2 mmol/L (3.5-5.1); Sodium 139 mmol/L (136-145); Total Bilirubin 0.3 mg/dL (0.15-1.2); Total Protein 4.9 g/dL (6.6-8.7)
[2019-08-21] MEDS: budesonide 0.5 mg/2 mL Neb INHALATION (08:16)
[2019-08-21] MEDS: neomycin-poly-bacitracin oint 28 gm 1 APPLIC TOPICAL (09:07)
[2019-08-21] MEDS: montelukast sodium 10 mg Tablet PO (09:08)
[2019-08-21] MEDS: FUROsemide 40 mg Tablet 20 MG PO (09:08)
[2019-08-21] MEDS: nystatin 100,000 unit/mL UDC 5 mL 100000 UNIT PO (09:09)
[2019-08-21] MEDS: atenolol 50 mg Tablet 100 MG PO (09:09)
[2019-08-21] MEDS: predniSONE 20 mg Tablet 40 MG PO (09:09)
--- NOTE | 2019-08-21 10:40 | PC.SOCIAL ---
IMM Update Pg 2 of IMM updated with patient who verbalized understanding. Copy provided.
--- NOTE | 2019-08-21 11:33 | PM.DCS ---
Discharge Providers Date of Admission: 08/12/19 16:23 Date of Discharge: August 21, 2019 Attending Provider at Admission: Esau Stockton MD Attending Provider at Discharge: Esau Stockton MD Primary Care Provider: Misty Villaseñor MD Diagnoses at Discharge Discharge Diagnosis (1) Skin lesion of foot: Status: Acute (2) Diastolic CHF: Status: Acute (3) MRSA infection: Status: Acute (4) Hematuria: Status: Acute (5) Livedo reticularis: Status: Acute (6) Lung nodules: Status: Acute (7) Acute respiratory distress: Status: Acute (8) Acute exacerbation of chronic obstructive pulmonary disease (COPD): Status: Acute (9) COPD (chronic obstructive pulmonary disease): Status: Acute (10) Hypertension: Status: Acute Reason for Visit Reason for Visit: Reason For Visit: Resp Distress Hospital Course Discharge Summary: Melany Phan is a 74 year old female with past medical history of COPD on oxygen supplementation with 2 to 3 L of nasal cannula, unfortunately having monthly admission for last 4 months because of respiratory problems, hypertension, former smoker, anxiety, recent hospitalization in June for influenza and bacterial PNA when she needed intubation and was extubated on July 08. Patient [facility] 10 days [facility]. She states she was doing okay from a respiratory point of view. She presented to the ER on August 10 with history of that her symptoms started yesterday when she started having difficulty in breathing for which she took 50 mg of prednisone at home after which her symptoms improved but got worse again late in the evening. She thinks her symptoms are because she forgot to close a window a day prior because of which she was exposed to pollens. She states her cough and expectoration is at his baseline. She denies having any fever, runny nose, flulike symptoms, recent travels, recent sick contacts, orthopnea, PND. She thinks her feet are mildly more swollen as compared to her baseline. In the ER her blood work which was done was within normal limits except mildly elevated d-dimer for which CT head was done which is negative for any pulmonary embolism. Patient was admitted to the hospital for further management, pneumonia was ruled out with a negative procalcitonin, no fever, negative consolidation on the imaging COVID 19 was ruled out. Patient was treated with nebulization, steroid to which she responded well and within next 2 days was back to her baseline oxygen saturation of 2 L. Due to her severe deconditioning SNF placement was discussed with the patient to which she was agreeable. On the day of discharge she developed hematuria because of which discharge was discontinued. Urine studies were concerning for possible UTI eventually her urine cultures grew MRSA. Her blood cultures remained negative. Because MRSA UTI is very uncommon as a primary infection is most likely suggestive of embolic event repeat urine cultures were sent on August 18 which has remained negative till now. Given the fact that blood cultures were negative and the repeat urine cultures are negative no further work-up was done to rule out primary embolic event as that would mean patient needing transesophageal echocardiogram which would be difficult for her given her respiratory status. TTE was done which was concerning for a normal EF, grade 1 diastolic dysfunction and mild mitral annular calcification. Because patient had hematuria and also had chronic papular lesions on her foot along with advanced COPD getting worse recently vasculitic work-up was done which has been negative for STELLA, anticardiolipin, rvne-kdufhm-pgycgdhx DNA, complement levels, hepatitis C but rheumatoid factor was mildly elevated. Patient also underwent punch biopsy of her lesions for which pathology results are still awaited. Patient is been discharged hemodynamically stable condition to SNF with respiratory status being at her baseline with advised to do a prolonged slow steroid taper as advised. Because patient has been on chronic steroids for so long patient would need PCP prophylaxis but unfortunately she is allergic to sulfa so Bactrim is not an option so she has been started on atovaquone to be given whenever patient is on steroids. Patient has completed her antibiotics for possible MRSA UTI for 4 days and is currently asymptomatic. Physical Exam Narrative: EXAM NARRATIVE: General: No acute distress, AO x3 HEENT: PERRLA, pupils bilaterally equal and reactive Chest: Bilateral normal vesicular breath sounds, bilateral wheeze present anterior more than posterior, equal good air entry bilaterally CVS: S1-S2 regular, no murmurs, no tachycardia, no gallops, no rubs Abdomen: Soft, nontender, no organomegaly, bowel sounds present Neuro: No focal deficits, no facial deformity, AO x3, power 5/5 in all limbs Discharge Data Data Completed and Pending: Completed Studies During Hospitalization Category Date Time Status CT angio chest PE protcl 90342 Urge nt Cat Scan 08/11/19 11:[address] chest wo con 7 1250 Routine Cat Scan 08/18/19 12:[address] head wo con* 7 1800 Routine Cat Scan 08/18/19 12:[address] kidney stone 7 4422 Routine Cat Scan 08/17/19 12:19 Completed CV echo complete* [id number] Routine Ultrasound 08/11/19 16:40 Completed Pending at discharge Category Date Time Status STELLA Screen w/ Ref efraín Routine Lab 08/17/19 13:00 Results Blood Culture AM LABS Lab 08/19/19 05:13 Results Blood Culture Sta t Lab 08/18/19 11:38 Results Miscellaneous Laila t Routine Lab 08/17/19 13:00 Received Miscellaneous Laila t Routine Lab 08/17/19 14:45 Received Mycoplasma/Ureapl asma Panel Routine Lab 08/17/19 15:55 Received Vancomycin Trough Timed Lab 08/21/19 12:00 Ordered Pathology: Surgic al [PTH] Routine Pth 08/21/19 08:34 Received Labs from last 24 hours 08/21/19 08/21/19 08/17/19 06:20 06:20 13:00 WBC 8.9 RBC 3.67 L Hgb 11.3 L Hct 35.7 L MCV 97.3 MCH 30.8 MCHC 31.7 RDW 12.9 Plt Count 318 MPV 9.8 Neut % (Auto) 70.3 Lymph % (Auto) 16.2 Wharton % (Auto) 8.9 Eos % (Auto) 0.2 Baso % (Auto) 0.2 Neut # (Auto) 6.3 Lymph # (Auto) 1.4 Wharton # (Auto) 0.8 Eos # (Auto) 0.0 Baso # (Auto) 0.0 Nucleated RBC % (a uto) 0 Nucleated RBCs # 0.0 Sodium 139 Potassium 4.2 Chloride 97 L Carbon Dioxide 35 H Anion Gap 11.2 BUN 13 Creatinine 0.7 Glucose 88 Calculated Osmolal ity 284 L Calcium 9.1 Phosphorus 3.1 Magnesium 2.2 Total Bilirubin 0.3 AST 12 ALT 9 Alkaline Phosphata se 65 C-React Prot High Sens 6.610 H Total Protein 4.9 L Albumin 2.8 L Globulin 2.1 Anti-Cardiolipin I gG Ab <14 Anti-Cardiolipin I gA Ab <11 Anti-Cardiolipin I gM Ab <12 Vitals: Last Vital Signs Temp 98.2 F 03/30/20 11:24 Pulse 70 08/21/19 11:24 Resp 18 08/21/19 11:24 BP 126/64 08/21/19 11:24 Pulse Ox 99 08/21/19 11:24 Discharge Plan Discharge Patient Disposition: Xfer SNF Condition: Stable Prescriptions: New furosemide 40 mg Tablet 20 mg PO DAILY Qty: 30 RF: 0 nystatin 100,000 unit/mL Suspension 100,000 unit PO QID Qty: 30 RF: 0 alprazolam 0.5 mg Tablet 0.5 mg PO Q4H PRN (Reason: Anxiety) Qty: 10 RF: 0 amitriptyline 10 mg Tablet 5 mg PO BEDTIME Qty: 30 RF: 0 prednisone 20 mg tablet See Rx Instructions .ROUTE .COMPLEX 28 Days Qty: 25 RF: 0 atovaquone 750 mg/5 mL suspension 1,500 mg PO DAILY Qty: 210 RF: 0 Continued Incruse Ellipta 62.5 mcg/actuation blister with device 1 inh INHALATION DAILY RF: 0 albuterol sulfate 2.5 mg /3 mL (0.083 %) solution for nebulization 2.5 mg INHALATION Q6H PRN (Reason: shortness of breath or wheezing) RF: 0 Perforomist 20 mcg/2 mL solution for nebulization 20 mcg INHALATION BID 30 Days Qty: 120 RF: 3 revefenacin 175 mcg/3 mL solution for nebulization 175 mcg INHALATION DAILY Qty: 90 RF: 3 budesonide [Pulmicort] 0.5 mg/2 mL suspension for nebulization 0.5 mg INHALATION BID Qty: 120 RF: 3 cyclobenzaprine 10 mg tablet 10 mg PO DAILY PRN (Reason: spasm) 30 Days Qty: 30 RF: 0 latanoprost 0.005 % drops 1 drp ophthalmic (eye) BEDTIME 30 Days Qty: 2.5 RF: 0 amitriptyline 10 mg tablet 10 mg PO DAILY 30 Days Qty: 30 RF: 0 Lidocaine Viscous 2 % solution 15 ml MUCOUS MEM BID PRN (Reason: pain) Qty: 100 RF: 0 montelukast 10 mg tablet 10 mg PO DAILY 30 Days Qty: 30 RF: 0 albuterol sulfate [Ventolin HFA] 90 mcg/actuation Hfa Aerosol Inhaler 2 puff INHALATION Q4H PRN (Reason: Shortness Of Breath) 30 Days Qty: 1 RF: 0 atenolol 50 mg tablet 100 mg PO DAILY 30 Days Qty: 60 RF: 0 Combivent Respimat 20-100 mcg/actuation Mist 2 puff INHALATION Q6H PRN (Reason: Shortness Of Breath) 30 Days Qty: 1 RF: 0 Symbicort 160-4.5 mcg/actuation Hfa Aerosol Inhaler 2 puff INHALATION BID RF: 0 potassium chloride 20 mEq tablet extended release 40 meq PO BID RF: 0 Discontinued hydrochlorothiazide 12.5 mg Tablet 6.25 mg PO DAILY 30 Days Qty: 30 RF: 0 furosemide 40 mg tablet 40 mg PO DAILY RF: 0 prednisone 50 mg Tablet See Rx Instructions .ROUTE .COMPLEX RF: 0 Discharge Orders: Discharge Order (Routine); Ordered 08/21/19 Ordered By: Esau Stockton Referrals: [facility] [Outside] iMsty Villaseñor MD [Primary Care Provider] - 2 weeks Meri Hicks MD [Physician] - 09/04/19 3:00 pm Discharge Diet: Cardiac Discharge Activity: Resume usual activity Patient Instructions: COPD, Hematuria - Female Activity Restrictions/Additional Instructions: Steroid taper indicated. Patient should be on atovaquone whenever on steroids for PCP prophylaxis given chronic steroid use for COPD exacerbation. Discharge Attestations Time Spent in Discharge Care*: greater than 30 min Specific Discharge Activities: Specific discharge activities: educating patient, discussing with shelter case manager/social workers/dc planners and evaluating patient/reviewing data Status at Discharge: Cognitive status at discharge: cognitively intact, Behavioral status at discharge: cooperative, Functional status at discharge: independent ambulation Overall status at discharge: patient is progressing back to baseline Quality Metrics Clinical Quality Measures During this hospital stay, did patient experience: None Coding Level of Care Code Acute Traffic Technician for [facility] Fwd Diagnoses Skin lesion of foot L98.9 Diastolic CHF I50.30 MRSA infection A49.02 Hematuria R31.9 Livedo reticularis R23.1 Lung nodules R91.8 Acute respiratory distress R06.03 Acute exacerbation of chronic obstructive pulmonary disease (COPD) J44.1 COPD (chronic obstructive pulmonary disease) J44.9 Hypertension I10
[2019-08-21 12:57] LABS: Vancomycin Trough 24.1 ug/mL (10-15)
[2019-08-21] MEDS: ALPRAZolam 0.5 mg Tablet PO (13:29)
--- NOTE | 2019-08-21 15:27 | PC.NURSE ---
Discharge Note This nurse called report to [facility]. IV was removed. Catheter in tact. Patient left by wheelchair.
== END 2019-08-21 14:02 | disposition skilled nursing facility (03) | DRG 191 ==
LOC: ER 14:46 → MEDSURG 15:03
PROVIDERS: Family Medicine; Internal Medicine; Admitting Provider Student in an Organized Health Care Education/Training Program; Emergency Provider Family Medicine; Family Provider Family Medicine; PCP Family Medicine; Visit Provider Student in an Organized Health Care Education/Training Program
DX: J44.1 Chronic obstructive pulmonary disease with (acute) exacerbation (principal); I50.32 Chronic diastolic (congestive) heart failure; I10 Essential (primary) hypertension; A49.02 Methicillin resistant Staphylococcus aureus infection, unspecified site; R91.8 Other nonspecific abnormal finding of lung field; R06.03 Acute respiratory distress; R31.9 Hematuria, unspecified; R23.3 Spontaneous ecchymoses; F41.9 Anxiety disorder, unspecified; L98.9 Disorder of the skin and subcutaneous tissue, unspecified; Z79.51 Long term (current) use of inhaled steroids; Z87.891 Personal history of nicotine dependence
CPT/HCPCS: 12345; 36415; 36600; 70450; 71250; 71275; 74176; 80048; 80053; 80202; 80500; 81001; 82803; 82805; 83735; 83880; 84100; 84145; 84484; 85018; 85025; 85610; 85651; 85730; 86038; 86140; 86141; 86147; 86160; 86225; 86431; 86803; 87040; 87077; 87086; 87186; 87635; 87804; 88304; 93005; 93010; 93306; 94640; 96372; 96374; 96375; 97110; 97161; 97530; 99283; G0378; J1644; J1940; J1956; J2405; J2920; J2930; J3370; J7050; J7512; J7626; Q0144; Q9967

== ENCOUNTER 2019-08-25 15:36 | Outpatient (CLI) | payer OTHER, SELFPAY | END 2019-08-25 15:37 | disposition home or self-care (01) | LOC: LAB 15:50 | PROVIDERS: Family Provider Family Medicine; PCP Family Medicine; Visit Provider Family Medicine | DX: R19.7 Diarrhea, unspecified (principal) | CPT/HCPCS: 87493 ==

== ENCOUNTER 2019-09-15 15:18 | Outpatient (RCR) | payer MEDICARE, OTHER, SELFPAY | END 2019-09-21 23:59 | disposition home or self-care (01) | LOC: WOUND 15:18 | PROVIDERS: Family Provider Family Medicine; PCP Family Medicine; Visit Provider Surgery | DX: I73.9 Peripheral vascular disease, unspecified (principal); L97.512 Non-pressure chronic ulcer of other part of right foot with fat layer exposed | CPT/HCPCS: 11042; 99213; G0463; L3260 ==

== ENCOUNTER 2019-09-21 16:07 | Outpatient (CLI) | payer MEDICARE, OTHER, SELFPAY ==
[2019-09-21 16:47] LABS: Alanine Aminotransferase 14 U/L (0-33); Albumin Level 3.5 g/dL (3.5-5.2); Alkaline Phosphatase 77 IU/L (35-105); Aspartate Amino Transferase 19 U/L (0-32); Blood Urea Nitrogen 11 mg/dL (8-23); Carbon Dioxide 29 mmol/L (22-29); Chloride 100 mmol/L (98-107); Globulin 2.8 g/dL (1.3-4.6); Glucose 91 mg/dL (65-115); Osmolality Calculated 282 mOsm/kg (285-295); Sodium 138 mmol/L (136-145); Total Bilirubin 0.2 mg/dL (0.15-1.2); Total Protein 6.3 g/dL (6.6-8.7)
[2019-09-21 16:49] LABS: Prealbumin 18.3 mg/dL (20-40)
== END 2019-09-21 16:08 | disposition home or self-care (01) ==
LOC: LAB 16:08
PROVIDERS: Family Provider Family Medicine; PCP Family Medicine; Visit Provider Surgery
DX: L98.499 Non-pressure chronic ulcer of skin of other sites with unspecified severity (principal); J44.9 Chronic obstructive pulmonary disease, unspecified; I50.9 Heart failure, unspecified
CPT/HCPCS: 80053; 84134

== ENCOUNTER 2019-09-22 15:45 | Outpatient (CLI) | payer MEDICARE, OTHER, SELFPAY | END 2019-09-22 15:46 | disposition home or self-care (01) | LOC: WOUND 09-25 13:43 | PROVIDERS: Family Provider Family Medicine; PCP Family Medicine; Visit Provider Surgery | DX: I73.9 Peripheral vascular disease, unspecified (principal); L97.512 Non-pressure chronic ulcer of other part of right foot with fat layer exposed | CPT/HCPCS: 11042 ==

== ENCOUNTER 2019-09-29 11:33 | Outpatient (RCR) | payer MEDICARE, OTHER, SELFPAY ==
--- NOTE | 2019-09-29 11:49 | XR_ITS ---
WS: [id number] FOOT RIGHT TECHNIQUE: 3 views of the right foot CLINICAL INFORMATION: PAIN, REDNESS NON HEALING ULCER COMPARISON: None. FINDINGS: Normal anatomic alignment. Soft tissue edema overlying the base of the fifth metatarsal. No evidence of osteomyelitis. Tiny plantar calcaneal spur. Dorsal midfoot and forefoot soft tissue edema. Joint s pace narrowing worse at the first MTP. XR/XR foot RT min 3V* [id number] IMPRESSION: Soft tissue edema overlying the base of the fifth metatarsal. No evidence of os teomyelitis
== END 2019-10-22 23:59 | disposition home or self-care (01) ==
LOC: RADWPI 11:33
PROVIDERS: PCP Family Medicine; Visit Provider Surgery
DX: M79.671 Pain in right foot (principal); R60.0 Localized edema
CPT/HCPCS: 73630

== ENCOUNTER 2019-09-29 13:05 | Outpatient (CLI) | payer MEDICARE, OTHER, SELFPAY | END 2019-09-29 13:06 | disposition home or self-care (01) | LOC: WOUND 13:06 | PROVIDERS: PCP Family Medicine; Visit Provider Surgery | DX: I73.9 Peripheral vascular disease, unspecified (principal); L97.522 Non-pressure chronic ulcer of other part of left foot with fat layer exposed | CPT/HCPCS: 11042; A6530 ==

== ENCOUNTER 2019-10-06 13:41 | Outpatient (CLI) | payer MEDICARE, OTHER, SELFPAY | END 2019-10-06 13:42 | disposition home or self-care (01) | LOC: WOUND 13:42 | PROVIDERS: PCP Family Medicine; Visit Provider Surgery | DX: I73.9 Peripheral vascular disease, unspecified (principal); L97.512 Non-pressure chronic ulcer of other part of right foot with fat layer exposed | CPT/HCPCS: 11042; A6530 ==

== ENCOUNTER 2019-10-13 14:45 | Outpatient (CLI) | payer MEDICARE, OTHER, SELFPAY | END 2019-10-13 14:46 | disposition home or self-care (01) | LOC: WOUND 14:47 | PROVIDERS: PCP Family Medicine; Visit Provider Surgery | DX: I73.9 Peripheral vascular disease, unspecified (principal); L97.512 Non-pressure chronic ulcer of other part of right foot with fat layer exposed | CPT/HCPCS: 11042 ==

== ENCOUNTER 2019-10-20 14:14 | Outpatient (CLI) | payer MEDICARE, OTHER, SELFPAY | END 2019-10-20 14:15 | disposition home or self-care (01) | LOC: WOUND 14:15 | PROVIDERS: PCP Family Medicine; Visit Provider Surgery | DX: T81.89XA Other complications of procedures, not elsewhere classified, initial encounter (principal); Y83.8 Other surgical procedures as the cause of abnormal reaction of the patient, or of later complication, without mention of misadventure at the time of the procedure | CPT/HCPCS: 11042 ==

== ENCOUNTER 2019-10-27 14:00 | Outpatient (CLI) | payer MEDICARE, OTHER, SELFPAY | END 2019-10-27 14:01 | disposition home or self-care (01) | LOC: WOUND 14:01 | PROVIDERS: PCP Family Medicine; Visit Provider Surgery | DX: T81.89XA Other complications of procedures, not elsewhere classified, initial encounter (principal); Y83.8 Other surgical procedures as the cause of abnormal reaction of the patient, or of later complication, without mention of misadventure at the time of the procedure | CPT/HCPCS: 97597 ==

== ENCOUNTER 2019-11-10 14:09 | Outpatient (CLI) | payer MEDICARE, OTHER, SELFPAY | END 2019-11-10 14:10 | disposition home or self-care (01) | LOC: WOUND 14:12 | PROVIDERS: PCP Family Medicine; Visit Provider Surgery | DX: Z09 Encounter for follow-up examination after completed treatment for conditions other than malignant neoplasm (principal) | CPT/HCPCS: 99212 ==

== ENCOUNTER 2019-11-14 15:49 | Outpatient (CLI) | payer MEDICARE, OTHER, SELFPAY ==
[2019-11-14 19:51] LABS: Anion Gap 17.8 (5-19); Blood Urea Nitrogen 21 mg/dL (8-23); Calcium 9.3 mg/dL (8.5-10.5); Carbon Dioxide 27 mmol/L (22-29); Chloride 97 mmol/L (98-107); Glucose 95 mg/dL (65-115); Osmolality Calculated 282 mOsm/kg (285-295); Potassium 3.8 mmol/L (3.5-5.1); Sodium 138 mmol/L (136-145)
== END 2019-11-14 15:50 | disposition home or self-care (01) ==
PROVIDERS: PCP Family Medicine; Visit Provider Family Medicine
DX: I50.9 Heart failure, unspecified (principal); I73.9 Peripheral vascular disease, unspecified
CPT/HCPCS: 80048

== ENCOUNTER 2022-01-06 13:56 | Inpatient (IN) | payer MEDICARE, SELFPAY ==
[2022-01-06] VITALS (45 sets, daily range): BP systolic 91–175; BP diastolic 47–96; PULSE 83–125; RESP 12–100; TEMP 34.2–36.7; O2SAT 93–100; BMI 17.6
--- NOTE | 2022-01-06 13:59 | XRR_ITS ---
PROCEDURE INFORMATION: Exam: XR Chest Exam date and time: 01/06/2022 2:07 PM Age: 76 years old Clinical indication: Dyspnea TECHNIQUE: Imaging protocol: Radiologic exam of the chest. Views: 1 view. COMPARISON: CT chest [facility] [id number] 08/18/2019 1:51 PM FINDINGS: Lungs: Hyperinflation. Mild scarring involving both lung bases. No focal infiltrate. Pleural spaces: Unremarkable. No pleural effusion. No pneumothorax. Heart/Mediastinum: Unremarkable. No cardiomegaly. Bones/joints: Unremarkable. XR/XR chest 1V portable [id number] IMPRESSION: No acute findings.
--- NOTE | 2022-01-06 14:05 | W.ED.GENADLT ---
HPI - General Adult General: Chief complaint: Shortness of Breath/Dyspnea Stated complaint: ACUTE RESPIRATORY DISTRESS Time Seen by Provider: 01/06/22 13:59 History of Present Illness: Mario is a 76-year-old female full code with history of COPD presenting to emergency room acute respiratory distress. Patient tells me since yesterday, she has had increased shortness of breath and wheezing. Patient also reports nonproductive cough. Denies any fevers or chills, diarrhea/melena/hematochezia. No complaints or abdominal pain. Patient denies any active chest pain. Patient states that her symptoms are not relieved with albuterol at home. EMS was called patient was brought to the emergency room. In route, patient received 2 treatments of DuoNeb. Patient did not receive any steroids by EMS. Patient is noted to have increased work of breathing and respiratory distress. Onset: yesterday night Duration:ongoing Location:home Severity:moderate Associated symptoms: Reports dyspnea; Deny chest pain, nausea, rash, palpitations or vomiting Review of Systems Const: Denies: fever(s) or chills Eyes: Denies: change in vision ENMT: Denies: mouth pain Card: Denies: chest pain or palpitations Resp: Reports: dyspnea, non-productive cough and other (+wheezing b/l) GI: Denies: abdominal pain, nausea, vomiting or diarrhea : Denies: dysuria Musc: Denies: extremity pain Skin/Breast: Denies: rash or new lesions Neuro: Denies: weakness in extremities Psych: Reports: other (Normal mood) Yonatan/Lymph: Denies: easy bruising PFSH ED PFSH: Medical History RUPAL (acute kidney injury) Cataract Community acquired pneumonia COPD (chronic obstructive pulmonary disease) Diastolic CHF Glaucoma Hypertension Influenza A -Found to be influenza A positive -on droplet precautions -completed Tamiflu (day 09/25) On home oxygen therapy Sepsis with acute hypoxic respiratory failure Surgical History History of appendectomy Family History Mother Arrhythmia Father CAD (coronary artery disease) Social History Smoking and tobacco status: former smoker Quit status (tobacco): has quit using tobacco Year quit tobacco: 2015 - 1PPD x 50 Years Second hand smoke exposure: No Alcohol intake: never Caregiver/support person: Yes Lives independently: Yes Household members: family Current occupational status: disabled History of recent travel: No Current gender identity: Female Physical Exam Const: COMMON NORMALS: alert HENMT: COMMON NORMALS: atraumatic HEAD & SCALP: atraumatic MOUTH: moist mucous membranes not abnormal Eye: COMMON NORMALS: EOMs intact bilaterally and conjunctivae normal CONJUNCTIVA: Yes conjunctivae normal Neck/C-Spine: COMMON NORMALS: full ROM and supple Resp: OTHER: + Moderate increased work of breathing with accessory muscle, wheezing throughout the lung scott Cardio: RATE: tachycardic GI: COMMON NORMALS: Soft to palpation and non-tender PALPATION: Yes Soft to palpation OTHER: No focal TTP. NO guarding rebound, guarding, rigidity. No CVA tenderness to percussion. Neg Giron/Neg McBurney's point tenderness, no suprabupic tenderness to palpation. Extremity: COMMON NORMALS: full ROM Neuro: SENSORIUM/ORIENTATION: Yes alert MOTOR EXAM: No Abnormal motor strength present and Other motor observations present (no focal motor deficits) Psych: COMMON NORMALS: speech normal SPEECH: Yes normal speech MOOD & AFFECT: Yes euthymic mood Procedures Central Line Placement Left Femoral: Time Out Performed: Yes Patient Placed on Monitor/Pulse Ox: Yes MD Prep: mask, gown and gloves Central Line Prep: Povidone-Iodine 1% Ultrasound Used for Placement: Yes Central Line Lumen Inserted: triple Post Procedure: sutured in place, good blood return, all ports aspirated, flushed, capped and sterile dressing applied Patient Tolerated Procedure: well and no complications Intubation Time out performed: Yes sedative: Ketamine Mg Given: 150 paralytic: Succinylcholine Mg Given: 100 Laryngoscope: Veronica ET Tube Size: 8 ET Tube Uncuffed: No Tube Secured Depth (cm): 21 Course Vital Signs: Vital signs: Vital Signs Temperature 97.3 F L 01/07/22 15:55 Pulse Rate 108 H 01/07/22 15:55 Respiratory Rate 18 01/07/22 15:55 Blood Pressure 160/72 01/07/22 15:55 Pulse Oximetry 90 01/07/22 15:55 Oxygen Delivery Me thod 01/07/22 15:55 Oxygen Flow Rate 2 01/07/22 15:55 Fraction of Inspir ed Oxygen 30 01/07/22 11:27 MDM - General Adult Medical Decision Making Patient is 76-year-old female with history of focal COPD presenting to the emergency acute COPD exacerbation. Patient on physical exam, patient satting at 98% on room air. Patient do not have significant increased work of breathing and accessory muscle use. Patient has diffuse wheezing throughout the lung scott. Patient received multiple DuoNeb treatments, terbutaline and solu-medrol without improvement in symptoms. Patient was placed on BiPAP. Repeat gas appears to be improving, patient demonstrates significant increased work of breathing. Patient also received 0.15mg/kg of ketamine in 250cc of IVF over 10 minutes for anxiolytic and bronchodilation. However patient continues to have significant increased work of breathing. Decision was made to intubate after discussion with patient and family. Please refer to the procedure note for intubation. Patient will be receiving inline treatment for DuoNeb and will be admitted to ICU. Disposition: ICU Lab Data : 01/07/22 03:38 01/07/22 03:38 Radiology Impressions Chest X-Ray 01/06/22 15:25 IMPRESSION: No acute findings. KUB X-Ray 01/06/22 15:39 IMPRESSION: There is an orogastric tube with tip in the stomach. Renal Ultrasound 01/07/22 00:18 IMPRESSION: 1. Normal renal ultrasound. 2. Bladder not visualized. Laboratory Results WBC 11.3 10^3/uL (4.0-10.0) H 01/06/22 13:41 RBC 4.39 10^6/uL (4.1-5.3) 01/06/22 13:41 Hgb 14.1 g/dL (11.5-15.3) 01/06/22 13:41 Hct 42.5 % (37.0-47.0) 01/06/22 13:41 MCV 96.8 fl (81-99) 01/06/22 13:41 MCH 32.1 pg (28.0-34.0) 01/06/22 13:41 MCHC 33.2 g/dL (30.0-36.0) 01/06/22 13:41 RDW 12.5 % (12.1-15.1) 01/06/22 13:41 Plt Count 318 10^3/cmm (130-400) 01/06/22 13:41 MPV 10.3 fL (7.4-10.4) 01/06/22 13:41 Neut % (Auto) 49.9 % 01/06/22 13:41 Lymph % (Auto) 38.0 % 01/06/22 13:41 [place] % (Auto) 7.1 % 01/06/22 13:41 Eos % (Auto) 3.9 % 01/06/22 13:41 Baso % (Auto) 0.8 % 01/06/22 13:41 Neut # (Auto) 5.66 10^3/uL (1.8-7.7) 01/06/22 13:41 Lymph # (Auto) 4.3 10^3/uL (0.8-4.8) 01/06/22 13:41 [place] # (Auto) 0.8 10^3/uL (0.2-0.9) 01/06/22 13:41 Eos # (Auto) 0.4 10^3/uL (0.0-0.8) 01/06/22 13:41 Baso # (Auto) 0.1 10^3/uL (0.0-0.1) 01/06/22 13:41 Nucleated RBC % (auto) 0 % 01/06/22 13:41 Nucleated RBCs # 0.0 /100WBC 01/06/22 13:41 Specimen Type Arterial 01/06/22 15:12 Sample Site Not specified 01/06/22 15:12 Sven Test N/a 01/06/22 15:12 VBG pH 7.18 (7.32-7.42) L* 01/06/22 15:12 VBG pCO2 77.6 mmHg (41-51) H* 01/06/22 15:12 VBG pO2 30.6 mmHg (25-40) 01/06/22 15:12 VBG HCO3 29.1 mmol/L (24-28) H 01/06/22 15:12 VBG Base Excess -1.5 mmol/L (-3.0-3.0) 01/06/22 15:12 VBG Hematocrit 43.5 % (37-47) 01/06/22 15:12 O2 Delivery Device Bipap 01/06/22 15:12 FiO2 40.0 % 01/06/22 15:12 Sales And Service Engineer ID Venous 01/06/22 15:12 Sodium 137 mmol/L (136-145) 01/06/22 13:41 Potassium 4.2 mmol/L (3.5-5.1) 01/06/22 13:41 Chloride 101 mmol/L (98-107) 01/06/22 13:41 Carbon Dioxide 29 mmol/L (22-29) 01/06/22 13:41 Anion Gap 11.2 (5-19) 01/06/22 13:41 BUN 8 mg/dL (8-23) 01/06/22 13:41 Creatinine 0.8 mg/dL (0.5-0.9) 01/06/22 13:41 GFR Calculation Not Reportable 01/06/22 13:41 Glucose 136 mg/dL (65-115) H 01/06/22 13:41 Calculated Osmolality 284 mOsm/kg (285-295) L 01/06/22 13:41 Calcium 8.6 mg/dL (8.5-10.5) 01/06/22 13:41 Troponin T Baseline 19 ng/L (0-10) H 01/06/22 13:41 NT-Pro-B Natriuret Pep 456 pg/mL (0-450) H 01/06/22 13:41 Imaging Data Other Imaging: Radiologist's impression: [address] [address] XRay Report Signed Patient: Melany Phan Unit #: [id number] : 1945 Age/Sex: 76 / F ADM Date: 01/06/22 Loc: ER Room/Bed: Attending Dr: Ordering Provider/Ordering MD: Caio Barone MD Date of Service: 01/06/22 Procedure(s): XR chest 1V portable [id number] Accession Number(s): [id number] Report Number: [id number] PROCEDURE INFORMATION: Exam: XR Chest Exam date and time: 01/06/2022 2:07 PM Age: 76 years old Clinical indication: Dyspnea TECHNIQUE: Imaging protocol: Radiologic exam of the chest. Views: 1 view. COMPARISON: CT chest wo con [id number] 08/18/2019 1:51 PM FINDINGS: Lungs: Hyperinflation. Mild scarring involving both lung bases. No focal infiltrate. Pleural spaces: Unremarkable. No pleural effusion. No pneumothorax. Heart/Mediastinum: Unremarkable. No cardiomegaly. Bones/joints: Unremarkable. XR/XR chest 1V portable [id number] IMPRESSION: No acute findings. ? Dictated By: Ramon Bethea MD Signed By: Ramon Bethea MD Signed Date/Time: 01/06/221424 DD/ 140 Critical Care Time Critical Care Time: Critical Care Time: Yes Total Critical Care Time: 35 Attestation: The high probability of a clinically significant, sudden or life threatening deterioration of the patient's pulmonary system(s) required my full and direct attention, intervention and personal management. The critical care time is as shown. This time is in addition to time spent performing any reported procedures but includes the following: [x] Data and vital sign review and interpretation [x] Patient assessment, examination and intervention [x] Documentation [x] Medication orders and management Discharge Plan Discharge Patient Disposition: Admitted As Inpatient Admit Provider: Cynthia Garcia Clinical Impression: Dyspnea, COPD exacerbation, Hypercapnic respiratory failure Condition: Stable Coding Level of Care Code ED Contracts Specialist for Aaliyah Fwd Exam Comprehensive
[2022-01-06] MEDS: ipratropium-albuterol 3 mL Neb INHALATION ×6 (14:17→23:09)
[2022-01-06] MEDS: terbutaline 1 mg/mL INJ 0.25 MG SUBCUT (14:35)
[2022-01-06 14:42] LABS: Basophils # 0.1 10^3/uL (0.0-0.1); Basophils % 0.8 %; Eosinophils # 0.4 10^3/uL (0.0-0.8); Eosinophils % 3.9 %; Hematocrit 42.5 % (37.0-47.0); Hemoglobin 14.1 g/dL (11.5-15.3); Lymphocytes # 4.3 10^3/uL (0.8-4.8); Mean Corpuscular HGB Conc 33.2 g/dL (30.0-36.0); Mean Corpuscular Hemoglobin 32.1 pg (28.0-34.0); Mean Corpuscular Volume 96.8 fl (81-99); Mean Platelet Volume 10.3 fL (7.4-10.4); Monocytes # 0.8 10^3/uL (0.2-0.9); Monocytes % 7.1 %; Neutrophils # 5.66 10^3/uL (1.8-7.7); Neutrophils % 49.9 %; Nucleated Red Blood Cells % 0 %; Platelet Count 318 10^3/cmm (130-400); Red Blood Count 4.39 10^6/uL (4.1-5.3); Red Cell Distribution Width 12.5 % (12.1-15.1); White Blood Count 11.3 10^3/uL (4.0-10.0)
[2022-01-06] MEDS: sodium chloride 0.9% 250 ML IV (14:44)
--- NOTE | 2022-01-06 14:49 | ECG_ITS ---
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 Measurements Intervals [place] Rate: 122 P: RI: QRS: 65 QRSD: 114 T: 96 QT: 296 QTc: 422 Interpretive Statements SINUS TACHYCARDIA POSSIBLE RIGHT VENTRICULAR CONDUCTION DELAY [RSR (QR) IN V1/V2] ST DEVIATION AND MODERATE T-WAVE ABNORMALITY, CONSIDER INFERIOR ISCHEMIA Compared to ECG 08/17/2019 08:19:21 Sinus tachycardia no longer present T-wave abnormality still present Possible ischemia still present Electronically Signed On 01-07-2022 14:54:03 CDT by Padmini Moffett M.D. [id number]
[2022-01-06 15:09] LABS: Troponin(5th) Baseline 19 ng/L (0-10)
[2022-01-06 15:17] LABS: Blood Urea Nitrogen 8 mg/dL (8-23); Calcium 8.6 mg/dL (8.5-10.5); Carbon Dioxide 29 mmol/L (22-29); Chloride 101 mmol/L (98-107); Glucose 136 mg/dL (65-115); NT Pro B Type Natriuretic Pept 456 pg/mL (0-450); Osmolality Calculated 284 mOsm/kg (285-295); Sodium 137 mmol/L (136-145)
[2022-01-06 15:24] LABS: Base Excess VBG -1.5 mmol/L (-3.0-3.0); Blood Gas Operator Identificat VENOUS; Blood Gas Sample Site Not specified; Blood Gas Sample Type Arterial; HCO3 VBG 29.1 mmol/L (24-28); Oxygen Device BIPAP; PCO2 VBG 77.6 mmHg (41-51); PO2 VBG 30.6 mmHg (25-40); Venous Blood Gas Hematocrit 43.5 % (37-47); pH VBG 7.18 (7.32-7.42)
[2022-01-06 15:25] LABS: Anion Gap 11.2 (5-19); Potassium 4.2 mmol/L (3.5-5.1)
--- NOTE | 2022-01-06 15:25 | XRR_ITS ---
PROCEDURE INFORMATION: Exam: XR Chest Exam date and time: 01/06/2022 3:53 PM Age: 76 years old Clinical indication: Device placement; Ett placement (vent status); Additional info: Post-intubation TECHNIQUE: Imaging protocol: Radiologic exam of the chest. Views: 1 view. COMPARISON: CR XR chest 1V portable [id number] 01/06/2022 2:07 PM FINDINGS: Tubes, catheters and devices: There is an endotracheal tube the level clavicles over 7 cm above the jayme. Lungs: The lungs are hyperinflated. Minimal stable linear scarring is seen in each lung base. Pleural spaces: Unremarkable. No pleural effusion. No pneumothorax. Heart/Mediastinum: Unremarkable. No cardiomegaly. Bones/joints: Unremarkable. XR/XR chest 1V portable [id number] IMPRESSION: No acute findings.
--- NOTE | 2022-01-06 15:39 | XRR_ITS ---
PROCEDURE INFORMATION: Exam: XR Abdomen Exam date and time: 01/06/2022 5:01 PM Age: 76 years old Clinical indication: Device placement; Gi device; Nasogastric tube; Additional info: Post tube placement TECHNIQUE: Imaging protocol: Radiologic exam of the abdomen. Views: Frontal supine view of the abdomen. 1 View. COMPARISON: CT kidney stone [id number] 08/17/2019 3:21 PM FINDINGS: Tubes, catheters and devices: There is an orogastric tube with tip in the stomach. Lungs: Severe hyperinflation of the lungs/COPD is noted. Gastrointestinal tract: Normal. No bowel dilation. Bones/joints: Unremarkable. XR/XR KUB portable [id number] IMPRESSION: There is an orogastric tube with tip in the stomach.
[2022-01-06] MEDS: succinylcholine 20 mg/mL SDV 10mL 100 MG IV (15:40)
--- NOTE | 2022-01-06 16:15 | PM.HP ---
Providers/Chief Complaint Admitting Physician: Cynthia Garcia MD Primary Care Provider: Misty Villaseñor MD Chief Complaint: ACUTE RESPIRATORY DISTRESS History of Present Illness Melany Phan is a 76 year old female carries history of oxygen dependent COPD uses 3 L , active smoker, presented to the hospital for worsening shortness of breath. Patient was struggling with increased work of breathing in the ER she was put on BiPAP for an hour, she had active wheezing, she received steroids, blood gas revealed respiratory acidosis, ER physician gave her 150 mg of ketamine and then intubated her with endotracheal tube size 8 22 cm at the lip bite I have requested RT to get another blood gas currently she is on mechanical ventilator FiO2 40% PEEP 5 tidal volume 400 respiratory rate 14 She is on propofol and fentanyl, MAP 64 mmHg, I requested nurse to cut down on propofol and increase fentanyl to 100 Left groin central line has been placed by Dr. Barone. We will start Levophed I would request echo Wean off vasopressors overnight Review of Systems General: Reports: ROS unobtainable due to endotracheal tube Medications/Allergies Home Medications Medication Instructions Recorded Confirmed Last Taken Type albuterol sulfate 90 mcg/actuation 2 puff inhalation Q4H PRN 07/12/19 01/06/22 07/13/19 Rx aerosol inhaler (Ventolin HFA) Shortness Of Breath 30 days #1 unit atenolol 50 mg tablet 100 mg PO DAILY 30 days #60 tabs 07/12/19 01/06/22 08/10/19 Rx cyclobenzaprine 10 mg tablet 10 mg PO DAILY PRN spasm 30 days 07/12/19 01/06/22 08/10/19 Rx #30 tabs ipratropium 20 mcg-albuterol 100 2 puff inhalation Q6H PRN 07/12/19 01/06/22 08/11/19 13:00 Rx mcg/actuation mist for inhalation Shortness Of Breath 30 days #1 unit (Combivent Respimat) latanoprost 0.005 % eye drops 1 drp ophthalmic (eye) BEDTIME 30 07/12/19 01/06/22 07/12/19 Rx days #2.5 mL lidocaine HCl 2 % mucosal solution 15 ml mucous membrane BID PRN pain 07/12/19 01/06/22 07/12/19 Rx (Lidocaine Viscous) #100 mL montelukast 10 mg tablet 10 mg PO DAILY 30 days #30 tabs 07/12/19 01/06/22 07/13/19 Rx albuterol sulfate 2.5 mg inhalation Q6H PRN 07/24/19 01/06/22 Unknown History Shortness Of Breath umeclidinium 62.5 mcg/actuation 1 inh inhalation DAILY 07/24/19 01/06/22 08/11/19 History blister powder for inhalation (Incruse Ellipta) budesonide-formoterol HFA 160 2 puff inhalation BID 08/11/19 01/06/22 Unknown History mcg-4.5 mcg/actuation aerosol inhaler (Symbicort) furosemide 40 mg tablet 20 mg PO DAILY #30 tabs 08/21/19 01/06/22 Unknown Rx revefenacin 175 mcg/3 mL solution See Rx Instructions .Route 09/06/20 01/06/22 Unknown Rx for nebulization (Yupelri) .COMPLEX #30 vials budesonide 0.5 mg/2 mL suspension See Rx Instructions .Route 09/09/20 01/06/22 Unknown Rx for nebulization .COMPLEX #60 vials formoterol fumarate 20 mcg/2 mL See Rx Instructions .Route 09/09/20 01/06/22 Unknown Rx solution for nebulization .COMPLEX #60 vials (Perforomist) amitriptyline 25 mg tablet 25 mg PO DAILY 01/06/22 01/06/22 Unknown History brimonidine 0.2 % eye drops 1 drp ophthalmic (eye) BID 01/06/22 01/06/22 Unknown History methocarbamol 500 mg tablet 500 mg PO TID PRN Pain 01/06/22 01/06/22 Unknown History Allergies Allergy/AdvReac Type Severity Reaction Status Date / Time Penicillins Allergy Intermediate ALGY-Rash Verified 01/06/22 16:49 Sulfa (Sulfonamide AdvReac Severe ADR-Itching Verified 01/06/22 16:49 Antibiotics) codeine AdvReac Intermediate ADR-Itching Verified 01/06/22 16:49 PFSH Acute PFSH: Medical History RUPAL (acute kidney injury) Cataract Community acquired pneumonia COPD (chronic obstructive pulmonary disease) Diastolic CHF Glaucoma Hypertension Influenza A -Found to be influenza A positive -on droplet precautions -completed Tamiflu (day 5) On home oxygen therapy Sepsis with acute hypoxic respiratory failure Surgical History History of appendectomy Family History Mother Arrhythmia Father CAD (coronary artery disease) Social History Smoking and tobacco status: former smoker Quit status (tobacco): has quit using tobacco Year quit tobacco: 2014 - 1PPD x 50 Years Second hand smoke exposure: No Alcohol intake: never Caregiver/support person: Yes Lives independently: Yes Household members: family Current occupational status: disabled History of recent travel: No Current gender identity: Female Vitals/I&O/Wt Last Vital Signs Temp 98.0 F 01/06/22 14:24 Pulse 124 H 01/06/22 14:45 Resp 12 01/06/22 16:05 BP 157/86 01/06/22 14:45 Pulse Ox 100 01/06/22 14:45 O2 Del Method 01/06/22 14:45 FiO2 40 01/06/22 16:05 01/06/22 01/06/22 01/06/22 06:59 14:59 22:59 Intake Total 250 / 250 Balance 250 / 250 Weight last 48 hrs Weight 45.359 kg Physical Exam Narrative: Frail female Thin lean appearance Bilateral assisted breath sounds I do not hear any crackles or wheezing Abdomen soft Central line left groin Endotracheal tube size 822 cm at lip bite Skin mottling noted around knees, extremities are cold, weak pulses noted No sign of ischemic ulcers Currently on mechanical ventilator intubated and sedated Data : 01/07/22 03:38 01/07/22 03:38 A&P Assessment and plan (1) Dyspnea: Status: Acute (2) COPD exacerbation: Status: Acute (3) Hypercapnic respiratory failure: Status: Acute (4) Lung nodules: Status: Acute (5) Acute exacerbation of chronic obstructive pulmonary disease (COPD): Status: Acute (6) COPD (chronic obstructive pulmonary disease): Status: Acute Plan Acute hypercapnic respiratory failure Respiratory failure requiring mechanical ventilation Patient failed BiPAP therapy and received ketamine in the ER Currently intubated and sedated on propofol and fentanyl Start Levophed I am not sure about her right ventricular EF, Her BNP is slightly higher Procalcitonin, I will start her on ceftriaxone Venous vasopressors overnight Continue IV steroids along ceftriaxone If we are able to wean her off completely overnight we will do weaning trial in the morning depending on her clinical status and ABG Will request echo Gentle fluid hydration overnight Patient is full code She also has history of MRSA UTI, preserved ejection fraction heart failure, grade 1 diastolic dysfunction Attestations Medical Necessity Statement*: Anticipating more than 2 midnights for the management of respiratory failure Time Spent in Patient Care: 40 Critical Care Time: 35 Coding Level of Care Code 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
[2022-01-06] MEDS: propofol 1,000 MG/100 ML INJ 4.08 MG IV (16:22)
[2022-01-06 16:53] LABS: Troponin 5 2HR 21.84 ng/L (0-10)
--- NOTE | 2022-01-06 16:57 | PC.NURSE ---
I was told at bedside by Dr. Barone to mix 10mg of ketamine into 250ml bag and run it in, i mixed it as he said and used the same bottle to pull up 150mg of ketamine for intubation of pt.
[2022-01-06 16:59] LABS: Procalcitonin 0.05 ng/mL (0-0.5)
[2022-01-06 17:01] LABS: Troponin 5 2HR Delta 2.84 ABS# (0-10)
[2022-01-06] MEDS: sodium chloride 0.9% 1,000 ML 999 ML IV (17:05)
--- NOTE | 2022-01-06 17:06 | ECG_ITS ---
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 Measurements Intervals [place] Rate: 108 P: 83 RI: 175 QRS: 46 QRSD: 109 T: 96 QT: 334 QTc: 448 Interpretive Statements SINUS TACHYCARDIA POSSIBLE RIGHT VENTRICULAR CONDUCTION DELAY [RSR (QR) IN V1/V2] NONSPECIFIC ST & T-WAVE ABNORMALITY Compared to ECG 01/06/2022 14:49:19 Possible ischemia no longer present T-wave abnormality still present Electronically Signed On 01-06-2022 18:13:53 CDT by Padmini Moffett M.D. [id number]
--- NOTE | 2022-01-06 18:06 | USCV_ITS ---
Melany Phan Age: 76 Gender: F : 1945 Exam Date: 01/06/2022 21:57 Ordering Phys: Cynthia Garcia MD Technologist: LAURA Exam Location: [facility] [place] Indication: shortness of breath, on ventilator in ICU-11 BP: 111 / 54 HR: 93 Rhythm: Sinus Technical Quality: Adequate MEASUREMENTS (Male / Female) Normal Values 2D ECHO LV Diastolic Diameter PLAX 2.9 cm 4.2 - 5.9 / 3.9 - 5.3 cm LV Systolic Diameter PLAX 1.8 cm IVS Diastolic Thickness 1.6 cm 0.6 - 1.0 / 0.6 - 0.9 cm IVS Systolic Thickness 1.8 cm LVPW Diastolic Thickness 1.2 cm 0.6 - 1.0 / 0.6 - 0.9 cm LVPW Systolic Thickness 1.8 cm LVOT Diameter 1.5 cm LV Ejection Fraction 2D Teich 69.1 % LV Ejection Fraction MOD 2C 75.5 % LV Ejection Fraction 2C AL 78.1 % LA Diameter 2.6 cm LA Width 2.9 cm LA Height 5.1 cm RA Width 2.2 cm RA Height 2.6 cm Aorta at Sinotubular Diameter 2.6 cm IVC Diameter 1.3 cm M-MODE Aortic Annulus Diameter 3.1 cm LA Ao Ratio MM 0.9 MV E Point Septal Separation 0.3 cm DOPPLER AV Peak Velocity 141.0 cm/s LVOT Peak Velocity 85.0 cm/s AV Area Cont Eq vti 0.9 cm squared AV Area Cont Eq pk 1.1 cm squared MV Peak Velocity 146.0 cm/s MV Area PHT 5.2 cm squared Mitral E to A Ratio 0.8 MV E' Velocity 42.0 cm/s Mitral E to MV E' Ratio 5.1 Mitral E to LV E' Lateral Ratio 7.7 Mitral E to LV E' Septal Ratio 3.8 TR Peak Velocity 259.0 cm/s TR Peak Gradient 26.8 mmHg TV Peak E Velocity 40.0 cm/s Right Atrial Pressure 5.0 mmHg Pulmonary Artery Systolic Pressu 31.8 mmHg PV Peak Velocity 95.0 cm/s RV Acceleration Time 0.1 s RV Ejection Time 0.3 s RV AcT/ET 0.3 FINDINGS Left Ventricle Normal left ventricular size. LV systolic function is normal with EF of 65-70%. No regional wall motion abnormalities. Mild left ventricular hypertrophy is seen. Grade 1 diastolic dysfunction Right Ventricle The right ventricle is normal in size and function. Right Atrium The right atrium is normal in size. Left Atrium The left atrium is normal in size. Mitral Valve Thickened mitral valve without significant stenosis or prolapse. There is no mitral regurgitation. Aortic Valve Thickened aortic valve without stenosis. There is no aortic regurgitation. Tricuspid Valve Trace tricuspid regurgitation. Insufficient TR jet to calculate RVSP Pulmonic Valve Not well visualized Pericardium Small to medium sized pericardial effusion Aorta Normal ascending aorta dimension. IVC CONCLUSIONS LV systolic function is normal with EF of 65 to 70%. Mild left ventricular hypertrophy is seen. Grade 1 diastolic dysfunction. Trace tricuspid regurgitation. Small to medium sized pericardial effusion. Compared to prior echocardiogram from 2019, pericardial effusion has slightly increased in size Zane Chew MD (Electronically Signed) Final Date: 07 January 2022 12:17 S
[2022-01-06] MEDS: sodium chloride 0.9% 1,000 ML 75 ML IV (18:25)
[2022-01-06 18:26] LABS: ABG PCO2 45.1 mmHg (35-45); ABG PH Result 7.31 (7.35-7.45); Arterial Blood Gas Hematocrit 37.6 % (37-47); Base Excess ABG -3.4 mmol/L (-2.0-2.0); Blood Gas Allen Test Pos; Blood Gas Sample Type Arterial; HCO3 ABG 22.8 mmol/L (22-26)
[2022-01-06 18:27] LABS: Blood Gas Operator Identificat ED; Blood Gas Sample Site Radial, left; Oxygen Device VENT
[2022-01-06 18:30] LABS: Glucose Point of Care 92 mg/dL (70-110)
--- NOTE | 2022-01-06 19:59 | ECG_ITS ---
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 Measurements Intervals [place] Rate: 89 P: 86 TN: 183 QRS: 51 QRSD: 113 T: 75 QT: 385 QTc: 470 Interpretive Statements SINUS RHYTHM POSSIBLE ANTERIOR MYOCARDIAL INFARCTION , OF INDETERMINATE AGE [30 ms Q WAVE IN V3/V4, OR R < 0.2 mV IN V4] Compared to ECG 01/06/2022 17:06:36 Myocardial infarct finding now present Sinus tachycardia no longer present T-wave abnormality no longer present Electronically Signed On 01-07-2022 17:21:11 CDT by Zane Chew M.D. [email or web address]/[id number]
[2022-01-06] MEDS: enoxaparin 40 mg/0.4 mL Syringe SUBCUT (20:35)
[2022-01-06 20:40] LABS: Troponin 5 6HR 21.69 ng/L (0-10)
--- NOTE | 2022-01-06 20:42 | PC.NURSE ---
At arrival, Propofol running at 25mcg/kg/min with a weight of 100kg. Corrected dosing weight in IV pump. As of writing, patient responsive to verbal stimuli, able to answer yes or no questions.
[2022-01-06 20:45] LABS: Troponin 5 6HR Delta 2.69 ng/L (0-12)
--- NOTE | 2022-01-06 20:48 | PC.NURSE ---
OGT measuring at 65cm at Lip. ETT measuring at 23cm at lip.
--- NOTE | 2022-01-06 20:58 | PC.NURSE ---
L. Femoral CVC, all lumens flush with no resistance, red lumen does not draw, other two lumens draw with no issue.
[2022-01-06 21:42] LABS: Adenovirus Not Detected (NOT DETECT); Chlamydia Pneumoniae Not Detected (NOT DETECT); Coronavirus 229E,HKU1,NL63,OC4 Not Detected (NOT DETECT); Human Metapneumovirus Not Detected (NOT DETECT); Human Rhinovirus/Enterovirus Not Detected (NOT DETECT); Influenza A Not Detected (NOT DETECT); Influenza A H1 Not Detected (NOT DETECT); Influenza A H1-2009 Not Detected (NOT DETECT); Influenza A H3 Not Detected (NOT DETECT); Influenza B Not Detected (NOT DETECT); Mycoplasma Pneumoniae Not Detected (NOT DETECT); Parainfluenza Virus Type 1 Not Detected (NOT DETECT); Parainfluenza Virus Type 2 Not Detected (NOT DETECT); Parainfluenza Virus Type 3 Not Detected (NOT DETECT); Parainfluenza Virus Type 4 Not Detected (NOT DETECT); Respiratory Syncytial Virus A Not Detected (NOT DETECT); Respiratory Syncytial Virus B Not Detected (NOT DETECT); SARS-COV-2 Not Detected (NOT DETECT)
[2022-01-06] MEDS: propofol 1,000 MG/100 ML INJ 6.8 MG IV (22:46)
[2022-01-07] VITALS (108 sets, daily range): BP systolic 74–185; BP diastolic 51–109; PULSE 90–113; RESP 8–30; TEMP 36.2–37.5; O2SAT 83–100
--- NOTE | 2022-01-07 00:18 | US_ITS ---
WS: [id number] ULTRASOUND RENAL TECHNIQUE: Ultrasound examination of both kidneys. CLINICAL INFORMATION: manasa COMPARISON: None. FINDINGS: RIGHT: Right kidney is normal in size and appearance. Echogenicity: Normal. Cortical thickness: 0.5 cm; Normal. Hydronephrosis: None. Perinephric fluid: None. Right kidney measures: 8.0 cm x 3.6 cm x 3.5 cm. LEFT: Left kidney is normal in size and appearance. Echogenicity: Normal. Cortical thickness: 0.7 cm; Normal. Hydronephrosis: None. Perinephric fluid: None. Left kidney measures: 7.2 cm x 4.0 cm x 3.1 cm. Normal visualized aorta. Bladder not visualized. US/US renal BI* [id number] IMPRESSION: 1. Normal renal ultrasound. 2. Bladder not visualized.
--- NOTE | 2022-01-07 01:25 | PC.NURSE ---
Notified Dr. Aguiar @0005 of 300cc total urine since placement of rodriguez at 1800. Changes in respiratory status including increasingly adventitious breath sounds present. Also flushed rodriguez with SNS, return of same, no bladder distension. Patient remains responsive to verbal commands. Dr. Aguiar responded and placed orders for CMP, renal ultrasound, otherwise told to continue to monitor patient.
--- NOTE | 2022-01-07 01:48 | PC.NURSE ---
Bladder scanned patient, urinary bladder volume 0mL.
[2022-01-07] MEDS: ipratropium-albuterol 3 mL Neb INHALATION ×5 (01:59→20:33)
[2022-01-07 03:53] LABS: Basophils % 0.1 %; Hematocrit 37.4 % (37.0-47.0); Hemoglobin 12.3 g/dL (11.5-15.3); Lymphocytes # 0.8 10^3/uL (0.8-4.8); Lymphocytes % 7.8 %; Mean Corpuscular HGB Conc 32.9 g/dL (30.0-36.0); Mean Corpuscular Hemoglobin 31.9 pg (28.0-34.0); Mean Corpuscular Volume 96.9 fl (81-99); Mean Platelet Volume 9.9 fL (7.4-10.4); Monocytes # 0.2 10^3/uL (0.2-0.9); Monocytes % 1.7 %; Neutrophils % 90.1 %; Nucleated Red Blood Cells % 0 %; Platelet Count 249 10^3/cmm (130-400); Red Blood Count 3.86 10^6/uL (4.1-5.3); Red Cell Distribution Width 12.7 % (12.1-15.1); White Blood Count 9.7 10^3/uL (4.0-10.0)
[2022-01-07 04:30] LABS: ABG PCO2 39.3 mmHg (35-45); ABG PH Result 7.34 (7.35-7.45); Arterial Blood Gas Hematocrit 38.2 % (37-47); Base Excess ABG -4.1 mmol/L (-2.0-2.0); Blood Gas Allen Test Pos; Blood Gas Sample Type Arterial; HCO3 ABG 21.3 mmol/L (22-26); PO2 ABG 72.4 mmHg (80.0-100.0)
[2022-01-07 04:31] LABS: Blood Gas Sample Site Radial, left; Oxygen Device VENT
[2022-01-07 04:34] LABS: Alanine Aminotransferase 9 U/L (0-33); Alkaline Phosphatase 93 U/L (35-105); Aspartate Amino Transferase 16 U/L (0-32); Chloride 105 mmol/L (98-107); Sodium 139 mmol/L (136-145); Total Bilirubin 0.2 mg/dL (0.15-1.2)
[2022-01-07 04:58] LABS: Glucose Point of Care 166 mg/dL (70-110)
[2022-01-07 05:05] LABS: Anion Gap 17.4 (5-19); Blood Urea Nitrogen 12 mg/dL (8-23); C Reactive Protein 5.8 mg/L (0.0-4.9); Calcium 8.3 mg/dL (8.5-10.5); Carbon Dioxide 21 mmol/L (22-29); Globulin 2.7 g/dL (1.3-4.6); Glucose 144 mg/dL (65-115); Magnesium 1.7 mg/dL (1.7-2.3); Osmolality Calculated 290 mOsm/kg (285-295); Phosphorus 3.9 mg/dL (2.5-4.5); Potassium 4.4 mmol/L (3.5-5.1); Total Protein 5.7 g/dL (6.6-8.7)
[2022-01-07] MEDS: sodium chloride 0.9% 1,000 ML 75 ML IV (06:51)
[2022-01-07] MEDS: pantoprazole 40 mg SDV IVP (08:44)
[2022-01-07] MEDS: cefTRIAXone 1,000 MG in sodium chloride 0.9% (plus) 50 ML 100 MG IV (08:45)
[2022-01-07] MEDS: insulin lispro 100 unit/1 mL SUBCUT (08:45)
[2022-01-07] MEDS: sennosides-docusate Tablet 1 TAB PO (08:47)
--- NOTE | 2022-01-07 09:32 | PC.NURSE ---
INITIAL ASSESSMENT COMPLETED THIS MORNING. PT HAS SOME INSPIRATORY AND EXPIRATORY WHEEZES. WHEEZES NOTED TO BE WORSE ON THE RIGHT SIDE COMPARED TO THE LEFT. ORAL HYGIENE PERFORMED. MORNING MEDICATIONS ADMINISTERED. DR REDD IN TO SEE PT AT APPROXIMATELY 0900. ORDERS TO TITRATE DOWN PTS SEDATION WERE GIVEN. LEVO TURNED DOWN TO 2 MCG/MIN PER PROTOCOL. PROPOFOL SHUT OFF AT THIS TIME. 30 MINUTES AFTER TURNING OFF PROPOFOL PS VITAL SIGNS WERE WNL AND PT APPEARED TO BE RESTING COMFORTABLY. FENTANYL STILL RUNNING BUT TITRATED DOWN TO 50 MCG/HR PER PROTOCOL. VITAL SIGNS ARE WNL. PT APPEARS TO BE COMFORTABLE. PT IS BECOMING MORE ALERT AND ORIENTATED. WILL CONTINUE TO MONITOR.
--- NOTE | 2022-01-07 10:09 | PC.NURSE ---
LEVOPHED TURNED OFF. PT IS MAINTAINING B/P. CURRENT B/P IS 151/73. PT IS CONTINUING TO BECOME MORE AWAKE AND IS FOLLOWING MORE COMMANDS. CONTINUING TO MONITOR PT. DR. REDD NOTIFIED OF THESE CHANGES.
--- NOTE | 2022-01-07 11:37 | PC.RESP ---
pt extubated and placed on 3lpm tolerated well
--- NOTE | 2022-01-07 11:38 | PC.CHAP ---
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 grinding and spraying supervisor visit [] Patient/Family/Request visit [] Outpatient visit [] Follow-up visit [] Physician referral [] Code/Alert [x Routine visit [] Staff referral [] Actively dying [] Patient sleeping [] Family support [] [] Out of room [] Palliative care [] [x] Receiving care in room [] Pre-surgical visit [] Trauma [] Long length of stay [x] ICU visit [] Other: Relational/Emotional Strength [] Patient feels connected with others/family/visitors/staff [] Distress [] Loneliness/isolation [] Abandonment Spirituality of Patient [] Person of Navya [] Attends Catholic of their Navya [] Believes in Prayer [] Reads Bible or Hoahaoism materials [] There are Spiritual issues to be addressed [employer] Director Interventions [xPrayer [] Active listening [] Non-anxious presence [] Spiritual/emotional support [] Crisis/trauma care [] Spiritual counseling [] Bereavement support [] Provided bereavement packet [] Provided Bible/devotional materials [] Provided toy/stuffed animal, coloring book to patient or family member [] Provided Communion [] Anointing/[place] [] Salvation [x] Completed spiritual assessment [] Other: Impact on Illness or Injury [] Angry [] Fearful [] Anxious [] Often cries [] Exhaustion [] Unable to work [] Unable to attend anabaptist [] Unable to walk/stand [] Unable to read [] Unable to drive [] Unable to eat/drink [] Unable to sleep [] Unable to be with family [] Patient intubated [] Other: Summary Time spent with patient
--- NOTE | 2022-01-07 12:24 | PC.NURSE ---
FENTANYL TURNED OFF AT APPROXIMATELY 1100. PT STILL DOING OK. MORE ALERT. RT IN TO EXTUBATE PT AT 1120. PT TOLERATED THIS WELL. 4L O2 PLACED ON PT. DR ERDD NOTIFIED. PT IS CURRENTLY RESTING IN BED. SHE IS ALERT AND ORIENTATED. HEART RHYTHM SINUS TACH. PT STILL HAS INSPIRATORY AND EXPIRATORY WHEEZES. PT HAS SUCCESSFULLY PASSED BEDSIDE SPEECH EVALUATION PER DOCTORS ORDER. DR REDD NOTIFIED. VITAL SIGNS ARE CURRENTLY HEART RATE: 106 B/P: 118/94 TEMP 97.8 RR 18 O2 95% ON 3L. PT APPEARS TO BE DOING OK. NO REQUESTS AT THIS TIME. WILL CONTINUE TO MONITOR.
--- NOTE | 2022-01-07 12:33 | P.PN_ITS ---
Subjective Subjective: Patient extubated today at 11 AM, did well with speech eval I will let her eat Currently on 4 L nasal cannula Continue DuoNeb IV steroids If continues to do clinically well I will be able to discharge her in next 24 to 36 hours She was off Levophed Propofol and fentanyl discontinued around 9 AM Vitals/I&O/Wt Last Vital Signs Temp 97.8 F 01/07/22 12:00 Pulse 105 H 01/07/22 12:00 Resp 18 01/07/22 12:00 BP 118/94 01/07/22 12:00 Pulse Ox 94 01/07/22 12:00 O2 Del Method 01/07/22 12:00 O2 Flow Rate 4 01/07/22 12:00 FiO2 30 01/07/22 11:27 01/06/22 01/07/22 01/07/22 22:59 06:59 14:59 Intake Total 378.434 / 555.708 4249.924 / 1529.358 156.858 / 156.858 Output Total 200 / 200 100 / 300 Balance 178.434 / 717.538 3657.924 / 1229.358 156.858 / 156.858 Weight last 48 hrs Weight 46.266 kg Weight 45.359 kg Physical Exam Narrative: Patient successfully extubated to 4 L nasal cannula No active wheezing No active tachypnea Looks dehydrated Abdomen soft Thin lean female No active strokelike features Soft abdomen Hutson catheter in place Urinary Catheter Management: Hutson: Cath Placed During This Visit: yes Reason for Continuing Indwelling Catheter: Accurate Measurement of Urinary Output in Critically Ill Patients Urinary Catheter Date of Insertion: 01/06/22 Data : 01/07/22 03:38 01/07/22 03:38 Micro: Microbiology 01/06/22 16:10 Gram Stain - Final Sputum - Endotracheal Tube Aspirate Sputum Culture - Preliminary Gram Negative Rods 01/06/22 18:15 Bacterial Antigens - Final Urine Kidney A&P Assessment and plan (1) Dyspnea: Status: Acute (2) COPD exacerbation: Status: Acute (3) Hypercapnic respiratory failure: Status: Acute (4) Diastolic CHF: Status: Acute (5) Skin lesion of foot: Status: Acute (6) Lung nodules: Status: Acute (7) Acute exacerbation of chronic obstructive pulmonary disease (COPD): Status: Acute (8) COPD (chronic obstructive pulmonary disease): Status: Acute Plan Acute COPD exacerbation Patient was intubated at admission Extubated on 12/1710 a.m. Did well with speech therapy Start GI soft diet Continue ceftriaxone azithromycin No signs of pneumonia on lung imaging Afebrile No severe leukocytosis Echo is unremarkable grade 1 diastolic function Does not look clinically fluid overloaded However BNP is 400 I will give her gentle low-dose Lasix Let her eat today PT evaluation Plan to discharge her in next 24 hours Attestations Medical Necessity Statement*: Discharge in next 24 hours Critical Care Time: 30 Coding Level of Care Code Acute Customer Relations Assistant for g Fwd Diagnoses Dyspnea R06.00 COPD exacerbation J44.1 Hypercapnic respiratory failure J96.92 Diastolic CHF I50.30 Skin lesion of foot L98.9 Lung nodules R91.8 Acute exacerbation of chronic obstructive pulmonary disease (COPD) J44.1 COPD (chronic obstructive pulmonary disease) J44.9
[2022-01-07 12:47] LABS: Glucose Point of Care 123 mg/dL (70-110)
--- NOTE | 2022-01-07 13:54 | PC.NURSE ---
PT IS CONTINUING TO DO WELL. SHE HAD LUNCH AND DID WELL WITH THIS. NO ISSUES NOTED. SHE IS CURRENTLY ON 2L NC SATING AT 97%. PT HAS NO COMPLAINTS AND NO REQUESTS AT THIS TIME. CONTINUING TO MONITOR PT.
[2022-01-07] MEDS: atenolol 50 mg Tablet 100 MG PO (16:30)
[2022-01-07] MEDS: lisinopril 5 mg Tablet PO (16:30)
--- NOTE | 2022-01-07 16:36 | PC.NURSE ---
PT IS CONTINUING TO DO WELL. BLOOD PRESSURE IS A LITTLE ELEVATED. DOCTOR IVANIA NOTIFIED. PT WAS STARTED ON HER HOME MEDICATION ATENOLOL WELL LISINOPRIL. SHE IS SATING 98% ON 2L. PT ASKED IF WE COULD START HER EYE DROPS BACK WELL. ORDER PUT IN BY DR REDD TO START HER EYE DROPS UP THIS EVENING. PT NOTIFIED OF THIS. PT HAS NO OTHER REQUESTS AT THIS TIME. CONTINUING TO MONITOR PT.
[2022-01-07] MEDS: brimonidine 0.2% Op Soln 5 mL Btl 1 DROP EYE-BOTH (17:50)
[2022-01-07 17:51] LABS: Glucose Point of Care 142 mg/dL (70-110)
--- NOTE | 2022-01-07 18:35 | PC.NURSE ---
PT HAS HAD A GOOD REMAINDER OF THE SHIFT. SHE CURRENTLY HAS NO REQUESTS AND HAS NO COMPLAINTS OF PAIN. B/P IS STILL ELEVATED. DOCTOR NOTIFIED. ORDERS TO STOP FLUIDS AND GIVE 20MG IVP OF HYDRALAZINE ORDERED. WILL CONTINUE TO MONITOR.
[2022-01-07] MEDS: latanoprost 0.005% Op Soln 2.5 mL Btl 1 DROP EYE-BOTH (20:25)
[2022-01-07] MEDS: hyDRALAzine 20 mg/mL INJ 1 mL IVP (20:25)
[2022-01-07] MEDS: enoxaparin 40 mg/0.4 mL Syringe SUBCUT (20:25)
[2022-01-07] MEDS: budesonide 0.5 mg/2 mL Neb INHALATION (20:33)
[2022-01-07] MEDS: hyDROXYzine 25 mg Capsule PO (21:25)
[2022-01-07] MEDS: ALPRAZolam 0.5 mg Tablet 0.25 MG PO (22:28)
[2022-01-08] VITALS (64 sets, daily range): BP systolic 109–181; BP diastolic 55–90; PULSE 73–108; RESP 15–28; TEMP 36.2–36.7; O2SAT 71–100
[2022-01-08] MEDS: ipratropium-albuterol 3 mL Neb INHALATION ×6 (00:16→20:22)
[2022-01-08 03:54] LABS: Basophils # 0.1 10^3/uL (0.0-0.1); Basophils % 0.2 %; Hematocrit 40.7 % (37.0-47.0); Hemoglobin 13.1 g/dL (11.5-15.3); Lymphocytes # 1.1 10^3/uL (0.8-4.8); Lymphocytes % 3.7 %; Mean Corpuscular HGB Conc 32.2 g/dL (30.0-36.0); Mean Corpuscular Hemoglobin 31.4 pg (28.0-34.0); Mean Corpuscular Volume 97.6 fl (81-99); Mean Platelet Volume 9.8 fL (7.4-10.4); Monocytes # 1.2 10^3/uL (0.2-0.9); Monocytes % 3.7 %; Neutrophils # 28.66 10^3/uL (1.8-7.7); Neutrophils % 91.8 %; Nucleated Red Blood Cells % 0 %; Platelet Count 323 10^3/cmm (130-400); Red Blood Count 4.17 10^6/uL (4.1-5.3); Red Cell Distribution Width 12.8 % (12.1-15.1)
[2022-01-08 04:15] LABS: White Blood Count 31.2 10^3/uL (4.0-10.0)
[2022-01-08 04:30] LABS: Anion Gap 13.9 (5-19); Blood Urea Nitrogen 18 mg/dL (8-23); Calcium 8.6 mg/dL (8.5-10.5); Carbon Dioxide 24 mmol/L (22-29); Chloride 101 mmol/L (98-107); Glucose 128 mg/dL (65-115); Osmolality Calculated 282 mOsm/kg (285-295); Potassium 4.9 mmol/L (3.5-5.1); Sodium 134 mmol/L (136-145)
--- NOTE | 2022-01-08 05:56 | PC.NURSE ---
Throughout shift, patient has had increased anxiety and increased WOB. Positive response to alprazolam, minimal response to hydroxyzine. Notified Dr. Aguiar at 0550 regarding worsening Anxiety and increased WOB. STAT abg ordered.
--- NOTE | 2022-01-08 06:00 | XRR_ITS ---
PROCEDURE INFORMATION: Exam: XR Chest Exam date and time: 01/08/2022 6:23 AM Age: 76 years old Clinical indication: Shortness of breath; Patient HX: SOB follow up; Additional info: Leukocytosis TECHNIQUE: Imaging protocol: Radiologic exam of the chest. Views: 1 view. COMPARISON: CR XR chest 1V portable [id number] 01/06/2022 3:53 PM FINDINGS: Lungs: No focal airspace disease. Pleural spaces: Unremarkable. No pleural effusion. No pneumothorax. Heart/Mediastinum: Cardiomediastinal silhouette is within normal limits. Bones/joints: Unremarkable. XR/XR chest 1V portable [id number] IMPRESSION: No acute cardiopulmonary abnormality.
--- NOTE | 2022-01-08 06:03 | PC.NURSE ---
Spoke with Dr. Aguiar regarding increased anxiety. V.O. given to start precedex drip to help with anxiety.
[2022-01-08] MEDS: dexmedeTOMIDine 0.9 % NaCL 400 MCG/100 ML PREMIX IV (06:13)
[2022-01-08 06:14] LABS: ABG PH Result 7.19 (7.35-7.45); Alveolar-Arterial Oxygen Gradi 1.7 mmHg (5-10); Arterial Blood Gas Hematocrit 41.5 % (37-47); Base Excess ABG -5.3 mmol/L (-2.0-2.0); Blood Gas Allen Test Pos; Blood Gas Operator Identificat JB; Blood Gas Sample Site Radial, right; Blood Gas Sample Type Arterial; Carboxyhemoglobin 0.7 %THgb (0.4-20.1); HCO3 ABG 23.9 mmol/L (22-26); HGB O2 Sat 88.7 % (95-100); Ionized Calcium Level - ABG 1.3 mmol/L (1.1-1.4); Methemoglobin 0.5 % (0.4-1.5); Oxygen Saturation ABG 89.7; PO2 ABG 61.9 mmHg (80.0-100.0); Potassium Level - ABG 4.6 mmol/L (3.5-5.0); Total Hemoglobin 13.5 g/dL (12-16)
[2022-01-08 06:15] LABS: ABG PCO2 62.1 mmHg (35-45)
[2022-01-08 06:27] LABS: C Reactive Protein 13.2 mg/L (0.0-4.9)
[2022-01-08 06:35] LABS: Procalcitonin 0.17 ng/mL (0-0.5)
--- NOTE | 2022-01-08 06:47 | PC.NURSE ---
Contacted Dr. Aguiar regarding blood cultures, BiPAP, Lactic r/t increasing decompensation. Dr. Aguiar ordered all.
[2022-01-08 06:50] LABS: NT Pro B Type Natriuretic Pept 3493 pg/mL (0-450)
--- NOTE | 2022-01-08 06:51 | PC.NURSE ---
Son brought in inhalers from home. Symbicort which was taken to pharmacy, 2 combivent which need to go home with son, and one ventolin which will also need to go home. Placed medications in bag labeled and passed this on to oncoming shift.
[2022-01-08] MEDS: FUROsemide 10 mg/mL SDV 4mL 40 MG IVP (07:20)
[2022-01-08 07:42] LABS: Lactic Sepsis W/Reflex 0.8 mmol/L (0.5-2.2)
[2022-01-08] MEDS: budesonide 0.5 mg/2 mL Neb INHALATION ×2 (07:45→20:22)
[2022-01-08 08:55] LABS: ABG PCO2 44.9 mmHg (35-45); ABG PH Result 7.31 (7.35-7.45); Arterial Blood Gas Hematocrit 39.6 % (37-47); Blood Gas Allen Test Pos; Blood Gas Operator Identificat CAK; Blood Gas Sample Site Radial, left; Blood Gas Sample Type Arterial; HCO3 ABG 22.4 mmol/L (22-26); Oxygen Device BIPAP
[2022-01-08] MEDS: sodium chloride 0.9% 250 ML IV (09:09)
[2022-01-08] MEDS: cefTRIAXone 1,000 MG in sodium chloride 0.9% (plus) 50 ML 100 MG IV (09:14)
[2022-01-08] MEDS: pantoprazole 40 mg SDV IVP (09:14)
--- NOTE | 2022-01-08 09:58 | PC.NURSE ---
PT HAS HAD A FAIRLY EVENTFUL MORNING. THIS NURSE WAS IN TO DO BEDSIDE REPORT RIGHT AWAY THIS MORNING. LAB, RT, GROUP PRACTICE PEDIATRICIAN NURSE IN WITH PT AT BEDSIDE. PT ON BIPAP. PT ALSO ON PRECEDEX DRIP. PT LOOKED TO BE IN SOME RESPIRATORY DISTRESS. UPON MORNING ASSESSMENT, PT DID NOT HAVE ANY WHEEZES WHEN THIS NURSE AUSCULTATED FIRST THING THIS MORNING. HEART RATE SINUS RHYTHM. THIS NURSE HAS TITRATED PRECEDEX DOWN PER PROTOCOL. LAST TITRATION WAS DOWN TO 0.4MCG AT 0830. DR REDD IN TO SEE PT AT 0850. ORDERS TO HOLD PRECEDEX WERE GIVEN. PRECEDEX TURNED OFF PER DOCTORS ORDER. OTHER ORDERS PUT IN AND CARRIED OUT BY THIS NURSE. PT IS CURRENTLY RESTING IN BED. SHE APPEARS TO BE COMFORTABLE. SHE IS ALERT TO VERBAL COMMAND AND ANSWERS QUESTIONS APPROPRIATELY. SHE HAS NO REQUESTS OR COMPLAINTS AT THIS TIME. VITAL SIGNS ARE FOLLOWED: hr 85bpm, b/p 143/70, 95% on Bipap, RR 20. WILL CONTINUE TO MONITOR.
[2022-01-08 12:16] LABS: Glucose Point of Care 145 mg/dL (70-110)
[2022-01-08] MEDS: insulin lispro 100 unit/1 mL SUBCUT (12:16)
--- NOTE | 2022-01-08 12:50 | PM.PN ---
Subjective Subjective: Patient received Ativan around 11 yesterday night and she was put on Precedex when I saw her she was very drowsy, she had significant respiratory acidosis last night she was put on BiPAP This morning when I repeat her blood gas it showed improvement of PCO2, no plan for intubation for now She seems to be getting dependent on BiPAP my concern is related to dehydration, she has significant leukocytosis today However no fever On her BiPAP she started becoming more awake and alert Possibilities Continue steroids She was given 250 mill bolus for her low blood pressure Hold her atenolol please note yesterday she was hypotensive received atenolol, IV hydralazine BNP is 3400 she was given Lasix today as well and had good urine output creatinine is 1 Clinically does not look fluid overloaded lactic acid is 0.8 no signs of acidosis Chest x-ray today unremarkable I requested nurse to keep her on BiPAP, she will only need a break to eat her meals otherwise she should be on BiPAP for now Considering significant respiratory acidosis and recurrent hypercapnic episodes I would avoid anxiolytics, sedatives If needed Precedex can be used on low-dose we will obtain CT chest Vitals/I&O/Wt Last Vital Signs Temp 97.1 F L 01/08/22 11:57 Pulse 90 01/08/22 11:57 Resp 19 H 01/08/22 11:57 BP 144/73 01/08/22 11:57 Pulse Ox 95 01/08/22 11:57 O2 Del Method 01/08/22 11:57 O2 Flow Rate 2 01/08/22 11:04 FiO2 30 01/08/22 11:05 01/07/22 01/08/22 01/08/22 22:59 06:59 14:59 Intake Total 1426.25 / 1583.441 0.619 / 1584.060 311.104 / 311.104 Output Total 250 / 250 Balance 1426.25 / 1583.441 -249.381 / 1334.060 311.104 / 311.104 Weight last 48 hrs Weight 46.266 kg Weight 45.359 kg Physical Exam Narrative: Patient is not fluid overloaded Drowsy when I examined her first time in the morning, she became more awake and alert after few hours Petechial bruises of extremities Erythema of face noted around face mask Abdomen soft Urine catheter clear urine Lower extremity are cold however I am able to palpate dorsalis pedis pulses Skin mottling around knees Urinary Catheter Management: Hutson: Cath Placed During This Visit: yes Reason for Continuing Indwelling Catheter: Accurate Measurement of Urinary Output in Critically Ill Patients Urinary Catheter Date of Insertion: 01/06/22 Data : 01/08/22 03:39 01/08/22 03:39 Micro: Microbiology 01/08/22 06:52 Blood Culture - Preliminary Blood SPECIMEN COLLECTED 01/08/22 06:44 Blood Culture - Preliminary Blood SPECIMEN COLLECTED 01/06/22 18:15 MRSA Culture - Final Nose 01/06/22 16:10 Gram Stain - Final Sputum - Endotracheal Tube Aspirate Sputum Culture - Preliminary Gram Negative Rods 01/06/22 18:15 Bacterial Antigens - Final Urine Kidney A&P Assessment and plan (1) Dyspnea: Status: Acute (2) COPD exacerbation: Status: Acute (3) Hypercapnic respiratory failure: Status: Acute (4) Diastolic CHF: Status: Acute (5) Lung nodules: Status: Acute (6) Acute respiratory distress: Status: Acute (7) Acute exacerbation of chronic obstructive pulmonary disease (COPD): Status: Acute (8) COPD (chronic obstructive pulmonary disease): Status: Acute Plan Recurrent hypercapnic resp failure Patient was extubated 01/07 to 4 L nasal cannula and required BiPAP overnight when she became agitated, received Xanax and Precedex along antihistamine Patient is confused and obtunded Neuro exam is limited Will obtain CT head She did perk up after BiPAP usage Will obtain CT chest as well Chest x-ray is unremarkable She was given Lasix however clinically she is euvolemic I will keep her on IV steroids for her active wheezing and DuoNeb High risk for reintubation Avoid anxiolytics and sedatives Low-dose Precedex for now on BiPAP BiPAP dependency? Escalate antibiotics to vancomycin and Zosyn because of severe leukocytosis Gram-negative rylee in sputum Diastolic CHF with grade 1 diastolic dysfunction Low blood pressure, skin mottling related to low blood pressure, EF is preserved Clinically does not look fluid overloaded BNP is higher Hold off from diuretics for now due to low blood pressure Pericardial effusion has increased in size since 2019 She responds well to fluids for now Does not have cardiac tamponade presentation No signs of alternative QRS pattern on the EKG Troponin not significantly high DVT prophylaxis Lovenox Hypertension: Currently she is hypotensive, she received 250 mm bolus, hold Lasix, lisinopril, atenolol Avoid sedatives, anxiolytics Obtaining CT head, CTA chest rule out PE Facemask allergy? 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
--- NOTE | 2022-01-08 12:54 | CTR_ITS ---
PROCEDURE INFORMATION: Exam: CT Head Without Contrast Exam date and time: 01/08/2022 9:36 PM Age: 76 years old Clinical indication: Altered mental status/memory loss; Additional info: Confused hypoxia TECHNIQUE: Imaging protocol: Computed tomography of the head without contrast. Radiation optimization: All CT scans at this facility use at least one of these dose optimization techniques: automated exposure control; mA and/or kV adjustment per patient size (includes targeted exams where dose is matched to clinical indication); or iterative reconstruction. COMPARISON: CT head wo con* [id number] 08/18/2019 1:46 PM RADIATION DOSE METRICS: Total DLP (mGy-cm): 606.08 FINDINGS: Brain: Mild atrophy and mild white matter chronic microvascular changes are noted. No hemorrhage or evidence of acute infarction. Cerebral ventricles: No ventriculomegaly. Paranasal sinuses: Visualized sinuses are unremarkable. No fluid levels. Mastoid air cells: Visualized mastoid air cells are well aerated. Bones/joints: Unremarkable. No acute fracture. Soft tissues: Unremarkable. CT/CT head wo con* [id number] IMPRESSION: No acute intracranial abnormality.
--- NOTE | 2022-01-08 12:56 | CTR_ITS ---
PROCEDURE INFORMATION: Exam: CTA Chest With Contrast Exam date and time: 01/08/2022 9:30 PM Age: 76 years old Clinical indication: Shortness of breath; Additional info: Hypoxia, high wbc TECHNIQUE: Imaging protocol: Computed tomographic angiography of the chest with contrast. 3D rendering (Not supervised by radiologist): MIP and/or 3D reconstructed images were created by the technologist. Radiation optimization: All CT scans at this facility use at least one of these dose optimization techniques: automated exposure control; mA and/or kV adjustment per patient size (includes targeted exams where dose is matched to clinical indication); or iterative reconstruction. Contrast material: OMNIPAQUE 350; Contrast volume: 95 ml; Contrast route: INTRAVENOUS (IV); COMPARISON: CT angio chest PE protcl [id number] 08/11/2019 11:46 AM RADIATION DOSE METRICS: Total DLP (mGy-cm): 222.34 FINDINGS: Pulmonary arteries: Normal. No pulmonary emboli. Great vessels off aortic arch: The left common carotid artery originates from the brachiocephalic trunk. No stenosis. No dissection or occlusion. Aorta: Unremarkable. No aortic aneurysm. No aortic dissection. Lungs: Centrilobular emphysema changes throughout both lungs, characterized by cystic changes in the upper lungs and subpleural scarring and fibrosis. Pleural spaces: Unremarkable. No pneumothorax. No pleural effusion. Heart: Unremarkable. No cardiomegaly. No pericardial effusion. Lymph nodes: Unremarkable. No enlarged lymph nodes. Bones/joints: Unremarkable. No acute fracture. Soft tissues: Unremarkable. CT/CT angio chest PE protcl [id number] IMPRESSION: Emphysema. No other acute cardiopulmonary abnormality.
[2022-01-08 17:39] LABS: Glucose Point of Care 186 mg/dL (70-110)
--- NOTE | 2022-01-08 18:40 | PC.NURSE ---
PT HAS HAD AN UNEVENTFUL AFTERNOON. PT HAS BEEN ALERT AND ORIENTATED. PT IS REFUSING BIPAP. SHE REFUSED HEAD CT AND CHEST CTA THAT DR REDD ORDERED. THIS NURSE EXPLAINED THE IMPORTANCE OF THESE TESTS. PT REFUSED. NOTIFIED. PT REFUSED THIS EVENINGS MEDICATIONS. DR REDD NOTIFIED OF THIS. PT HAS HAD ADEQUATE OUTPUT FOR MY SHIFT; A TOTAL OF 1500 ML. PT IS CURRENTLY RESTING IN BED. PTS SON IS AT BEDSIDE. PT STATES SHE IS COMFORTABLE AND HAS NO REQUESTS AT THIS TIME. PT COMPLAINS OF NO PAIN. PT STILL HAS SOME SIGNIFICANT MOTTLING TO LOWER EXTREMITIES. HEART IS IN SINUS RHYTHM. LUNGS SOUNDS STILL NOTED TO HAVE INSPIRATORY AND EXPIRATORY WHEEZES. WILL CONTINUE TO MONITOR.
--- NOTE | 2022-01-08 20:00 | PC.NURSE ---
Clarified antibiotic order with Dr. Aguiar, continue current orders.
[2022-01-08] MEDS: enoxaparin 40 mg/0.4 mL Syringe SUBCUT (20:12)
[2022-01-08] MEDS: latanoprost 0.005% Op Soln 2.5 mL Btl 1 DROP EYE-BOTH (20:30)
[2022-01-08] MEDS: iohexol 350 mg/mL 100 mL Btl IV (21:42)
--- NOTE | 2022-01-08 21:54 | PC.NURSE ---
Mottling of BLE persists, extending to slightly above knees. Pedal pulses remain palpable. Patient continues to have increased WOB but is actively refusing BiPAP when asked if she would like to use it. Patient at this time cannot complete a sentence and is having difficulty speaking one word to communicate.
--- NOTE | 2022-01-08 21:56 | PC.NURSE ---
Patient taken to CT for ordered studies, while in CT patient showed oxygen saturations of greater than 90%. However, patient is becoming confused. Disoriented to time and situation at this moment. Gentle reorientation successful with patient. Noted mottling present in fingers, pulses continue to be present radially and pedal pulse is still present. Increased WOB present.
[2022-01-09] VITALS (87 sets, daily range): BP systolic 104–171; BP diastolic 31–98; PULSE 90–107; RESP 17–31; TEMP 36.6; O2SAT 84–100
[2022-01-09] MEDS: ipratropium-albuterol 3 mL Neb INHALATION ×5 (00:19→20:17)
--- NOTE | 2022-01-09 03:28 | PC.NURSE ---
Patient agreed to bed bath, tolerated well, able to change bedsheets under patient, she did refuse hair washing at this time. She still adamantly refuses to use BiPaP
--- NOTE | 2022-01-09 04:47 | PC.NURSE ---
Changed CVC dressing via sterile technique.
[2022-01-09 05:38] LABS: Basophils % 0.1 %; Hematocrit 41.6 % (37.0-47.0); Hemoglobin 13.4 g/dL (11.5-15.3); Lymphocytes # 0.8 10^3/uL (0.8-4.8); Lymphocytes % 2.8 %; Mean Corpuscular HGB Conc 32.2 g/dL (30.0-36.0); Mean Corpuscular Hemoglobin 31.7 pg (28.0-34.0); Mean Corpuscular Volume 98.3 fl (81-99); Mean Platelet Volume 10.3 fL (7.4-10.4); Monocytes # 1.7 10^3/uL (0.2-0.9); Monocytes % 6.1 %; Neutrophils # 25.41 10^3/uL (1.8-7.7); Neutrophils % 89.5 %; Nucleated Red Blood Cells % 0 %; Platelet Count 304 10^3/cmm (130-400); Red Blood Count 4.23 10^6/uL (4.1-5.3); Red Cell Distribution Width 12.6 % (12.1-15.1); White Blood Count 28.4 10^3/uL (4.0-10.0)
[2022-01-09 05:55] LABS: Blood Urea Nitrogen 26 mg/dL (8-23); Calcium 8.7 mg/dL (8.5-10.5); Carbon Dioxide 25 mmol/L (22-29); Chloride 99 mmol/L (98-107); Glucose 125 mg/dL (65-115); Osmolality Calculated 284 mOsm/kg (285-295); Sodium 134 mmol/L (136-145)
--- NOTE | 2022-01-09 07:08 | P.PN_ITS ---
Subjective Subjective: Patient is stating that she does not want aggressive intervention DNR/DNI She is leaning towards palliative/hospice care CTA chest did not show PE CT head unremarkable Spoke with her son twice today , Son does not want to take her home, he does not want half-way placement because of the previous bad experiences, son stating that in case of further worsening palliative care can be started in the hospital, he is also waiting for his son to come back from [place], he is planning to be here on Wednesday I did tell him that she might get worse quicker if she keeps refusing most of the medications and BiPAP that when we offer for worsening of her symptoms we cannot guarantee that she will be able to make it until Wednesday She has not been able to eat much, bedbound, extremely short of breath Vitals/I&O/Wt Last Vital Signs Temp 97.5 F L 01/08/22 20:00 Pulse 99 01/09/22 06:30 Resp 18 01/09/22 06:30 BP 162/80 01/09/22 06:30 Pulse Ox 92 01/09/22 06:30 O2 Del Method 01/09/22 00:20 O2 Flow Rate 2 01/09/22 00:20 FiO2 30 01/08/22 17:15 01/08/22 01/09/22 01/09/22 22:59 06:59 14:59 Intake Total 193.487 / 510.828 50 / 560.828 Output Total 1500 / 1500 350 / 1850 Balance -1306.513 / -989.172 -300 / -1289.172 Physical Exam Narrative: Cachectic malnourished elderly female Currently on nasal cannula Uses respiratory attending ambulatory care muscles Positive conversational dyspnea Abdomen soft Petechia purpura on extremities Awake and alert Able to make her needs known Bilateral breath sounds with rhonchi Pursed lip breathing Urinary Catheter Management: Hutson: Cath Placed During This Visit: yes Reason for Continuing Indwelling Catheter: Accurate Measurement of Urinary Output in Critically Ill Patients Urinary Catheter Date of Insertion: 01/06/22 Data : 01/09/22 05:15 01/09/22 05:15 Micro: Microbiology 01/06/22 16:10 Gram Stain - Final Sputum - Endotracheal Tube Aspirate Sputum Culture - Final Enterobacter cloacae 01/08/22 06:52 Blood Culture - Preliminary Blood SPECIMEN COLLECTED 01/08/22 06:44 Blood Culture - Preliminary Blood SPECIMEN COLLECTED A&P Assessment and plan (1) Dyspnea: Status: Acute (2) COPD exacerbation: Status: Acute (3) Hypercapnic respiratory failure: Status: Acute (4) Diastolic CHF: Status: Acute (5) Livedo reticularis: Status: Acute (6) Acute respiratory distress: Status: Acute (7) Acute exacerbation of chronic obstructive pulmonary disease (COPD): Status: Acute (8) COPD (chronic obstructive pulmonary disease): Status: Acute (9) Hypertension: Status: Acute (10) DNR (do not resuscitate): Status: Acute Plan CTA rule out PE Cystic appearance of lung parenchyma no sign of thromboembolic phenomenon Patient has significant muscle mass loss, weight loss Pursed lip breathing Recurrent hypercapnic episodes She would be BiPAP dependent at home Patient does not want any aggressive intervention leaning towards palliative care, We can transfer out of ICU We discussed goals of care once son is here Significant leukocytosis however no febrile episodes, she has been getting high- dose steroids Diastolic CHF without acute exacerbation clinically looks euvolemic BNP is high No signs of PE Son is leaning towards palliative care in case of further worsening I did tell him that even with palliative care we can continue oxygen and BiPAP for as needed symptomatic relief, if she refuses and tries to take off the BiPAP then it might be very difficult to achieve good O2 saturation and improve her hypercapnia Attestations Medical Necessity Statement*: Patient leaning towards palliative care Time Spent in Patient Care: 30 Coding Level of Care Code Acute 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
[2022-01-09 07:26] LABS: Glucose Point of Care 108 mg/dL (70-110)
[2022-01-09] MEDS: budesonide 0.5 mg/2 mL Neb INHALATION ×2 (07:40→20:17)
--- NOTE | 2022-01-09 08:30 | PC.NURSE ---
very restless and confused pulling at cvl in groin and other lines, doctor here placed on bipap and precedex attempting to contact son at this time.
--- NOTE | 2022-01-09 09:12 | PC.SOCIAL ---
IMM Update pg 2 of IMM updated and reviewed w/ patient. Copy provided. Copy dated, initialed and placed in chart.
[2022-01-09] MEDS: pantoprazole 40 mg SDV IVP (09:51)
--- NOTE | 2022-01-09 10:49 | PC.NURSE ---
son here at this time Dr Spears here talked with him at this time.. on bipap and precedex at this time...
[2022-01-09 12:20] LABS: Glucose Point of Care 95 mg/dL (70-110)
--- NOTE | 2022-01-09 12:42 | PC.CHAP ---
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 legal officer visit [] Patient/Family/Request visit [] Outpatient visit [] Follow-up visit [] Physician referral [] Code/Alert [x] Routine visit [] Staff referral [] Actively dying [] Patient sleeping [] Family support [] [] Out of room [] Palliative care [] [] Receiving care in room [] Pre-surgical visit [] Trauma [] Long length of stay [x] ICU visit [x] Other: patient not comfortable with strangers.. Relational/Emotional Strength [] Patient feels connected with others/family/visitors/staff [] Distress [] Loneliness/isolation [] Abandonment Spirituality of Patient [] Person of Navya [] Attends Oriental Orthodox of their Navya [] Believes in Prayer [] Reads Bible or Gnosticism materials [] There are Spiritual issues to be addressed [employer] Wheel Operator Interventions [x] Prayer [] Active listening [] Non-anxious presence [] Spiritual/emotional support [] Crisis/trauma care [] Spiritual counseling [] Bereavement support [] Provided bereavement packet [] Provided Bible/devotional materials [] Provided toy/stuffed animal, coloring book to patient or family member [] Provided Communion [] Anointing/[place] [] Salvation [x] Completed spiritual assessment [] Other: Impact on Illness or Injury [] Angry [] Fearful [] Anxious [] Often cries [] Exhaustion [] Unable to work [] Unable to attend temple [] Unable to walk/stand [] Unable to read [] Unable to drive [] Unable to eat/drink [] Unable to sleep [] Unable to be with family [] Patient intubated [] Other: Summary Time spent with patient
[2022-01-09 17:27] LABS: Glucose Point of Care 105 mg/dL (70-110)
[2022-01-09] MEDS: doxycycline 100 mg Tablet PO (17:36)
[2022-01-09] MEDS: latanoprost 0.005% Op Soln 2.5 mL Btl 1 DROP EYE-BOTH (19:59)
[2022-01-09] MEDS: enoxaparin 40 mg/0.4 mL Syringe SUBCUT (19:59)
[2022-01-09 21:11] LABS: Glucose Point of Care 72 mg/dL (70-110)
[2022-01-10] VITALS (52 sets, daily range): BP systolic 90–122; BP diastolic 0–56; PULSE 80–97; RESP 15–29; TEMP 35.8–36.6; O2SAT 77–100
[2022-01-10] MEDS: acetaminophen 500 mg Tablet PO (00:59)
--- NOTE | 2022-01-10 01:42 | PC.NURSE ---
Shift Details Pt very wiggly throughout shift. Bed alarm turned on and pt frequently repositioned to be in bed the correct way. Pt stated she had pain in her legs. Dayshift RN implied that PO medicines were possible. Tylenol was given. Pt had trouble swallowing the pill and eventually just chewed it up. Pt continues to c/o pain and mumbles.
[2022-01-10] MEDS: morphine 4 mg/mL SDV 1 mL 1 MG IVP ×3 (04:04→18:27)
[2022-01-10 07:51] LABS: Glucose Point of Care 84 mg/dL (70-110)
[2022-01-10] MEDS: ipratropium-albuterol 3 mL Neb INHALATION ×2 (08:11→11:57)
[2022-01-10] MEDS: budesonide 0.5 mg/2 mL Neb INHALATION (08:11)
--- NOTE | 2022-01-10 09:32 | PC.NURSE ---
very restless and agitated remains mottled and cool to touch unable to obtain automatic pressure , taken manual . confusion noted son here at bedside requesting that bipap off for awhile so they could visit..
[2022-01-10] MEDS: pantoprazole 40 mg SDV IVP (09:43)
[2022-01-10 11:46] LABS: Glucose Point of Care 79 mg/dL (70-110)
--- NOTE | 2022-01-10 12:14 | PC.NURSE ---
restless unable to obtain blood pressure resperations more aganol and laborded at this time son at bedside on o2 nc at this time morphine given
--- NOTE | 2022-01-10 13:58 | PM.PN ---
Subjective Subjective: Patient is not oriented, she is confused, nonpurposeful movements of her extremities Dehydrated Malnourished Wide open eyes Son had decided to initiate comfort care today Vitals/I&O/Wt Last Vital Signs Temp 98 F 01/09/22 18:00 Pulse 87 01/10/22 12:03 Resp 24 H 01/10/22 12:03 BP 122/56 01/10/22 08:00 Pulse Ox 90 01/10/22 09:00 O2 Del Method 01/10/22 12:03 O2 Flow Rate 3 01/10/22 12:03 FiO2 30 01/10/22 08:16 01/09/22 01/10/22 01/10/22 22:59 06:59 14:59 Intake Total 150 / 371.547 50 / 421.547 Output Total 400 / 400 250 / 650 Balance -250 / -28.453 -200 / -228.453 Physical Exam Narrative: Currently on 3 L nasal cannula Active wheezing Cachectic, malnourished Multiple petechial bruises Dehydrated Nonpurposeful movements Moving her extremities Wide open eyes Seems to be in distress Not using her shoulder girdle today, extremity tired and fatigued Urinary Catheter Management: Hutson: Cath Placed During This Visit: yes Reason for Continuing Indwelling Catheter: Accurate Measurement of Urinary Output in Critically Ill Patients Urinary Catheter Date of Insertion: 01/06/22 Data : 01/09/22 05:15 01/09/22 05:15 A&P Assessment and plan (1) Need for comfort care: Status: Acute Plan Initiate palliative/comfort care I will discontinue DVT prophylaxis, I will discontinue her antibiotics, continue oxygen for now, son at the bedside ICU nurse updated Attestations Medical Necessity Statement*: ICU she can be transferred out of ICU Critical Care Time: 10 Coding Level of Care Code Acute Greens 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
[2022-01-10 17:10] LABS: Glucose Point of Care 48 mg/dL (70-110)
--- NOTE | 2022-01-10 18:29 | PC.NURSE ---
noted that blood sugar low has been npo son at bedside for comfort cart .. morphine given for comfort uable to obtain pressure doppled at 90 systolic
[2022-01-10] MEDS: latanoprost 0.005% Op Soln 2.5 mL Btl 1 DROP EYE-BOTH (20:32)
[2022-01-11] VITALS (11 sets, daily range): PULSE 68–77; RESP 16–26; O2SAT 66–100
[2022-01-11] MEDS: morphine 4 mg/mL SDV 1 mL 1 MG IVP (00:15)
--- NOTE | 2022-01-11 08:42 | PC.NURSE ---
son at bedside pt remains comfort care at this time resp shallow. o2 in use very lethargic minimal response noted son requested monitor off in room .
--- NOTE | 2022-01-11 10:27 | PC.NURSE ---
son and family here aware status doctor Q here talked with them to stop o2 and keep her as comfortable as possible morphine given and o2 removed
--- NOTE | 2022-01-11 11:06 | PC.NURSE ---
at [address] [facility] notified Verónica ... reference number [id number]
--- NOTE | 2022-01-11 11:45 | PM.DDS ---
Discharge Providers DDS Date of Admission: 01/06/22 15:51 Date Summary Completed: 01/11/22 Attending Provider at Admission: Cynthia Garcia MD Time of : 10:48 Attending Provider at Discharge: Cynthia Garcia MD Primary Care Provider: Misty Villaseñor MD DS Diagnoses Hospital Diagnoses (1) Need for comfort care: Reason for Visit Reason for Visit ACUTE RESPIRATORY DISTRESS Summary Date and Time of Date of : 01/11/22 Time of : 10:48 Summary Summary: Patient was admitted for management of COPD exacerbation, she was intubated in the ER, patient was successfully extubated to nasal cannula next day however she kept requiring BiPAP for her recurrent hypercapnic episodes, multiple family meetings were conducted, patient was getting BiPAP dependent, her p.o. intake was extremely poor, she was getting dehydrated, she kept refusing BiPAP throughout her hospitalization, we were in the midst of discussion of reintubating her when patient and her son decided to opt for comfort care. She is extremely cachectic, malnourished, has end-stage COPD Additional Data Advance directives?: No (patient intubated and unable to answer) Discharge Plan Discharge Patient Disposition: Condition: Stable Probable Cause of Probable cause of : End stage chronic obstructive pulmonary disease DS Attestations Time Spent in /Discharge Care*: less than 30 min Quality - AMI: AMI present?: No Quality - Stroke: CVA present?: No Quality - VTE: VTE present?: No Coding Level of Care Code Acute Guardian Family Member for [facility] Fwd Diagnoses Need for comfort care
--- NOTE | 2022-01-11 14:21 | PC.SOCIAL ---
IMM not updated Pt around 1053 this AM.
--- NOTE | 2022-01-11 15:00 | PC.NURSE ---
post mortem ns to eyes and prepared take to laura
== END 2022-01-11 10:50 | disposition expired | DRG 208 ==
LOC: ER 15:41 → ICU 16:15
PROVIDERS: Family Medicine; Admitting Provider Internal Medicine; Emergency Provider Emergency Medicine; PCP Family Medicine; Visit Provider Internal Medicine
DX: J96.02 Acute respiratory failure with hypercapnia (principal); J44.1 Chronic obstructive pulmonary disease with (acute) exacerbation; I50.32 Chronic diastolic (congestive) heart failure; R64 Cachexia; Z68.1 Body mass index [BMI] 19.9 or less, adult; E87.2 Acidosis; E46 Unspecified protein-calorie malnutrition; I11.0 Hypertensive heart disease with heart failure; E86.0 Dehydration; D72.829 Elevated white blood cell count, unspecified; Z86.14 Personal history of Methicillin resistant Staphylococcus aureus infection; Z99.81 Dependence on supplemental oxygen; Z87.891 Personal history of nicotine dependence; Z51.5 Encounter for palliative care
CPT/HCPCS: 36415; 36416; 36600; 51702; 70450; 71045; 71275; 74018; 76770; 80048; 80051; 80053; 82330; 82803; 82805; 82962; 83605; 83735; 83880; 84100; 84145; 84484; 85025; 86140; 86403; 87040; 87070; 87077; 87186; 87205; 87635; 87641; 93005; 93306; 94002; 94003; 94640; 94660; 94799; 96365; 96366; 96367; 96372; 96375; 97162; 99291; 99292; C1751; C9113; J0330; J0360; J0692; J0696; J1650; J1815; J1940; J2270; J2704; J2920; J2930; J3010; J3105; J3490; J7030; J7050; J7626; Q9967